=== PATIENT | male | born 1950 | race Asian ===

== ENCOUNTER 2020-02-04 13:55 | Inpatient (IN) | payer MEDICARE, OTHER ==
[~2020-02-04] VITALS: Ht 172.7 cm; Wt 65.3 kg
--- NOTE | 2020-02-04 13:50 | Emergency Room Report ---
History of Present Illness General Chief Complaint: Altered Level of Consciousness Source: Patient Present Illness HPI Patient is a 69-year-old male who presents for increased altered level consciousness. Patient had unknown onset of increased confusion. Prior history of alcohol abuse. Patient been brought in by EMS. 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 Patient History Past Medical History: see triage record Reviewed Nursing Documentation: PMH: Agreed; PSxH: Agreed Review of Systems All Other Systems: negative except mentioned in HPI Physical Exam Vital Signs Date Time Temp Pulse Resp B/P (MAP) Pulse Ox O2 Delivery O2 Flow Rate FiO2 02/04/20 13:45 98.2 66 16 153/74 (100) 99 Sp02 EP Interpretation: reviewed, normal General Appearance: normal inspection, alert, GCS 15, Chronically Ill Head: atraumatic ENT: normal ENT inspection, hearing grossly normal, normal voice Neck: normal inspection, full range of motion, supple, no bony tend Respiratory: normal inspection, lungs clear, normal breath sounds, no respiratory distress, no retraction, no wheezing Cardiovascular #1: regular rate, rhythm, no edema Gastrointestinal: normal inspection, normal bowel sounds, non tender, soft, no guarding, no hernia Genitourinary: no CVA tenderness Musculoskeletal: normal inspection, back normal, normal range of motion Neurologic: alert, responsive, speech normal, normal inspection, other - Oriented to name, does not know the day of the week or the year Psychiatric: normal inspection, judgement/insight normal, mood/affect normal Skin: no rash Medical Decision Making Diagnostic Impression: Primary Impression: Altered level of consciousness Additional Impressions: Dehydration Urinary tract bacterial infections Renal insufficiency ER Course Patient presented for altered mental status. Differential diagnosis include was not limited to CVA, hepatic encephalopathy, urinary tract infection, alcohol intoxication, intracranial hemorrhage among others. Because of complexity of patient's case laboratory tests and imaging studies were ordered.Patient's laboratory testing showed some evidence of urinary infection. Patient was noted markedly elevated BUN/creatinine consistent with dehydration. Started on IV fluids. CT imaging showed no acute pathology. Patient did have some improvement in mental status he was also given IV antibiotics due to urinary infection. Dr. Ebenezer Go was contacted for inpatient management. Labs Test 02/04/20 14:35 02/04/20 14:50 02/04/20 14:51 White Blood Count 9.9 K/UL (4.8-10.8) Red Blood Count 2.86 M/UL (4.70-6.10) Hemoglobin 9.0 G/DL (14.2-18.0) Hematocrit 27.7 % (42.0-52.0) Mean Corpuscular Volume 97 FL (80-99) Mean Corpuscular Hemoglobin 31.4 PG (27.0-31.0) Mean Corpuscular Hemoglobin Concent 32.5 G/DL (32.0-36.0) Red Cell Distribution Width 14.5 % (11.6-14.8) Platelet Count 108 K/UL (150-450) Mean Platelet Volume 6.2 FL (6.5-10.1) Neutrophils (%) (Auto) % (45.0-75.0) Lymphocytes (%) (Auto) % (20.0-45.0) Monocytes (%) (Auto) % (1.0-10.0) Eosinophils (%) (Auto) % (0.0-3.0) Basophils (%) (Auto) % (0.0-2.0) Differential Total Cells Counted 100 Neutrophils % (Manual) 93 % (45-75) Lymphocytes % (Manual) 3 % (20-45) Monocytes % (Manual) 4 % (1-10) Eosinophils % (Manual) 0 % (0-3) Basophils % (Manual) 0 % (0-2) Band Neutrophils 0 % (0-8) Platelet Estimate Decreased Platelet Morphology Normal Red Blood Cell Morphology Normal Prothrombin Time 11.4 SEC (9.30-11.50) Prothromb Time International Ratio 1.0 (0.9-1.1) Activated Partial Thromboplast Time 30 SEC (23-33) Sodium Level 137 MMOL/L (136-145) Potassium Level 4.6 MMOL/L (3.5-5.1) Chloride Level 104 MMOL/L (98-107) Carbon Dioxide Level 25 MMOL/L (21-32) Anion Gap 8 mmol/L (5-15) Blood Urea Nitrogen 93 mg/dL (7-18) Creatinine 3.1 MG/DL (0.55-1.30) Estimat Glomerular Filtration Rate 20.0 mL/min (>60) Glucose Level 145 MG/DL (74-106) Lactic Acid Level 1.30 mmol/L (0.4-2.0) Calcium Level 8.9 MG/DL (8.5-10.1) Phosphorus Level 3.3 MG/DL (2.5-4.9) Magnesium Level 3.3 MG/DL (1.8-2.4) Total Bilirubin 1.0 MG/DL (0.2-1.0) Aspartate Amino Transf (AST/SGOT) 61 U/L (15-37) Alanine Aminotransferase (ALT/SGPT) 27 U/L (12-78) Alkaline Phosphatase 145 U/L (46-116) Ammonia 11 umol/L (11-32) Total Creatine Kinase 811 U/L (26-308) Creatine Kinase MB 31.3 NG/ML (0.0-3.6) Creatine Kinase MB Relative Index 3.8 Troponin I 0.030 ng/mL (0.000-0.056) Total Protein 8.5 G/DL (6.4-8.2) Albumin 3.5 G/DL (3.4-5.0) Globulin 5.0 g/dL Albumin/Globulin Ratio 0.7 (1.0-2.7) Serum Alcohol < 3 mg/dL Urine Color Pale yellow Urine Appearance Cloudy Urine pH 5 (4.5-8.0) Urine Specific [place] 1.010 (1.005-1.035) Urine Protein 3+ (NEGATIVE) Urine Glucose (UA) Negative (NEGATIVE) Urine Ketones Negative (NEGATIVE) Urine Blood 5+ (NEGATIVE) Urine Nitrite Positive (NEGATIVE) Urine Bilirubin Negative (NEGATIVE) Urine Urobilinogen Normal MG/DL (0.0-1.0) Urine Leukocyte Esterase 2+ (NEGATIVE) Urine RBC Tntc /HPF (0 - 0) Urine WBC 15-20 /HPF (0 - 0) Urine Squamous Epithelial Cells Occasional /LPF Urine Bacteria Many /HPF (NONE) Urine Opiates Screen Negative (NEGATIVE) Urine Barbiturates Screen Negative (NEGATIVE) Phencyclidine (PCP) Screen Negative (NEGATIVE) Urine Amphetamines Screen Negative (NEGATIVE) Urine Benzodiazepines Screen Negative (NEGATIVE) Urine Cocaine Screen Negative (NEGATIVE) Urine Marijuana (THC) Screen Negative (NEGATIVE) POC Whole Blood Glucose 151 MG/DL (74-106) Last Vital Signs Date Time Temp Pulse Resp B/P (MAP) Pulse Ox O2 Delivery O2 Flow Rate FiO2 02/04/20 13:45 98.2 66 16 153/74 (100) 99 Status: improved Disposition: PLACE IN OBSERVATION Condition: Stable Boby Carballo MD Feb 04, 2020 13:50
[2020-02-04 15:00] VITALS: BP 153/74
[2020-02-04 15:06] LABS: HEMATOCRIT 27.7 % (42.0-52.0); MEAN CORPUSCULAR VOLUME 97 FL (80-99); PLATELET COUNT 108 K/UL (150-450); RED BLOOD COUNT 2.86 M/UL (4.70-6.10); RED CELL DISTRIBUTION WIDTH 14.5 % (11.6-14.8); WHITE BLOOD COUNT 9.9 K/UL (4.8-10.8)
[2020-02-04 15:21] LABS: AMMONIA 11 umol/L (11-32)
[2020-02-04 15:22] LABS: ANION GAP 8 mmol/L (5-15); BLOOD UREA NITROGEN 93 mg/dL (7-18); CALCIUM 8.9 MG/DL (8.5-10.1); CARBON DIOXIDE 25 MMOL/L (21-32); CHLORIDE 104 MMOL/L (98-107); CREATININE 3.1 MG/DL (0.55-1.30); POTASSIUM 4.6 MMOL/L (3.5-5.1); SODIUM 137 MMOL/L (136-145)
--- NOTE | 2020-02-04 15:30 | Diagnostic Imaging Report ---
Indication: Chest pain Technique: One view of the chest Comparison: none Findings: No acute infiltrates, effusions, or congestion. Tortuous calcified aorta. Normal heart size. Upper mediastinum unremarkable. Impression: No acute process.
[2020-02-04 15:34] LABS: ALANINE AMINOTRANSFERASE 27 U/L (12-78); ALBUMIN 3.5 G/DL (3.4-5.0); ALBUMIN/GLOBULIN RATIO 0.7 (1.0-2.7); ALKALINE PHOSPHATASE 145 U/L (46-116); ASPARTATE AMINO TRANSFERASE 61 U/L (15-37); CKMB 31.3 NG/ML (0.0-3.6); CREATINE KINASE 811 U/L (26-308); PHOSPHORUS 3.3 MG/DL (2.5-4.9)
[2020-02-04 15:47] LABS: BILIRUBIN, URINE NEGATIVE (NEGATIVE); COLOR,URINE PALE YELLOW; GLUCOSE, URINE (UA) NEGATIVE (NEGATIVE); KETONES,URINE NEGATIVE (NEGATIVE); LEUKOCYTE ESTERASE ,URINE 2+ (NEGATIVE); NITRITE,URINE POSITIVE (NEGATIVE); PH,URINE 5 (4.5-8.0); PROTEIN,URINE 3+ (NEGATIVE); UROBILINOGEN,URINE NORMAL MG/DL (0.0-1.0)
[2020-02-04 15:56] LABS: APPEARANCE,URINE CLOUDY
[2020-02-04] MEDS ORDERED: cefTRIAXone 1 GM in NS 55 ML IVPB ONE (16:30)
--- NOTE | 2020-02-04 17:25 | Diagnostic Imaging Report ---
Indications: Altered mental status Technique: Spiral acquisitions obtained through the brain. Angled axial and coronal 5 x 5 mm slices were reconstructed. Total dose length product 1030 mGycm. CTDI vol(s) 3 mGy. Dose reduction achieved using automated exposure control Comparison: None. Findings: There is age-related enlargement of the ventricles and extra axial CSF spaces. There is periventricular deep white matter low-attenuation, consistent with chronic microvascular ischemic change. No acute intracranial hemorrhage or edema. No mass effect nor midline shift. Normal young-white differentiation otherwise. The mastoids are clear. The sinuses are clear. There is evidence of a bilateral cataract surgery. The calvarium is intact Impression: Chronic and age-related changes Negative for acute intracranial bleed or mass effect The CT scanner at [facility] is accredited by the [employer] and the scans are performed using protocols designed to limit radiation exposure to as low as reasonably achievable to attain images of sufficient resolution adequate for diagnostic evaluation.
[2020-02-04 22:00] VITALS: BP 168/73
[2020-02-05] MEDS: LORazepam Inj 2mg/ml 1ml IV PRN ×3 (00:11→10:17)
[2020-02-05] MEDS ORDERED: Cefepime HCl 1 GM in D5W 55 ML IVPB SCH ×2 (01:00→05:00)
[2020-02-05 04:00] VITALS: BP 112/67
[2020-02-05 08:00] VITALS: BP 161/68
[2020-02-05 12:00] VITALS: BP 166/82
[2020-02-05 16:00] VITALS: BP 118/68
--- NOTE | 2020-02-05 16:29 | Consultation ---
DATE OF CONSULTATION: 02/05/2020 NEPHROLOGY CONSULTATION CONSULTING PHYSICIAN: Greg Garcia MD. ATTENDING PHYSICIAN: Ebenezer Go MD. REASON FOR CONSULTATION: Elevated BUN and creatinine. HISTORY OF PRESENT ILLNESS: This is a 69-year-old male. The patient is confused and unable to give any further information. He is originally from home brought by ambulance. Apparently, he was brought in by a neighbor who called 911. PAST MEDICAL HISTORY: Essentially negative. MEDICATIONS: None. ALLERGIES: No known allergies. REVIEW OF SYSTEMS: Unable to obtain due to mental status. PHYSICAL EXAMINATION: GENERAL: This is an elderly male, who is in no acute distress. VITAL SIGNS: Blood pressure 166/82, pulse 75 and regular, respirations 18, and temperature 97.5 Fahrenheit oral. HEENT: The head is normocephalic and atraumatic. Pupils are equal, round, and reactive to light. NECK: Supple. Trachea midline. There was no lymphadenopathy or thyromegaly. LUNGS: Clear to auscultation and percussion. HEART: Regular rate and rhythm without rubs, murmurs, or gallops. ABDOMEN: Soft and nontender. Bowel sounds were active. EXTREMITIES: No clubbing, cyanosis, or edema. NEUROLOGICAL: He is confused. There were no gross focal findings. LABORATORY AND ANCILLARY DATA: CBC shows hematocrit 27.7, platelet count is 108,000. Serum toxicology negative. Chemistry, electrolytes within normal limits. Creatinine 3.1, BUN 93. Alkaline phosphatase 145. CPK 811. Urinalysis - 3+ protein, 5+ blood, positive nitrites, too numerous to count rbc's, 15 to 20 white blood cells. IMAGING REPORTS: Head CT, age-related enlargement of the ventricle. No acute findings. Chest x-ray, no acute disease. ASSESSMENT: My suspicion is the existence of acute rhabdomyolysis of whatever reason or another reason for acute renal failure such as acute tubular necrosis for whatever reasons be it metabolic or toxic. We will check renal ultrasound and follow the patient's serial chemistry. Thank you, Dr. Go, for letting me to participate in the care of this interesting patient. Greg Garcia M.D. DR: DAVID JOB#: [id number] CC: JULIET
--- NOTE | 2020-02-05 16:59 | History and Physical Report ---
DATE OF ADMISSION: 02/04/2020 REASON FOR ADMISSION: Altered mental status. HISTORY OF PRESENT ILLNESS: This is a 69-year-old male who presents with worsening confusion. The patient has unknown familiarity and time. The patient has a history of alcohol use in the past. Further history is unobtainable. The patient is not communicative at present. Care discussed and reviewed. The patient admitted for further evaluation and intervention. The patient is confused, but in no significant distress. Findings in the emergency room revealed renal failure. PAST MEDICAL HISTORY: None. MEDICATIONS: None. SOCIAL HISTORY: Unclear. REVIEW OF SYSTEMS: Unobtainable due to the patient's present state. PHYSICAL EXAMINATION: GENERAL: The patient is a well-developed male, appears comfortable. VITAL SIGNS: Blood pressure 161/68, pulse 84, respirations 18, temperature 97.5. O2 sats 98%. HEENT: Negative. NECK: Supple. LUNGS: Fairly clear, symmetric. CARDIAC: S1, S2. Regular rate and rhythm. ABDOMEN: Soft. EXTREMITIES: No edema. NEUROLOGIC: The patient is moving all extremities. LABORATORY DATA: Head CT is essentially negative. BUN 293 , creatinine 3.1. Magnesium 3.3. Total CK is 811. Albumin is normal. IMPRESSION: 1. Likely acute on chronic renal failure. 2. Toxic metabolic encephalopathy of unclear etiology. 3. Possible urinary tract infection. RECOMMENDATIONS: Supportive care. Physical therapy to see. We will attempt to discuss with the family as to prior status and medication list present. We will follow clinically, obtain urine evaluation. Consider neurological evaluation. Monitor clinically for changes and optimize care. Ebenezer Go M.D. DR: LILIANA JOB#: [id number] CC:
[2020-02-05 20:00] VITALS: BP 163/74
[2020-02-06] VITALS: BP 146/56
[2020-02-06 04:00] VITALS: BP 144/61
[2020-02-06] MEDS: Cefepime HCl 1 GM in D5W 55 ML IVPB SCH (06:06)
[2020-02-06 06:42] LABS: BLOOD UREA NITROGEN 67 mg/dL (7-18); CALCIUM 8.2 MG/DL (8.5-10.1); CARBON DIOXIDE 22 MMOL/L (21-32); CHLORIDE 115 MMOL/L (98-107); CREATININE 2.5 MG/DL (0.55-1.30); POTASSIUM 4.7 MMOL/L (3.5-5.1); SODIUM 144 MMOL/L (136-145)
[2020-02-06 08:00] VITALS: BP 155/88
[2020-02-06 12:00] VITALS: BP 132/87
--- NOTE | 2020-02-06 12:13 | Nephrology Progress Note ---
Assessment/Plan Plan ARF -resolving Check renal US Subjective Subjective Confused Objective Objective Last 24 Hour Vital Signs Date Time Temp Pulse Resp B/P (MAP) Pulse Ox O2 Delivery O2 Flow Rate FiO2 02/06/20 09:00 Room Air 02/06/20 08:00 99.3 75 20 155/88 (110) 98 02/06/20 04:00 98.7 64 18 144/61 (88) 99 02/06/20 00:00 99.8 65 18 146/56 (86) 97 02/05/20 22:55 99.0 02/05/20 22:23 163/74 02/05/20 21:00 Room Air 02/05/20 20:00 100.7 80 18 163/74 (103) 95 02/05/20 16:00 100.5 76 18 118/68 (85) 98 Intake and Output 02/05/20 02/06/20 19:00 07:00 Intake Total 1000 ml 460 ml Output Total 700 ml 600 ml Balance 300 ml -140 ml IV Total 800 ml 100 ml Other 200 ml 360 ml Output Urine Total 700 ml 600 ml Laboratory Tests 02/06/20 05:30: Sodium Level 144, Potassium Level 4.7, Chloride Level 115H, Carbon Dioxide Level 22, Blood Urea Nitrogen 67H, Creatinine 2.5H, Estimat Glomerular Filtration Rate 25.7, Glucose Level 113H, Calcium Level 8.2L, Phosphorus Level 3.0 Height (Feet): 5 Height (Inches): 8.00 Weight (Pounds): 144 Objective CV RR Lungs CTA Abd SNT BS+ E No CCE Greg Garcia MD Feb 06, 2020 12:13
--- NOTE | 2020-02-06 14:18 | General Progress Note ---
Subjective Allergies: Coded Allergies: No Known Allergies (Unverified , 02/04/20) Subjective care noted and reviewed still altered unclear as to living conditions Objective Last 24 Hour Vital Signs Date Time Temp Pulse Resp B/P (MAP) Pulse Ox O2 Delivery O2 Flow Rate FiO2 02/06/20 09:00 Room Air 02/06/20 08:00 99.3 75 20 155/88 (110) 98 02/06/20 04:00 98.7 64 18 144/61 (88) 99 02/06/20 00:00 99.8 65 18 146/56 (86) 97 02/05/20 22:55 99.0 02/05/20 22:23 163/74 02/05/20 21:00 Room Air 02/05/20 20:00 100.7 80 18 163/74 (103) 95 02/05/20 16:00 100.5 76 18 118/68 (85) 98 Intake and Output 02/05/20 02/06/20 19:00 07:00 Intake Total 1000 ml 460 ml Output Total 700 ml 600 ml Balance 300 ml -140 ml IV Total 800 ml 100 ml Other 200 ml 360 ml Output Urine Total 700 ml 600 ml Laboratory Tests 02/06/20 05:30: Sodium Level 144, Potassium Level 4.7, Chloride Level 115H, Carbon Dioxide Level 22, Blood Urea Nitrogen 67H, Creatinine 2.5H, Estimat Glomerular Filtration Rate 25.7, Glucose Level 113H, Calcium Level 8.2L, Phosphorus Level 3.0 Height (Feet): 5 Height (Inches): 8.00 Weight (Pounds): 144 Objective WDWN NAD clear breath sounds bilaterally without rhonchi or wheeze [id number] without MRG NABS nontender no HSM no CCE nonfocal confused Assessment/Plan Assessment/Plan: UTI acute on chronic renal failure anemia toxic metabolic encephalopathy elevated liver enzymes PLAN care noted monitor labs iv hydration PT eval CM to assist with placement impression, plan, and exam edited and reviewed in detail care discussed with Ebenezer Walters MD Feb 06, 2020 14:18
[2020-02-06 16:00] VITALS: BP 118/75
--- NOTE | 2020-02-06 17:12 | Diagnostic Imaging Report ---
Indication: Is abnormal renal function tests Technique: Grayscale and duplex images of the kidneys, retroperitoneum, and bladder were obtained. Comparison: none Findings: Right kidney measures 10.3 cm in length. Left kidney measures 10.2 cm in length. Both kidneys demonstrate normal echogenicity. No hydronephrosis. No focal abnormality. Normal inferior vena cava. Bladder is normal. Impression: negative.
[2020-02-06 20:00] VITALS: BP 130/78
[2020-02-07] VITALS (7 sets, daily range): BP systolic 124–169; BP diastolic 51–92
[2020-02-07] MEDS: LORazepam Inj 2mg/ml 1ml IV PRN (01:53)
[2020-02-07] MEDS: Cefepime HCl 1 GM in D5W 55 ML IVPB SCH (05:13)
[2020-02-07 07:37] LABS: CREATININE 2.7 MG/DL (0.55-1.30); POTASSIUM 4.5 MMOL/L (3.5-5.1)
--- NOTE | 2020-02-07 08:55 | General Progress Note ---
Subjective ROS Limited/Unobtainable: Yes Allergies: Coded Allergies: No Known Allergies (Unverified , 02/04/20) Subjective care noted and reviewed LOC without change unclear as to living conditions Objective Last 24 Hour Vital Signs Date Time Temp Pulse Resp B/P (MAP) Pulse Ox O2 Delivery O2 Flow Rate FiO2 02/07/20 05:16 167/86 02/07/20 04:00 98.9 82 16 169/81 (110) 98 02/07/20 02:23 98 18 127/92 98 02/07/20 01:53 98 18 127/92 98 02/07/20 01:14 99.6 02/07/20 00:30 99.6 02/07/20 00:00 100.6 98 18 127/92 (104) 98 02/06/20 21:00 Room Air 02/06/20 20:00 98.7 83 20 130/78 (95) 99 02/06/20 16:00 97.9 76 20 118/75 (89) 98 02/06/20 12:00 99.1 75 20 132/87 (102) 99 02/06/20 09:00 Room Air Intake and Output 02/06/20 02/07/20 19:00 07:00 Intake Total 1580 ml 400 ml Output Total 875 ml 750 ml Balance 705 ml -350 ml Intake Oral 480 ml IV Total 1100 ml Other 400 ml Output Urine Total 875 ml 750 ml Laboratory Tests 02/07/20 06:50: Sodium Level 148H, Potassium Level 4.5, Chloride Level 120H, Carbon Dioxide Level 19L, Anion Gap 9, Blood Urea Nitrogen 60H, Creatinine 2.7H, Estimat Glomerular Filtration Rate 23.5, Glucose Level 138H, Calcium Level 8.0L, Magnesium Level 2.7H Height (Feet): 5 Height (Inches): 8.00 Weight (Pounds): 144 Objective WDWN NAD clear breath sounds bilaterally without rhonchi or wheeze [id number] without MRG NABS nontender no HSM no CCE nonfocal confused Assessment/Plan Assessment/Plan: UTI acute on chronic renal failure anemia toxic metabolic encephalopathy elevated liver enzymes hypertension PLAN care noted monitor labs iv hydration PT eval CM to assist with placement written BP support impression, plan, and exam edited and reviewed in detail care discussed with Ebenezer Walters MD Feb 07, 2020 08:55
--- NOTE | 2020-02-07 11:41 | Nephrology Progress Note ---
Assessment/Plan Plan ARF -resolving. Creatinine now stable. Check 24 hour Ccr. Check renal US - normal study. Subjective Subjective Confused Objective Objective Last 24 Hour Vital Signs Date Time Temp Pulse Resp B/P (MAP) Pulse Ox O2 Delivery O2 Flow Rate FiO2 02/07/20 09:26 68 155/65 02/07/20 09:00 Room Air 02/07/20 08:00 97.9 68 20 155/65 (95) 98 02/07/20 05:16 167/86 02/07/20 04:00 98.9 82 16 169/81 (110) 98 02/07/20 02:23 98 18 127/92 98 02/07/20 01:53 98 18 127/92 98 02/07/20 01:14 99.6 02/07/20 00:30 99.6 02/07/20 00:00 100.6 98 18 127/92 (104) 98 02/06/20 21:00 Room Air 02/06/20 20:00 98.7 83 20 130/78 (95) 99 02/06/20 16:00 97.9 76 20 118/75 (89) 98 02/06/20 12:00 99.1 75 20 132/87 (102) 99 Intake and Output 02/06/20 02/07/20 19:00 07:00 Intake Total 1580 ml 500 ml Output Total 875 ml 750 ml Balance 705 ml -250 ml Intake Oral 480 ml IV Total 1100 ml 100 ml Other 400 ml Output Urine Total 875 ml 750 ml Laboratory Tests 02/07/20 06:50: Sodium Level 148H, Potassium Level 4.5, Chloride Level 120H, Carbon Dioxide Level 19L, Anion Gap 9, Blood Urea Nitrogen 60H, Creatinine 2.7H, Estimat Glomerular Filtration Rate 23.5, Glucose Level 138H, Calcium Level 8.0L, Magnesium Level 2.7H Height (Feet): 5 Height (Inches): 8.00 Weight (Pounds): 144 Objective CV RR Lungs CTA Abd SNT BS+ E No CCE Greg Garcia MD Feb 07, 2020 11:41
[2020-02-08] VITALS (8 sets, daily range): BP systolic 141–200; BP diastolic 67–81
[2020-02-08] MEDS: Cefepime HCl 1 GM in D5W 55 ML IVPB SCH (04:49)
[2020-02-08 06:45] LABS: CALCIUM 7.6 MG/DL (8.5-10.1); CREATININE 2.6 MG/DL (0.55-1.30); POTASSIUM 4.1 MMOL/L (3.5-5.1)
--- NOTE | 2020-02-08 09:09 | General Progress Note ---
Subjective Allergies: Coded Allergies: No Known Allergies (Unverified , 02/04/20) Subjective care noted and reviewed LOC without change unclear as to living conditions Objective Last 24 Hour Vital Signs Date Time Temp Pulse Resp B/P (MAP) Pulse Ox O2 Delivery O2 Flow Rate FiO2 02/08/20 08:26 67 200/71 02/08/20 08:26 200/71 02/08/20 04:00 98.6 84 20 176/81 (112) 95 02/08/20 03:58 176/81 02/08/20 00:00 98.5 69 20 141/78 (99) 98 02/07/20 20:12 Room Air 02/07/20 20:00 98.9 62 20 149/71 (97) 95 02/07/20 18:21 98.0 63 20 124/51 (75) 97 02/07/20 17:27 98.6 02/07/20 16:56 165/72 02/07/20 16:00 98.6 75 20 165/72 (103) 97 02/07/20 12:20 168/79 02/07/20 12:00 98.1 72 20 168/79 (108) 97 02/07/20 09:26 68 155/65 Intake and Output 02/07/20 02/08/20 19:00 07:00 Intake Total 1600 ml 800 ml Output Total 600 ml Balance 1600 ml 200 ml Intake Oral 600 ml 800 ml IV Total 1000 ml Output Urine Total 600 ml Laboratory Tests 02/08/20 05:45: Sodium Level 140, Potassium Level 4.1, Chloride Level 113H, Carbon Dioxide Level 18L, Anion Gap 9, Blood Urea Nitrogen 57H, Creatinine 2.6H, Estimat Glomerular Filtration Rate 24.5, Glucose Level 153H, Calcium Level 7.6L Height (Feet): 5 Height (Inches): 8.00 Weight (Pounds): 144 Objective WDWN NAD clear breath sounds bilaterally without rhonchi or wheeze [id number] without MRG NABS nontender no HSM no CCE nonfocal confused Assessment/Plan Assessment/Plan: UTI acute on chronic renal failure anemia toxic metabolic encephalopathy elevated liver enzymes hypertension PLAN care noted monitor labs iv hydration PT eval CM to assist with placement written BP support- adjust impression, plan, and exam edited and reviewed in detail care discussed with Ebenezer Walters MD Feb 08, 2020 09:09
[2020-02-08 12:58] LABS: CREATININE 2.6 MG/DL (0.55-1.30)
--- NOTE | 2020-02-08 13:03 | Nephrology Progress Note ---
Assessment/Plan Plan ARF -resolving. Creatinine now stable. Check 24 hour Ccr. Check renal US - normal study. Subjective Subjective Confused Objective Objective Last 24 Hour Vital Signs Date Time Temp Pulse Resp B/P (MAP) Pulse Ox O2 Delivery O2 Flow Rate FiO2 02/08/20 09:49 98.9 69 19 160/75 (103) 96 02/08/20 09:00 Room Air 02/08/20 08:26 67 200/71 02/08/20 08:26 200/71 02/08/20 08:00 99.1 67 18 200/71 (114) 95 02/08/20 04:00 98.6 84 20 176/81 (112) 95 02/08/20 03:58 176/81 02/08/20 00:00 98.5 69 20 141/78 (99) 98 02/07/20 20:12 Room Air 02/07/20 20:00 98.9 62 20 149/71 (97) 95 02/07/20 18:21 98.0 63 20 124/51 (75) 97 02/07/20 17:27 98.6 02/07/20 16:56 165/72 02/07/20 16:00 98.6 75 20 165/72 (103) 97 Intake and Output 02/07/20 02/08/20 19:00 07:00 Intake Total 1600 ml 800 ml Output Total 600 ml Balance 1600 ml 200 ml Intake Oral 600 ml 800 ml IV Total 1000 ml Output Urine Total 600 ml Laboratory Tests 02/08/20 05:45: Sodium Level 140, Potassium Level 4.1, Chloride Level 113H, Carbon Dioxide Level 18L, Anion Gap 9, Blood Urea Nitrogen 57H, Creatinine 2.6H, Estimat Glomerular Filtration Rate 24.5, Glucose Level 153H, Calcium Level 7.6L 02/08/20 12:00: Creatinine 2.6H, Estimat Glomerular Filtration Rate 24.5, Urine Collection Time 24, Urine Total Volume 1200, Urine Creatinine [Pending], Urine Creatinine 24 Hour [Pending], Patient Height Inches (Creat Clear) 68, Patient Weight Pounds (Creat Clear) 143.99, Creatinine Clearance [Pending] Height (Feet): 5 Height (Inches): 8.00 Weight (Pounds): 144 Objective CV RR Lungs CTA Abd SNT BS+ E No CCE Greg Garcia MD Feb 08, 2020 13:03
[2020-02-09] VITALS: BP 168/76
[2020-02-09 04:00] VITALS: BP 156/77
[2020-02-09] MEDS: Cefepime HCl 1 GM in D5W 55 ML IVPB SCH (04:14)
[2020-02-09 08:00] VITALS: BP 158/88
[2020-02-09] MEDS ORDERED: AMLODIPINE BESYL5 MG ORAL (10:25)
[2020-02-09] MEDS ORDERED: BENAZEPRIL HCL20 MG ORAL (10:25)
[2020-02-09] MEDS ORDERED: CATAPRES0.1 MG ORAL (10:28)
[2020-02-09] MEDS ORDERED: PANTOPRAZOLE SO40 MG ORAL (10:28)
[2020-02-09] MEDS ORDERED: CEFEPIME-D1 GM/50 ML IVPB (10:29)
--- NOTE | 2020-02-09 11:02 | Pulmonology Progress Note ---
Subjective ROS Limited/Unobtainable: Yes Allergies: Coded Allergies: No Known Allergies (Unverified , 02/04/20) Objective Last 24 Hour Vital Signs Date Time Temp Pulse Resp B/P (MAP) Pulse Ox O2 Delivery O2 Flow Rate FiO2 02/09/20 09:00 Room Air 02/09/20 09:00 158/88 02/09/20 09:00 60 158/88 02/09/20 08:00 98.1 60 19 158/88 (111) 98 02/09/20 04:47 156/77 02/09/20 04:00 97.0 61 18 156/77 (103) 99 02/09/20 00:13 168/76 02/09/20 00:00 97.0 63 19 168/76 (106) 98 02/08/20 20:25 Room Air 02/08/20 20:00 97.0 61 18 143/75 (97) 99 02/08/20 18:05 68 151/72 02/08/20 17:50 98.4 68 20 151/72 (98) 96 02/08/20 16:47 184/67 02/08/20 16:00 98.4 71 20 184/67 (106) 95 02/08/20 13:25 193/70 02/08/20 12:00 98.0 65 19 193/70 (111) 95 Intake and Output 02/08/20 02/09/20 19:00 07:00 Intake Total 1160 ml 480 ml Output Total 600 ml 400 ml Balance 560 ml 80 ml Intake Oral 1160 ml 480 ml Output Urine Total 600 ml 400 ml Laboratory Tests 02/08/20 12:00: Urine Collection Time 24, Urine Total Volume 1200, Urine Creatinine 96, Urine Creatinine 24 Hour 1152, Patient Height Inches (Creat Clear) 68, Patient Weight Pounds (Creat Clear) 143.99, Creatinine Clearance 30L, Creatinine 2.6H, Estimat Glomerular Filtration Rate 24.5 Current Medications Medications (Trade) Dose Ordered Sig/James Route PRN Reason Start Time Stop Time Status Last Admin Dose Admin Acetaminophen (Tylenol) 650 mg Q4H PRN ORAL Temp >100.5 02/04/20 23:15 03/05/20 23:14 02/05/20 22:25 Acetaminophen (Tylenol) 650 mg Q4H PRN ORAL Mild Pain (Pain Scale 1-3) 02/04/20 23:15 03/05/20 23:14 02/09/20 00:14 Al Hydroxide/Mg Hydroxide (Mylanta) 30 ml FOUR TIMES A DAY PRN ORAL Constipation 02/04/20 23:15 03/05/20 23:14 02/05/20 22:23 Amlodipine Besylate (Norvasc) 5 mg BID ORAL 02/08/20 18:00 03/08/20 17:59 02/08/20 18:05 Benazepril HCl (Lotensin) 20 mg DAILY ORAL 02/09/20 09:00 03/10/20 08:59 Cefepime HCl 1 gm/ Dextrose 55 ml @ 110 mls/hr Q24H IVPB 02/06/20 05:00 02/13/20 04:59 02/09/20 04:14 Clonidine HCl (Catapres Tab) 0.1 mg Q4H PRN ORAL For High Blood Pressure 02/05/20 08:00 05/05/20 07:59 02/09/20 04:47 Lorazepam (Ativan 2mg/ml 1ml) 1 mg Q3H PRN IV Agitation 02/04/20 23:15 02/11/20 23:14 02/07/20 01:53 Pantoprazole (Protonix) 40 mg DAILY ORAL 02/05/20 09:00 03/06/20 08:59 02/08/20 08:24 Sodium Chloride 1,000 ml @ 60 mls/hr [id number] IV 02/08/20 17:15 03/08/20 10:44 02/09/20 08:59 Assessment/Plan Assessment/Plan Pulmonary Progress Note Subjective ROS Limited/Unobtainable: Yes Allergies: Coded Allergies: No Known Allergies (Unverified , 02/04/20) Subjective care noted and reviewed LOC without change Objective Vital Signs noted Laboratory Tests noted Height (Feet): 5 Height (Inches): 8.00 Weight (Pounds): 144 Objective WDWN NAD clear breath sounds bilaterally without rhonchi or wheeze [id number] without MRG NABS nontender no HSM no CCE nonfocal confused Assessment/Plan Assessment/Plan: UTI acute on chronic renal failure anemia toxic metabolic encephalopathy elevated liver enzymes hypertension PLAN care noted monitor labs dc planning to [facility] eval CM to assist with placement written BP support impression, plan, and exam edited and reviewed in detail care discussed with RN Cristopher Larson MD Feb 09, 2020 11:02
[2020-02-09] MEDS ORDERED: Milk of Magnesia 30ml Ud ORAL PRN (11:15)
[2020-02-09 12:00] VITALS: BP 152/75
--- NOTE | 2020-02-09 12:08 | Nephrology Progress Note ---
Assessment/Plan Plan ARF -resolving. Creatinine now stable. Check 24 hour Ccr. Check renal US - normal study. Subjective Subjective Confused Objective Objective Last 24 Hour Vital Signs Date Time Temp Pulse Resp B/P (MAP) Pulse Ox O2 Delivery O2 Flow Rate FiO2 02/09/20 09:00 Room Air 02/09/20 09:00 158/88 02/09/20 09:00 60 158/88 02/09/20 08:00 98.1 60 19 158/88 (111) 98 02/09/20 04:47 156/77 02/09/20 04:00 97.0 61 18 156/77 (103) 99 02/09/20 00:13 168/76 02/09/20 00:00 97.0 63 19 168/76 (106) 98 02/08/20 20:25 Room Air 02/08/20 20:00 97.0 61 18 143/75 (97) 99 02/08/20 18:05 68 151/72 02/08/20 17:50 98.4 68 20 151/72 (98) 96 02/08/20 16:47 184/67 02/08/20 16:00 98.4 71 20 184/67 (106) 95 02/08/20 13:25 193/70 Intake and Output 02/08/20 02/09/20 19:00 07:00 Intake Total 1160 ml 480 ml Output Total 600 ml 400 ml Balance 560 ml 80 ml Intake Oral 1160 ml 480 ml Output Urine Total 600 ml 400 ml Height (Feet): 5 Height (Inches): 8.00 Weight (Pounds): 144 Objective CV RR Lungs CTA Abd SNT BS+ E No CCE Greg Garcia MD Feb 09, 2020 12:08
--- NOTE | 2020-02-11 09:16 | Discharge Summary ---
Discharge Summary Discharge Summary _ DATE OF ADMISSION: 02/04/2020 DATE OF DISCHARGE: 02/09/2020 DISCHARGED BY: Dr. Go REASON FOR ADMISSION: 69 years old male with past medical history of liver cirrhosis, hypertension, history of alcohol abuse, renal insufficiency, presented with altered level of consciousness. Upon evaluation vital signs were stable. Laboratory work-up revealed no leukocytosis ,hemoglobin 9, hematocrit 27.7 , platelet count 108. BUN 93, creatinine 3.1. Glucose 145. Lactic acid 1.3. Troponin 0.03. AST 61, ALT 27 , ammonia 11. Urinalysis revealed +3 protein, +2 leukocyte esterase, pyuria and many bacteria. Urine toxicology screen was negative. Serum alcohol level was less than 3. Chest x-ray revealed no acute cardiopulmonary pathology. CT of the head revealed chronic and age-related changes, but no acute intracranial bleeding or mass-effect. Patient started on the IV fluids and empiric antibiotic for UTI and admitted to medical surgical floor for further management. CONSULTANTS: staff counsel Dr. Garcia [facility] COURSE: Patient admitted to medical surgical floor and started on IV hydration and empiric antibiotic. Registered Nurse Maternal Child consulted. Renal ultrasound was negative :no evidence of hydronephrosis , no focal abnormalities, normal bilateral kidney echogenicity. Urine culture revealed Citrobacter. Blood cultures were negative. Rapid COVID-19 was negative. Urine studies were done. Renal parameters and electrolytes were closely monitored , electrolytes corrected as needed , and nephrotoxic's were avoided. With IV hydration creatinine from 3.1 down to 2.6 , BUN from 93 down to 57. Blood pressure was managed with SATYA inhibitor and calcium channel bryson. DVT and GI prophylaxis provided. Patient clinically stabilized. Placement was arranged to the alf facility . Patient was stable for transfer FINAL DIAGNOSES: Acute on chronic renal failure Toxic metabolic encephalopathy Urinary tract infection with Citrobacter Anemia Liver cirrhosis Elevated liver enzymes Hypertension DISCHARGE MEDICATIONS: See Medication Reconciliation list. DISCHARGE INSTRUCTIONS: Patient was discharged to the alf facility. Follow up with medical doctor at the facility. I have been assigned to dictate discharge summary for this account. I was not involved in the patient's management. Clarissa Isaac NP Feb 11, 2020 09:16
== END 2020-02-09 15:15 | DRG 682 ==
LOC: EDBD 13:55 → EMR 14:00 → EDBEDREQ 17:34 → OBSVTOIN 17:52 → 4E 17:52 → EDBEDREQ 19:00 → EDBEDREQSVC 19:00 → EDBEDREQ 20:43
DX: N17.9 Acute kidney failure, unspecified (principal); G92 Toxic encephalopathy; M62.82 Rhabdomyolysis; N39.0 Urinary tract infection, site not specified; E86.0 Dehydration; K74.60 Unspecified cirrhosis of liver; I12.9 Hypertensive chronic kidney disease with stage 1 through stage 4 chronic kidney disease, or unspecified chronic kidney disease; N18.9 Chronic kidney disease, unspecified; B96.89 Other specified bacterial agents as the cause of diseases classified elsewhere; R74.8 Abnormal levels of other serum enzymes
CPT/HCPCS: 36415; 70450; 71045; 76770; 80048; 80053; 80307; 81003; 82140; 82550; 82553; 82575; 82962; 83605; 83735; 84100; 84484; 85007; 85025; 85610; 85730; 86850; 86900; 86901; 87040; 87086; 87181; 93005; 96361; 96365; 96375; 99285; G0480; J7030; U0002

== ENCOUNTER 2020-03-07 05:16 | Inpatient (IN) | payer MEDICARE, OTHER ==
--- NOTE | 2020-03-04 22:00 | NUR ---
NURSE NOTES: responded back. orders noted and carried out. Addendum: 03/08/20 at 0344 by KEZIA Rasheed RN wrong date. error
[2020-03-07] VITALS (7 sets, daily range): BP systolic 116–138; BP diastolic 67–88
[~2020-03-07] VITALS: Ht 162.6 cm; Wt 69.9 kg
[~2020-03-07 05:16] MED LIST: AMLODIPINE BESYL5 MG ORAL; BENAZEPRIL HCL20 MG ORAL; CATAPRES0.1 MG ORAL; CEFEPIME-D1 GM/50 ML IVPB; PANTOPRAZOLE SO40 MG ORAL
--- NOTE | 2020-03-07 05:20 | NUR ---
ED Nurse Note: Patient brought into ED by NIDHI Singh from [facility] for shortness of breath and oxygen desaturation. Per NIDHI, patient was found to have an oxygen saturation of 80% on room air at facility this morning. Patient was placed on 15L oxygen via NRB by paramedics. Upon ED arrival, patient is short of breath with labored breathing and accessory muscle use. Patient connected to equipment monitor phototypesetting and his oxygen saturation on NRB is 91-94%. Patient is very restless and moving all extremities. He is verbally responsive, but unclear if mental status is baseline or not. Patient is rambling words. IV line established, blood drawn and sent to lab. Safety measures in place.
--- NOTE | 2020-03-07 05:26 | Emergency Room Report ---
History of Present Illness General Chief Complaint: Dyspnea/Respdistress Source: Medical Record, EMS (Ramin Delgado MD) Present Illness HPI 69-year-old male presents for shortness of breath. Brought in by EMS from senior care facility. Per nursing staff patient became hypoxic starting a few hours ago. Patient placed on nonrebreather. Patient no reported fevers or chills. No chest pain. Unknown whether patient has been tested for Covid. Per nursing records. No other aggravating relieving factors. No other associated symptoms (Ramin Delgado MD) Allergies: Coded Allergies: No Known Allergies (Unverified , 02/04/20) COVID-19 Screening Contact w/high risk pt: No Experienced COVID-19 symptoms?: Yes COVID-19 Testing performed FRUIT CHECKER: No - unk (Ramin Delgado MD) Patient History Past Medical History: HTN Past Surgical History: none Pertinent Family History: none Social History: Denies: smoking, alcohol use, drug use Immunizations: UTD Reviewed Nursing Documentation: PMH: Agreed; PSxH: Agreed (Ramin Delgado MD) Nursing Documentation-PMH Past Medical History: No History, Except For Hx Hypertension: Yes - HTN Hx Cancer: No Hx Neurological Problems: No (Ramin Delgado MD) Review of Systems All Other Systems: negative except mentioned in HPI (Ramin Delgado MD) Physical Exam Vital Signs Date Time Temp Pulse Resp B/P (MAP) Pulse Ox O2 Delivery O2 Flow Rate FiO2 03/07/20 05:07 98.8 77 19 138/88 (105) 91 Non-Rebreather 15.0 Sp02 EP Interpretation: reviewed, normal General Appearance: alert, GCS 15, non-toxic, mild distress Head: normocephalic, atraumatic Eyes: bilateral eye normal inspection, bilateral eye PERRL ENT: hearing grossly normal, normal pharynx, no angioedema, normal voice Neck: full range of motion, supple/symm/no masses Respiratory: chest non-tender, crackles, speaking full sentences Cardiovascular #1: regular rate, rhythm, no edema Cardiovascular #2: 2+ carotid (R), 2+ carotid (L), 2+ radial (R), 2+ radial (L), 2+ dorsalis pedis (R), 2+ dorsalis pedis (L) Gastrointestinal: normal bowel sounds, non tender, soft, non-distended, no guarding, no rebound Rectal: deferred Genitourinary: normal inspection, no CVA tenderness Musculoskeletal: back normal, normal range of motion, gait/station normal, non- tender Neurologic: alert, motor strength/tone normal, oriented x3, sensory intact, responsive, speech normal Psychiatric: judgement/insight normal, memory normal, mood/affect normal, no suicidal/homicidal ideation Reflexes: 3+ bicep (R), 3+ bicep (L), 3+ tricep (R), 3+ tricep (L), 3+ knee (R), 3+ knee (L) Skin: other - see nursing notes Lymphatic: no adenopathy (Ramin Delgado MD) Procedures Critical Care Time Critical Care Time Total critical care time: Approximately 45 minutes Due to a high probability of clinically significant, life threatening deterioration, the patient required the highest level of preparedness to intervene emergently and I personally spent this critical care time directly and personally managing the patient. This critical care time included obtaining a history, examining the patient, pulse oximetry, ordering and reviewing studies, ordering treatments, evaluating response to treatment and updating management plan as needed, frequent reassessment and discussion with other providers as well as arranging for ultimate disposition. This critical to care time was performed to assess and manage the high probability of life-threatening deteri oration that could result in multiorgan failure. This critical care time is separate from the separately billable procedures and treating other patients. (Bruno Ospina MD) Medical Decision Making Medicare Attestation The history of Clovis Mercedes has been reviewed and management options for him have been examined and discussed by Ramin Delgado. I have personally examined and interviewed the patient. (Ramin Delgado MD) Diagnostic Impression: Primary Impression: Respiratory distress Additional Impressions: Pneumonia due to COVID-19 virus Hyperkalemia Pancreatitis UTI (urinary tract infection) Renal failure ER Course Assumed care of the patient from the previous provider at approximately 0 600. Please refer to initial note for full history and physical exam. Briefly, 69-year-old male brought in for respiratory distress. He has tested Covid positive with bilateral infiltrates on his x-ray. D-dimer slightly elevated though potassium is significantly elevated at 7.7. Treated with insulin, dextrose and calcium. The patient was given ceftriaxone azithromycin as well as dexamethasone. Oxygen saturations are stable. Lipase elevated. Will admit to his PMD Dr. Go Sepsis reevaluation: I, Dr. Bruno Ospina, reevaluated the patient Capillary refill: Less than 2 seconds MAP: 67 Heart rate: 77 Respiratory rate: 21 Initial Lactate: 2.0 Repeat Lactate: [] Pressors: Not indicated at this time No signs of fluid overload Laboratory Tests Test 03/07/20 05:20 White Blood Count 7.0 K/UL (4.8-10.8) Red Blood Count 3.30 M/UL (4.70-6.10) L Hemoglobin 10.1 G/DL (14.2-18.0) L Hematocrit 29.3 % (42.0-52.0) L Mean Corpuscular Volume 89 FL (80-99) Mean Corpuscular Hemoglobin 30.6 PG (27.0-31.0) Mean Corpuscular Hemoglobin Concent 34.4 G/DL (32.0-36.0) Red Cell Distribution Width 17.9 % (11.6-14.8) H Platelet Count 146 K/UL (150-450) L Mean Platelet Volume 7.9 FL (6.5-10.1) Neutrophils (%) (Auto) 82.9 % (45.0-75.0) H Lymphocytes (%) (Auto) 13.3 % (20.0-45.0) L Monocytes (%) (Auto) 3.6 % (1.0-10.0) Eosinophils (%) (Auto) 0.0 % (0.0-3.0) Basophils (%) (Auto) 0.1 % (0.0-2.0) Prothrombin Time 11.3 SEC (9.30-11.50) Prothrombin Time INR 1.0 (0.9-1.1) Activated Partial Thromboplast Time 36 SEC (23-33) H D-Dimer 1.57 mg/L FEU (0.00-0.49) H Urine Color Yellow Urine Appearance Cloudy Urine pH 5 (4.5-8.0) Urine Specific [place] 1.020 (1.005-1.035) Urine Protein 4+ (NEGATIVE) H Urine Glucose (UA) Negative (NEGATIVE) Urine Ketones 1+ (NEGATIVE) H Urine Blood 4+ (NEGATIVE) H Urine Nitrite Positive (NEGATIVE) H Urine Bilirubin Negative (NEGATIVE) Urine Urobilinogen Normal MG/DL (0.0-1.0) Urine Leukocyte Esterase 3+ (NEGATIVE) H Urine RBC Tntc /HPF (0 - 0) H Urine WBC Tntc /HPF (0 - 0) H Urine Squamous Epithelial Cells None /LPF (NONE/OCC) Urine Bacteria Many /HPF (NONE) H Sodium Level 142 MMOL/L (136-145) Potassium Level 7.7 MMOL/L (3.5-5.1) *H Chloride Level 115 MMOL/L (98-107) H Carbon Dioxide Level 17 MMOL/L (21-32) L Anion Gap 10 mmol/L (5-15) Blood Urea Nitrogen 64 mg/dL (7-18) H Creatinine 3.9 MG/DL (0.55-1.30) H Estimated Glomerular Filtration Rate 15.4 mL/min (>60) Glucose Level 92 MG/DL (74-106) Lactic Acid Level 2.00 mmol/L (0.4-2.0) Calcium Level 7.9 MG/DL (8.5-10.1) L Ferritin 781 NG/ML (8-388) H Total Bilirubin 0.6 MG/DL (0.2-1.0) Aspartate Amino Transferase (AST) 91 U/L (15-37) H Alanine Aminotransferase (ALT) 47 U/L (12-78) Alkaline Phosphatase 424 U/L (46-116) H Lactate Dehydrogenase 570 U/L (81-234) H Troponin I 0.055 ng/mL (0.000-0.056) C-Reactive Protein, Quantitative 17.7 mg/dL (0.00-0.90) H Pro-B-Type Natriuretic Peptide 1957 pg/mL (0-125) H Total Protein 9.0 G/DL (6.4-8.2) H Albumin 2.7 G/DL (3.4-5.0) L Globulin 6.3 g/dL Albumin/Globulin Ratio 0.4 (1.0-2.7) L Lipase 1035 U/L (73-393) H Microbiology Date/Time Source Procedure Growth Status 03/07/20 05:20 Nasopharynx SARS-CoV-2 RdRp Gene Assay - Final Complete (Bruno Ospina MD) EKG Diagnostic Results Troponin ordered: Yes When was troponin ordered?: Mar 07, 2020 EKG Time: 11:44 Rate: normal Rhythm: NSR ST Segments: no acute changes Other Impression Sinus rhythm, normal axis, normal intervals, no ST segment changes, no peaked T waves (Bruno Ospina MD) Rhythm Strip Diag. Results Rhythm Strip Time: 11:44 EP Interpretation: yes Rate: 70s Rhythm: NSR, no PVC's, no ectopy (Bruno Ospina MD) Chest X-Ray Diagnostic Results Chest X-Ray Diagnostic Results : Chest X-Ray Ordered: Yes # of Views/Limited/Complete: 1 View Indication: Shortness of Breath EP Interpretation: Yes Interpretation: no effusion, no pneumothorax, other - Bilateral infiltrates. Impression: Other - Bilateral multifocal pneumonia Electronically Signed by: Electronically signed by Dr. Bruno Ospina MD (Bruno Ospina MD) Last Vital Signs Date Time Temp Pulse Resp B/P (MAP) Pulse Ox O2 Delivery O2 Flow Rate FiO2 03/07/20 05:07 98.8 77 19 138/88 (105) 91 Non-Rebreather 15.0 (Ramin Delgado MD) Disposition: ADMITTED INPATIENT Condition: Critical Ramin Delgado MD Mar 07, 2020 05:26 Bruno Ospina MD Mar 07, 2020 06:38
[2020-03-07 05:38] LABS: BASOPHILS % (AUTO) 0.1 % (0.0-2.0); HEMATOCRIT 29.3 % (42.0-52.0); HEMOGLOBIN 10.1 G/DL (14.2-18.0); LYMPHOCYTES % (AUTO) 13.3 % (20.0-45.0); MEAN CORPUSCULAR VOLUME 89 FL (80-99); MONOCYTES % (AUTO) 3.6 % (1.0-10.0); NEUTROPHILS % (AUTO) 82.9 % (45.0-75.0); PLATELET COUNT 146 K/UL (150-450); RED CELL DISTRIBUTION WIDTH 17.9 % (11.6-14.8)
[2020-03-07] MEDS ORDERED: LORazepam Inj 2mg/ml 1ml IV ONE (05:45)
[2020-03-07] MEDS ORDERED: cefTRIAXone 1 GM in NS 55 ML IV ONE (06:15)
[2020-03-07] MEDS ORDERED: Azithromycin 500 MG in NS 275 ML IVPB ONE (06:15)
[2020-03-07] MEDS ORDERED: dexAMETHasone 10mg/ml Inj IV ONE (06:15)
[2020-03-07] MEDS ORDERED: Enoxaparin 60mg Inj SUBQ ONE (06:15)
[2020-03-07 06:17] LABS: ALBUMIN 2.7 G/DL (3.4-5.0); ALBUMIN/GLOBULIN RATIO 0.4 (1.0-2.7); BILIRUBIN,TOTAL 0.6 MG/DL (0.2-1.0); CALCIUM 7.9 MG/DL (8.5-10.1); CREATININE 3.9 MG/DL (0.55-1.30)
[2020-03-07 06:29] LABS: POTASSIUM 7.7 MMOL/L (3.5-5.1)
[2020-03-07] MEDS ORDERED: Calcium Gluconate 1gm/10ml vial IVP ONE (06:30)
[2020-03-07] MEDS ORDERED: Insulin Human Regular 100units/ml 3ml IV ONE (06:30)
[2020-03-07 06:33] LABS: APPEARANCE,URINE CLOUDY; BILIRUBIN, URINE NEGATIVE (NEGATIVE); GLUCOSE, URINE (UA) NEGATIVE (NEGATIVE); KETONES,URINE 1+ (NEGATIVE); LEUKOCYTE ESTERASE ,URINE 3+ (NEGATIVE); NITRITE,URINE POSITIVE (NEGATIVE); PH,URINE 5 (4.5-8.0); PROTEIN,URINE 4+ (NEGATIVE); UROBILINOGEN,URINE NORMAL MG/DL (0.0-1.0)
[2020-03-07 06:34] LABS: COLOR,URINE YELLOW
--- NOTE | 2020-03-07 07:05 | NUR ---
HAND-OFF: Report given to CHERELLE Ramirez.
--- NOTE | 2020-03-07 07:06 | NUR ---
ED Nurse Note: Recieved report from CHERELLE Pappas. Patient AAO x1, resstless, satting 100% on 15L via NRB mask.
--- NOTE | 2020-03-07 07:28 | Diagnostic Imaging Report ---
EXAM: XR Chest, 1 View CLINICAL HISTORY: SOB TECHNIQUE: Frontal view of the chest. COMPARISON: February 04, 2020. FINDINGS: Lungs: Low lung volumes. Bilateral multifocal infiltrates, new. Pleural space: No large pleural effusions. No pneumothorax. Heart: Stable cardiomediastinal silhouette. Mediastinum: See above. Bones/joints: Unremarkable. IMPRESSION: New bilateral multifocal pneumonia.
[2020-03-07] MEDS ORDERED: Albuterol 90mcg Inhaler 8gm INH PRN (08:15)
[2020-03-07] MEDS ORDERED: Acetaminophen 650 MG SUPP RECTAL PRN ×2 (08:15→09:00)
--- NOTE | 2020-03-07 11:10 | NUR ---
ED Nurse Note: Per ekaterina Rios, patient does not need Lovenox.
--- NOTE | 2020-03-07 11:55 | NUR ---
ED Nurse Note: Patient's BS is 78, per Dr. Ospina will administer 50% dextrose
--- NOTE | 2020-03-07 19:00 | Consultation ---
DATE OF CONSULTATION: 03/07/2020 INFECTIOUS DISEASE CONSULT This consult is for coverage of Dr. Quigley. PRIMARY ATTENDING PHYSICIAN: Ebenezer Go M.D. REASON FOR CONSULT: COVID-19 pneumonia. HISTORY OF PRESENT ILLNESS: A 69-year-old male admitted today from a long term facility because of shortness of breath, had also altered mental status, was found to be hypoxemic. The patient currently is in the ER, on restraints. PAST MEDICAL HISTORY: Anemia, dysphagia, dementia. Past history of alcohol abuse in the past. ALLERGIES: No known drug allergies. MEDICATIONS: Dexamethasone, azithromycin, enoxaparin, ceftriaxone, famotidine, Tylenol, albuterol, Zofran. SOCIAL HISTORY: Single, a retirement resident. No further history obtainable by the patient. PHYSICAL EXAMINATION: VITAL SIGNS: Temperature 97, pulse 71, blood pressure is 124/72. GENERAL APPEARANCE: Seems to have normal weight. HEAD AND NECK: [place] conjunctivae. HEART: Normal rate. LUNGS: On BiPAP. Decreased sounds. ABDOMEN: Soft. GENITOURINARY: Normal external genitalia. Has no catheter. EXTREMITIES: No edema. NEUROLOGIC: Agitated, confused. LABORATORY AND DIAGNOSTIC DATA: WBC 7, hemoglobin 10.1, hematocrit 29.3, and platelets 146. Lymphocyte is 13%. Sodium 142, potassium 7.7, chloride 115, bicarb 17, BUN 64, creatinine 3.9. Lipase is 1035. Albumin is 2.7, LDH is 517, total bilirubin 0.6. AST and ALT are within normal limits. Chest x-ray showed bilateral multifocal pneumonia. UA showed wbc's too numerous to count, rbc's too numerous to count. IMPRESSION: COVID-19 pneumonia. The patient has pyuria, may have UTI. Has pancreatitis and hypoxic respiratory failure, altered mental status, encephalopathy, dementia, hypertension. RECOMMENDATIONS: Continue dexamethasone, ceftriaxone, and Zithromax. Because of renal failure, cannot give the patient remdesivir. We will follow up the clinical course. At the end of my exam, I thank Dr. Go for involving me in the care of this patient. Joe Nguyen M.D. DR: MARCI JOB#: [id number] CC: JULIET
--- NOTE | 2020-03-07 19:10 | NUR ---
ED Nurse Note: pt resting in bed, VSS no ss of distress noted. will continue to monitor.
--- NOTE | 2020-03-07 19:48 | NUR ---
Nurse Note: Report given to CHERELLE Rashid for continuity of care.
--- NOTE | 2020-03-07 19:50 | NUR ---
ED Nurse Note: per EMS, new pt room unable to be cleaned d/t another pt still residing in room. Charge nurse and ERMD aware. pending transfer to floor.
--- NOTE | 2020-03-07 20:40 | NUR ---
TRANSFER TO FLOOR: Patient transferred to SDU per ERMD. Report given to CHERELLE MAST. Pt took all belongings. Pt transferred to unit with 1 RN, 1 CONTACT LENS FITTER, and RT at bedside on log yard manager.
--- NOTE | 2020-03-07 20:42 | History & Physical ---
History and Physical History & Physicial History and Physical HPI Patient is a 69-year-old man admitted with Covid Pneumonia, LA, Hyperkalemia, Pancreatitis.Noted to have for shortness of breath, hypoxia requiring a nonre breathermask. No reported fevers or chills. No chest pain. Allergies: No Known Allergies Past Medical History: HTN Family History: NC Social History: NC All Other Systems: negative except mentioned in HPI Physical Exam Vital Signs noted Date Time Temp Pulse Resp B/P (MAP) Pulse Ox O2 Delivery O2 Flow Rate FiO2 03/07/20 05:07 98.8 77 19 138/88 (105) 91 Non-Rebreather 15.0 General Appearance: alert, GCS 15, non-toxic, mild distress Head: normocephalic, atraumatic Eyes: bilateral eye normal inspection, bilateral eye PERRL ENT: hearing grossly normal, normal pharynx, no angioedema, normal voice Neck: full range of motion, supple/symm/no masses Respiratory: chest non-tender, crackles, speaking full sentences Cardiovascular : regular rate, rhythm, no edema Gastrointestinal: normal bowel sounds, non tender, soft, non-distended, no guarding, no rebound Rectal: deferred Genitourinary: normal inspection, no CVA tenderness Musculoskeletal: back normal, normal range of motion, gait/station normal, non- tender Neurologic: alert, motor strength/tone normal, oriented x3, sensory intact, responsive, speech normal Psychiatric: judgement/insight normal, memory normal, mood/affect normal, no suicidal/homicidal ideation Reflexes: 3+ bicep (R), 3+ bicep (L), 3+ tricep (R), 3+ tricep (L), 3+ knee (R), 3+ knee (L) Skin: other - see nursing notes Lymphatic: no adenopathy Per report,deferred Covid19 Impression: Covid Pneumonia/possible sepsis Respiratory failure LA Hyperkalemia Pancreatitis Urinary tract infection Hypertension Plan ID Consultation Dexamethazone Renal Consultation O2 PRN BiPAP PRN PPX FLOORMAN Medications Laboratory Tests noted Test 03/07/20 05:20 White Blood Count 7.0 K/UL (4.8-10.8) Red Blood Count 3.30 M/UL (4.70-6.10) L Hemoglobin 10.1 G/DL (14.2-18.0) L Hematocrit 29.3 % (42.0-52.0) L Mean Corpuscular Volume 89 FL (80-99) Mean Corpuscular Hemoglobin 30.6 PG (27.0-31.0) Mean Corpuscular Hemoglobin Concent 34.4 G/DL (32.0-36.0) Red Cell Distribution Width 17.9 % (11.6-14.8) H Platelet Count 146 K/UL (150-450) L Mean Platelet Volume 7.9 FL (6.5-10.1) Neutrophils (%) (Auto) 82.9 % (45.0-75.0) H Lymphocytes (%) (Auto) 13.3 % (20.0-45.0) L Monocytes (%) (Auto) 3.6 % (1.0-10.0) Eosinophils (%) (Auto) 0.0 % (0.0-3.0) Basophils (%) (Auto) 0.1 % (0.0-2.0) Prothrombin Time 11.3 SEC (9.30-11.50) Prothrombin Time INR 1.0 (0.9-1.1) Activated Partial Thromboplast Time 36 SEC (23-33) H D-Dimer 1.57 mg/L FEU (0.00-0.49) H Urine Color Yellow Urine Appearance Cloudy Urine pH 5 (4.5-8.0) Urine Specific [place] 1.020 (1.005-1.035) Urine Protein 4+ (NEGATIVE) H Urine Glucose (UA) Negative (NEGATIVE) Urine Ketones 1+ (NEGATIVE) H Urine Blood 4+ (NEGATIVE) H Urine Nitrite Positive (NEGATIVE) H Urine Bilirubin Negative (NEGATIVE) Urine Urobilinogen Normal MG/DL (0.0-1.0) Urine Leukocyte Esterase 3+ (NEGATIVE) H Urine RBC Tntc /HPF (0 - 0) H Urine WBC Tntc /HPF (0 - 0) H Urine Squamous Epithelial Cells None /LPF (NONE/OCC) Urine Bacteria Many /HPF (NONE) H Sodium Level 142 MMOL/L (136-145) Potassium Level 7.7 MMOL/L (3.5-5.1) *H Chloride Level 115 MMOL/L (98-107) H Carbon Dioxide Level 17 MMOL/L (21-32) L Anion Gap 10 mmol/L (5-15) Blood Urea Nitrogen 64 mg/dL (7-18) H Creatinine 3.9 MG/DL (0.55-1.30) H Estimated Glomerular Filtration Rate 15.4 mL/min (>60) Glucose Level 92 MG/DL (74-106) Lactic Acid Level 2.00 mmol/L (0.4-2.0) Calcium Level 7.9 MG/DL (8.5-10.1) L Ferritin 781 NG/ML (8-388) H Total Bilirubin 0.6 MG/DL (0.2-1.0) Aspartate Amino Transferase (AST) 91 U/L (15-37) H Alanine Aminotransferase (ALT) 47 U/L (12-78) Alkaline Phosphatase 424 U/L (46-116) H Lactate Dehydrogenase 570 U/L (81-234) H Troponin I 0.055 ng/mL (0.000-0.056) C-Reactive Protein, Quantitative 17.7 mg/dL (0.00-0.90) H Pro-B-Type Natriuretic Peptide 1957 pg/mL (0-125) H Total Protein 9.0 G/DL (6.4-8.2) H Albumin 2.7 G/DL (3.4-5.0) L Globulin 6.3 g/dL Albumin/Globulin Ratio 0.4 (1.0-2.7) L Lipase 1035 U/L (73-393) H EKG Rate: normal Rhythm: NSR ST Segments: no acute changes Other Impression Sinus rhythm, normal axis, normal intervals, no ST segment changes, no peaked T waves Chest X-Ray: no effusion, no pneumothorax, other - Bilateral infiltrates. Bilateral multifocal pneumonia Cristopher Larson MD Mar 07, 2020 20:42
--- NOTE | 2020-03-07 21:00 | NUR ---
NURSE NOTES: Received report from CHERELLE Flor SDU. Pt awake, agitated,restless and combative. Reorient the patient and introduced Rn's self. Pt unable to calm down. Transferred the patient to hospital bed. Divert to watching tv but failed. thorough assessment done and noted. PT on bipap and saturating 100%. use of accessory muscle and deep breathing noted. With Right AC 20g vi line intact, patent and asymptomatic. gown and linen were changed. initiate both soft wrist restraints. skin is intact. pulses are palpable and no paresthesia. MD will be made aware. Needs were attended. Bed rails are up and wheels are locked. Bed alarm is on and working. Call light within reach. Continue plan of care
--- NOTE | 2020-03-07 22:00 | NUR ---
NURSE NOTES: responded back. orders noted and carried out
[2020-03-07] MEDS ORDERED: Hydromorphone 0.5mg/0.5ml inj IVP PRN (22:15)
[2020-03-07] MEDS: D5 1/2NS 1,000 ML IV SCH (23:14)
[2020-03-08] VITALS: BP 119/56
[2020-03-08 04:00] VITALS: BP 108/68
[2020-03-08] MEDS: cefTRIAXone 1 GM in D5W 55 ML IVPB SCH (05:15)
--- NOTE | 2020-03-08 07:30 | NUR ---
NURSE HAND-OFF REPORT: Important Events on Shift: new admit Patient Status: stable Diet: npo Pending Orders: n Pending Results/Labs: n Pending MD notification:n Latest Vital Signs: Temperature 98.2 , Pulse 63 , B/P 108 /68 , Respiratory Rate 22 , O2 SAT 100 , Bi-pap, O2 Flow Rate 100.0 . Vital Sign Comment: n EKG Rhythm: Sinus Rhythm Rhythm change?: N MD Notified?: - MD Response: Latest Conner Fall Score: 50 Fall Risk: High Risk Safety Measures: Call light Within Reach, Bed Alarm Zone 1, Side Rails Side Rails x2, Bed position Low and Locked. Fall Precautions: Yellow Socks Yellow Gown Patient Fall Education Report given to CHERELLE perry.
--- NOTE | 2020-03-08 07:30 | NUR ---
NURSE NOTES: Received report from KEZIA, RN
[2020-03-08 08:00] VITALS: BP 149/56
[2020-03-08 08:00] LABS: HEMATOCRIT 25.1 % (42.0-52.0); HEMOGLOBIN 8.3 G/DL (14.2-18.0); MEAN CORPUSCULAR VOLUME 91 FL (80-99); PLATELET COUNT 127 K/UL (150-450); RED BLOOD COUNT 2.76 M/UL (4.70-6.10); RED CELL DISTRIBUTION WIDTH 17.1 % (11.6-14.8); WHITE BLOOD COUNT 10.2 K/UL (4.8-10.8)
[2020-03-08 08:09] LABS: SODIUM 145 MMOL/L (136-145)
[2020-03-08 08:35] LABS: ALANINE AMINOTRANSFERASE 39 U/L (12-78); ALBUMIN 2.3 G/DL (3.4-5.0); ALKALINE PHOSPHATASE 328 U/L (46-116); ANION GAP 12 mmol/L (5-15); ASPARTATE AMINO TRANSFERASE 93 U/L (15-37); BILIRUBIN,DIRECT 0.2 MG/DL (0.0-0.3); BILIRUBIN,TOTAL 0.5 MG/DL (0.2-1.0); BLOOD UREA NITROGEN 81 mg/dL (7-18); CALCIUM 7.9 MG/DL (8.5-10.1); CARBON DIOXIDE 14 MMOL/L (21-32); CHLORIDE 118 MMOL/L (98-107); CREATININE 3.8 MG/DL (0.55-1.30); PHOSPHORUS 6.2 MG/DL (2.5-4.9)
[2020-03-08 08:37] LABS: POTASSIUM 7.5 MMOL/L (3.5-5.1)
[2020-03-08] MEDS: Enoxaparin 30mg Inj SUBQ SCH (09:00)
[2020-03-08] MEDS: Azithromycin 500 MG in D5W 275 ML IV SCH (09:08)
[2020-03-08] MEDS: dexAMETHasone 10mg/ml Inj IV SCH (09:08)
--- NOTE | 2020-03-08 10:15 | Infectious Diseases Prog Note ---
Assessment/Plan Assessment/Plan IMPRESSION: COVID-19 pneumonia. UTI. Pancreatitis Hypoxic respiratory failure, Altered mental status, encephalopathy, Dementia, Hypertension. RECOMMENDATIONS: Continue dexamethasone, ceftriaxone, and Zithromax. Subjective ROS Limited/Unobtainable: Yes Constitutional: Denies: fever Neurologic: Reports: confusion, other - on restraint Allergies: Coded Allergies: No Known Allergies (Unverified , 02/04/20) Objective Last 24 Hour Vital Signs Date Time Temp Pulse Resp B/P (MAP) Pulse Ox O2 Delivery O2 Flow Rate FiO2 03/08/20 08:00 63 03/08/20 08:00 100.0 03/08/20 08:00 Bi-pap 100.0 03/08/20 08:00 98.4 61 19 149/56 (87) 100 03/08/20 04:00 Bi-pap 100.0 03/08/20 04:00 100.0 03/08/20 04:00 98.2 63 22 108/68 (81) 100 03/08/20 03:41 63 03/08/20 03:07 62 28 100 100 03/08/20 00:00 Bi-pap 100.0 03/08/20 00:00 100.0 03/08/20 00:00 96.5 62 25 119/56 (77) 100 03/07/20 23:36 63 03/07/20 21:14 Bi-pap 100.0 03/07/20 21:02 97.0 76 26 133/82 100 Bi-pap 15.0 100 03/07/20 19:30 67 26 100 100 03/07/20 19:00 97.0 36 27 136/74 100 Bi-pap 15.0 100 03/07/20 18:15 97.0 69 27 134/74 100 Bi-pap 15.0 100 03/07/20 14:45 71 34 99 100 03/07/20 13:21 97.0 79 25 124/72 100 Bi-pap 15.0 100 03/07/20 13:21 69 25 100 100 03/07/20 11:10 97.0 79 21 116/67 95 Non-Rebreather 15.0 Height (Feet): 5 Height (Inches): 4.00 Weight (Pounds): 154 HEENT: mucous membranes moist Respiratory/Chest: other - on BIPAP Cardiovascular: normal rate Abdomen: soft, non tender Extremities: no edema Neurologic/Psychiatric: disoriented Microbiology Date/Time Source Procedure Growth Status 03/07/20 05:20 Urine,Clean Catch Urine Culture - Preliminary Gram Negative Home Resulted 03/07/20 05:20 Nasopharynx SARS-CoV-2 RdRp Gene Assay - Final Complete Laboratory Tests Test 03/07/20 11:43 03/07/20 15:00 03/08/20 06:30 POC Whole Blood Glucose Pending Arterial Blood pH 7.231 (7.350-7.450) Arterial Blood Partial Pressure CO2 28.1 mmHg (35.0-45.0) L Arterial Blood Partial Pressure O2 79.8 mmHg (75.0-100.0) Arterial Blood HCO3 11.5 mmol/L (22.0-26.0) *L Arterial Blood Oxygen Saturation 94.4 % (95-100) L Arterial Blood Base Excess -14.7 (-2-2) *L Ken Test Positive White Blood Count 10.2 K/UL (4.8-10.8) Red Blood Count 2.76 M/UL (4.70-6.10) L Hemoglobin 8.3 G/DL (14.2-18.0) L Hematocrit 25.1 % (42.0-52.0) L Mean Corpuscular Volume 91 FL (80-99) Mean Corpuscular Hemoglobin 30.0 PG (27.0-31.0) Mean Corpuscular Hemoglobin Concent 33.0 G/DL (32.0-36.0) Red Cell Distribution Width 17.1 % (11.6-14.8) H Platelet Count 127 K/UL (150-450) L Mean Platelet Volume 8.0 FL (6.5-10.1) Neutrophils (%) (Auto) % (45.0-75.0) Lymphocytes (%) (Auto) % (20.0-45.0) Monocytes (%) (Auto) % (1.0-10.0) Eosinophils (%) (Auto) % (0.0-3.0) Basophils (%) (Auto) % (0.0-2.0) Differential Total Cells Counted 100 Neutrophils % (Manual) 85 % (45-75) H Lymphocytes % (Manual) 10 % (20-45) L Monocytes % (Manual) 5 % (1-10) Eosinophils % (Manual) 0 % (0-3) Basophils % (Manual) 0 % (0-2) Band Neutrophils 0 % (0-8) Platelet Estimate Decreased L Platelet Morphology Normal Anisocytosis 1+ Sodium Level 145 MMOL/L (136-145) Potassium Level 7.5 MMOL/L (3.5-5.1) *H Chloride Level 118 MMOL/L (98-107) H Carbon Dioxide Level 14 MMOL/L (21-32) L Anion Gap 12 mmol/L (5-15) Blood Urea Nitrogen 81 mg/dL (7-18) H Creatinine 3.8 MG/DL (0.55-1.30) H Estimat Glomerular Filtration Rate 15.8 mL/min (>60) Glucose Level 133 MG/DL (74-106) H Calcium Level 7.9 MG/DL (8.5-10.1) L Phosphorus Level 6.2 MG/DL (2.5-4.9) H Total Bilirubin 0.5 MG/DL (0.2-1.0) Direct Bilirubin 0.2 MG/DL (0.0-0.3) Aspartate Amino Transf (AST/SGOT) 93 U/L (15-37) H Alanine Aminotransferase (ALT/SGPT) 39 U/L (12-78) Alkaline Phosphatase 328 U/L (46-116) H Total Protein 7.8 G/DL (6.4-8.2) Albumin 2.3 G/DL (3.4-5.0) L Current Medications Medications (Trade) Dose Ordered Sig/James Route PRN Reason Start Time Stop Time Status Last Admin Dose Admin Acetaminophen (Tylenol) 650 mg Q4H PRN RECTAL Temp >100.5 03/07/20 08:15 04/06/20 08:14 Acetaminophen (Tylenol) 650 mg Q4H PRN RECTAL Mild Pain (Pain Scale 1-3) 03/07/20 09:00 04/06/20 08:59 Albuterol Sulfate (Proventil MDI) 2 puff Q4H PRN INH Shortness of Breath 03/07/20 08:15 06/05/20 08:14 Azithromycin 500 mg/Dextrose 275 ml @ 275 mls/hr Q24H IV 03/08/20 09:00 03/13/20 08:59 03/08/20 09:08 Ceftriaxone Sodium 1 gm/ Dextrose 55 ml @ 110 mls/hr Q24H IVPB 03/08/20 06:00 03/15/20 05:59 03/08/20 05:15 Dexamethasone Sodium Phosphate (Decadron 10mg/ ml Inj) 6 mg DAILY IV 03/08/20 09:00 03/16/20 09:01 03/08/20 09:08 Dextrose (Dextrose 50%) 25 ml Q30M PRN IV Hypoglycemia 03/07/20 08:15 06/05/20 08:14 Dextrose (Dextrose 50%) 50 ml Q30M PRN IV Hypoglycemia 03/07/20 08:15 06/05/20 08:14 03/07/20 11:57 Dextrose/Sodium Chloride 1,000 ml @ 50 mls/hr Q20H IV 03/07/20 23:00 04/06/20 22:59 03/07/20 23:14 Enoxaparin Sodium (Lovenox) 30 mg Q24H SUBQ 03/08/20 09:00 06/06/20 08:59 Famotidine (Pepcid I.v.) 20 mg DAILY IVP 03/07/20 09:00 04/06/20 08:59 03/08/20 09:08 Hydromorphone HCl (Dilaudid) 0.5 mg Q3HR PRN IVP Severe Pain (Pain Scale 7-10) 03/07/20 22:15 03/14/20 22:14 Ondansetron HCl (Zofran) 4 mg Q6H PRN IVP Nausea & Vomiting 03/07/20 08:15 04/06/20 08:14 Joe Nguyen MD Mar 08, 2020 10:15
--- NOTE | 2020-03-08 10:45 | Consultation ---
DATE OF CONSULTATION: 03/08/2020 NEPHROLOGY CONSULTATION CONSULTING PHYSICIAN: Greg Garcia MD. ATTENDING PHYSICIAN: Ebenezer Go MD. REASON FOR CONSULTATION: Elevated BUN and creatinine. HISTORY OF PRESENT ILLNESS: This is a 69-year-old male, who is well known to me from recent previous admission to this hospital with close to end-stage renal failure, who was admitted to this hospital about a month ago. At this time, the patient was admitted to the hospital with respiratory problems with COVID pneumonia and worsening kidney failure. I am asked to see the patient for his kidney problems. PAST MEDICAL HISTORY: 1. Chronic kidney disease, stage 4. 2. Remote history of alcohol abuse. 3. Anemia of chronic kidney disease. 4. Organic brain syndrome. 5. 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 CURRENT MEDICATIONS: Azithromycin, Rocephin, IV fluids, Tylenol p.r.n., albuterol inhalation, Decadron IV, Lovenox subcutaneously, famotidine, Dilaudid p.r.n., Zofran p.r.n. ALLERGIES: No known drug allergies. FAMILY HISTORY: Unable to obtain. SOCIAL HISTORY: Unable to obtain. REVIEW OF SYSTEMS: Unable to obtain. PHYSICAL EXAMINATION: GENERAL: This is an elderly, oriental male, who is in no acute distress. VITAL SIGNS: Blood pressure 106/68, pulse 63, respirations 22, temperature 98.6 axillary. HEENT: The head is normocephalic and atraumatic. Pupils are equal, round, and reactive to light and accommodation consensually. The patient is on BiPAP. LUNGS: Bilateral wheezes. HEART: Regular rate and rhythm without rubs, murmurs, or gallops. ABDOMEN: Soft and nontender. Bowel sounds were active. EXTREMITIES: No clubbing, cyanosis, or edema. NEUROLOGIC: He is alert, but confused. LABORATORY AND ANCILLARY DATA: CBC, hematocrit 25.1, WBC 10.2, and platelet count 127,000. Chemistry on admission sodium 142, potassium 7.7, BUN 64, creatinine 3.9, and albumin 2.7. Today's chemistry results are pending. ASSESSMENT: 1. COVID-19 pneumonia. 2. Chronic kidney disease, stage 4. 3. Remote history of alcohol abuse. 4. Anemia of chronic kidney disease. 5. Organic brain syndrome. 6. 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 7. Rule out progression of the chronic kidney disease, stage 4. 8. End-stage renal failure. PLAN: 1. Continue current therapy, IV fluids, rehydration. 2. Reassess the patient daily. Thank you, Dr. Go, for letting me to participate in the care of this complex and interesting patient. Greg Garcia M.D. DR: FELIBERTO JOB#: [id number] CC:
--- NOTE | 2020-03-08 11:01 | NUR ---
NURSE NOTES: Updated Dr. Harrison about the potassium (7.5) and he ordered dialysis for patient today and added Dr. Sifuentes about adding nguyen catheter on patient for dialysis.
--- NOTE | 2020-03-08 11:53 | NUR ---
NURSE NOTES: Called [facility], talked to Cotl, about the patient's ordered dialysis today.
[2020-03-08 12:00] VITALS: BP 110/69
[2020-03-08] MEDS ORDERED: Insulin Human Regular 100units/ml 3ml IV ONE (13:00)
--- NOTE | 2020-03-08 13:30 | NUR ---
NURSE NOTES: Doctor Maria inserted a nontunneled nguyen catheter. Per Doc, purple port is okay to use for nurses.
--- NOTE | 2020-03-08 13:56 | Operative Note - PDOC ---
Operative Note Operative Note Date of Operation/Procedure: Mar 08, 2020 Pre-op Diagnosis: Renal insufficiency Hyperkalemia Procedure: Right femoral temporary hemodialysis catheter insertion Post-op Diagnosis: same as pre-op Surgeon: Darius Sifuentes MD Anesthesia: local Specimen: none Complications: none Condition: stable Fluids: See records Estimated Blood Loss: minimal Drains: none Implant(s) used?: No Indications for Procedure On monitoring identified to have hyperkalemia potassium greater than 7 renal insufficiency requiring urgent emergency hemodialysis. Patient does not have access and surgery called to evaluate assist with care. Patient seen patient evaluate chart reviewed. Emergently line placed for emergent dialysis. Description of Procedure Patient made comfortable the bedside with nursing staff present. The right groin was prepped draped in the same surgical fashion. Local anesthetic was infiltrated and Topamax identified. The right femoral vein was cannulated on first stick without complication. Good venous flow identified. Guidewire placed through the needle needle removed. Small skin incision made around the guidewire and the tract was dilated through the guidewire without complication. A 13 [place] triple-lumen temporary hemodialysis catheter was inserted over guidewire without complication. Guidewire removed and discarded. Line sutured in place. All ports flushed and aspirated venous blood appropriately without complication. Dressings were applied. Patient taught procedure well. Plan for hemodialysis urgently. Darius Sifuentes Mar 08, 2020 13:56
[2020-03-08] MEDS ORDERED: Heparin 5000 units/ml inj INJ PRN (14:00)
[2020-03-08] MEDS ORDERED: Heparin Sod 1000 units/ml 10ml IV PRN (14:00)
--- NOTE | 2020-03-08 14:42 | NUR ---
CASE MANAGEMENT:INITIAL REVIEW 69 YR OLD MALE BIBA FROM [facility] CC;DYSPNEA. RESPIRATORY DISTRESS. SI;COVID+ PNEUMONIA. PANCREATITIS. HYPERKALEMIA. UTI. 98.8 85 21 138/88 91% 15L NRB FIO2 100% H/H 10.1/29.3 PLT 146 K+ 7.7 CL+ 115 BUN 64 CR 3.9 CA+ 7.9 FERRITIN 781 AST 91 ALP 424 LDH 570 CRP 17.7 BNP 1957 ALB 2.7 LIPASE 1035 APTT 36 D-DIMER 1.57 UA+ PROTEIN, KETONES, LEUKOCYTE ESTERASE, RBC, WBC, BACTERIA ABG+ pH 7.247 HCO3 12.6 BASE EXCESS -13.4 COVID RAPID ~ POSITIVE CXR ~ BILATERAL MULTIFOCAL PNA Right femoral temporary hemodialysis catheter insertion IS;IVF NS BOLUS ATIVAN IV AZITHROMYCIN IV DECADRON IV ROCEPHIN IV LOVENOX SQ CA GLUCONATE IV INSULIN REGULAR SQ ONCE IVF D5 ADMITTED TO SDU SDU STATUS DCP;FROM [facility]
--- NOTE | 2020-03-08 15:30 | NUR ---
NURSE NOTES: Hemodialysis started. Patient does not have any family member to ask for consent. Doctor Neo said that it is okay to do the dialysis because it is an emergent case.
[2020-03-08 16:00] VITALS: BP 110/69
--- NOTE | 2020-03-08 16:02 | Nephrology Progress Note ---
Assessment/Plan Plan Patient has no family or DPOA. HD is urgent and life -saving. Objective Objective Last 24 Hour Vital Signs Date Time Temp Pulse Resp B/P (MAP) Pulse Ox O2 Delivery O2 Flow Rate FiO2 03/08/20 13:20 55 29 98 100 03/08/20 08:00 63 03/08/20 08:00 100.0 03/08/20 08:00 Bi-pap 100.0 03/08/20 08:00 98.4 61 19 149/56 (87) 100 03/08/20 07:25 60 30 91 100 03/08/20 04:00 Bi-pap 100.0 03/08/20 04:00 100.0 03/08/20 04:00 98.2 63 22 108/68 (81) 100 03/08/20 03:41 63 03/08/20 03:07 62 28 100 100 03/08/20 00:00 Bi-pap 100.0 03/08/20 00:00 100.0 03/08/20 00:00 96.5 62 25 119/56 (77) 100 03/07/20 23:36 63 03/07/20 21:14 Bi-pap 100.0 03/07/20 21:02 97.0 76 26 133/82 100 Bi-pap 15.0 100 03/07/20 19:30 67 26 100 100 03/07/20 19:00 97.0 36 27 136/74 100 Bi-pap 15.0 100 03/07/20 18:15 97.0 69 27 134/74 100 Bi-pap 15.0 100 Intake and Output 03/07/20 03/08/20 19:00 07:00 Intake Total 2000 ml 443 ml Balance 2000 ml 443 ml Intake IV Total 2000 ml 443 ml # Voids 2 Laboratory Tests 03/08/20 06:30: White Blood Count 10.2, Red Blood Count 2.76L, Hemoglobin 8.3L, Hematocrit 25.1L , Mean Corpuscular Volume 91, Mean Corpuscular Hemoglobin 30.0, Mean Corpuscular Hemoglobin Concent 33.0, Red Cell Distribution Width 17.1H, Platelet Count 127L, Mean Platelet Volume 8.0, Neutrophils (%) (Auto) , Lymphocytes (%) (Auto) , Monocytes (%) (Auto) , Eosinophils (%) (Auto) , Basophils (%) (Auto) , Differential Total Cells Counted 100, Neutrophils % (Manual) 85H, Lymphocytes % (Manual) 10L, Monocytes % (Manual) 5, Eosinophils % (Manual) 0, Basophils % (Manual) 0, Band Neutrophils 0, Platelet Estimate DecreasedL, Platelet Morphology Normal, Anisocytosis 1+, Sodium Level 145, Potassium Level 7.5*H, Chloride Level 118H, Carbon Dioxide Level 14L, Anion Gap 12, Blood Urea Nitrogen 81H, Creatinine 3.8H, Estimat Glomerular Filtration Rate 15.8, Glucose Level 133H, Calcium Level 7.9L, Phosphorus Level 6.2H, Total Bilirubin 0.5, Direct Bilirubin 0.2, Aspartate Amino Transf (AST/SGOT) 93H, Alanine Aminotransferase (ALT/SGPT) 39, Alkaline Phosphatase 328H, Total Protein 7.8, Albumin 2.3L Height (Feet): 5 Height (Inches): 4.00 Weight (Pounds): 154 Greg Garcia MD Mar 08, 2020 16:02
--- NOTE | 2020-03-08 19:30 | NUR ---
NURSE HAND-OFF REPORT: Important Events on Shift: dialysis Patient Status: Diet: Pending Orders: Pending Results/Labs: Pending MD notification: Latest Vital Signs: Temperature 98.8 , Pulse 61 , B/P 110 /69 , Respiratory Rate 19 , O2 SAT 95 , Bi-pap, O2 Flow Rate 100.0 . Vital Sign Comment: EKG Rhythm: Sinus Bradycardia Rhythm change?: N MD Notified?: - MD Response: Latest Conner Fall Score: 50 Fall Risk: High Risk Safety Measures: Call light Within Reach, Bed Alarm Zone 2, Side Rails Side Rails x2, Bed position Low and Locked. Fall Precautions: Yellow Socks Yellow Gown Door Sign Patient Fall Education Report given to CHERELLE Martínez.
[2020-03-08] MEDS: D5 1/2NS 1,000 ML IV SCH (19:50)
[2020-03-08 20:00] VITALS: BP 149/79
--- NOTE | 2020-03-08 20:00 | NUR ---
NURSE NOTES: Received report from CHERELLE He. Pt is lyingi n bed in semi-buchanan's position. On BIPAP with settings as ordered/ Pt on o2 sat- 95%. No any signs of respiratory distress. Pt on restraints, with no skin breakdown and with palpable pulses. With IV line at LAC g20 running d5 1/2 NS 1000ml. Intact and patent. Pt is alert x 0. Bed in lowest position, call light within reach. Continue to plan of care.
--- NOTE | 2020-03-08 20:04 | Pulmonology Progress Note ---
Subjective ROS Limited/Unobtainable: Yes Constitutional: Denies: fever Allergies: Coded Allergies: No Known Allergies (Unverified , 02/04/20) Objective Last 24 Hour Vital Signs Date Time Temp Pulse Resp B/P (MAP) Pulse Ox O2 Delivery O2 Flow Rate FiO2 03/08/20 16:00 100 03/08/20 16:00 Bi-pap 100.0 03/08/20 16:00 98.8 61 19 110/69 (83) 95 03/08/20 15:36 58 03/08/20 13:20 55 29 98 100 03/08/20 12:00 Bi-pap 100.0 03/08/20 12:00 100 03/08/20 12:00 98.5 61 19 110/69 (83) 95 03/08/20 11:51 59 03/08/20 08:00 63 03/08/20 08:00 100.0 03/08/20 08:00 Bi-pap 100.0 03/08/20 08:00 98.4 61 19 149/56 (87) 100 03/08/20 07:25 60 30 91 100 03/08/20 04:00 Bi-pap 100.0 03/08/20 04:00 100.0 03/08/20 04:00 98.2 63 22 108/68 (81) 100 03/08/20 03:41 63 03/08/20 03:07 62 28 100 100 03/08/20 00:00 Bi-pap 100.0 03/08/20 00:00 100.0 03/08/20 00:00 96.5 62 25 119/56 (77) 100 03/07/20 23:36 63 03/07/20 21:14 Bi-pap 100.0 03/07/20 21:02 97.0 76 26 133/82 100 Bi-pap 15.0 100 Intake and Output 03/07/20 03/08/20 19:00 07:00 Intake Total 2000 ml 443 ml Balance 2000 ml 443 ml Intake IV Total 2000 ml 443 ml # Voids 2 Microbiology Date/Time Source Procedure Growth Status 03/07/20 05:38 Nasal Nares MRSA Culture - Final Staphylococcus Aureus - Mrsa Complete 03/07/20 05:25 Blood Blood Culture - Preliminary NO GROWTH AFTER 24 HOURS Resulted 03/07/20 05:20 Urine,Clean Catch Urine Culture - Final Escherichia Coli Complete 03/07/20 05:20 Nasopharynx SARS-CoV-2 RdRp Gene Assay - Final Complete 03/07/20 05:20 Blood Blood Culture - Preliminary NO GROWTH AFTER 24 HOURS Resulted Laboratory Tests 03/08/20 06:30: White Blood Count 10.2, Red Blood Count 2.76L, Hemoglobin 8.3L, Hematocrit 25.1L , Mean Corpuscular Volume 91, Mean Corpuscular Hemoglobin 30.0, Mean Corpuscular Hemoglobin Concent 33.0, Red Cell Distribution Width 17.1H, Platelet Count 127L, Mean Platelet Volume 8.0, Neutrophils (%) (Auto) , Lymphocytes (%) (Auto) , Monocytes (%) (Auto) , Eosinophils (%) (Auto) , Basophils (%) (Auto) , Differential Total Cells Counted 100, Neutrophils % (Manual) 85H, Lymphocytes % (Manual) 10L, Monocytes % (Manual) 5, Eosinophils % (Manual) 0, Basophils % (Manual) 0, Band Neutrophils 0, Platelet Estimate DecreasedL, Platelet Morph ology Normal, Anisocytosis 1+, Sodium Level 145, Potassium Level 7.5*H, Chloride Level 118H, Carbon Dioxide Level 14L, Anion Gap 12, Blood Urea Nitrogen 81H, Cre atinine 3.8H, Estimat Glomerular Filtration Rate 15.8, Glucose Level 133H, Calcium Level 7.9L, Phosphorus Level 6.2H, Total Bilirubin 0.5, Direct Bilirubin 0.2, Aspartate Amino Transf (AST/SGOT) 93H, Alanine Aminotransferase (ALT/SGPT) 39, Alkaline Phosphatase 328H, Total Protein 7.8, Albumin 2.3L Current Medications Medications (Trade) Dose Ordered Sig/James Route PRN Reason Start Time Stop Time Status Last Admin Dose Admin Acetaminophen (Tylenol) 650 mg Q4H PRN RECTAL Temp >100.5 03/07/20 08:15 04/06/20 08:14 Acetaminophen (Tylenol) 650 mg Q4H PRN RECTAL Mild Pain (Pain Scale 1-3) 03/07/20 09:00 04/06/20 08:59 Albumin Human 100 ml @ 200 mls/hr PRN PRN IV sbp<90 during hd 03/08/20 14:00 03/09/20 23:59 Albuterol Sulfate (Proventil MDI) 2 puff Q4H PRN INH Shortness of Breath 03/07/20 08:15 06/05/20 08:14 Azithromycin 500 mg/Dextrose 275 ml @ 275 mls/hr Q24H IV 03/08/20 09:00 03/13/20 08:59 03/08/20 09:08 Ceftriaxone Sodium 1 gm/ Dextrose 55 ml @ 110 mls/hr Q24H IVPB 03/08/20 06:00 03/15/20 05:59 03/08/20 05:15 Dexamethasone Sodium Phosphate (Decadron 10mg/ ml Inj) 6 mg DAILY IV 03/08/20 09:00 03/16/20 09:01 03/08/20 09:08 Dextrose (Dextrose 50%) 25 ml Q30M PRN IV Hypoglycemia 03/07/20 08:15 06/05/20 08:14 Dextrose (Dextrose 50%) 50 ml Q30M PRN IV Hypoglycemia 03/07/20 08:15 06/05/20 08:14 03/07/20 11:57 Dextrose/Sodium Chloride 1,000 ml @ 50 mls/hr Q20H IV 03/07/20 23:00 04/06/20 22:59 03/08/20 19:50 Enoxaparin Sodium (Lovenox) 30 mg Q24H SUBQ 03/08/20 09:00 06/06/20 08:59 Famotidine (Pepcid I.v.) 20 mg DAILY IVP 03/07/20 09:00 04/06/20 08:59 03/08/20 09:08 Heparin Sodium (Porcine) (Heparin 5000 units/ml) 5,000 units POSTHD PRN INJ POST HD 03/08/20 14:00 03/09/20 23:59 Heparin Sodium (Porcine) (Heparin Sod 1000 units/ml 10ml) 2,000 unit ONCE PRN IV HD USE 03/08/20 14:00 03/09/20 23:59 Hydromorphone HCl (Dilaudid) 0.5 mg Q3HR PRN IVP Severe Pain (Pain Scale 7-10) 03/07/20 22:15 03/14/20 22:14 Ondansetron HCl (Zofran) 4 mg Q6H PRN IVP Nausea & Vomiting 03/07/20 08:15 04/06/20 08:14 Sodium Chloride 1,000 ml @ 500 mls/hr Q2H PRN IVLG sbp<90 during hd 03/08/20 14:00 03/09/20 23:59 Assessment/Plan Assessment/Plan Pulmonary Progress Note HPI Patient is a 69-year-old man admitted with Covid Pneumonia, LA, Hyperkalemia, Pancreatitis.Noted to have for shortness of breath, hypoxia requiring a nonrebreathermask. No reported fevers or chills. No chest pain. Allergies: No Known Allergies Past Medical History: HTN Family History: NC Social History: NC All Other Systems: negative except mentioned in HPI Physical Exam Vital Signs noted Deferred Covid19 Impression: Covid Pneumonia/possible sepsis Respiratory failure LA Hyperkalemia Pancreatitis Urinary tract infection Hypertension Plan ID Consultation Dexamethazone Renal Consultation O2 PRN BiPAP PRN PPX [employer] Medications Laboratory Tests noted EKG Rate: normal Rhythm: NSR ST Segments: no acute changes Other Impression Sinus rhythm, normal axis, normal intervals, no ST segment changes, no peaked T waves Chest X-Ray: no effusion, no pneumothorax, other - Bilateral infiltrates. Bilateral multifocal pneumonia Cristopher Larson MD Mar 08, 2020 20:04
[2020-03-09] VITALS: BP 136/66
--- NOTE | 2020-03-09 01:52 | NUR ---
NURSE NOTES: Changed pt , sponge bath given, oral care provided. O2 sat- 99%. Continue to monitor pt.
--- NOTE | 2020-03-09 03:09 | NUR ---
NURSE NOTES: RT noted, ABG ordered in previous shift not resulted, re- entered ordered for ABG.
--- NOTE | 2020-03-09 03:58 | NUR ---
NURSE NOTES: Pt is still combative and restless, not in distress. o2 sat-100%.
[2020-03-09 04:00] VITALS: BP 108/56
[2020-03-09] MEDS: cefTRIAXone 1 GM in D5W 55 ML IVPB SCH (05:09)
--- NOTE | 2020-03-09 05:51 | NUR ---
NURSE NOTES: Pt is sleeping comfortably in bed, o2 sat- 100%.
--- NOTE | 2020-03-09 06:31 | NUR ---
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 Awaiting for response.
--- NOTE | 2020-03-09 07:10 | NUR ---
NURSE HAND-OFF REPORT: Important Events on Shift: pt on restraints, o2 sat -100%, still combative, Dialysis output 300ml ,waiting for K result today Patient Status: guarded/stable Diet: NPO Pending Orders: none Pending Results/Labs:none Pending MD notification:none Latest Vital Signs: Temperature 96.8 , Pulse 55 , B/P 108 /56 , Respiratory Rate 22 , O2 SAT 100 , Bi-pap, O2 Flow Rate 100.0 . Vital Sign Comment: wnl EKG Rhythm: Sinus Bradycardia Rhythm change?: N MD Notified?: - MD Response: Latest Conner Fall Score: 60 Fall Risk: High Risk Safety Measures: Call light Within Reach, Bed Alarm Zone 2, Side Rails Side Rails x2, Bed position Low and Locked. Fall Precautions: Yellow Socks Yellow Gown Door Sign Patient Fall Education Report given to [CHERELLE Moran].
--- NOTE | 2020-03-09 07:24 | NUR ---
NURSE NOTES: Received report from CHERELLE Martínez. Pt is sitting in bed in semi-buchanan's position asleep and is A/O x3 but no verbal. Pt is on BIPAP with setting of 16/6 with saturation of 100%. No SOB or acute distress. Pt is on restraints, with no skin breakdown and palpable pulses. Pt has a LAC 20G running D5/0.45NS @ 50cc/hr. Bed in lowest position and side rails x2. Call light placed within reach. Will continue to plan of care.
[2020-03-09 08:00] VITALS: BP 112/54
[2020-03-09] MEDS: Enoxaparin 30mg Inj SUBQ SCH (08:39)
[2020-03-09] MEDS: dexAMETHasone 10mg/ml Inj IV SCH (08:39)
[2020-03-09] MEDS: Azithromycin 500 MG in D5W 275 ML IV SCH (08:41)
[2020-03-09 12:00] VITALS: BP 124/54
--- NOTE | 2020-03-09 12:05 | Nephrology Progress Note ---
Assessment/Plan Plan Patient has no family or DPOA. HD is urgent and life -saving. Suspect HD not done or was ineffective last night!!! 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 Subjective Subjective Pt. Still SOB!!! Objective Objective Last 24 Hour Vital Signs Date Time Temp Pulse Resp B/P (MAP) Pulse Ox O2 Delivery O2 Flow Rate FiO2 03/09/20 08:00 100 03/09/20 08:00 Bi-pap 03/09/20 08:00 64 03/09/20 08:00 97.5 60 22 112/54 (73) 100 03/09/20 07:48 57 28 100 100 03/09/20 04:00 96.8 57 22 108/56 (73) 100 03/09/20 04:00 55 03/09/20 04:00 100 03/09/20 04:00 Bi-pap 03/09/20 02:00 59 27 100 100 03/09/20 00:00 97.0 61 20 136/66 (89) 99 03/09/20 00:00 62 03/09/20 00:00 Bi-pap 03/08/20 20:00 57 34 97 100 03/08/20 20:00 75 03/08/20 20:00 97.6 76 20 149/79 (102) 95 03/08/20 20:00 Bi-pap 03/08/20 20:00 100.0 100 03/08/20 18:55 Bi-pap 100 03/08/20 16:00 100 03/08/20 16:00 Bi-pap 100.0 03/08/20 16:00 98.8 61 19 110/69 (83) 95 03/08/20 15:36 58 03/08/20 15:25 Bi-pap 100 03/08/20 13:20 55 29 98 100 03/08/20 12:00 Bi-pap 100.0 03/08/20 12:00 100 03/08/20 12:00 98.5 61 19 110/69 (83) 95 Intake and Output 03/08/20 03/09/20 19:00 07:00 Intake Total 610 ml Balance 610 ml Intake IV Total 610 ml # Voids 2 Laboratory Tests 03/09/20 09:00: Arterial Blood pH 7.467H, Arterial Blood Partial Pressure CO2 30.5L, Arterial Blood Partial Pressure O2 58.7L, Arterial Blood HCO3 21.5L, Arterial Blood Oxygen Saturation 92.3L, Arterial Blood Base Excess -1.7, Ken Test Positive Height (Feet): 5 Height (Inches): 4.00 Weight (Pounds): 154 Objective On BIPAP CV RR Lungs B wheezes!!!! Abd SNT. BS + E No CCE Greg Garcia MD Mar 09, 2020 12:05
--- NOTE | 2020-03-09 12:30 | NUR ---
NURSE NOTES: Upon Dr Weaver doing rounds asked about dialysis needing to be done today regarding potassium still being 7.5 after dialysis being done yesterday. Ordered dialysis for today and notified [facility]. Awaiting a call back.
--- NOTE | 2020-03-09 14:50 | NUR ---
NURSE NOTES: Dialysis nurse started dialysis. With BP being low she asked for albumin and also heparin which was taken from the pyxis and given to her.
[2020-03-09] MEDS: D5 1/2NS 1,000 ML IV SCH (14:52)
--- NOTE | 2020-03-09 15:42 | Pulmonology Progress Note ---
Subjective ROS Limited/Unobtainable: Yes Constitutional: Denies: fever Allergies: Coded Allergies: No Known Allergies (Unverified , 02/04/20) Objective Last 24 Hour Vital Signs Date Time Temp Pulse Resp B/P (MAP) Pulse Ox O2 Delivery O2 Flow Rate FiO2 03/09/20 12:00 63 03/09/20 12:00 Bi-pap 03/09/20 12:00 100 03/09/20 12:00 97.7 62 24 124/54 (77) 100 84 03/09/20 11:57 66 27 100 100 03/09/20 08:00 100 03/09/20 08:00 Bi-pap 03/09/20 08:00 64 03/09/20 08:00 97.5 60 22 112/54 (73) 100 03/09/20 07:48 57 28 100 100 03/09/20 04:00 96.8 57 22 108/56 (73) 100 03/09/20 04:00 55 03/09/20 04:00 100 03/09/20 04:00 Bi-pap 03/09/20 02:00 59 27 100 100 03/09/20 00:00 97.0 61 20 136/66 (89) 99 03/09/20 00:00 62 03/09/20 00:00 Bi-pap 03/08/20 20:00 57 34 97 100 03/08/20 20:00 75 03/08/20 20:00 97.6 76 20 149/79 (102) 95 03/08/20 20:00 Bi-pap 03/08/20 20:00 100.0 100 03/08/20 18:55 Bi-pap 100 03/08/20 16:00 100 03/08/20 16:00 Bi-pap 100.0 03/08/20 16:00 98.8 61 19 110/69 (83) 95 Intake and Output 03/08/20 03/09/20 19:00 07:00 Intake Total 610 ml Balance 610 ml Intake IV Total 610 ml # Voids 2 Microbiology Date/Time Source Procedure Growth Status 03/07/20 05:38 Rectum - Final NO CARBAPENEM-RESISTANT ENTEROBACTERI... Complete 03/07/20 05:38 Rectum VRE Culture - Final Enterococcus Faecium - Vre Complete 03/07/20 05:38 Nasal Nares MRSA Culture - Final Staphylococcus Aureus - Mrsa Complete 03/07/20 05:25 Blood Blood Culture - Preliminary NO GROWTH AFTER 48 HOURS Resulted 03/07/20 05:20 Urine,Clean Catch Urine Culture - Final Escherichia Coli Complete 03/07/20 05:20 Nasopharynx SARS-CoV-2 RdRp Gene Assay - Final Complete 03/07/20 05:20 Blood Blood Culture - Preliminary NO GROWTH AFTER 48 HOURS Resulted Laboratory Tests 03/09/20 09:00: Arterial Blood pH 7.467H, Arterial Blood Partial Pressure CO2 30.5L, Arterial Blood Partial Pressure O2 58.7L, Arterial Blood HCO3 21.5L, Arterial Blood Oxygen Saturation 92.3L, Arterial Blood Base Excess -1.7, Ken Test Positive Current Medications Medications (Trade) Dose Ordered Sig/James Route PRN Reason Start Time Stop Time Status Last Admin Dose Admin Acetaminophen (Tylenol) 650 mg Q4H PRN RECTAL Temp >100.5 03/07/20 08:15 04/06/20 08:14 Acetaminophen (Tylenol) 650 mg Q4H PRN RECTAL Mild Pain (Pain Scale 1-3) 03/07/20 09:00 04/06/20 08:59 Albumin Human 100 ml @ 100 mls/hr ONCE ONCE IV 03/09/20 15:00 03/09/20 15:59 Albumin Human 100 ml @ 200 mls/hr PRN PRN IV sbp<90 during hd 03/08/20 14:00 03/09/20 23:59 Albuterol Sulfate (Proventil MDI) 2 puff Q4H PRN INH Shortness of Breath 03/07/20 08:15 06/05/20 08:14 Azithromycin 500 mg/Dextrose 275 ml @ 275 mls/hr Q24H IV 03/08/20 09:00 03/13/20 08:59 03/09/20 08:41 Ceftriaxone Sodium 1 gm/ Dextrose 55 ml @ 110 mls/hr Q24H IVPB 03/08/20 06:00 03/15/20 05:59 03/09/20 05:09 Chlorhexidine Gluconate (Linnette-Hex 2%) 1 applic DAILY@2000 TOPIC 03/09/20 20:00 06/07/20 19:59 Dexamethasone Sodium Phosphate (Decadron 10mg/ ml Inj) 6 mg DAILY IV 03/08/20 09:00 03/16/20 09:01 03/09/20 08:39 Dextrose (Dextrose 50%) 25 ml Q30M PRN IV Hypoglycemia 03/07/20 08:15 06/05/20 08:14 Dextrose (Dextrose 50%) 50 ml Q30M PRN IV Hypoglycemia 03/07/20 08:15 06/05/20 08:14 03/07/20 11:57 Dextrose/Sodium Chloride 1,000 ml @ 50 mls/hr Q20H IV 03/07/20 23:00 04/06/20 22:59 03/09/20 14:52 Enoxaparin Sodium (Lovenox) 30 mg Q24H SUBQ 03/08/20 09:00 06/06/20 08:59 03/09/20 08:39 Famotidine (Pepcid I.v.) 20 mg DAILY IVP 03/07/20 09:00 04/06/20 08:59 03/09/20 08:39 Heparin Sodium (Porcine) (Heparin 5000 units/ml) 5,000 units POSTHD PRN INJ POST HD 03/08/20 14:00 03/09/20 23:59 Heparin Sodium (Porcine) (Heparin Sod 1000 units/ml 10ml) 2,000 unit ONCE PRN IV HD USE 03/08/20 14:00 03/09/20 23:59 Hydromorphone HCl (Dilaudid) 0.5 mg Q3HR PRN IVP Severe Pain (Pain Scale 7-10) 03/07/20 22:15 03/14/20 22:14 Ondansetron HCl (Zofran) 4 mg Q6H PRN IVP Nausea & Vomiting 03/07/20 08:15 04/06/20 08:14 Sodium Chloride 1,000 ml @ 500 mls/hr Q2H PRN IVLG sbp<90 during hd 03/08/20 14:00 03/09/20 23:59 Assessment/Plan Assessment/Plan Pulmonary Progress Note HPI Patient is a 69-year-old man admitted with Covid Pneumonia, LA, Hyperkalemia, Pancreatitis.Noted to have for shortness of breath, hypoxia requiring a non rebreather mask. No reported fever. 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 Bilateral multifocal pneumonia Cristopher Larson MD Mar 09, 2020 15:42
[2020-03-09 16:00] VITALS: BP 97/42
[2020-03-09] MEDS ORDERED: DOCUSATE SODIU100 MG ORAL (17:36)
[2020-03-09] MEDS ORDERED: ACETAMINOPHEN325 M1 ORAL (17:36)
[2020-03-09] MEDS ORDERED: VITAMIN A & D113 GM TP (17:36)
[2020-03-09 17:53] LABS: CALCIUM 7.2 MG/DL (8.5-10.1); CREATININE 1.4 MG/DL (0.55-1.30)
[2020-03-09 17:57] LABS: POTASSIUM 2.7 MMOL/L (3.5-5.1)
--- NOTE | 2020-03-09 18:05 | NUR ---
NURSE NOTES: Notified Dr. Weaver regarding the K being 2.7 after dialysis and he stated we don't fix the K after dialysis. Please do not give him anything. Please show Mis Brant the change in labs.
--- NOTE | 2020-03-09 18:07 | Consultation ---
History of Present Illness General Date patient seen: Mar 09, 2020 Reason for Hospitalization: Dyspnea/Respdistress Present Illness HPI 69M admitted for respiratory distress sob currently under medical management recent acute renal insufficiency requiring HD temp line placed first HD planned and abnormal labs noted. called to evaluate and assist with care. patient seen, chart reviewed, patient examined. Allergies: Coded Allergies: No Known Allergies (Unverified , 02/04/20) COVID-19 Screening Contact w/high risk pt: Yes Experienced COVID-19 symptoms?: Yes Coronavirus symptoms experienc: Shortness of Breath Medication History Scheduled Amlodipine Besylate* (Amlodipine Besylate*), 5 MG ORAL BID, (Reported) Benazepril Hcl* (Benazepril Hcl*), 20 MG ORAL DAILY, (Reported) Docusate Sodium* (Docusate Sodium*), 100 MG ORAL DAILY, (Reported) Pantoprazole* (Pantoprazole*), 40 MG ORAL DAILY, (Reported) Petrolatum,White/Lanolin (Vitamin A & D Ointment), 113 GM TP DAILY, (Reported) Scheduled PRN Acetaminophen* (Acetaminophen 325MG Tablet*), 325 MG ORAL Q4H PRN for For Pain, (Reported) Clonidine Hcl* (Catapres*), 0.1 MG ORAL EVERY 4 HOURS PRN for For High Blood Pressure, (Reported) Discontinued Medications Cefepime Hcl/D5w (Cefepime-Dextrose 1 Gm/50 Ml), 1 GM IVPB Q24H, (Reported) Discontinued Reason: Therapy completed Patient History Limited by: medical condition History Provided By: Medical Record, PMD Healthcare decision maker Resuscitation status Advanced Directive on File Past Medical/Surgical History Past Medical/Surgical History: (1) Dehydration (2) Altered level of consciousness (3) Urinary tract bacterial infections (4) Renal insufficiency (5) Hyperkalemia (6) Respiratory distress (7) Pancreatitis (8) Renal failure (9) UTI (urinary tract infection) (10) Pneumonia due to COVID-19 virus Review of Systems Review of Symptoms General ROS: no weight loss or fever Psychological ROS: no depression or mood changes, no memory loss Ophthalmic ROS: no visual changes or eye irritation ENT ROS: no nasal congestion, hearing loss, dizziness Allergy and Immunology ROS: no allergic symptoms or urticaria Hematological and Lymphatic ROS: no swollen glands, unusual bleeding or bruising Endocrine ROS: no polyuria, polydipsia, weight changes, temperature intolerance Respiratory ROS: no cough, shortness of breath, or wheezing Cardiovascular ROS: no chest pain or dyspnea on exertion Gastrointestinal ROS: denies abdominal pain, bright red blood in stool. Musculoskeletal ROS: no myalgias or arthralgias Neurological ROS: no TIA or stroke symptoms Dermatological ROS: no new or changing skin lesions, rashes or pruritis Physical Exam Physical Exam General appearance: alert, cooperative, no distress, appears stated age Head: Normocephalic, without obvious abnormality, atraumatic Eyes: conjunctivae/corneas clear. PERRL, EOM's intact. Fundi benign Throat: Lips, mucosa, and tongue normal. Teeth and gums normal Neck: supple, symmetrical, trachea midline, no adenopathy, thyroid: not enlarged, symmetric, no tenderness/mass/nodules, no carotid bruit and no JVD Lungs: clear to auscultation bilaterally Heart: regular rate and rhythm, S1, S2 normal, no murmur, click, rub or gallop Abdomen: soft, non-tender. Bowel sounds normal. No masses, no organomegaly Extremities: extremities normal, atraumatic, no cyanosis or edema Pulses: 2+ and symmetric Skin: Skin color, texture, turgor normal. No rashes or lesions Neurologic: Grossly normal Last 24 Hour Vital Signs Date Time Temp Pulse Resp B/P (MAP) Pulse Ox O2 Delivery O2 Flow Rate FiO2 03/09/20 16:00 75 03/09/20 16:00 97.8 77 23 97/42 (60) 97 03/09/20 16:00 Bi-pap 03/09/20 16:00 100 03/09/20 15:31 60 17 99 100 03/09/20 12:00 63 03/09/20 12:00 Bi-pap 03/09/20 12:00 100 03/09/20 12:00 97.7 62 24 124/54 (77) 100 84 03/09/20 11:57 66 27 100 100 03/09/20 08:00 100 03/09/20 08:00 Bi-pap 03/09/20 08:00 64 03/09/20 08:00 97.5 60 22 112/54 (73) 100 03/09/20 07:48 57 28 100 100 03/09/20 04:00 96.8 57 22 108/56 (73) 100 03/09/20 04:00 55 03/09/20 04:00 100 03/09/20 04:00 Bi-pap 03/09/20 02:00 59 27 100 100 03/09/20 00:00 97.0 61 20 136/66 (89) 99 03/09/20 00:00 62 03/09/20 00:00 Bi-pap 03/08/20 20:00 57 34 97 100 03/08/20 20:00 75 03/08/20 20:00 97.6 76 20 149/79 (102) 95 03/08/20 20:00 Bi-pap 03/08/20 20:00 100.0 100 03/08/20 18:55 Bi-pap 100 Intake and Output 03/08/20 03/09/20 19:00 07:00 Intake Total 610 ml Balance 610 ml Intake IV Total 610 ml # Voids 2 Laboratory Tests Test 03/09/20 09:00 03/09/20 17:00 Arterial Blood pH 7.467 (7.350-7.450) Arterial Blood Partial Pressure CO2 30.5 mmHg (35.0-45.0) L Arterial Blood Partial Pressure O2 58.7 mmHg (75.0-100.0) L Arterial Blood HCO3 21.5 mmol/L (22.0-26.0) L Arterial Blood Oxygen Saturation 92.3 % (95-100) L Arterial Blood Base Excess -1.7 (-2-2) Ken Test Positive Sodium Level 141 MMOL/L (136-145) Potassium Level 2.7 MMOL/L (3.5-5.1) #*L Chloride Level 103 MMOL/L (98-107) Carbon Dioxide Level 31 MMOL/L (21-32) Anion Gap 6 mmol/L (5-15) Blood Urea Nitrogen 21 mg/dL (7-18) H Creatinine 1.4 MG/DL (0.55-1.30) #H Estimat Glomerular Filtration Rate 50.1 mL/min (>60) Glucose Level 106 MG/DL (74-106) Calcium Level 7.2 MG/DL (8.5-10.1) L Height (Feet): 5 Height (Inches): 4.00 Weight (Pounds): 154 Medications Current Medications Medications (Trade) Dose Ordered Sig/James Route PRN Reason Start Time Stop Time Status Last Admin Dose Admin Acetaminophen (Tylenol) 650 mg Q4H PRN RECTAL Temp >100.5 03/07/20 08:15 04/06/20 08:14 Acetaminophen (Tylenol) 650 mg Q4H PRN RECTAL Mild Pain (Pain Scale 1-3) 03/07/20 09:00 04/06/20 08:59 Albumin Human 100 ml @ 200 mls/hr PRN PRN IV sbp<90 during hd 03/08/20 14:00 03/09/20 23:59 Albuterol Sulfate (Proventil MDI) 2 puff Q4H PRN INH Shortness of Breath 03/07/20 08:15 06/05/20 08:14 Azithromycin 500 mg/Dextrose 275 ml @ 275 mls/hr Q24H IV 03/08/20 09:00 03/13/20 08:59 03/09/20 08:41 Ceftriaxone Sodium 1 gm/ Dextrose 55 ml @ 110 mls/hr Q24H IVPB 03/08/20 06:00 03/15/20 05:59 03/09/20 05:09 Chlorhexidine Gluconate (Linnette-Hex 2%) 1 applic DAILY@2000 TOPIC 03/09/20 20:00 06/07/20 19:59 Dexamethasone Sodium Phosphate (Decadron 10mg/ ml Inj) 6 mg DAILY IV 03/08/20 09:00 03/16/20 09:01 03/09/20 08:39 Dextrose (Dextrose 50%) 25 ml Q30M PRN IV Hypoglycemia 03/07/20 08:15 06/05/20 08:14 Dextrose (Dextrose 50%) 50 ml Q30M PRN IV Hypoglycemia 03/07/20 08:15 06/05/20 08:14 03/07/20 11:57 Dextrose/Sodium Chloride 1,000 ml @ 50 mls/hr Q20H IV 03/07/20 23:00 04/06/20 22:59 03/09/20 14:52 Enoxaparin Sodium (Lovenox) 30 mg Q24H SUBQ 03/08/20 09:00 06/06/20 08:59 03/09/20 08:39 Famotidine (Pepcid I.v.) 20 mg DAILY IVP 03/07/20 09:00 04/06/20 08:59 03/09/20 08:39 Heparin Sodium (Porcine) (Heparin 5000 units/ml) 5,000 units POSTHD PRN INJ POST HD 03/08/20 14:00 03/09/20 23:59 Heparin Sodium (Porcine) (Heparin Sod 1000 units/ml 10ml) 2,000 unit ONCE PRN IV HD USE 03/08/20 14:00 03/09/20 23:59 Hydromorphone HCl (Dilaudid) 0.5 mg Q3HR PRN IVP Severe Pain (Pain Scale 7-10) 03/07/20 22:15 03/14/20 22:14 Ondansetron HCl (Zofran) 4 mg Q6H PRN IVP Nausea & Vomiting 03/07/20 08:15 04/06/20 08:14 Sodium Chloride 1,000 ml @ 500 mls/hr Q2H PRN IVLG sbp<90 during hd 03/08/20 14:00 03/09/20 23:59 Assessment/Plan Problem List: (1) Hyperkalemia ICD Codes: E87.5 - Hyperkalemia SNOMED: 68727465 (2) Respiratory distress ICD Codes: R06.03 - Acute respiratory distress SNOMED: 583316464 (3) Pancreatitis Assessment & Plan: noted on admission to have acute pancreatitis etiology work up on way lft's noted mild elevated no n/v labs reviewed exam unreliable as very agitated iv fluids okay for diet trend labs will follow with exam and recs ICD Codes: K85.90 - Acute pancreatitis without necrosis or infection, unspecified SNOMED: 52851775 (4) Renal failure Assessment & Plan: renal insufficiency fem cath placed okay for hd see note will follow ICD Codes: N19 - Unspecified kidney failure SNOMED: 06754737 (5) UTI (urinary tract infection) ICD Codes: N39.0 - Urinary tract infection, site not specified SNOMED: 26581704 (6) Pneumonia due to COVID-19 virus ICD Codes: U07.1 - COVID-19; J12.89 - Other viral pneumonia SNOMED: 159668112235264473 (7) Dehydration ICD Codes: E86.0 - Dehydration SNOMED: 85142312, [id number] (8) Renal insufficiency ICD Codes: N28.9 - Disorder of kidney and ureter, unspecified SNOMED: 002261895, 876384881 (9) Altered level of consciousness ICD Codes: R40.4 - Transient alteration of awareness SNOMED: 7929694 (10) Urinary tract bacterial infections ICD Codes: N39.0 - Urinary tract infection, site not specified; A49.9 - Bacterial infection, unspecified SNOMED: 242103111, [id number] Darius Sifuentes Mar 09, 2020 18:07
--- NOTE | 2020-03-09 19:08 | NUR ---
NURSE HAND-OFF REPORT: Important Events on Shift: Bipap titrated down from 100% to 90% and endorsed to keep titrating. Dialysis done today and 500ml out. K is now 2.7 and Ciscoer is aware. NNO. Patient Status: Stable Diet: NPO Pending Orders: Pending Results/Labs: Pending MD notification: Latest Vital Signs: Temperature 97.8 , Pulse 75 , B/P 97 /42 , Respiratory Rate 23 , O2 SAT 97 , Bi-pap, O2 Flow Rate 100.0 . Vital Sign Comment: EKG Rhythm: Sinus Bradycardia Rhythm change?: N MD Notified?: N - MD Response: Latest Conner Fall Score: 60 Fall Risk: High Risk Safety Measures: Call light Within Reach, Bed Alarm Zone 2, Side Rails Side Rails x2, Bed position Low and Locked. Fall Precautions: Yellow Socks Yellow Gown Door Sign Patient Fall Education Report given to
--- NOTE | 2020-03-09 19:27 | NUR ---
NURSE NOTES: Report received from CHERELLE Moran. Patient is awake on bed, alert and oriented x 1. quality assurance monitor body is in place, shows sinus rhythm. On NPO. On oxygen via BIPAP 16/6, fi02 90 %. On fall and aspiration precaution. With left AC g-20 running d5 1/2 NS @ 50 cc/hour, IV site on right hand g-20 saline locked that is patent and intact. Safety measures are in place, bed in lowest and locked position, side rails up x 2, call light button and bedside table within reach, instructed to call for any assistance needed. Will continue plan of care.
[2020-03-09 20:00] VITALS: BP 119/55
[2020-03-09] MEDS: Dyna-Hex 2% Top Sol 2oz TOPIC SCH (20:33)
[2020-03-10] VITALS: BP 120/56
--- NOTE | 2020-03-10 00:44 | NUR ---
NURSE NOTES: Patient is asleep in stable condition. Will remove his bilateral soft wrist restraints and observe for now.
--- NOTE | 2020-03-10 03:40 | NUR ---
NURSE NOTES: Noted patient is still removing his Bipap and trying to get out on bed, will place back his restraints.
[2020-03-10 04:00] VITALS: BP 118/55
[2020-03-10] MEDS: cefTRIAXone 1 GM in D5W 55 ML IVPB SCH (06:08)
[2020-03-10 06:47] LABS: HEMATOCRIT 22.4 % (42.0-52.0); HEMOGLOBIN 7.8 G/DL (14.2-18.0); MEAN CORPUSCULAR VOLUME 88 FL (80-99); PLATELET COUNT 93 K/UL (150-450); RED BLOOD COUNT 2.53 M/UL (4.70-6.10); RED CELL DISTRIBUTION WIDTH 16.2 % (11.6-14.8); WHITE BLOOD COUNT 10.7 K/UL (4.8-10.8)
--- NOTE | 2020-03-10 07:20 | NUR ---
NURSE HAND-OFF REPORT: Important Events on Shift: Patient has been resting well the whole shift Patient Status: Patient is awake on bed in stable condition. Plan of care endorsed Diet: npo except meds and oce chips Pending Orders: venous duplex Pending Results/Labs:am lab result Pending MD notification:none Latest Vital Signs: Temperature 97.7 , Pulse 66 , B/P 118 /55 , Respiratory Rate 24 , O2 SAT 95 , Bi-pap, O2 Flow Rate 80.0 . Vital Sign Comment: stable EKG Rhythm: Sinus Rhythm Rhythm change?: N MD Notified?: N - MD Response: Latest Conner Fall Score: 70 Fall Risk: High Risk Safety Measures: Call light Within Reach, Bed Alarm Zone 2, Side Rails Side Rails x2, Bed position Low and Locked. Fall Precautions: Yellow Socks Yellow Gown Door Sign Patient Fall Education Report given to Martin. VILLARREAL.
[2020-03-10 07:23] LABS: ALBUMIN 2.2 G/DL (3.4-5.0); ALBUMIN/GLOBULIN RATIO 0.5 (1.0-2.7); BILIRUBIN,TOTAL 0.6 MG/DL (0.2-1.0); CALCIUM 6.8 MG/DL (8.5-10.1); CREATININE 2.3 MG/DL (0.55-1.30)
--- NOTE | 2020-03-10 07:25 | NUR ---
NURSE NOTES: Received report from CHERELLE Alicea. Patient is resting in bed, in stable condition. No s/sx of SOB, breathing is even and unlabored, patient on continuous bipap at this time settings: 16/6 FiO2 70% SpO2 98%. Patient is nonverbal, observed no presence of pain or discomfort at this time. Bed is in lowest position, brakes engaged. Call light is kept within easy reach. Will continue to monitor patient. Addendum: 03/10/20 at 0731 by MARGARET GODINEZ RN NURSE NOTES: Patient is on bilateral soft wrist restraints for multiple attempts to pull out medical devices. Will continue to monitor patient.
[2020-03-10 07:58] VITALS: BP 122/69
[2020-03-10] MEDS: dexAMETHasone 10mg/ml Inj IV SCH (08:32)
[2020-03-10] MEDS: Azithromycin 500 MG in D5W 275 ML IV SCH (08:32)
[2020-03-10] MEDS: Enoxaparin 30mg Inj SUBQ SCH (08:32)
--- NOTE | 2020-03-10 10:24 | NUR ---
NURSE NOTES: Called and spoke with Dr. Larson, covering for Dr. Go, regarding hemoglobin of 7.8, Hct 22.4, platelet 93,000. Patient is on hemodialysis. Dr. Larson acknowledged and gave now new orders at this time regarding hemoglobin. Also inquired Dr. Larson for holding parameters for Lovenox SQ due to platelet level of 93,000 today, per Dr. Larson hold Lovenox for today, no holding parameters given. Noted. Informed Dr. Larson patient is on Biapap 16/6 FiO2 80% SpO2 100%. Dr. Larson acknowledged and gave no new orders at this time. Will continue to monitor patient.
[2020-03-10] MEDS: D5 1/2NS 1,000 ML IV SCH (11:03)
--- NOTE | 2020-03-10 11:38 | Infectious Diseases Prog Note ---
Assessment/Plan Assessment/Plan antibiotics : ceftriaxone, azithromycin A 1. COVID-19 pneumonia. on 100 % FiO2, 100 % saturation 2. e.coli UTI. 3. Pancreatitis 4. respiratory failure, 5. Dementia, 6. Hypertension 7. renal failure P 1. continue ceftriaxone 3 more days 2. continue dexamethasone 4 more days 3. d/c azithromycin 4. 1 dose ivermectin 5. continue isolation Subjective ROS Limited/Unobtainable: Yes Allergies: Coded Allergies: No Known Allergies (Unverified , 02/04/20) Objective Last 24 Hour Vital Signs Date Time Temp Pulse Resp B/P (MAP) Pulse Ox O2 Delivery O2 Flow Rate FiO2 03/10/20 08:00 Bi-pap 80.0 03/10/20 08:00 63 03/10/20 07:58 80 03/10/20 07:58 98.7 64 24 122/69 (86) 94 03/10/20 07:43 65 19 94 80 03/10/20 04:00 97.7 66 24 118/55 (76) 95 03/10/20 04:00 64 03/10/20 04:00 70 03/10/20 04:00 Bi-pap 80.0 03/10/20 00:00 64 03/10/20 00:00 Bi-pap 80.0 03/10/20 00:00 98.1 65 14 120/56 (77) 99 03/09/20 23:18 62 15 100 80 03/09/20 20:00 80 03/09/20 20:00 Bi-pap 80.0 03/09/20 20:00 98.4 67 18 119/55 (76) 99 03/09/20 19:35 67 23 100 80 03/09/20 19:21 68 03/09/20 16:00 75 03/09/20 16:00 97.8 77 23 97/42 (60) 97 03/09/20 16:00 Bi-pap 03/09/20 16:00 100 03/09/20 15:31 60 17 99 100 03/09/20 12:00 63 03/09/20 12:00 Bi-pap 03/09/20 12:00 100 03/09/20 12:00 97.7 62 24 124/54 (77) 100 84 03/09/20 11:57 66 27 100 100 Height (Feet): 5 Height (Inches): 4.00 Weight (Pounds): 154 HEENT: other - on bipap Laboratory Tests Test 03/09/20 17:00 03/10/20 03:25 Sodium Level 141 MMOL/L (136-145) 138 MMOL/L (136-145) Potassium Level 2.7 MMOL/L (3.5-5.1) #*L 4.0 MMOL/L (3.5-5.1) Chloride Level 103 MMOL/L (98-107) 104 MMOL/L (98-107) Carbon Dioxide Level 31 MMOL/L (21-32) 33 MMOL/L (21-32) H Anion Gap 6 mmol/L (5-15) 1 mmol/L (5-15) L Blood Urea Nitrogen 21 mg/dL (7-18) H 30 mg/dL (7-18) H Creatinine 1.4 MG/DL (0.55-1.30) #H 2.3 MG/DL (0.55-1.30) #H Estimat Glomerular Filtration Rate 50.1 mL/min (>60) 28.3 mL/min (>60) Glucose Level 106 MG/DL (74-106) 123 MG/DL (74-106) H Calcium Level 7.2 MG/DL (8.5-10.1) L 6.8 MG/DL (8.5-10.1) L White Blood Count 10.7 K/UL (4.8-10.8) Red Blood Count 2.53 M/UL (4.70-6.10) L Hemoglobin 7.8 G/DL (14.2-18.0) L Hematocrit 22.4 % (42.0-52.0) L Mean Corpuscular Volume 88 FL (80-99) Mean Corpuscular Hemoglobin 30.7 PG (27.0-31.0) Mean Corpuscular Hemoglobin Concent 34.7 G/DL (32.0-36.0) Red Cell Distribution Width 16.2 % (11.6-14.8) H Platelet Count 93 K/UL (150-450) L Mean Platelet Volume 10.0 FL (6.5-10.1) Neutrophils (%) (Auto) % (45.0-75.0) Lymphocytes (%) (Auto) % (20.0-45.0) Monocytes (%) (Auto) % (1.0-10.0) Eosinophils (%) (Auto) % (0.0-3.0) Basophils (%) (Auto) % (0.0-2.0) Differential Total Cells Counted 100 Neutrophils % (Manual) 95 % (45-75) H Lymphocytes % (Manual) 3 % (20-45) L Monocytes % (Manual) 2 % (1-10) Eosinophils % (Manual) 0 % (0-3) Basophils % (Manual) 0 % (0-2) Band Neutrophils 0 % (0-8) Platelet Estimate Decreased L Platelet Morphology Normal Hypochromasia 1+ Anisocytosis 1+ Total Bilirubin 0.6 MG/DL (0.2-1.0) Aspartate Amino Transf (AST/SGOT) 93 U/L (15-37) H Alanine Aminotransferase (ALT/SGPT) 31 U/L (12-78) Alkaline Phosphatase 243 U/L (46-116) H C-Reactive Protein, Quantitative 7.9 mg/dL (0.00-0.90) H Total Protein 6.5 G/DL (6.4-8.2) Albumin 2.2 G/DL (3.4-5.0) L Globulin 4.3 g/dL Albumin/Globulin Ratio 0.5 (1.0-2.7) L Amylase Level 87 U/L (25-115) Lipase 509 U/L (73-393) H Hepatitis B Surface Antigen Pending Current Medications Medications (Trade) Dose Ordered Sig/James Route PRN Reason Start Time Stop Time Status Last Admin Dose Admin Acetaminophen (Tylenol) 650 mg Q4H PRN RECTAL Temp >100.5 03/07/20 08:15 04/06/20 08:14 Acetaminophen (Tylenol) 650 mg Q4H PRN RECTAL Mild Pain (Pain Scale 1-3) 03/07/20 09:00 04/06/20 08:59 Albuterol Sulfate (Proventil MDI) 2 puff Q4H PRN INH Shortness of Breath 03/07/20 08:15 06/05/20 08:14 Azithromycin 500 mg/Dextrose 275 ml @ 275 mls/hr Q24H IV 03/08/20 09:00 03/13/20 08:59 03/10/20 08:32 Ceftriaxone Sodium 1 gm/ Dextrose 55 ml @ 110 mls/hr Q24H IVPB 03/08/20 06:00 03/15/20 05:59 03/10/20 06:08 Chlorhexidine Gluconate (Linnette-Hex 2%) 1 applic DAILY@2000 TOPIC 03/09/20 20:00 06/07/20 19:59 03/09/20 20:33 Dexamethasone Sodium Phosphate (Decadron 10mg/ ml Inj) 6 mg DAILY IV 03/08/20 09:00 03/16/20 09:01 03/10/20 08:32 Dextrose (Dextrose 50%) 25 ml Q30M PRN IV Hypoglycemia 03/07/20 08:15 06/05/20 08:14 Dextrose (Dextrose 50%) 50 ml Q30M PRN IV Hypoglycemia 03/07/20 08:15 06/05/20 08:14 03/07/20 11:57 Dextrose/Sodium Chloride 1,000 ml @ 50 mls/hr Q20H IV 03/07/20 23:00 04/06/20 22:59 03/10/20 11:03 Enoxaparin Sodium (Lovenox) 30 mg Q24H SUBQ 03/08/20 09:00 06/06/20 08:59 03/09/20 08:39 Famotidine (Pepcid I.v.) 20 mg DAILY IVP 03/07/20 09:00 04/06/20 08:59 03/10/20 08:32 Hydromorphone HCl (Dilaudid) 0.5 mg Q3HR PRN IVP Severe Pain (Pain Scale 7-10) 03/07/20 22:15 03/14/20 22:14 Ondansetron HCl (Zofran) 4 mg Q6H PRN IVP Nausea & Vomiting 03/07/20 08:15 04/06/20 08:14 Brittney Quigley MD Mar 10, 2020 11:38
--- NOTE | 2020-03-10 11:47 | Diagnostic Imaging Report ---
Indication: Abnormal renal functions Technique: Grayscale and duplex images of the kidneys, retroperitoneum, and bladder were obtained. Comparison: 02/05/2020 Findings: Right kidney measures 9 cm in length. Left kidney measures 8.2 cm in length. Both kidneys demonstrate normal echogenicity. No hydronephrosis. No focal abnormality. Normal inferior vena cava. Bladder is normal. There is a small amount of ascites fluid present. Impression: Normal kidneys Ascites.
[2020-03-10 11:56] VITALS: BP 126/60
--- NOTE | 2020-03-10 11:56 | NUR ---
NURSE NOTES: Patient noted with order for Ivermectin 15 mg PO x [address] Quigley. Called and informed Dr. Quigley that patient is A&O x 1, unable to swallow medications at this time, patient is on continuous BiPAP 16/[address] FiO2 80%. Dr. Quigley acknowledged and ordered to discontinue Ivermectin 15 mg PO. Order discontinued. Noted. Will continue to monitor patient.
--- NOTE | 2020-03-10 13:30 | NUR ---
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 97.5 HR 63 RR 24 B/P 126/60 BIPAP 16/6 FIO2 80% 02SAT 98% BUN 30 CR 2.3 RENAL US= NORMAL KIDNEY IS: IVF D5NS @ 50ML/HR CEFEPIME IV DECADRON IV AZITHROMYCIN IV LOVENOX SUBC STEP DOWN STATUS
--- NOTE | 2020-03-10 13:45 | Nephrology Progress Note ---
Assessment/Plan Plan Patient has no family or DPOA. HD is urgent and life -saving. Eventually HD done last night with real results -see. 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 Next HD tomorrow. Subjective Subjective Less SOB Objective Objective Last 24 Hour Vital Signs Date Time Temp Pulse Resp B/P (MAP) Pulse Ox O2 Delivery O2 Flow Rate FiO2 03/10/20 12:00 61 03/10/20 12:00 80 03/10/20 12:00 Bi-pap 80.0 03/10/20 11:56 97.5 63 24 126/60 (82) 100 03/10/20 08:00 Bi-pap 80.0 03/10/20 08:00 63 03/10/20 07:58 80 03/10/20 07:58 98.7 64 24 122/69 (86) 94 03/10/20 07:43 65 19 94 80 03/10/20 04:00 97.7 66 24 118/55 (76) 95 03/10/20 04:00 64 03/10/20 04:00 70 03/10/20 04:00 Bi-pap 80.0 03/10/20 00:00 64 03/10/20 00:00 Bi-pap 80.0 03/10/20 00:00 98.1 65 14 120/56 (77) 99 03/09/20 23:18 62 15 100 80 03/09/20 20:00 80 03/09/20 20:00 Bi-pap 80.0 03/09/20 20:00 98.4 67 18 119/55 (76) 99 03/09/20 19:35 67 23 100 80 03/09/20 19:21 68 03/09/20 16:00 75 03/09/20 16:00 97.8 77 23 97/42 (60) 97 03/09/20 16:00 Bi-pap 03/09/20 16:00 100 03/09/20 15:31 60 17 99 100 Intake and Output 03/09/20 03/10/20 19:00 07:00 Intake Total 50 ml 550 ml Output Total 500 ml 0 ml Balance -450 ml 550 ml Intake IV Total 50 ml 550 ml Output Urine Total 0 ml Hemodialysis UF 500 ml Laboratory Tests 03/09/20 17:00: Sodium Level 141, Potassium Level 2.7#*L, Chloride Level 103, Carbon Dioxide Lev el 31, Anion Gap 6, Blood Urea Nitrogen 21H, Creatinine 1.4#H, Estimat Glomerular Filtration Rate 50.1, Glucose Level 106, Calcium Level 7.2L 03/10/20 03:25: Sodium Level 138, Potassium Level 4.0, Chloride Level 104, Carbon Dioxide Level 33H, Anion Gap 1L, Blood Urea Nitrogen 30H, Creatinine 2.3#H, Estimat Glomerular Filtration Rate 28.3, Glucose Level 123H, Calcium Level 6.8L, White Blood Count 10.7, Red Blood Count 2.53L, Hemoglobin 7.8L, Hematocrit 22.4L, Mean Corpuscular Volume 88, Mean Corpuscular Hemoglobin 30.7, Mean Corpuscular Hemoglobin Concent 34.7, Red Cell Distribution Width 16.2H, Platelet Count 93L, Mean Platelet Volume 10.0, Neutrophils (%) (Auto) , Lymphocytes (%) (Auto) , Monocytes (%) (Auto) , Eosinophils (%) (Auto) , Basophils (%) (Auto) , Differential Total Cells Counted 100, Neutrophils % (Manual) 95H, Lymphocytes % (Manual) 3L, Monocytes % (Manual) 2, Eosinophils % (Manual) 0, Basophils % (Manual) 0, Band N eutrophils 0, Platelet Estimate DecreasedL, Platelet Morphology Normal, Hypochromasia 1+, Anisocytosis 1+, Total Bilirubin 0.6, Aspartate Amino Transf (AST/SGOT) 93H, Alanine Aminotransferase (ALT/SGPT) 31, Alkaline Phosphatase 243H, C-Reactive Protein, Quantitative 7.9H, Total Protein 6.5, Albumin 2.2L, Globulin 4.3, Albumin/Globulin Ratio 0.5L, Amylase Level 87, Lipase 509H, Hepatitis B Surface Antigen [Pending] Height (Feet): 5 Height (Inches): 4.00 Weight (Pounds): 154 Objective On BIPAP CV RR Lungs B wheezes!!!! Abd SNT. BS + E No CCE Greg Garcia MD Mar 10, 2020 13:45
--- NOTE | 2020-03-10 14:26 | NUR ---
NURSE NOTES: Called [facility] nephrology and spoke with Colt. Informed [facility]t that patient has dialysis order for tomorrow 03/11/[address] Garcia. [facility]t acknowledged and informed this nurse that they will inform dialysis nurse on-call. Noted. Will continue to monitor patient.
[2020-03-10 16:00] VITALS: BP 103/64
--- NOTE | 2020-03-10 17:18 | Surgery Progress Note ---
Surgery Progress Note Subjective Procedure Performed Right femoral temporary hemodialysis catheter insertion Additional Comments still agitated labs noted exam stable line functional no bleeding Objective Last 24 Hour Vital Signs Date Time Temp Pulse Resp B/P (MAP) Pulse Ox O2 Delivery O2 Flow Rate FiO2 03/10/20 16:00 61 03/10/20 16:00 Bi-pap 80.0 03/10/20 16:00 98.1 60 24 103/64 (77) 100 03/10/20 15:15 66 20 98 80 03/10/20 12:32 80 03/10/20 12:00 61 03/10/20 12:00 80 03/10/20 12:00 Bi-pap 80.0 03/10/20 11:56 97.5 63 24 126/60 (82) 100 03/10/20 11:46 60 15 100 60 03/10/20 08:00 Bi-pap 80.0 03/10/20 08:00 63 03/10/20 07:58 80 03/10/20 07:58 98.7 64 24 122/69 (86) 94 03/10/20 07:43 65 19 94 80 03/10/20 04:00 97.7 66 24 118/55 (76) 95 03/10/20 04:00 64 03/10/20 04:00 70 03/10/20 04:00 Bi-pap 80.0 03/10/20 00:00 64 03/10/20 00:00 Bi-pap 80.0 03/10/20 00:00 98.1 65 14 120/56 (77) 99 03/09/20 23:18 62 15 100 80 03/09/20 20:00 80 03/09/20 20:00 Bi-pap 80.0 03/09/20 20:00 98.4 67 18 119/55 (76) 99 03/09/20 19:35 67 23 100 80 03/09/20 19:21 68 I&O Intake and Output 03/09/20 03/10/20 19:00 07:00 Intake Total 50 ml 550 ml Output Total 500 ml 0 ml Balance -450 ml 550 ml Intake IV Total 50 ml 550 ml Output Urine Total 0 ml Hemodialysis UF 500 ml Dressing: saturated Cardiovascular: RSR Respiratory: decreased breath sounds Abdomen: soft, non-tender, present bowel sounds Extremities: no tenderness, no cyanosis Laboratory Tests Test 03/10/20 03:25 White Blood Count 10.7 K/UL (4.8-10.8) Red Blood Count 2.53 M/UL (4.70-6.10) L Hemoglobin 7.8 G/DL (14.2-18.0) L Hematocrit 22.4 % (42.0-52.0) L Mean Corpuscular Volume 88 FL (80-99) Mean Corpuscular Hemoglobin 30.7 PG (27.0-31.0) Mean Corpuscular Hemoglobin Concent 34.7 G/DL (32.0-36.0) Red Cell Distribution Width 16.2 % (11.6-14.8) H Platelet Count 93 K/UL (150-450) L Mean Platelet Volume 10.0 FL (6.5-10.1) Neutrophils (%) (Auto) % (45.0-75.0) Lymphocytes (%) (Auto) % (20.0-45.0) Monocytes (%) (Auto) % (1.0-10.0) Eosinophils (%) (Auto) % (0.0-3.0) Basophils (%) (Auto) % (0.0-2.0) Differential Total Cells Counted 100 Neutrophils % (Manual) 95 % (45-75) H Lymphocytes % (Manual) 3 % (20-45) L Monocytes % (Manual) 2 % (1-10) Eosinophils % (Manual) 0 % (0-3) Basophils % (Manual) 0 % (0-2) Band Neutrophils 0 % (0-8) Platelet Estimate Decreased L Platelet Morphology Normal Hypochromasia 1+ Anisocytosis 1+ Sodium Level 138 MMOL/L (136-145) Potassium Level 4.0 MMOL/L (3.5-5.1) Chloride Level 104 MMOL/L (98-107) Carbon Dioxide Level 33 MMOL/L (21-32) H Anion Gap 1 mmol/L (5-15) L Blood Urea Nitrogen 30 mg/dL (7-18) H Creatinine 2.3 MG/DL (0.55-1.30) #H Estimat Glomerular Filtration Rate 28.3 mL/min (>60) Glucose Level 123 MG/DL (74-106) H Calcium Level 6.8 MG/DL (8.5-10.1) L Total Bilirubin 0.6 MG/DL (0.2-1.0) Aspartate Amino Transf (AST/SGOT) 93 U/L (15-37) H Alanine Aminotransferase (ALT/SGPT) 31 U/L (12-78) Alkaline Phosphatase 243 U/L (46-116) H C-Reactive Protein, Quantitative 7.9 mg/dL (0.00-0.90) H Total Protein 6.5 G/DL (6.4-8.2) Albumin 2.2 G/DL (3.4-5.0) L Globulin 4.3 g/dL Albumin/Globulin Ratio 0.5 (1.0-2.7) L Amylase Level 87 U/L (25-115) Lipase 509 U/L (73-393) H Hepatitis B Surface Antigen Pending Plan Problems: (1) Hyperkalemia (2) Respiratory distress (3) Pancreatitis Assessment & Plan: noted on admission to have acute pancreatitis etiology work up on way lft's noted mild elevated no n/v labs reviewed exam unreliable as very agitated iv fluids okay for diet trend labs will follow with exam and recs (4) Renal failure Assessment & Plan: renal insufficiency fem cath placed okay for hd see note will follow (5) UTI (urinary tract infection) (6) Pneumonia due to COVID-19 virus (7) Dehydration (8) Renal insufficiency (9) Altered level of consciousness (10) Urinary tract bacterial infections Darius Sifuentes Mar 10, 2020 17:18
--- NOTE | 2020-03-10 18:39 | Pulmonology Progress Note ---
Subjective ROS Limited/Unobtainable: No Constitutional: Denies: fever Allergies: Coded Allergies: No Known Allergies (Unverified , 02/04/20) Objective Last 24 Hour Vital Signs Date Time Temp Pulse Resp B/P (MAP) Pulse Ox O2 Delivery O2 Flow Rate FiO2 03/10/20 16:00 61 03/10/20 16:00 Bi-pap 80.0 03/10/20 16:00 98.1 60 24 103/64 (77) 100 03/10/20 15:15 66 20 98 80 03/10/20 12:32 80 03/10/20 12:00 61 03/10/20 12:00 80 03/10/20 12:00 Bi-pap 80.0 03/10/20 11:56 97.5 63 24 126/60 (82) 100 03/10/20 11:46 60 15 100 60 03/10/20 08:00 Bi-pap 80.0 03/10/20 08:00 63 03/10/20 07:58 80 03/10/20 07:58 98.7 64 24 122/69 (86) 94 03/10/20 07:43 65 19 94 80 03/10/20 04:00 97.7 66 24 118/55 (76) 95 03/10/20 04:00 64 03/10/20 04:00 70 03/10/20 04:00 Bi-pap 80.0 03/10/20 00:00 64 03/10/20 00:00 Bi-pap 80.0 03/10/20 00:00 98.1 65 14 120/56 (77) 99 03/09/20 23:18 62 15 100 80 03/09/20 20:00 80 03/09/20 20:00 Bi-pap 80.0 03/09/20 20:00 98.4 67 18 119/55 (76) 99 03/09/20 19:35 67 23 100 80 03/09/20 19:21 68 Intake and Output 03/09/20 03/10/20 19:00 07:00 Intake Total 50 ml 550 ml Output Total 500 ml 0 ml Balance -450 ml 550 ml Intake IV Total 50 ml 550 ml Output Urine Total 0 ml Hemodialysis UF 500 ml Laboratory Tests 03/10/20 03:25: White Blood Count 10.7, Red Blood Count 2.53L, Hemoglobin 7.8L, Hematocrit 22.4L , Mean Corpuscular Volume 88, Mean Corpuscular Hemoglobin 30.7, Mean Corpuscular Hemoglobin Concent 34.7, Red Cell Distribution Width 16.2H, Platelet Count 93L, Mean Platelet Volume 10.0, Neutrophils (%) (Auto) , Lymphocytes (%) (Auto) , Monocytes (%) (Auto) , Eosinophils (%) (Auto) , Basophils (%) (Auto) , Differential Total Cells Counted 100, Neutrophils % (Manual) 95H, Lymphocytes % (Manual) 3L, Monocytes % (Manual) 2, Eosinophils % (Manual) 0, Basophils % (Manual) 0, Band Neutrophils 0, Platelet Estimate DecreasedL, Platelet Morphology Normal, Hypochromasia 1+, Anisocytosis 1+, Sodium Level 138, Potassium Level 4.0, Chloride Level 104, Carbon Dioxide Level 33H, Anion Gap 1L, Blood Urea Nitrogen 30H, Creatinine 2.3#H, Estimat Glomerular Filtration Rate 28.3, Glucose Level 123H, Calcium Level 6.8L, Total Bilirubin 0.6, Aspartate Amino Transf (AST/SGOT) 93H, Alanine Aminotransferase (ALT/SGPT) 31, Alkaline Phosphatase 243H, C-Reactive Protein, Quantitative 7.9H, Total Protein 6.5, Albumin 2.2L, Globulin 4.3, Albumin/Globulin Ratio 0.5L, Amylase Level 87, Lipase 509H, Hepatitis B Surface Antigen [Pending] Current Medications Medications (Trade) Dose Ordered Sig/James Route PRN Reason Start Time Stop Time Status Last Admin Dose Admin Acetaminophen (Tylenol) 650 mg Q4H PRN RECTAL Temp >100.5 03/07/20 08:15 04/06/20 08:14 Acetaminophen (Tylenol) 650 mg Q4H PRN RECTAL Mild Pain (Pain Scale 1-3) 03/07/20 09:00 04/06/20 08:59 Albuterol Sulfate (Proventil MDI) 2 puff Q4H PRN INH Shortness of Breath 03/07/20 08:15 06/05/20 08:14 Ceftriaxone Sodium 1 gm/ Dextrose 55 ml @ 110 mls/hr Q24H IVPB 03/08/20 06:00 03/13/20 23:59 03/10/20 06:08 Chlorhexidine Gluconate (Linnette-Hex 2%) 1 applic DAILY@2000 TOPIC 03/09/20 20:00 06/07/20 19:59 03/09/20 20:33 Dexamethasone Sodium Phosphate (Decadron 10mg/ ml Inj) 6 mg DAILY IV 03/08/20 09:00 03/16/20 09:01 03/10/20 08:32 Dextrose (Dextrose 50%) 25 ml Q30M PRN IV Hypoglycemia 03/07/20 08:15 06/05/20 08:14 Dextrose (Dextrose 50%) 50 ml Q30M PRN IV Hypoglycemia 03/07/20 08:15 06/05/20 08:14 03/07/20 11:57 Dextrose/Sodium Chloride 1,000 ml @ 50 mls/hr Q20H IV 03/07/20 23:00 04/06/20 22:59 03/10/20 11:03 Enoxaparin Sodium (Lovenox) 30 mg Q24H SUBQ 03/08/20 09:00 06/06/20 08:59 03/09/20 08:39 Epoetin Juna (Epoetin Juan(ESRD on dialysis)) 10,000 unit TUE-TUE-TUE SUBQ 03/10/20 21:00 06/08/20 20:59 Famotidine (Pepcid I.v.) 20 mg DAILY IVP 03/07/20 09:00 04/06/20 08:59 03/10/20 08:32 Heparin Sodium (Porcine) (Heparin Sod 1000 units/ml 10ml) 2,000 unit ONCE PRN IV HD 03/11/20 06:00 03/11/20 23:59 Heparin Sodium (Porcine) (Heparin) 1,000 unit POSTHD PRN INJ POST HD 03/11/20 06:00 03/11/20 23:59 Hydromorphone HCl (Dilaudid) 0.5 mg Q3HR PRN IVP Severe Pain (Pain Scale 7-10) 03/07/20 22:15 03/14/20 22:14 Ondansetron HCl (Zofran) 4 mg Q6H PRN IVP Nausea & Vomiting 03/07/20 08:15 04/06/20 08:14 Sodium Chloride 1,000 ml @ 500 mls/hr Q2H PRN IVLG sbp<90 during hd 03/11/20 06:00 03/11/20 23:59 Assessment/Plan Assessment/Plan Pulmonary Progress Note HPI Patient is a 69-year-old man admitted with Covid Pneumonia, [place], Hyperkalemia, Pancreatitis.Noted to have for shortness of breath, hypoxia requiring a non rebreather mask. No reported fever. 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 Bilateral multifocal pneumonia Cristopher Larson MD Mar 10, 2020 18:39
--- NOTE | 2020-03-10 19:19 | NUR ---
NURSE HAND-OFF REPORT: Important Events on Shift: Patient Status: Stable Diet: NPO Pending Orders: None Pending Results/Labs:None Pending MD notification:None Latest Vital Signs: Temperature 98.1 , Pulse 61 , B/P 103 /64 , Respiratory Rate 24 , O2 SAT 100 , Bi-pap, O2 Flow Rate 80.0 . Vital Sign Comment: Stable EKG Rhythm: Sinus Rhythm Rhythm change?: N MD Notified?: N - MD Response: Latest Conner Fall Score: 70 Fall Risk: High Risk Safety Measures: Call light Within Reach, Bed Alarm Zone 2, Side Rails Side Rails x2, Bed position Low and Locked. Fall Precautions: Yellow Socks Yellow Gown Door Sign Patient Fall Education Report given to CHERELLE Brooke.
--- NOTE | 2020-03-10 19:30 | NUR ---
NURSE NOTES: pt report received from DINH Elizabeth RN. pt remains stable. pt is alert and oriented times 1 , resposive to light tactile stimuli. pt is on BIPAP sating 98% O2. no other acute resp distress noted. pt is on monitoring specialist showing SR, 86. no other distress noted. pt bed is low, locked, armed, call light within reach, bed rails up times 3. will follow plan of care.
[2020-03-10 20:00] VITALS: BP 146/52
[2020-03-10] MEDS: Dyna-Hex 2% Top Sol 2oz TOPIC SCH (20:14)
[2020-03-10] MEDS ORDERED: Epoetin Alfa-EPBX(ESRD on dialysis)10,000 unit/ml vial SUBQ SCH (21:00)
--- NOTE | 2020-03-10 21:30 | NUR ---
NURSE NOTES: passed 9PM meds. pt remains unchanged.
--- NOTE | 2020-03-10 23:23 | NUR ---
NURSE NOTES: pt resting comfortably in bed.
[2020-03-11] VITALS: BP 141/68
--- NOTE | 2020-03-11 02:41 | NUR ---
NURSE NOTES: pt awake, resting in bed. no change in condition.
[2020-03-11 04:00] VITALS: BP 131/67
--- NOTE | 2020-03-11 05:37 | NUR ---
NURSE NOTES: pts IV fluids still running per doctors orders.
[2020-03-11 05:50] LABS: HEMATOCRIT 23.5 % (42.0-52.0); HEMOGLOBIN 7.6 G/DL (14.2-18.0); MEAN CORPUSCULAR VOLUME 93 FL (80-99); PLATELET COUNT 79 K/UL (150-450); RED BLOOD COUNT 2.52 M/UL (4.70-6.10); RED CELL DISTRIBUTION WIDTH 16.3 % (11.6-14.8); WHITE BLOOD COUNT 10.5 K/UL (4.8-10.8)
[2020-03-11] MEDS ORDERED: Heparin 1000 units/ml 1ml Vial INJ PRN (06:00)
[2020-03-11] MEDS ORDERED: Heparin Sod 1000 units/ml 10ml IV PRN (06:00)
[2020-03-11 06:11] LABS: CALCIUM 6.4 MG/DL (8.5-10.1); POTASSIUM 4.1 MMOL/L (3.5-5.1)
[2020-03-11] MEDS: cefTRIAXone 1 GM in D5W 55 ML IVPB SCH (06:11)
[2020-03-11] MEDS: D5 1/2NS 1,000 ML IV SCH (06:12)
--- NOTE | 2020-03-11 07:13 | NUR ---
NURSE HAND-OFF REPORT: Important Events on Shift:[monitoring] Patient Status: [STABLE] Diet: [NPO] Pending Orders: [NA] Pending Results/Labs:[NA] Pending MD notification:[NA] Latest Vital Signs: Temperature 97.0 , Pulse 65 , B/P 131 /67 , Respiratory Rate 24 , O2 SAT 100 , Bi-pap, O2 Flow Rate 80.0 . Vital Sign Comment: [stable] EKG Rhythm: Sinus Rhythm Rhythm change?: N MD Notified?: N - MD Response: Latest Conner Fall Score: 70 Fall Risk: High Risk Safety Measures: Call light Within Reach, Bed Alarm Zone 2, Side Rails Side Rails x2, Bed position Low and Locked. Fall Precautions: Yellow Socks Yellow Gown Door Sign Patient Fall Education Report given to [Leonidas Berman RN].
--- NOTE | 2020-03-11 07:20 | NUR ---
NURSE NOTES: Received report from CHERELLE Brooke. Patient is resting in bed, in stable condition. No s/sx of SOB, breathing is even and unlabored, on bipap with settings 16/6 FiO2 85% SpO2 98%. Observed no presence of pain or discomfort at this time. On bilateral soft wrist restraints for attempting to pull on medical devices. Bed is in lowest position, brakes engaged. Call light is kept within easy reach. Will continue to monitor patient.
[2020-03-11 08:00] VITALS: BP 130/61
[2020-03-11] MEDS: dexAMETHasone 10mg/ml Inj IV SCH (08:25)
[2020-03-11] MEDS: Enoxaparin 30mg Inj SUBQ SCH (08:25)
--- NOTE | 2020-03-11 09:00 | NUR ---
NURSE NOTES: Contacted and informed Dr. Garcia that hemodialysis nurse is requesting Albumin human 25% IV 100 ml PRN for SBP less than 90 mmHg during hemodialysis only. Dr. Garcia acknowledged and stated okay. Order entered, noted, and carried out. Will continue to monitor patient.
[2020-03-11] MEDS ORDERED: Tubing IV Secondary IV ONE (09:07)
[2020-03-11] MEDS ORDERED: D5 1/2NS 1000ml IV ONE (09:07)
--- NOTE | 2020-03-11 09:30 | Infectious Diseases Prog Note ---
Assessment/Plan Assessment/Plan IMPRESSION: COVID-19 pneumonia. UTI with E.coli Pancreatitis Hypoxic respiratory failure, Altered mental status, encephalopathy, Dementia, Hypertension. Anemia RECOMMENDATIONS: Continue dexamethasone, Continue ceftriaxone, Continue isolation Subjective ROS Limited/Unobtainable: Yes Constitutional: Denies: fever Neurologic: Reports: confusion, other - on restraint Allergies: Coded Allergies: No Known Allergies (Unverified , 02/04/20) Objective Last 24 Hour Vital Signs Date Time Temp Pulse Resp B/P (MAP) Pulse Ox O2 Delivery O2 Flow Rate FiO2 03/11/20 08:00 97.5 68 24 130/61 (84) 100 03/11/20 08:00 Bi-pap 80.0 03/11/20 08:00 65 03/11/20 07:22 63 20 98 65 03/11/20 04:00 97.0 65 24 131/67 (88) 100 03/11/20 04:00 Bi-pap 80.0 03/11/20 04:00 64 03/11/20 04:00 80 03/11/20 03:20 60 20 90 80 03/11/20 00:00 97.7 67 24 141/68 (92) 100 03/11/20 00:00 64 03/11/20 00:00 80 03/11/20 00:00 Bi-pap 80.0 03/10/20 23:30 69 19 97 80 03/10/20 20:00 80 03/10/20 20:00 Bi-pap 80.0 03/10/20 20:00 97.9 63 24 146/52 (83) 100 03/10/20 20:00 59 03/10/20 19:20 67 19 96 80 03/10/20 16:00 61 03/10/20 16:00 Bi-pap 80.0 03/10/20 16:00 98.1 60 24 103/64 (77) 100 03/10/20 15:15 66 20 98 80 03/10/20 12:32 80 03/10/20 12:00 61 03/10/20 12:00 80 03/10/20 12:00 Bi-pap 80.0 03/10/20 11:56 97.5 63 24 126/60 (82) 100 03/10/20 11:46 60 15 100 60 Height (Feet): 5 Height (Inches): 4.00 Weight (Pounds): 154 HEENT: mucous membranes moist Respiratory/Chest: other - on BIPAP, FIO2=60% Cardiovascular: normal rate Abdomen: soft, non tender Extremities: no edema Neurologic/Psychiatric: disoriented Laboratory Tests Test 03/11/20 03:50 White Blood Count 10.5 K/UL (4.8-10.8) Red Blood Count 2.52 M/UL (4.70-6.10) L Hemoglobin 7.6 G/DL (14.2-18.0) L Hematocrit 23.5 % (42.0-52.0) L Mean Corpuscular Volume 93 FL (80-99) Mean Corpuscular Hemoglobin 30.3 PG (27.0-31.0) Mean Corpuscular Hemoglobin Concent 32.6 G/DL (32.0-36.0) Red Cell Distribution Width 16.3 % (11.6-14.8) H Platelet Count 79 K/UL (150-450) L Mean Platelet Volume 9.1 FL (6.5-10.1) Neutrophils (%) (Auto) % (45.0-75.0) Lymphocytes (%) (Auto) % (20.0-45.0) Monocytes (%) (Auto) % (1.0-10.0) Eosinophils (%) (Auto) % (0.0-3.0) Basophils (%) (Auto) % (0.0-2.0) Neutrophils % (Manual) Pending Lymphocytes % (Manual) Pending Platelet Estimate Pending Platelet Morphology Pending Sodium Level 138 MMOL/L (136-145) Potassium Level 4.1 MMOL/L (3.5-5.1) Chloride Level 103 MMOL/L (98-107) Carbon Dioxide Level 27 MMOL/L (21-32) Anion Gap 8 mmol/L (5-15) Blood Urea Nitrogen 45 mg/dL (7-18) H Creatinine 3.0 MG/DL (0.55-1.30) H Estimat Glomerular Filtration Rate 20.8 mL/min (>60) Glucose Level 171 MG/DL (74-106) H Calcium Level 6.4 MG/DL (8.5-10.1) L Current Medications Medications (Trade) Dose Ordered Sig/James Route PRN Reason Start Time Stop Time Status Last Admin Dose Admin Acetaminophen (Tylenol) 650 mg Q4H PRN RECTAL Temp >100.5 03/07/20 08:15 04/06/20 08:14 Acetaminophen (Tylenol) 650 mg Q4H PRN RECTAL Mild Pain (Pain Scale 1-3) 03/07/20 09:00 04/06/20 08:59 Albuterol Sulfate (Proventil MDI) 2 puff Q4H PRN INH Shortness of Breath 03/07/20 08:15 06/05/20 08:14 Ceftriaxone Sodium 1 gm/ Dextrose 55 ml @ 110 mls/hr Q24H IVPB 03/08/20 06:00 03/13/20 23:59 03/11/20 06:11 Chlorhexidine Gluconate (Linnette-Hex 2%) 1 applic DAILY@2000 TOPIC 03/09/20 20:00 06/07/20 19:59 03/10/20 20:14 Dexamethasone Sodium Phosphate (Decadron 10mg/ ml Inj) 6 mg DAILY IV 03/08/20 09:00 03/16/20 09:01 03/11/20 08:25 Dextrose (Dextrose 50%) 25 ml Q30M PRN IV Hypoglycemia 03/07/20 08:15 06/05/20 08:14 Dextrose (Dextrose 50%) 50 ml Q30M PRN IV Hypoglycemia 03/07/20 08:15 06/05/20 08:14 03/07/20 11:57 Dextrose/Sodium Chloride 1,000 ml @ 50 mls/hr Q20H IV 03/07/20 23:00 04/06/20 22:59 03/11/20 06:12 Enoxaparin Sodium (Lovenox) 30 mg Q24H SUBQ 03/08/20 09:00 06/06/20 08:59 03/09/20 08:39 Epoetin Juan (Epoetin Juan(ESRD on dialysis)) 10,000 unit TUE-TUE-TUE SUBQ 03/10/20 21:00 06/08/20 20:59 03/10/20 20:38 Famotidine (Pepcid I.v.) 20 mg DAILY IVP 03/07/20 09:00 04/06/20 08:59 03/11/20 08:25 Heparin Sodium (Porcine) (Heparin Sod 1000 units/ml 10ml) 2,000 unit ONCE PRN IV HD 03/11/20 06:00 03/11/20 23:59 Heparin Sodium (Porcine) (Heparin) 1,000 unit POSTHD PRN INJ POST HD 03/11/20 06:00 03/11/20 23:59 Hydromorphone HCl (Dilaudid) 0.5 mg Q3HR PRN IVP Severe Pain (Pain Scale 7-10) 03/07/20 22:15 03/14/20 22:14 Ondansetron HCl (Zofran) 4 mg Q6H PRN IVP Nausea & Vomiting 03/07/20 08:15 04/06/20 08:14 Sodium Chloride 1,000 ml @ 500 mls/hr Q2H PRN IVLG sbp<90 during hd 03/11/20 06:00 03/11/20 23:59 Joe Nguyen MD Mar 11, 2020 09:30
--- NOTE | 2020-03-11 09:51 | NUR ---
TELECOMMUNICATIONS LINESWORKER NOTE [place] [facility] [place]. Pt's previous address is [address] [place] [address]. PT is from [facility]. SW confirmed w/ [facility] office that pt is NOT conserved. This SW previously spoke w/ [facility] [phone] that pt was not reported as missing in this January. This SW attempted to call AMP unit, the call was not answered and left a vm for call back. This SW was unable to locate the family since last admission. Addendum: 03/11/20 at 1224 by DAYAMI LIZARRAGA Attempted to call Adult Missing Person Unit 3x. Not answering.
[2020-03-11 12:00] VITALS: BP 127/64
--- NOTE | 2020-03-11 13:03 | NUR ---
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
--- NOTE | 2020-03-11 13:45 | Nephrology Progress Note ---
Assessment/Plan Plan ESRD. HD now q TTS. Subjective Subjective Less SOB. On HD. Stable run. More alert. Objective Objective Last 24 Hour Vital Signs Date Time Temp Pulse Resp B/P (MAP) Pulse Ox O2 Delivery O2 Flow Rate FiO2 03/11/20 12:00 97.5 63 24 127/64 (85) 100 03/11/20 12:00 Bi-pap 80.0 03/11/20 12:00 50 03/11/20 12:00 76 03/11/20 11:27 68 20 96 50 03/11/20 08:00 97.5 68 24 130/61 (84) 100 03/11/20 08:00 Bi-pap 80.0 03/11/20 08:00 65 03/11/20 08:00 60 03/11/20 07:22 63 20 98 65 03/11/20 04:00 97.0 65 24 131/67 (88) 100 03/11/20 04:00 Bi-pap 80.0 03/11/20 04:00 64 03/11/20 04:00 80 03/11/20 03:20 60 20 90 80 03/11/20 00:00 97.7 67 24 141/68 (92) 100 03/11/20 00:00 64 03/11/20 00:00 80 03/11/20 00:00 Bi-pap 80.0 03/10/20 23:30 69 19 97 80 03/10/20 20:00 80 03/10/20 20:00 Bi-pap 80.0 03/10/20 20:00 97.9 63 24 146/52 (83) 100 03/10/20 20:00 59 03/10/20 19:20 67 19 96 80 03/10/20 16:00 61 03/10/20 16:00 Bi-pap 80.0 03/10/20 16:00 98.1 60 24 103/64 (77) 100 03/10/20 15:15 66 20 98 80 Intake and Output 03/10/20 03/11/20 19:00 07:00 Intake Total 450 ml 500 ml Output Total 0 ml Balance 450 ml 500 ml Intake IV Total 450 ml 500 ml Output Urine Total 0 ml Laboratory Tests 03/11/20 03:50: White Blood Count 10.5, Red Blood Count 2.52L, Hemoglobin 7.6L, Hematocrit 23.5L , Mean Corpuscular Volume 93, Mean Corpuscular Hemoglobin 30.3, Mean Corpuscular Hemoglobin Concent 32.6, Red Cell Distribution Width 16.3H, Platelet Count 79L, Mean Platelet Volume 9.1, Neutrophils (%) (Auto) , Lymphocytes (%) (Auto) , M onocytes (%) (Auto) , Eosinophils (%) (Auto) , Basophils (%) (Auto) , Differential Total Cells Counted 100, Neutrophils % (Manual) 95H, Lymphocytes % (Manual) 2L, Monocytes % (Manual) 2, Eosinophils % (Manual) 0, Basophils % (Manual) 0, Band Neutrophils 1, Platelet Estimate DecreasedL, Platelet Morphology Normal, Hypochromasia 1+, Anisocytosis 1+, Sodium Level 138, Potassium Level 4.1, Chloride Level 103, Carbon Dioxide Level 27, Anion Gap 8, Blood Urea Nitrogen 45H, Creatinine 3.0H, Estimat Glomerular Filtration Rate 20.8, Glucose Level 171H, Calcium Level 6.4L Height (Feet): 5 Height (Inches): 4.00 Weight (Pounds): 154 Objective On BIPAP CV RR Lungs B wheezes!!!! Abd SNT. BS + E No CCE Greg Garcia MD Mar 11, 2020 13:45
--- NOTE | 2020-03-11 14:29 | Surgery Progress Note ---
Surgery Progress Note Subjective Procedure Performed Right femoral temporary hemodialysis catheter insertion Additional Comments lip remains elevated no n/v cr noted on HD Objective Last 24 Hour Vital Signs Date Time Temp Pulse Resp B/P (MAP) Pulse Ox O2 Delivery O2 Flow Rate FiO2 03/11/20 12:00 97.5 63 24 127/64 (85) 100 03/11/20 12:00 Bi-pap 80.0 03/11/20 12:00 50 03/11/20 12:00 76 03/11/20 11:27 68 20 96 50 03/11/20 08:00 97.5 68 24 130/61 (84) 100 03/11/20 08:00 Bi-pap 80.0 03/11/20 08:00 65 03/11/20 08:00 60 03/11/20 07:22 63 20 98 65 03/11/20 04:00 97.0 65 24 131/67 (88) 100 03/11/20 04:00 Bi-pap 80.0 03/11/20 04:00 64 03/11/20 04:00 80 03/11/20 03:20 60 20 90 80 03/11/20 00:00 97.7 67 24 141/68 (92) 100 03/11/20 00:00 64 03/11/20 00:00 80 03/11/20 00:00 Bi-pap 80.0 03/10/20 23:30 69 19 97 80 03/10/20 20:00 80 03/10/20 20:00 Bi-pap 80.0 03/10/20 20:00 97.9 63 24 146/52 (83) 100 03/10/20 20:00 59 03/10/20 19:20 67 19 96 80 03/10/20 16:00 61 03/10/20 16:00 Bi-pap 80.0 03/10/20 16:00 98.1 60 24 103/64 (77) 100 03/10/20 15:15 66 20 98 80 I&O Intake and Output 03/10/20 03/11/20 18:59 06:59 Intake Total 400 ml 550 ml Output Total 0 ml Balance 400 ml 550 ml Intake IV Total 400 ml 550 ml Output Urine Total 0 ml Dressing: saturated Cardiovascular: RSR Respiratory: decreased breath sounds Abdomen: soft, non-tender, present bowel sounds, non-distended Extremities: no edema, no tenderness, no cyanosis Laboratory Tests Test 03/11/20 03:50 White Blood Count 10.5 K/UL (4.8-10.8) Red Blood Count 2.52 M/UL (4.70-6.10) L Hemoglobin 7.6 G/DL (14.2-18.0) L Hematocrit 23.5 % (42.0-52.0) L Mean Corpuscular Volume 93 FL (80-99) Mean Corpuscular Hemoglobin 30.3 PG (27.0-31.0) Mean Corpuscular Hemoglobin Concent 32.6 G/DL (32.0-36.0) Red Cell Distribution Width 16.3 % (11.6-14.8) H Platelet Count 79 K/UL (150-450) L Mean Platelet Volume 9.1 FL (6.5-10.1) Neutrophils (%) (Auto) % (45.0-75.0) Lymphocytes (%) (Auto) % (20.0-45.0) Monocytes (%) (Auto) % (1.0-10.0) Eosinophils (%) (Auto) % (0.0-3.0) Basophils (%) (Auto) % (0.0-2.0) Differential Total Cells Counted 100 Neutrophils % (Manual) 95 % (45-75) H Lymphocytes % (Manual) 2 % (20-45) L Monocytes % (Manual) 2 % (1-10) Eosinophils % (Manual) 0 % (0-3) Basophils % (Manual) 0 % (0-2) Band Neutrophils 1 % (0-8) Platelet Estimate Decreased L Platelet Morphology Normal Hypochromasia 1+ Anisocytosis 1+ Sodium Level 138 MMOL/L (136-145) Potassium Level 4.1 MMOL/L (3.5-5.1) Chloride Level 103 MMOL/L (98-107) Carbon Dioxide Level 27 MMOL/L (21-32) Anion Gap 8 mmol/L (5-15) Blood Urea Nitrogen 45 mg/dL (7-18) H Creatinine 3.0 MG/DL (0.55-1.30) H Estimat Glomerular Filtration Rate 20.8 mL/min (>60) Glucose Level 171 MG/DL (74-106) H Calcium Level 6.4 MG/DL (8.5-10.1) L Plan Problems: (1) Hyperkalemia (2) Respiratory distress (3) Pancreatitis Assessment & Plan: noted on admission to have acute pancreatitis etiology work up on way lft's noted mild elevated no n/v labs reviewed exam unreliable as very agitated iv fluids okay for diet trend labs will follow with exam and recs (4) Renal failure Assessment & Plan: renal insufficiency fem cath placed okay for hd see note will follow (5) UTI (urinary tract infection) (6) Pneumonia due to COVID-19 virus (7) Dehydration (8) Renal insufficiency (9) Altered level of consciousness (10) Urinary tract bacterial infections Darius Sifuentes Mar 11, 2020 14:29
--- NOTE | 2020-03-11 15:00 | NUR ---
NURSE NOTES: Spoke with Dr. Larson at nurse station, Dr. Larson informed of hemoglobin level of 7.6 today, per Dr. Larson hemoglobin okay above 7.0. Noted. Will continue to monitor patient.
[2020-03-11 16:00] VITALS: BP 147/87
--- NOTE | 2020-03-11 16:00 | NUR ---
NURSE NOTES: Patient noted with CBC and BMP for afternoon. Patient already had CBC and BMP drawn in morning labs. Notified Dr. Garcia, per Dr. Garcia okay to reschedule CBC and BMP for tomorrow morning. Order entered and noted. Will continue to monitor patient.
--- NOTE | 2020-03-11 18:29 | Pulmonology Progress Note ---
Subjective ROS Limited/Unobtainable: Yes Constitutional: Denies: fever Allergies: Coded Allergies: No Known Allergies (Unverified , 02/04/20) Objective Last 24 Hour Vital Signs Date Time Temp Pulse Resp B/P (MAP) Pulse Ox O2 Delivery O2 Flow Rate FiO2 03/11/20 16:00 65 03/11/20 16:00 97.3 79 24 147/87 (107) 100 03/11/20 16:00 73 03/11/20 16:00 Bi-pap 80.0 03/11/20 15:42 80 27 98 60 03/11/20 12:00 97.5 63 24 127/64 (85) 100 03/11/20 12:00 Bi-pap 80.0 03/11/20 12:00 50 03/11/20 12:00 76 03/11/20 11:27 68 20 96 50 03/11/20 08:00 97.5 68 24 130/61 (84) 100 03/11/20 08:00 Bi-pap 80.0 03/11/20 08:00 65 03/11/20 08:00 60 03/11/20 07:22 63 20 98 65 03/11/20 04:00 97.0 65 24 131/67 (88) 100 03/11/20 04:00 Bi-pap 80.0 03/11/20 04:00 64 03/11/20 04:00 80 03/11/20 03:20 60 20 90 80 03/11/20 00:00 97.7 67 24 141/68 (92) 100 03/11/20 00:00 64 03/11/20 00:00 80 03/11/20 00:00 Bi-pap 80.0 03/10/20 23:30 69 19 97 80 03/10/20 20:00 80 03/10/20 20:00 Bi-pap 80.0 03/10/20 20:00 97.9 63 24 146/52 (83) 100 03/10/20 20:00 59 03/10/20 19:20 67 19 96 80 l Intake and Output 03/10/20 03/11/20 19:00 07:00 Intake Total 450 ml 500 ml Output Total 0 ml Balance 450 ml 500 ml Intake IV Total 450 ml 500 ml Output Urine Total 0 ml Laboratory Tests 03/11/20 03:50: White Blood Count 10.5, Red Blood Count 2.52L, Hemoglobin 7.6L, Hematocrit 23.5L , Mean Corpuscular Volume 93, Mean Corpuscular Hemoglobin 30.3, Mean Corpuscular Hemoglobin Concent 32.6, Red Cell Distribution Width 16.3H, Platelet Count 79L, Mean Platelet Volume 9.1, Neutrophils (%) (Auto) , Lymphocytes (%) (Auto) , Monocytes (%) (Auto) , Eosinophils (%) (Auto) , Basophils (%) (Auto) , Differential Total Cells Counted 100, Neutrophils % (Manual) 95H, Lymphocytes % (Manual) 2L, Monocytes % (Manual) 2, Eosinophils % (Manual) 0, Basophils % (Manual) 0, Band Neutrophils 1, Platelet Estimate DecreasedL, Platelet Morphology Normal, Hypochromasia 1+, Anisocytosis 1+, Sodium Level 138, Potassium Level 4.1, Chloride Level 103, Carbon Dioxide Level 27, Anion Gap 8, Blood Urea Nitrogen 45H, Creatinine 3.0H, Estimat Glomerular Filtration Rate 20.8, Glucose Level 171H, Calcium Level 6.4L Current Medications Medications (Trade) Dose Ordered Sig/James Route PRN Reason Start Time Stop Time Status Last Admin Dose Admin Acetaminophen (Tylenol) 650 mg Q4H PRN RECTAL Temp >100.5 03/07/20 08:15 04/06/20 08:14 Acetaminophen (Tylenol) 650 mg Q4H PRN RECTAL Mild Pain (Pain Scale 1-3) 03/07/20 09:00 04/06/20 08:59 Albumin Human 100 ml @ 100 mls/hr PRN PRN IV SBP < 90 mmHg during HD 03/11/20 11:09 03/12/20 23:59 03/11/20 11:21 Albuterol Sulfate (Proventil MDI) 2 puff Q4H PRN INH Shortness of Breath 03/07/20 08:15 06/05/20 08:14 Ceftriaxone Sodium 1 gm/ Dextrose 55 ml @ 110 mls/hr Q24H IVPB 03/08/20 06:00 03/13/20 23:59 03/11/20 06:11 Chlorhexidine Gluconate (Linnette-Hex 2%) 1 applic DAILY@2000 TOPIC 03/09/20 20:00 06/07/20 19:59 03/10/20 20:14 Dexamethasone Sodium Phosphate (Decadron 10mg/ ml Inj) 6 mg DAILY IV 03/08/20 09:00 03/16/20 09:01 03/11/20 08:25 Dextrose (Dextrose 50%) 25 ml Q30M PRN IV Hypoglycemia 03/07/20 08:15 06/05/20 08:14 Dextrose (Dextrose 50%) 50 ml Q30M PRN IV Hypoglycemia 03/07/20 08:15 06/05/20 08:14 03/07/20 11:57 Dextrose/Sodium Chloride 1,000 ml @ 50 mls/hr Q20H IV 03/07/20 23:00 04/06/20 22:59 03/11/20 06:12 Enoxaparin Sodium (Lovenox) 30 mg Q24H SUBQ 03/08/20 09:00 06/06/20 08:59 03/09/20 08:39 Epoetin Juan (Epoetin Juan(ESRD on dialysis)) 10,000 unit TUE-TUE-TUE SUBQ 03/10/20 21:00 06/08/20 20:59 03/10/20 20:38 Famotidine (Pepcid I.v.) 20 mg DAILY IVP 03/07/20 09:00 04/06/20 08:59 03/11/20 08:25 Heparin Sodium (Porcine) (Heparin Sod 1000 units/ml 10ml) 2,000 unit ONCE PRN IV HD 03/11/20 06:00 03/11/20 23:59 03/11/20 11:23 Heparin Sodium (Porcine) (Heparin) 1,000 unit POSTHD PRN INJ POST HD 03/11/20 06:00 03/11/20 23:59 Hydromorphone HCl (Dilaudid) 0.5 mg Q3HR PRN IVP Severe Pain (Pain Scale 7-10) 03/07/20 22:15 03/14/20 22:14 Ondansetron HCl (Zofran) 4 mg Q6H PRN IVP Nausea & Vomiting 03/07/20 08:15 04/06/20 08:14 Sodium Chloride 1,000 ml @ 500 mls/hr Q2H PRN IVLG sbp<90 during hd 03/11/20 06:00 03/11/20 23:59 Assessment/Plan Assessment/Plan Pulmonary Progress Note HPI Patient is a 69-year-old man admitted with Covid Pneumonia, [place], Hyperkalemia, Pancreatitis.Noted to have for shortness of breath, hypoxia requiring a non rebreather mask. No reported fever. Allergies: No Known Allergies Past Medical History: HTN S/p urgent HD - remains on BiPAP,FIO2 65% Physical Exam Vital Signs noted Deferred Covid19 Impression: Covid Pneumonia/possible sepsis Respiratory failure LA - now on HD Hyperkalemia Pancreatitis Urinary tract infection Hypertension Plan ID Consultation Dexamethazone Renal following - Dw Renal O2 PRN BiPAP PRN PPX OBGYN NURSE Medications Laboratory Tests noted EKG Rate: normal Rhythm: NSR ST Segments: no acute changes Other Impression Sinus rhythm, normal axis, normal intervals, no ST segment changes, no peaked T waves Chest X-Ray: no effusion, no pneumothorax, other - Bilateral infiltrates. Bilateral multifocal pneumonia Cristopher Larson MD Mar 11, 2020 18:29
--- NOTE | 2020-03-11 19:25 | NUR ---
NURSE NOTES: pt report received from Leonidas Berman RN. pt appears more alert neuro hernandez. pt is alert to light tactile stimuli, more responsive in mentation. pt is showing SR on property assessment monitor, no change in property assessment monitor. pt is on BIPAP, sating 98% O2, no change in respiratory. pt bed is low, locked, armed, call light within reach, bed rails up times 3. will follow plan of care.
[2020-03-11 20:00] VITALS: BP 145/78
[2020-03-11] MEDS: Dyna-Hex 2% Top Sol 2oz TOPIC SCH (20:14)
--- NOTE | 2020-03-11 21:35 | NUR ---
NURSE NOTES: 8PM med passed. no acute distress noted by pt.
--- NOTE | 2020-03-11 23:25 | NUR ---
NURSE NOTES: pt resin in bed. IV fluids running as per doctor orders. pt remains stable.
[2020-03-12] VITALS: BP 147/87
--- NOTE | 2020-03-12 01:40 | NUR ---
NURSE NOTES: pt repositioned and cleaned.
[2020-03-12] MEDS: D5 1/2NS 1,000 ML IV SCH ×2 (03:10→23:12)
--- NOTE | 2020-03-12 03:35 | NUR ---
NURSE NOTES: pt IV fluids running at doctors ordered rate.
[2020-03-12 04:00] VITALS: BP 141/75
[2020-03-12] MEDS: cefTRIAXone 1 GM in D5W 55 ML IVPB SCH (05:10)
[2020-03-12 06:15] LABS: HEMATOCRIT 23.6 % (42.0-52.0); HEMOGLOBIN 7.9 G/DL (14.2-18.0); MEAN CORPUSCULAR VOLUME 92 FL (80-99); PLATELET COUNT 75 K/UL (150-450); RED BLOOD COUNT 2.56 M/UL (4.70-6.10); WHITE BLOOD COUNT 16.2 K/UL (4.8-10.8)
[2020-03-12 06:40] LABS: CREATININE 2.7 MG/DL (0.55-1.30); POTASSIUM 3.7 MMOL/L (3.5-5.1)
--- NOTE | 2020-03-12 07:21 | NUR ---
NURSE HAND-OFF REPORT: Important Events on Shift:[NA] Patient Status: [stable] Diet: [as per doctor order] Pending Orders: [na] Pending Results/Labs:[NA] Pending MD notification:[na] Latest Vital Signs: Temperature 97.3 , Pulse 77 , B/P 141 /75 , Respiratory Rate 24 , O2 SAT 100 , Bi-pap, O2 Flow Rate 80.0 . Vital Sign Comment: [stable] EKG Rhythm: Sinus Rhythm Rhythm change?: N MD Notified?: N - MD Response: Latest Conner Fall Score: 70 Fall Risk: High Risk Safety Measures: Call light Within Reach, Bed Alarm Zone 2, Side Rails Side Rails x2, Bed position Low and Locked. Fall Precautions: Yellow Socks Yellow Gown Door Sign Patient Fall Education Report given to [Nanette RN].
--- NOTE | 2020-03-12 07:26 | NUR ---
NURSE NOTES: Received report from Leonidas/RN, Observed patient asleep, lying semi-buchanan's, resting comfortably in bed. On Bi-pap sating 90% at this time. IV on right hand and right AC, patent and intact. D5 1/2 NS running at 50cc/hr. Noted bilateral soft wrist restraint for safety. Bed in low position and locked, Call light within reach, Encouraged to use call light when needed. Will continue plan of care.
[2020-03-12 08:00] VITALS: BP 143/77
[2020-03-12] MEDS: Enoxaparin 30mg Inj SUBQ SCH (09:00)
[2020-03-12] MEDS: dexAMETHasone 10mg/ml Inj IV SCH (09:14)
--- NOTE | 2020-03-12 11:37 | Infectious Diseases Prog Note ---
Assessment/Plan Assessment/Plan antibiotics : ceftriaxone, azithromycin A 1. COVID-19 pneumonia. on 80 % FiO2, 93 % saturation 2. e.coli UTI. 3. Pancreatitis 4. respiratory failure, 5. Dementia, 6. Hypertension 7. renal failure P 1. continue ceftriaxone 1 more days 2. continue dexamethasone 2 more days 3. continue isolation Subjective ROS Limited/Unobtainable: Yes Allergies: Coded Allergies: No Known Allergies (Unverified , 02/04/20) Objective Last 24 Hour Vital Signs Date Time Temp Pulse Resp B/P (MAP) Pulse Ox O2 Delivery O2 Flow Rate FiO2 03/12/20 08:00 97.3 83 24 143/77 (99) 93 03/12/20 08:00 Bi-pap 80.0 03/12/20 08:00 65 03/12/20 07:50 75 03/12/20 04:00 65 03/12/20 04:00 97.3 71 24 141/75 (97) 100 03/12/20 04:00 Bi-pap 80.0 03/12/20 04:00 77 03/12/20 03:40 71 15 93 70 03/12/20 00:00 Bi-pap 80.0 03/12/20 00:00 97.7 66 24 147/87 (107) 100 03/12/20 00:00 65 03/12/20 00:00 68 03/11/20 23:54 67 15 90 70 03/11/20 20:00 Bi-pap 80.0 03/11/20 20:00 97.7 74 24 145/78 (100) 100 03/11/20 20:00 65 03/11/20 20:00 67 03/11/20 18:59 83 27 95 70 03/11/20 16:00 65 03/11/20 16:00 97.3 79 24 147/87 (107) 100 03/11/20 16:00 73 03/11/20 16:00 Bi-pap 80.0 03/11/20 15:42 80 27 98 60 03/11/20 12:00 97.5 63 24 127/64 (85) 100 03/11/20 12:00 Bi-pap 80.0 03/11/20 12:00 50 03/11/20 12:00 76 Height (Feet): 5 Height (Inches): 4.00 Weight (Pounds): 154 Laboratory Tests Test 03/12/20 04:01 White Blood Count 16.2 K/UL (4.8-10.8) #H Red Blood Count 2.56 M/UL (4.70-6.10) L Hemoglobin 7.9 G/DL (14.2-18.0) L Hematocrit 23.6 % (42.0-52.0) L Mean Corpuscular Volume 92 FL (80-99) Mean Corpuscular Hemoglobin 30.7 PG (27.0-31.0) Mean Corpuscular Hemoglobin Concent 33.3 G/DL (32.0-36.0) Red Cell Distribution Width 16.0 % (11.6-14.8) H Platelet Count 75 K/UL (150-450) L Mean Platelet Volume 8.7 FL (6.5-10.1) Neutrophils (%) (Auto) % (45.0-75.0) Lymphocytes (%) (Auto) % (20.0-45.0) Monocytes (%) (Auto) % (1.0-10.0) Eosinophils (%) (Auto) % (0.0-3.0) Basophils (%) (Auto) % (0.0-2.0) Differential Total Cells Counted 100 Neutrophils % (Manual) 94 % (45-75) H Lymphocytes % (Manual) 2 % (20-45) L Monocytes % (Manual) 4 % (1-10) Eosinophils % (Manual) 0 % (0-3) Basophils % (Manual) 0 % (0-2) Band Neutrophils 0 % (0-8) Platelet Estimate Decreased L Platelet Morphology Normal Polychromasia 1+ Hypochromasia 1+ Anisocytosis 1+ Sodium Level 139 MMOL/L (136-145) Potassium Level 3.7 MMOL/L (3.5-5.1) Chloride Level 102 MMOL/L (98-107) Carbon Dioxide Level 31 MMOL/L (21-32) Anion Gap 7 mmol/L (5-15) Blood Urea Nitrogen 36 mg/dL (7-18) H Creatinine 2.7 MG/DL (0.55-1.30) H Estimat Glomerular Filtration Rate 23.5 mL/min (>60) Glucose Level 155 MG/DL (74-106) H Calcium Level 7.0 MG/DL (8.5-10.1) L Lipase 555 U/L (73-393) H Current Medications Medications (Trade) Dose Ordered Sig/James Route PRN Reason Start Time Stop Time Status Last Admin Dose Admin Acetaminophen (Tylenol) 650 mg Q4H PRN RECTAL Temp >100.5 03/07/20 08:15 04/06/20 08:14 Acetaminophen (Tylenol) 650 mg Q4H PRN RECTAL Mild Pain (Pain Scale 1-3) 03/07/20 09:00 04/06/20 08:59 Albumin Human 100 ml @ 100 mls/hr PRN PRN IV SBP < 90 mmHg during HD 03/11/20 11:09 03/12/20 23:59 03/11/20 11:21 Albuterol Sulfate (Proventil MDI) 2 puff Q4H PRN INH Shortness of Breath 03/07/20 08:15 06/05/20 08:14 Ceftriaxone Sodium 1 gm/ Dextrose 55 ml @ 110 mls/hr Q24H IVPB 03/08/20 06:00 03/17/20 05:59 03/12/20 05:10 Chlorhexidine Gluconate (Linnette-Hex 2%) 1 applic DAILY@2000 TOPIC 03/09/20 20:00 06/07/20 19:59 03/11/20 20:14 Dexamethasone Sodium Phosphate (Decadron 10mg/ ml Inj) 6 mg DAILY IV 03/08/20 09:00 03/16/20 09:01 03/12/20 09:14 Dextrose (Dextrose 50%) 25 ml Q30M PRN IV Hypoglycemia 03/07/20 08:15 06/05/20 08:14 Dextrose (Dextrose 50%) 50 ml Q30M PRN IV Hypoglycemia 03/07/20 08:15 06/05/20 08:14 03/07/20 11:57 Dextrose/Sodium Chloride 1,000 ml @ 50 mls/hr Q20H IV 03/07/20 23:00 04/06/20 22:59 03/12/20 03:10 Enoxaparin Sodium (Lovenox) 30 mg Q24H SUBQ 03/08/20 09:00 06/06/20 08:59 03/09/20 08:39 Epoetin Juan (Epoetin Juan(ESRD on dialysis)) 10,000 unit TUE-TUE-TUE SUBQ 03/10/20 21:00 06/08/20 20:59 03/10/20 20:38 Famotidine (Pepcid I.v.) 20 mg DAILY IVP 03/07/20 09:00 04/06/20 08:59 03/12/20 09:14 Hydromorphone HCl (Dilaudid) 0.5 mg Q3HR PRN IVP Severe Pain (Pain Scale 7-10) 03/07/20 22:15 03/14/20 22:14 Ondansetron HCl (Zofran) 4 mg Q6H PRN IVP Nausea & Vomiting 03/07/20 08:15 04/06/20 08:14 Brittney Quigley MD Mar 12, 2020 11:37
[2020-03-12 12:00] VITALS: BP 137/87
--- NOTE | 2020-03-12 13:16 | NUR ---
Soil Science Technical OfficerPublic Health Administrator SI: Respiratory Failure, COVID PNA, UTI T 97.3, HR 70, RR 24, BP 141/75 WBC 22.5 BUN 36 BIPAP 16/2 FiO2 65% O2 Sat 96% IS: Dexamethasone IV QD Lovenox SQ QD Ceftriaxone IV q 24 h Pepcid IVP QD Albumin Human IV Step Down Status
--- NOTE | 2020-03-12 13:35 | NUR ---
NURSE NOTES: Patient resting in bed. IV fluids running as per doctor orders. pt remains stable.
--- NOTE | 2020-03-12 13:40 | NUR ---
RD ASSESSMENT & RECOMMENDATIONS SEE CARE ACTIVITY FOR COMPLETE ASSESSMENT DAILY ESTIMATED NEEDS: Needs based on Pulmonary, HD/ 70kg 25-30 kcals/kg 2992-7169 total kcals 1.2-1.8 g protein/kg 84-126 g total protein Fluids per MD mL/kg total fluid mLs NUTRITION DIAGNOSIS: Increased kcal/prot needs R/T renal dysfunction and respiratory status as evidenced by s/p a nontunneled nguyen catheter placement, now on HD, pt on continuous BIPAP, NPO at this time. CURRENT DIET:npo PO DIET RECOMMENDATIONS: RENAL/ texture per EMAIL PRODUCTION CONSULTANT ENTERAL NUTRITION RECOMMENDATIONS: CONSULT RD FOR TF REC IF NGT FEED IS MEDICALLY APPROPRIATE (PT ON BIPAP) AND PT IS NOT SAFE FOR ORAL DIET ADDITIONAL RECOMMENDATIONS: * Pt is NPO DAY 5, ON CONTINUOUS BIPAP -> Monitor respiratory status, ability for oral diet -> Consider EMAIL PRODUCTION CONSULTANT eval * Monitor renal fxn and lytes- check f/up phos (last phos 6.2) * Monitor lipase trend (555 elevated) * Calibrated daily bedscale wt * Monitor BGs closely w/ Decadron
--- NOTE | 2020-03-12 14:19 | NUR ---
ROUGH RICE GRADER NOTE SW attempted to call [facility] Missing Persons [facility] [phone], the call was not answered and left a vm for call back. This SW spoke w/ station detective from [facility] on 02/06/20 that pt was not reported as missing. This SW is unable to locate family at this time.
--- NOTE | 2020-03-12 14:33 | Nephrology Progress Note ---
Assessment/Plan Plan ESRD. HD now q TTS. Subjective Subjective Still SOB. On BIPAP. Objective Objective Last 24 Hour Vital Signs Date Time Temp Pulse Resp B/P (MAP) Pulse Ox O2 Delivery O2 Flow Rate FiO2 03/12/20 12:00 Bi-pap 80.0 03/12/20 12:00 80 03/12/20 12:00 65 03/12/20 12:00 97.5 79 22 137/87 (104) 94 03/12/20 10:50 79 20 97 70 03/12/20 08:00 97.3 83 24 143/77 (99) 93 03/12/20 08:00 Bi-pap 80.0 03/12/20 08:00 65 03/12/20 07:50 75 03/12/20 07:15 74 15 96 70 03/12/20 04:00 65 03/12/20 04:00 97.3 71 24 141/75 (97) 100 03/12/20 04:00 Bi-pap 80.0 03/12/20 04:00 77 03/12/20 03:40 71 15 93 70 03/12/20 00:00 Bi-pap 80.0 03/12/20 00:00 97.7 66 24 147/87 (107) 100 03/12/20 00:00 65 03/12/20 00:00 68 03/11/20 23:54 67 15 90 70 03/11/20 20:00 Bi-pap 80.0 03/11/20 20:00 97.7 74 24 145/78 (100) 100 03/11/20 20:00 65 03/11/20 20:00 67 03/11/20 18:59 83 27 95 70 03/11/20 16:00 65 03/11/20 16:00 97.3 79 24 147/87 (107) 100 03/11/20 16:00 73 03/11/20 16:00 Bi-pap 80.0 03/11/20 15:42 80 27 98 60 Intake and Output 03/11/20 03/12/20 19:00 07:00 Intake Total 600 ml 455 ml Output Total 1400 ml 400 ml Balance -800 ml 55 ml Intake IV Total 600 ml 455 ml Output Urine Total 400 ml 400 ml Hemodialysis UF 1000 ml Laboratory Tests 03/12/20 04:01: White Blood Count 16.2#H, Red Blood Count 2.56L, Hemoglobin 7.9L, Hematocrit 23.6L, Mean Corpuscular Volume 92, Mean Corpuscular Hemoglobin 30.7, Mean Corpuscular Hemoglobin Concent 33.3, Red Cell Distribution Width 16.0H, Platelet Count 75L, Mean Platelet Volume 8.7, Neutrophils (%) (Auto) , Lymphocytes (%) (Auto) , Monocytes (%) (Auto) , Eosinophils (%) (Auto) , Basophils (%) (Auto) , Differential Total Cells Counted 100, Neutrophils % (Manual) 94H, Lymphocytes % (Manual) 2L, Monocytes % (Manual) 4, Eosinophils % (Manual) 0, Basophils % (Manual) 0, Band Neutrophils 0, Platelet Estimate DecreasedL, Platelet Morphology Normal, Polychromasia 1+, Hypochromasia 1+, Anisocytosis 1+, Sodium Level 139, Potassium Level 3.7, Chloride Level 102, Carbon Dioxide Level 31, Anion Gap 7, Blood Urea Nitrogen 36H, Creatinine 2.7H, Estimat Glomerular Filtration Rate 23.5, Glucose Level 155H, Calcium Level 7.0L, Lipase 555H Height (Feet): 5 Height (Inches): 4.00 Weight (Pounds): 154 Objective On BIPAP CV RR Lungs B wheezes!!!! Abd SNT. BS + E No CCE Greg Garcia MD Mar 12, 2020 14:33
[2020-03-12 16:00] VITALS: BP 109/64
--- NOTE | 2020-03-12 16:20 | NUR ---
NURSE NOTES: Patient repositioned and cleaned. tolerated well, No respiratory distress noted.
--- NOTE | 2020-03-12 16:56 | NUR ---
NURSE NOTES: Called [facility] and spoke with Kelly regarding HD for 03/13. Per Kelly she will call dialysis nurse conventional mortgage underwriter.
--- NOTE | 2020-03-12 17:36 | Surgery Progress Note ---
Surgery Progress Note Subjective Procedure Performed Right femoral temporary hemodialysis catheter insertion Additional Comments ill appearing no acute events labs noted micro reviewed Objective Last 24 Hour Vital Signs Date Time Temp Pulse Resp B/P (MAP) Pulse Ox O2 Delivery O2 Flow Rate FiO2 03/12/20 12:00 Bi-pap 80.0 03/12/20 12:00 80 03/12/20 12:00 65 03/12/20 12:00 97.5 79 22 137/87 (104) 94 03/12/20 10:50 79 20 97 70 03/12/20 08:00 97.3 83 24 143/77 (99) 93 03/12/20 08:00 Bi-pap 80.0 03/12/20 08:00 65 03/12/20 07:50 75 03/12/20 07:15 74 15 96 70 03/12/20 04:00 65 03/12/20 04:00 97.3 71 24 141/75 (97) 100 03/12/20 04:00 Bi-pap 80.0 03/12/20 04:00 77 03/12/20 03:40 71 15 93 70 03/12/20 00:00 Bi-pap 80.0 03/12/20 00:00 97.7 66 24 147/87 (107) 100 03/12/20 00:00 65 03/12/20 00:00 68 03/11/20 23:54 67 15 90 70 03/11/20 20:00 Bi-pap 80.0 03/11/20 20:00 97.7 74 24 145/78 (100) 100 03/11/20 20:00 65 03/11/20 20:00 67 03/11/20 18:59 83 27 95 70 I&O Intake and Output 03/11/20 03/12/20 19:00 07:00 Intake Total 600 ml 455 ml Output Total 1400 ml 400 ml Balance -800 ml 55 ml Intake IV Total 600 ml 455 ml Output Urine Total 400 ml 400 ml Hemodialysis UF 1000 ml Dressing: saturated Cardiovascular: RSR Respiratory: decreased breath sounds Abdomen: soft, non-tender, present bowel sounds Extremities: no edema, no tenderness, no cyanosis Laboratory Tests Test 03/12/20 04:01 White Blood Count 16.2 K/UL (4.8-10.8) #H Red Blood Count 2.56 M/UL (4.70-6.10) L Hemoglobin 7.9 G/DL (14.2-18.0) L Hematocrit 23.6 % (42.0-52.0) L Mean Corpuscular Volume 92 FL (80-99) Mean Corpuscular Hemoglobin 30.7 PG (27.0-31.0) Mean Corpuscular Hemoglobin Concent 33.3 G/DL (32.0-36.0) Red Cell Distribution Width 16.0 % (11.6-14.8) H Platelet Count 75 K/UL (150-450) L Mean Platelet Volume 8.7 FL (6.5-10.1) Neutrophils (%) (Auto) % (45.0-75.0) Lymphocytes (%) (Auto) % (20.0-45.0) Monocytes (%) (Auto) % (1.0-10.0) Eosinophils (%) (Auto) % (0.0-3.0) Basophils (%) (Auto) % (0.0-2.0) Differential Total Cells Counted 100 Neutrophils % (Manual) 94 % (45-75) H Lymphocytes % (Manual) 2 % (20-45) L Monocytes % (Manual) 4 % (1-10) Eosinophils % (Manual) 0 % (0-3) Basophils % (Manual) 0 % (0-2) Band Neutrophils 0 % (0-8) Platelet Estimate Decreased L Platelet Morphology Normal Polychromasia 1+ Hypochromasia 1+ Anisocytosis 1+ Sodium Level 139 MMOL/L (136-145) Potassium Level 3.7 MMOL/L (3.5-5.1) Chloride Level 102 MMOL/L (98-107) Carbon Dioxide Level 31 MMOL/L (21-32) Anion Gap 7 mmol/L (5-15) Blood Urea Nitrogen 36 mg/dL (7-18) H Creatinine 2.7 MG/DL (0.55-1.30) H Estimat Glomerular Filtration Rate 23.5 mL/min (>60) Glucose Level 155 MG/DL (74-106) H Calcium Level 7.0 MG/DL (8.5-10.1) L Lipase 555 U/L (73-393) H Plan Problems: (1) Hyperkalemia (2) Respiratory distress (3) Pancreatitis Assessment & Plan: noted on admission to have acute pancreatitis etiology work up on way lft's noted mild elevated no n/v labs reviewed exam unreliable as very agitated iv fluids okay for diet trend labs will follow with exam and recs (4) Renal failure Assessment & Plan: renal insufficiency fem cath placed okay for hd see note will follow (5) UTI (urinary tract infection) (6) Pneumonia due to COVID-19 virus (7) Dehydration (8) Renal insufficiency (9) Altered level of consciousness (10) Urinary tract bacterial infections Darius Sifuentes Mar 12, 2020 17:36
--- NOTE | 2020-03-12 18:26 | Pulmonology Progress Note ---
Subjective ROS Limited/Unobtainable: Yes Constitutional: Denies: fever Allergies: Coded Allergies: No Known Allergies (Unverified , 02/04/20) Objective Last 24 Hour Vital Signs Date Time Temp Pulse Resp B/P (MAP) Pulse Ox O2 Delivery O2 Flow Rate FiO2 03/12/20 16:00 Bi-pap 80.0 03/12/20 16:00 97.3 80 24 109/64 (79) 93 03/12/20 16:00 65 03/12/20 15:28 93 26 90 70 03/12/20 12:00 Bi-pap 80.0 03/12/20 12:00 80 03/12/20 12:00 65 03/12/20 12:00 97.5 79 22 137/87 (104) 94 03/12/20 10:50 79 20 97 70 03/12/20 08:00 97.3 83 24 143/77 (99) 93 03/12/20 08:00 Bi-pap 80.0 03/12/20 08:00 65 03/12/20 07:50 75 03/12/20 07:15 74 15 96 70 03/12/20 04:00 65 03/12/20 04:00 97.3 71 24 141/75 (97) 100 03/12/20 04:00 Bi-pap 80.0 03/12/20 04:00 77 03/12/20 03:40 71 15 93 70 03/12/20 00:00 Bi-pap 80.0 03/12/20 00:00 97.7 66 24 147/87 (107) 100 03/12/20 00:00 65 03/12/20 00:00 68 03/11/20 23:54 67 15 90 70 03/11/20 20:00 Bi-pap 80.0 03/11/20 20:00 97.7 74 24 145/78 (100) 100 03/11/20 20:00 65 03/11/20 20:00 67 03/11/20 18:59 83 27 95 70 Intake and Output 03/11/20 03/12/20 19:00 07:00 Intake Total 600 ml 455 ml Output Total 1400 ml 400 ml Balance -800 ml 55 ml Intake IV Total 600 ml 455 ml Output Urine Total 400 ml 400 ml Hemodialysis UF 1000 ml Laboratory Tests 03/12/20 04:01: White Blood Count 16.2#H, Red Blood Count 2.56L, Hemoglobin 7.9L, Hematocrit 23.6L, Mean Corpuscular Volume 92, Mean Corpuscular Hemoglobin 30.7, Mean Corpu scular Hemoglobin Concent 33.3, Red Cell Distribution Width 16.0H, Platelet Count 75L, Mean Platelet Volume 8.7, Neutrophils (%) (Auto) , Lymphocytes (%) (Auto) , Monocytes (%) (Auto) , Eosinophils (%) (Auto) , Basophils (%) (Auto) , Differential Total Cells Counted 100, Neutrophils % (Manual) 94H, Lymphocytes % (Manual) 2L, Monocytes % (Manual) 4, Eosinophils % (Manual) 0, Basophils % (Manual) 0, Band Neutrophils 0, Platelet Estimate DecreasedL, Platelet Morphology Normal, Polychromasia 1+, Hypochromasia 1+, Anisocytosis 1+, Sodium Level 139, Potassium Level 3.7, Chloride Level 102, Carbon Dioxide Level 31, Anion Gap 7, Blood Urea Nitrogen 36H, Creatinine 2.7H, Estimat Glomerular Filtration Rate 23.5, Glucose Level 155H, Calcium Level 7.0L, Lipase 555H Current Medications Medications (Trade) Dose Ordered Sig/James Route PRN Reason Start Time Stop Time Status Last Admin Dose Admin Acetaminophen (Tylenol) 650 mg Q4H PRN RECTAL Temp >100.5 03/07/20 08:15 04/06/20 08:14 Acetaminophen (Tylenol) 650 mg Q4H PRN RECTAL Mild Pain (Pain Scale 1-3) 03/07/20 09:00 04/06/20 08:59 Albumin Human 100 ml @ 100 mls/hr PRN PRN IV SBP < 90 mmHg during HD 03/11/20 11:09 03/12/20 23:59 03/11/20 11:21 Albuterol Sulfate (Proventil MDI) 2 puff Q4H PRN INH Shortness of Breath 03/07/20 08:15 06/05/20 08:14 Ceftriaxone Sodium 1 gm/ Dextrose 55 ml @ 110 mls/hr Q24H IVPB 03/08/20 06:00 03/17/20 05:59 03/12/20 05:10 Chlorhexidine Gluconate (Linnette-Hex 2%) 1 applic DAILY@1999 TOPIC 03/09/20 20:00 06/07/20 19:59 03/11/20 20:14 Dexamethasone Sodium Phosphate (Decadron 10mg/ ml Inj) 6 mg DAILY IV 03/08/20 09:00 03/16/20 09:01 03/12/20 09:14 Dextrose (Dextrose 50%) 25 ml Q30M PRN IV Hypoglycemia 03/07/20 08:15 06/05/20 08:14 Dextrose (Dextrose 50%) 50 ml Q30M PRN IV Hypoglycemia 03/07/20 08:15 06/05/20 08:14 03/07/20 11:57 Dextrose/Sodium Chloride 1,000 ml @ 50 mls/hr Q20H IV 03/07/20 23:00 04/06/20 22:59 03/12/20 03:10 Enoxaparin Sodium (Lovenox) 30 mg Q24H SUBQ 03/08/20 09:00 06/06/20 08:59 03/09/20 08:39 Epoetin Juan (Epoetin Juan(ESRD on dialysis)) 10,000 unit TUE-TUE-TUE SUBQ 03/12/20 21:00 06/10/20 20:59 Famotidine (Pepcid I.v.) 20 mg DAILY IVP 03/07/20 09:00 04/06/20 08:59 03/12/20 09:14 Heparin Sodium (Porcine) (Heparin Sod 1000 units/ml 10ml) 2,000 unit ONCE PRN IV HD 03/13/20 06:00 03/13/20 23:59 Heparin Sodium (Porcine) (Heparin) 1,000 unit POSTHD PRN INJ POST HD 03/13/20 06:00 03/13/20 23:59 Hydromorphone HCl (Dilaudid) 0.5 mg Q3HR PRN IVP Severe Pain (Pain Scale 7-10) 03/07/20 22:15 03/14/20 22:14 Ondansetron HCl (Zofran) 4 mg Q6H PRN IVP Nausea & Vomiting 03/07/20 08:15 04/06/20 08:14 Sodium Chloride 1,000 ml @ 500 mls/hr Q2H PRN IVLG sbp<90 during hd 03/13/20 06:00 03/13/20 23:59 Assessment/Plan Assessment/Plan Pulmonary Progress Note HPI Patient is a 69-year-old man admitted with Covid Pneumonia, LA, Hyperkalemia, Pancreatitis.Noted to have for shortness of breath, hypoxia. Allergies: No Known Allergies Past Medical History: HTN LA, On HD PRN - remains on BiPAP,FIO2 65% Physical Exam Vital Signs noted Deferred Covid19 Impression: Covid Pneumonia/possible sepsis Respiratory failure LA - now on HD PRN Hyperkalemia Pancreatitis Urinary tract infection Hypertension Plan ID following Dexamethazone Renal following O2 PRN BiPAP PRN - FIO2 65% - improving PPX DIRECTOR OF VOCATIONAL GUIDANCE Medications Laboratory Tests noted EKG Rate: normal Rhythm: NSR ST Segments: no acute changes Other Impression Sinus rhythm, normal axis, normal intervals, no ST segment changes, no peaked T waves Chest X-Ray: no effusion, no pneumothorax, other - Bilateral infiltrates. Bilateral multifocal pneumonia Cristopher Larson MD Mar 12, 2020 18:26
--- NOTE | 2020-03-12 19:24 | NUR ---
NURSE HAND-OFF REPORT: Important Events on Shift:N/A Patient Status: Stable Diet: NPO Pending Orders: N/A Pending Results/Labs: Pending MD notification:N./a Latest Vital Signs: Temperature 97.3 , Pulse 85 , B/P 109 /64 , Respiratory Rate 24 , O2 SAT 93 , Bi-pap, O2 Flow Rate 80.0 . Vital Sign Comment: Stable EKG Rhythm: Sinus Rhythm Rhythm change?: N MD Notified?: N - MD Response: Latest Conner Fall Score: 70 Fall Risk: High Risk Safety Measures: Call light Within Reach, Bed Alarm Zone 2, Side Rails Side Rails x2, Bed position Low and Locked. Fall Precautions: Yellow Socks Yellow Gown Door Sign Patient Fall Education Report given to Amy/CHERELLE.
--- NOTE | 2020-03-12 19:27 | NUR ---
NURSE NOTES: Received report from brady Fitzpatrick RN. Pt is lying in bed, not in distress, on Bipap tolerating the following settin/6 and saturating 98-99%. Pt is on restraint, skin around restraint assessed, no skin irritation noted. On condom catheter. Discoloration on bilateral lower extremities noted. R femoral Arron catheter is intact and patent, dressing intact, running D5 1/2 NS @ 50cc/hr. Recent labs and medication reviewed. Bed is locked and in lowest position, bed alarm on, call light is within reach. Will continue to monitor pt. Will continue with the plan of care.
[2020-03-12 20:00] VITALS: BP 137/58
[2020-03-12] MEDS: Dyna-Hex 2% Top Sol 2oz TOPIC SCH (20:35)
[2020-03-12] MEDS ORDERED: Epoetin Alfa-EPBX(ESRD on dialysis)2000 units/ml vial SUBQ SCH (21:00)
[2020-03-12] MEDS ORDERED: Epoetin Alfa-EPBX(ESRD on dialysis)10,000 unit/ml vial SUBQ SCH (21:00)
[2020-03-12] MEDS ORDERED: Epoetin Alfa-EPBX(ESRD on dialysis)4000 units/ml vial SUBQ SCH (21:00)
--- NOTE | 2020-03-12 23:00 | NUR ---
NURSE NOTES: Pt is given chlorhexidine sponge bath. Linens and gown changed, turned and repositioned. Pt had bowel movement, salma-anal area cleaned and triad cream applied. Will continue to monitor pt.
[2020-03-13] VITALS: BP 123/77
--- NOTE | 2020-03-13 03:00 | NUR ---
NURSE NOTES: Entered order for Non-violent restraint, added a new intervention for non-violent restraint, completed previous intervention for nonviolent restraint which also completed the recent non-violent restraint order. Ordered it again 03/14/20.
[2020-03-13 04:00] VITALS: BP 106/65
[2020-03-13] MEDS: cefTRIAXone 1 GM in D5W 55 ML IVPB SCH (05:28)
[2020-03-13] MEDS ORDERED: Heparin 1000 units/ml 1ml Vial INJ PRN (06:00)
--- NOTE | 2020-03-13 06:05 | NUR ---
NURSE NOTES: Informed Dr. Go pt converted to AFib with RVR. Dr. Go ordered to start Amiodarone drip, and consult with Dr. Ingram. Informed the hot wound spring production supervisor of order for drip. Pt converted to NSR. Will continue to closely monitor pt.
[2020-03-13 06:08] LABS: HEMATOCRIT 24.9 % (42.0-52.0); HEMOGLOBIN 8.3 G/DL (14.2-18.0); MEAN CORPUSCULAR VOLUME 92 FL (80-99); PLATELET COUNT 89 K/UL (150-450); RED BLOOD COUNT 2.71 M/UL (4.70-6.10); RED CELL DISTRIBUTION WIDTH 16.6 % (11.6-14.8); WHITE BLOOD COUNT 16.1 K/UL (4.8-10.8)
--- NOTE | 2020-03-13 06:30 | NUR ---
NURSE NOTES: Dr. Go ordered 12 lead EKG, Echo and consult Dr. Ingram. Will follow up orders and endorse plan of care.
[2020-03-13 07:11] LABS: ALBUMIN/GLOBULIN RATIO 0.5 (1.0-2.7); BILIRUBIN,TOTAL 0.5 MG/DL (0.2-1.0); CALCIUM 6.6 MG/DL (8.5-10.1); CREATININE 3.3 MG/DL (0.55-1.30); POTASSIUM 3.9 MMOL/L (3.5-5.1)
--- NOTE | 2020-03-13 07:30 | NUR ---
NURSE HAND-OFF REPORT: Important Events on Shift:converted to AFIb with RVR Patient Status: Full code Diet: NPO Pending Orders: Echo Pending Results/Labs:N Pending MD notification:N Latest Vital Signs: Temperature 96.6 , Pulse 102 , B/P 106 /65 , Respiratory Rate 14 , O2 SAT 100 , Bi-pap, O2 Flow Rate 100.0 . Vital Sign Comment: stable EKG Rhythm: Atrial Fibrillation Rhythm change?: N MD Notified?: N - MD Response: Latest Conner Fall Score: 70 Fall Risk: High Risk Safety Measures: Call light Within Reach, Bed Alarm Zone 2, Side Rails Side Rails x2, Bed position Low and Locked. Fall Precautions: Yellow Socks Yellow Gown Door Sign Patient Fall Education Report given to brady Oneill RN.
[2020-03-13 08:00] VITALS: BP 116/56
[2020-03-13] MEDS: dexAMETHasone 10mg/ml Inj IV SCH (08:25)
[2020-03-13] MEDS: Enoxaparin 30mg Inj SUBQ SCH (08:26)
--- NOTE | 2020-03-13 11:07 | NUR ---
AIRBRUSH ARTIST NOTE ZIA spoke w/ Officer Brown from [facility] [phone] that pt is not reported as missing.
--- NOTE | 2020-03-13 11:55 | NUR ---
ProfilerSnuff Container Inspector SI: Respiratory Failure, COVID PNA, UTI T 96.8, HR 69, RR 18, BP 116/56 WBC 16.1 BUN 56 Creatinine 3.3 BIPAP 16/2 FiO2 80% O2 Sat 100% IS: Dexamethasone IV QD Lovenox SQ QD Ceftriaxone IV q 24 h Pepcid IVP QD Step Down Status
[2020-03-13 12:00] VITALS: BP 103/41
--- NOTE | 2020-03-13 14:07 | Surgery Progress Note ---
Surgery Progress Note Subjective Procedure Performed Right femoral temporary hemodialysis catheter insertion Additional Comments persistent leukocytosis no n/v labs noted Objective Last 24 Hour Vital Signs Date Time Temp Pulse Resp B/P (MAP) Pulse Ox O2 Delivery O2 Flow Rate FiO2 03/13/20 12:30 68 17 92 80 03/13/20 12:00 67 03/13/20 12:00 90 03/13/20 12:00 Bi-pap 100.0 03/13/20 12:00 97.0 65 18 103/41 (61) 94 03/13/20 08:00 Bi-pap 100.0 03/13/20 08:00 90 03/13/20 08:00 66 03/13/20 08:00 96.8 69 18 116/56 (76) 100 03/13/20 06:50 64 15 100 80 03/13/20 04:00 103 03/13/20 04:00 96.6 102 14 106/65 (79) 100 03/13/20 04:00 Bi-pap 100.0 03/13/20 04:00 90 03/13/20 01:35 63 15 100 90 03/13/20 00:00 Bi-pap 100.0 03/13/20 00:00 97.5 103 18 123/77 (92) 100 03/13/20 00:00 108 03/13/20 00:00 100 03/12/20 20:00 Bi-pap 80.0 03/12/20 20:00 100 03/12/20 20:00 66 03/12/20 20:00 97.9 69 17 137/58 (84) 100 03/12/20 20:00 70 20 91 100 03/12/20 16:00 Bi-pap 80.0 03/12/20 16:00 97.3 80 24 109/64 (79) 93 03/12/20 16:00 85 03/12/20 16:00 65 03/12/20 15:28 93 26 90 70 I&O Intake and Output 03/12/20 03/13/20 19:00 07:00 Intake Total 50 ml 440 ml Output Total 350 ml 75 ml Balance -300 ml 365 ml Intake IV Total 50 ml 440 ml Output Urine Total 350 ml 75 ml # Bowel Movements 1 1 Dressing: saturated Cardiovascular: RSR Respiratory: decreased breath sounds Abdomen: soft, non-tender, present bowel sounds, non-distended Extremities: no edema, no tenderness, no cyanosis, pulses, other Laboratory Tests Test 03/13/20 05:20 White Blood Count 16.1 K/UL (4.8-10.8) H Red Blood Count 2.71 M/UL (4.70-6.10) L Hemoglobin 8.3 G/DL (14.2-18.0) L Hematocrit 24.9 % (42.0-52.0) L Mean Corpuscular Volume 92 FL (80-99) Mean Corpuscular Hemoglobin 30.8 PG (27.0-31.0) Mean Corpuscular Hemoglobin Concent 33.5 G/DL (32.0-36.0) Red Cell Distribution Width 16.6 % (11.6-14.8) H Platelet Count 89 K/UL (150-450) L Mean Platelet Volume 8.1 FL (6.5-10.1) Neutrophils (%) (Auto) % (45.0-75.0) Lymphocytes (%) (Auto) % (20.0-45.0) Monocytes (%) (Auto) % (1.0-10.0) Eosinophils (%) (Auto) % (0.0-3.0) Basophils (%) (Auto) % (0.0-2.0) Differential Total Cells Counted 100 Neutrophils % (Manual) 98 % (45-75) H Lymphocytes % (Manual) 1 % (20-45) L Monocytes % (Manual) 1 % (1-10) Eosinophils % (Manual) 0 % (0-3) Basophils % (Manual) 0 % (0-2) Band Neutrophils 0 % (0-8) Platelet Estimate Decreased L Platelet Morphology Normal Hypochromasia 1+ Anisocytosis 1+ Erythrocyte Sedimentation Rate 52 MM/HR (0-20) H Sodium Level 139 MMOL/L (136-145) Potassium Level 3.9 MMOL/L (3.5-5.1) Chloride Level 104 MMOL/L (98-107) Carbon Dioxide Level 28 MMOL/L (21-32) Anion Gap 7 mmol/L (5-15) Blood Urea Nitrogen 56 mg/dL (7-18) H Creatinine 3.3 MG/DL (0.55-1.30) H Estimat Glomerular Filtration Rate 18.6 mL/min (>60) Glucose Level 145 MG/DL (74-106) H Calcium Level 6.6 MG/DL (8.5-10.1) L Total Bilirubin 0.5 MG/DL (0.2-1.0) Aspartate Amino Transf (AST/SGOT) 48 U/L (15-37) H Alanine Aminotransferase (ALT/SGPT) 22 U/L (12-78) Alkaline Phosphatase 227 U/L (46-116) H C-Reactive Protein, Quantitative 12.3 mg/dL (0.00-0.90) H Total Protein 6.1 G/DL (6.4-8.2) L Albumin 2.0 G/DL (3.4-5.0) L Globulin 4.1 g/dL Albumin/Globulin Ratio 0.5 (1.0-2.7) L Amylase Level 77 U/L (25-115) Lipase 496 U/L (73-393) H Plan Problems: (1) Hyperkalemia (2) Respiratory distress (3) Pancreatitis Assessment & Plan: noted on admission to have acute pancreatitis etiology work up on way lft's noted mild elevated no n/v labs reviewed exam unreliable as very agitated iv fluids okay for diet trend labs will follow with exam and recs (4) Renal failure Assessment & Plan: renal insufficiency fem cath placed okay for hd see note will follow (5) UTI (urinary tract infection) (6) Pneumonia due to COVID-19 virus (7) Dehydration (8) Renal insufficiency (9) Altered level of consciousness (10) Urinary tract bacterial infections Darius Sifuentes Mar 13, 2020 14:07
[2020-03-13] MEDS: Heparin Sod 1000 units/ml 10ml IV PRN ×2 (14:28→14:34)
--- NOTE | 2020-03-13 14:46 | Infectious Diseases Prog Note ---
Assessment/Plan Assessment/Plan IMPRESSION: COVID-19 pneumonia. UTI with E.coli Pancreatitis Hypoxic respiratory failure, Altered mental status, encephalopathy, Dementia, Hypertension. Anemia ESRD started on HD RECOMMENDATIONS: Continue dexamethasone, Discontinue ceftriaxone, Continue isolation Subjective ROS Limited/Unobtainable: Yes Constitutional: Denies: fever Genitourinary: Reports: other - started on HD Neurologic: Reports: confusion, other - on restraint Allergies: Coded Allergies: No Known Allergies (Unverified , 02/04/20) Objective Last 24 Hour Vital Signs Date Time Temp Pulse Resp B/P (MAP) Pulse Ox O2 Delivery O2 Flow Rate FiO2 03/13/20 12:30 68 17 92 80 03/13/20 12:00 67 03/13/20 12:00 90 03/13/20 12:00 Bi-pap 100.0 03/13/20 12:00 97.0 65 18 103/41 (61) 94 03/13/20 08:00 Bi-pap 100.0 03/13/20 08:00 90 03/13/20 08:00 66 03/13/20 08:00 96.8 69 18 116/56 (76) 100 03/13/20 06:50 64 15 100 80 03/13/20 04:00 103 03/13/20 04:00 96.6 102 14 106/65 (79) 100 03/13/20 04:00 Bi-pap 100.0 03/13/20 04:00 90 03/13/20 01:35 63 15 100 90 03/13/20 00:00 Bi-pap 100.0 03/13/20 00:00 97.5 103 18 123/77 (92) 100 03/13/20 00:00 108 03/13/20 00:00 100 03/12/20 20:00 Bi-pap 80.0 03/12/20 20:00 100 03/12/20 20:00 66 03/12/20 20:00 97.9 69 17 137/58 (84) 100 03/12/20 20:00 70 20 91 100 03/12/20 16:00 Bi-pap 80.0 03/12/20 16:00 97.3 80 24 109/64 (79) 93 03/12/20 16:00 85 03/12/20 16:00 65 03/12/20 15:28 93 26 90 70 Height (Feet): 5 Height (Inches): 4.00 Weight (Pounds): 154 HEENT: mucous membranes moist Respiratory/Chest: other - on BIPAP Cardiovascular: normal rate, other - Femoral HD line Abdomen: soft, non tender Neurologic/Psychiatric: alert, disoriented Laboratory Tests Test 03/13/20 05:20 White Blood Count 16.1 K/UL (4.8-10.8) H Red Blood Count 2.71 M/UL (4.70-6.10) L Hemoglobin 8.3 G/DL (14.2-18.0) L Hematocrit 24.9 % (42.0-52.0) L Mean Corpuscular Volume 92 FL (80-99) Mean Corpuscular Hemoglobin 30.8 PG (27.0-31.0) Mean Corpuscular Hemoglobin Concent 33.5 G/DL (32.0-36.0) Red Cell Distribution Width 16.6 % (11.6-14.8) H Platelet Count 89 K/UL (150-450) L Mean Platelet Volume 8.1 FL (6.5-10.1) Neutrophils (%) (Auto) % (45.0-75.0) Lymphocytes (%) (Auto) % (20.0-45.0) Monocytes (%) (Auto) % (1.0-10.0) Eosinophils (%) (Auto) % (0.0-3.0) Basophils (%) (Auto) % (0.0-2.0) Differential Total Cells Counted 100 Neutrophils % (Manual) 98 % (45-75) H Lymphocytes % (Manual) 1 % (20-45) L Monocytes % (Manual) 1 % (1-10) Eosinophils % (Manual) 0 % (0-3) Basophils % (Manual) 0 % (0-2) Band Neutrophils 0 % (0-8) Platelet Estimate Decreased L Platelet Morphology Normal Hypochromasia 1+ Anisocytosis 1+ Erythrocyte Sedimentation Rate 52 MM/HR (0-20) H Sodium Level 139 MMOL/L (136-145) Potassium Level 3.9 MMOL/L (3.5-5.1) Chloride Level 104 MMOL/L (98-107) Carbon Dioxide Level 28 MMOL/L (21-32) Anion Gap 7 mmol/L (5-15) Blood Urea Nitrogen 56 mg/dL (7-18) H Creatinine 3.3 MG/DL (0.55-1.30) H Estimat Glomerular Filtration Rate 18.6 mL/min (>60) Glucose Level 145 MG/DL (74-106) H Calcium Level 6.6 MG/DL (8.5-10.1) L Total Bilirubin 0.5 MG/DL (0.2-1.0) Aspartate Amino Transf (AST/SGOT) 48 U/L (15-37) H Alanine Aminotransferase (ALT/SGPT) 22 U/L (12-78) Alkaline Phosphatase 227 U/L (46-116) H C-Reactive Protein, Quantitative 12.3 mg/dL (0.00-0.90) H Total Protein 6.1 G/DL (6.4-8.2) L Albumin 2.0 G/DL (3.4-5.0) L Globulin 4.1 g/dL Albumin/Globulin Ratio 0.5 (1.0-2.7) L Amylase Level 77 U/L (25-115) Lipase 496 U/L (73-393) H Current Medications Medications (Trade) Dose Ordered Sig/James Route PRN Reason Start Time Stop Time Status Last Admin Dose Admin Acetaminophen (Tylenol) 650 mg Q4H PRN RECTAL Temp >100.5 03/07/20 08:15 04/06/20 08:14 Acetaminophen (Tylenol) 650 mg Q4H PRN RECTAL Mild Pain (Pain Scale 1-3) 03/07/20 09:00 04/06/20 08:59 Albuterol Sulfate (Proventil MDI) 2 puff Q4H PRN INH Shortness of Breath 03/07/20 08:15 06/05/20 08:14 Ceftriaxone Sodium 1 gm/ Dextrose 55 ml @ 110 mls/hr Q24H IVPB 03/08/20 06:00 03/17/20 05:59 03/13/20 05:28 Chlorhexidine Gluconate (Linnette-Hex 2%) 1 applic DAILY@2000 TOPIC 03/09/20 20:00 06/07/20 19:59 03/12/20 20:35 Dexamethasone Sodium Phosphate (Decadron 10mg/ ml Inj) 6 mg DAILY IV 03/08/20 09:00 03/16/20 09:01 03/13/20 08:25 Dextrose (Dextrose 50%) 25 ml Q30M PRN IV Hypoglycemia 03/07/20 08:15 06/05/20 08:14 Dextrose (Dextrose 50%) 50 ml Q30M PRN IV Hypoglycemia 03/07/20 08:15 06/05/20 08:14 03/07/20 11:57 Dextrose/Sodium Chloride 1,000 ml @ 50 mls/hr Q20H IV 03/07/20 23:00 04/06/20 22:59 03/12/20 23:12 Enoxaparin Sodium (Lovenox) 30 mg Q24H SUBQ 03/08/20 09:00 06/06/20 08:59 03/09/20 08:39 Epoetin Juan (Epoetin Juan(ESRD on dialysis)) 10,000 unit SUBQ 03/12/20 21:00 06/10/20 20:59 03/12/20 21:33 Famotidine (Pepcid I.v.) 20 mg DAILY IVP 03/07/20 09:00 04/06/20 08:59 03/13/20 08:25 Heparin Sodium (Porcine) (Heparin Sod 1000 units/ml 10ml) 2,000 unit ONCE PRN IV HD 03/13/20 06:00 03/13/20 23:59 03/13/20 14:34 Heparin Sodium (Porcine) (Heparin) 1,000 unit POSTHD PRN INJ POST HD 03/13/20 06:00 03/13/20 23:59 Hydromorphone HCl (Dilaudid) 0.5 mg Q3HR PRN IVP Severe Pain (Pain Scale 7-10) 03/07/20 22:15 03/14/20 22:14 Ondansetron HCl (Zofran) 4 mg Q6H PRN IVP Nausea & Vomiting 03/07/20 08:15 04/06/20 08:14 Sodium Chloride 1,000 ml @ 500 mls/hr Q2H PRN IVLG sbp<90 during hd 03/13/20 06:00 03/13/20 23:59 Joe Nguyen MD Mar 13, 2020 14:46
--- NOTE | 2020-03-13 15:04 | Pulmonology Progress Note ---
Subjective ROS Limited/Unobtainable: Yes Constitutional: Denies: fever Allergies: Coded Allergies: No Known Allergies (Unverified , 02/04/20) Subjective care noted on BIPAP not improved Objective Last 24 Hour Vital Signs Date Time Temp Pulse Resp B/P (MAP) Pulse Ox O2 Delivery O2 Flow Rate FiO2 03/13/20 12:30 68 17 92 80 03/13/20 12:00 67 03/13/20 12:00 90 03/13/20 12:00 Bi-pap 100.0 03/13/20 12:00 97.0 65 18 103/41 (61) 94 03/13/20 08:00 Bi-pap 100.0 03/13/20 08:00 90 03/13/20 08:00 66 03/13/20 08:00 96.8 69 18 116/56 (76) 100 03/13/20 06:50 64 15 100 80 03/13/20 04:00 103 03/13/20 04:00 96.6 102 14 106/65 (79) 100 03/13/20 04:00 Bi-pap 100.0 03/13/20 04:00 90 03/13/20 01:35 63 15 100 90 03/13/20 00:00 Bi-pap 100.0 03/13/20 00:00 97.5 103 18 123/77 (92) 100 03/13/20 00:00 108 03/13/20 00:00 100 03/12/20 20:00 Bi-pap 80.0 03/12/20 20:00 100 03/12/20 20:00 66 03/12/20 20:00 97.9 69 17 137/58 (84) 100 03/12/20 20:00 70 20 91 100 03/12/20 16:00 Bi-pap 80.0 03/12/20 16:00 97.3 80 24 109/64 (79) 93 03/12/20 16:00 85 03/12/20 16:00 65 03/12/20 15:28 93 26 90 70 Intake and Output 03/12/20 03/13/20 19:00 07:00 Intake Total 50 ml 440 ml Output Total 350 ml 75 ml Balance -300 ml 365 ml Intake IV Total 50 ml 440 ml Output Urine Total 350 ml 75 ml # Bowel Movements 1 1 Objective deferred due to COVID Laboratory Tests 03/13/20 05:20: White Blood Count 16.1H, Red Blood Count 2.71L, Hemoglobin 8.3L, Hematocrit 24.9L, Mean Corpuscular Volume 92, Mean Corpuscular Hemoglobin 30.8, Mean Corpuscular Hemoglobin Concent 33.5, Red Cell Distribution Width 16.6H, Platelet Count 89L, Mean Platelet Volume 8.1, Neutrophils (%) (Auto) , Lymphocytes (%) (Auto) , Monocytes (%) (Auto) , Eosinophils (%) (Auto) , Basophils (%) (Auto) , Differential Total Cells Counted 100, Neutrophils % (Manual) 98H, Lymphocytes % (Manual) 1L, Monocytes % (Manual) 1, Eosinophils % (Manual) 0, Basophils % (Manual) 0, Band Neutrophils 0, Platelet Estimate DecreasedL, Platelet Morphology Normal, Hypochromasia 1+, Anisocytosis 1+, Erythrocyte Sedimentation Rate 52H, Sodium Level 139, Potassium Level 3.9, Chloride Level 104, Carbon Dioxide Level 28, Anion Gap 7, Blood Urea Nitrogen 56H, Creatinine 3.3H, Estimat Glomerular Filtration Rate 18.6, Glucose Level 145H, Calcium Level 6.6L, Total Bilirubin 0.5, Aspartate Amino Transf (AST/SGOT) 48H, Alanine Aminotransferase (ALT/SGPT) 22, Alkaline Phosphatase 227H, C-Reactive Protein, Quantitative 12.3H , Total Protein 6.1L, Albumin 2.0L, Globulin 4.1, Albumin/Globulin Ratio 0.5L, Amylase Level 77, Lipase 496H Current Medications Medications (Trade) Dose Ordered Sig/James Route PRN Reason Start Time Stop Time Status Last Admin Dose Admin Acetaminophen (Tylenol) 650 mg Q4H PRN RECTAL Temp >100.5 03/07/20 08:15 04/06/20 08:14 Acetaminophen (Tylenol) 650 mg Q4H PRN RECTAL Mild Pain (Pain Scale 1-3) 03/07/20 09:00 04/06/20 08:59 Albuterol Sulfate (Proventil MDI) 2 puff Q4H PRN INH Shortness of Breath 03/07/20 08:15 06/05/20 08:14 Chlorhexidine Gluconate (Linnette-Hex 2%) 1 applic DAILY@1999 TOPIC 03/09/20 20:00 06/07/20 19:59 03/12/20 20:35 Dexamethasone Sodium Phosphate (Decadron 10mg/ ml Inj) 6 mg DAILY IV 03/08/20 09:00 03/16/20 09:01 03/13/20 08:25 Dextrose (Dextrose 50%) 25 ml Q30M PRN IV Hypoglycemia 03/07/20 08:15 06/05/20 08:14 Dextrose (Dextrose 50%) 50 ml Q30M PRN IV Hypoglycemia 03/07/20 08:15 06/05/20 08:14 03/07/20 11:57 Dextrose/Sodium Chloride 1,000 ml @ 50 mls/hr Q20H IV 03/07/20 23:00 04/06/20 22:59 03/12/20 23:12 Enoxaparin Sodium (Lovenox) 30 mg Q24H SUBQ 03/08/20 09:00 06/06/20 08:59 03/09/20 08:39 Epoetin Juan (Epoetin Juan(ESRD on dialysis)) 10,000 unit SUBQ 03/12/20 21:00 06/10/20 20:59 03/12/20 21:33 Famotidine (Pepcid I.v.) 20 mg DAILY IVP 03/07/20 09:00 04/06/20 08:59 03/13/20 08:25 Heparin Sodium (Porcine) (Heparin Sod 1000 units/ml 10ml) 2,000 unit ONCE PRN IV HD 03/13/20 06:00 03/13/20 23:59 03/13/20 14:34 Heparin Sodium (Porcine) (Heparin) 1,000 unit POSTHD PRN INJ POST HD 03/13/20 06:00 03/13/20 23:59 Hydromorphone HCl (Dilaudid) 0.5 mg Q3HR PRN IVP Severe Pain (Pain Scale 7-10) 03/07/20 22:15 03/14/20 22:14 Ondansetron HCl (Zofran) 4 mg Q6H PRN IVP Nausea & Vomiting 03/07/20 08:15 04/06/20 08:14 Sodium Chloride 1,000 ml @ 500 mls/hr Q2H PRN IVLG sbp<90 during hd 03/13/20 06:00 03/13/20 23:59 Assessment/Plan Assessment/Plan Impression: Covid Pneumonia/possible sepsis Respiratory failure, acute LA - now on HD PRN Hyperkalemia Pancreatitis Urinary tract infection Hypertension toxic metabolic encephalopathy Plan ID noted steroids Renal following O2 PRN BiPAP at risk for intubation impression, plan, and exam edited and reviewed in detail care discussed with Ebenezer Walters MD Mar 13, 2020 15:04
--- NOTE | 2020-03-13 15:22 | Nephrology Progress Note ---
Assessment/Plan Plan ESRD. HD now q TTS. Subjective Subjective Still SOB. On BIPAP. Objective Objective Last 24 Hour Vital Signs Date Time Temp Pulse Resp B/P (MAP) Pulse Ox O2 Delivery O2 Flow Rate FiO2 03/13/20 12:30 68 17 92 80 03/13/20 12:00 67 03/13/20 12:00 90 03/13/20 12:00 Bi-pap 100.0 03/13/20 12:00 97.0 65 18 103/41 (61) 94 03/13/20 08:00 Bi-pap 100.0 03/13/20 08:00 90 03/13/20 08:00 66 03/13/20 08:00 96.8 69 18 116/56 (76) 100 03/13/20 06:50 64 15 100 80 03/13/20 04:00 103 03/13/20 04:00 96.6 102 14 106/65 (79) 100 03/13/20 04:00 Bi-pap 100.0 03/13/20 04:00 90 03/13/20 01:35 63 15 100 90 03/13/20 00:00 Bi-pap 100.0 03/13/20 00:00 97.5 103 18 123/77 (92) 100 03/13/20 00:00 108 03/13/20 00:00 100 03/12/20 20:00 Bi-pap 80.0 03/12/20 20:00 100 03/12/20 20:00 66 03/12/20 20:00 97.9 69 17 137/58 (84) 100 03/12/20 20:00 70 20 91 100 03/12/20 16:00 Bi-pap 80.0 03/12/20 16:00 97.3 80 24 109/64 (79) 93 03/12/20 16:00 85 03/12/20 16:00 65 03/12/20 15:28 93 26 90 70 Intake and Output 03/12/20 03/13/20 19:00 07:00 Intake Total 50 ml 440 ml Output Total 350 ml 75 ml Balance -300 ml 365 ml Intake IV Total 50 ml 440 ml Output Urine Total 350 ml 75 ml # Bowel Movements 1 1 Laboratory Tests 03/13/20 05:20: White Blood Count 16.1H, Red Blood Count 2.71L, Hemoglobin 8.3L, Hematocrit 24.9L, Mean Corpuscular Volume 92, Mean Corpuscular Hemoglobin 30.8, Mean Corpuscular Hemoglobin Concent 33.5, Red Cell Distribution Width 16.6H, Platelet Count 89L, Mean Platelet Volume 8.1, Neutrophils (%) (Auto) , Lymphocytes (%) (Auto) , Monocytes (%) (Auto) , Eosinophils (%) (Auto) , Basophils (%) (Auto) , Differential Total Cells Counted 100, Neutrophils % (Manual) 98H, Lymphocytes % (Manual) 1L, Monocytes % (Manual) 1, Eosinophils % (Manual) 0, Basophils % (Manual) 0, Band Neutrophils 0, Platelet Estimate DecreasedL, Platelet Mo rphology Normal, Hypochromasia 1+, Anisocytosis 1+, Erythrocyte Sedimentation Rate 52H, Sodium Level 139, Potassium Level 3.9, Chloride Level 104, Carbon Dioxide Level 28, Anion Gap 7, Blood Urea Nitrogen 56H, Creatinine 3.3H, Estimat Glomerular Filtration Rate 18.6, Glucose Level 145H, Calcium Level 6.6L, Total Bilirubin 0.5, Aspartate Amino Transf (AST/SGOT) 48H, Alanine Aminotransferase (ALT/SGPT) 22, Alkaline Phosphatase 227H, C-Reactive Protein, Quantitative 12.3H , Total Protein 6.1L, Albumin 2.0L, Globulin 4.1, Albumin/Globulin Ratio 0.5L, Amylase Level 77, Lipase 496H Height (Feet): 5 Height (Inches): 4.00 Weight (Pounds): 154 Objective On BIPAP CV RR Lungs B wheezes!!!! Abd SNT. BS + E No CCE Greg Garcia MD Mar 13, 2020 15:22
[2020-03-13 16:00] VITALS: BP 133/59
--- NOTE | 2020-03-13 16:07 | General Progress Note ---
Subjective ROS Limited/Unobtainable: No Constitutional: Reports: malaise, weakness HEENT: Reports: no symptoms Cardiovascular: Reports: no symptoms Respiratory: Reports: shortness of breath Gastrointestinal/Abdominal: Reports: no symptoms Genitourinary: Reports: no symptoms Neurologic/Psychiatric: Reports: no symptoms Endocrine: Reports: no symptoms Hematologic/Lymphatic: Reports: no symptoms Allergies: Coded Allergies: No Known Allergies (Unverified , 02/04/20) All Systems: reviewed and negative except above Subjective d/w day nurse. no events. o2 sats stable on bipap. unable to wean. no fevers. on steroids. Objective Last 24 Hour Vital Signs Date Time Temp Pulse Resp B/P (MAP) Pulse Ox O2 Delivery O2 Flow Rate FiO2 03/13/20 12:30 68 17 92 80 03/13/20 12:00 67 03/13/20 12:00 90 03/13/20 12:00 Bi-pap 100.0 03/13/20 12:00 97.0 65 18 103/41 (61) 94 03/13/20 08:00 Bi-pap 100.0 03/13/20 08:00 90 03/13/20 08:00 66 03/13/20 08:00 96.8 69 18 116/56 (76) 100 03/13/20 06:50 64 15 100 80 03/13/20 04:00 103 03/13/20 04:00 96.6 102 14 106/65 (79) 100 03/13/20 04:00 Bi-pap 100.0 03/13/20 04:00 90 03/13/20 01:35 63 15 100 90 03/13/20 00:00 Bi-pap 100.0 03/13/20 00:00 97.5 103 18 123/77 (92) 100 03/13/20 00:00 108 03/13/20 00:00 100 03/12/20 20:00 Bi-pap 80.0 03/12/20 20:00 100 03/12/20 20:00 66 03/12/20 20:00 97.9 69 17 137/58 (84) 100 03/12/20 20:00 70 20 91 100 Intake and Output 03/12/20 03/13/20 19:00 07:00 Intake Total 50 ml 440 ml Output Total 350 ml 75 ml Balance -300 ml 365 ml Intake IV Total 50 ml 440 ml Output Urine Total 350 ml 75 ml # Bowel Movements 1 1 Laboratory Tests 03/13/20 05:20: White Blood Count 16.1H, Red Blood Count 2.71L, Hemoglobin 8.3L, Hematocrit 24.9L, Mean Corpuscular Volume 92, Mean Corpuscular Hemoglobin 30.8, Mean Corpuscular Hemoglobin Concent 33.5, Red Cell Distribution Width 16.6H, Platelet Count 89L, Mean Platelet Volume 8.1, Neutrophils (%) (Auto) , Lymphocytes (%) (Auto) , Monocytes (%) (Auto) , Eosinophils (%) (Auto) , Basophils (%) (Auto) , Differential Total Cells Counted 100, Neutrophils % (Manual) 98H, Lymphocytes % (Manual) 1L, Monocytes % (Manual) 1, Eosinophils % (Manual) 0, Basophils % (Manual) 0, Band Neutrophils 0, Platelet Estimate DecreasedL, Platelet Morphology Normal, Hypochromasia 1+, Anisocytosis 1+, Erythrocyte Sedimentation Rate 52H, Sodium Level 139, Potassium Level 3.9, Chloride Level 104, Carbon Dioxide Level 28, Anion Gap 7, Blood Urea Nitrogen 56H, Creatinine 3.3H, Estimat Glomerular Filtration Rate 18.6, Glucose Level 145H, Calcium Level 6.6L, Total Bilirubin 0.5, Aspartate Amino Transf (AST/SGOT) 48H, Alanine Aminotransferase (ALT/SGPT) 22, Alkaline Phosphatase 227H, C-Reactive Protein, Quantitative 12.3H , Total Protein 6.1L, Albumin 2.0L, Globulin 4.1, Albumin/Globulin Ratio 0.5L, Amylase Level 77, Lipase 496H Height (Feet): 5 Height (Inches): 4.00 Weight (Pounds): 154 Objective deferred due to covid + Assessment/Plan Problem List: (1) Altered level of consciousness ICD Codes: R40.4 - Transient alteration of awareness SNOMED: 5528760 (2) Pneumonia due to COVID-19 virus ICD Codes: U07.1 - COVID-19; J12.89 - Other viral pneumonia SNOMED: 403276834550482140 (3) Renal failure ICD Codes: N19 - Unspecified kidney failure SNOMED: 52503316 (4) Respiratory distress ICD Codes: R06.03 - Acute respiratory distress SNOMED: 946453445 Status: stable, not improved Assessment/Plan: cont bipap wean as able steroids resp care dvt prophylaxis HD per renal monitor cxr guarded Doug Garcia MD Mar 13, 2020 16:07
--- NOTE | 2020-03-13 19:10 | NUR ---
NURSE NOTES: Received report from CHERELLE Oneill. pt is seen lying in bed in semi-buchanan's position, pt is on BIPAP with settings as ordered 16/6 Fio2- 80% o2 sat- 99%. pt is alert x 1 with confusion, on restraints for pulling of devices with no skin breakdown and with palpable pulses noted in the area. Pt is on NPO with IV site RAC intact and patent running d5 1/2 NS at 50ml/ hr, with Right femoral nguyen cath iwth no bleeding. Hemodialysis done today 2.5 L out. Bp138/78. Bed in lowest position, call light within reach. Continue to plan of care.
[2020-03-13] MEDS: D5 1/2NS 1,000 ML IV SCH (19:31)
--- NOTE | 2020-03-13 19:41 | NUR ---
NURSE HAND-OFF REPORT: Important Events on Shift: HD today done by Willy RN of [facility], 2.5 L out. Heparin total of 4000 units given by Willy VILLARREAL per protocol. Patient Status: Awake, calm Diet: npo Pending Orders: Pending Results/Labs: Pending MD notification: Latest Vital Signs: Temperature 97.7 , Pulse 79 , B/P 133 /59 , Respiratory Rate 19 , O2 SAT 94 , Bi-pap, O2 Flow Rate 100.0 . Vital Sign Comment: EKG Rhythm: Sinus Rhythm Rhythm change?: N MD Notified?: N - MD Response: Latest Conner Fall Score: 70 Fall Risk: High Risk Safety Measures: Call light Within Reach, Bed Alarm Zone 2, Side Rails Side Rails x2, Bed position Low and Locked. Fall Precautions: Yellow Socks Yellow Gown Door Sign Patient Fall Education Report given to Princess VILLARREAL.
[2020-03-13 20:00] VITALS: BP 138/78
[2020-03-13] MEDS: Dyna-Hex 2% Top Sol 2oz TOPIC SCH (20:00)
[2020-03-14] VITALS: BP 156/65
--- NOTE | 2020-03-14 02:07 | NUR ---
NURSE NOTES: Pt is changed , only smear noted for bowel movement. Sponge bath given. No signs of respiratory distress noted. bed in locked, bed in lowest position, things within reach, call light within reach, continue to plan of care.
[2020-03-14 04:00] VITALS: BP 145/83
--- NOTE | 2020-03-14 04:08 | NUR ---
NURSE NOTES: Pt is sleeping, o2 sat- 98%. No signs of respiratory distress noted. Continue to monitor pt closely.
[2020-03-14 05:17] LABS: HEMATOCRIT 22.4 % (42.0-52.0); HEMOGLOBIN 7.2 G/DL (14.2-18.0); MEAN CORPUSCULAR VOLUME 94 FL (80-99); PLATELET COUNT 65 K/UL (150-450); RED BLOOD COUNT 2.39 M/UL (4.70-6.10); RED CELL DISTRIBUTION WIDTH 16.4 % (11.6-14.8)
[2020-03-14 06:07] LABS: WHITE BLOOD COUNT 6.7 K/UL (4.8-10.8)
--- NOTE | 2020-03-14 06:09 | NUR ---
NURSE NOTES: Pt is sleeping with no signs of respiratory distress, o2 sat- 99%. Continue to plan of care.
[2020-03-14 06:17] LABS: ALBUMIN 1.6 G/DL (3.4-5.0); ALBUMIN/GLOBULIN RATIO 0.6 (1.0-2.7); BILIRUBIN,TOTAL 0.5 MG/DL (0.2-1.0); CREATININE 1.8 MG/DL (0.55-1.30)
[2020-03-14 06:28] LABS: POTASSIUM 2.4 MMOL/L (3.5-5.1)
[2020-03-14] MEDS ORDERED: Varibar Honey 250ml MC PRN (06:30)
[2020-03-14] MEDS ORDERED: Varibar Nectar 240ml MC PRN (06:30)
[2020-03-14] MEDS ORDERED: Varibar Pudding 230ml MC PRN (06:30)
[2020-03-14] MEDS ORDERED: Varibar Thin Liquid powder 148gm MC PRN (06:30)
--- NOTE | 2020-03-14 06:32 | NUR ---
NURSE NOTES: Left voicemail to Dr. Go regarding pt Potassium.
--- NOTE | 2020-03-14 06:34 | NUR ---
NURSE NOTES: New orders given by Dr. Go.
--- NOTE | 2020-03-14 07:05 | NUR ---
NURSE HAND-OFF REPORT: Important Events on Shift: Critical result- potassium 2.4- New orders given by Dr. Go, pt on restraints, hgb7.2- goal 7.00- endorsed to AM Patient Status: Guarded Diet: NPO Pending Orders: None Pending Results/Labs: None Pending MD notification: None Latest Vital Signs: Temperature 97.3 , Pulse 69 , B/P 145 /83 , Respiratory Rate 20 , O2 SAT 100 , Bi-pap, O2 Flow Rate 80.0 . Vital Sign Comment: WNL EKG Rhythm: Sinus Rhythm Rhythm change?: N MD Notified?: N - MD Response: Latest Conner Fall Score: 70 Fall Risk: High Risk Safety Measures: Call light Within Reach, Bed Alarm Zone 2, Side Rails Side Rails x2, Bed position Low and Locked. Fall Precautions: Yellow Socks Yellow Gown Door Sign Patient Fall Education Report given to [Jeremy, RN].
--- NOTE | 2020-03-14 07:12 | NUR ---
NURSE NOTES: Left message to Dr. Go, regarding if needed blood transfusion, per Previous notes hgb goal 7.0. Awaiting for response.
--- NOTE | 2020-03-14 07:19 | NUR ---
NURSE NOTES: Received report from Princess VILLARREAL.
[2020-03-14 08:00] VITALS: BP 144/91
--- NOTE | 2020-03-14 08:01 | General Progress Note ---
Subjective ROS Limited/Unobtainable: No Constitutional: Reports: malaise, weakness HEENT: Reports: no symptoms Cardiovascular: Reports: no symptoms Respiratory: Reports: shortness of breath Gastrointestinal/Abdominal: Reports: difficulty swallowing Genitourinary: Reports: no symptoms Neurologic/Psychiatric: Reports: pre-existing deficit Endocrine: Reports: no symptoms Hematologic/Lymphatic: Reports: anemia Allergies: Coded Allergies: No Known Allergies (Unverified , 02/04/20) All Systems: reviewed and negative except above Subjective decreased h/h noted. no reports of bleeding. remains on bipap. desaturates off bipap. unable to take pos. confused. no family Objective Last 24 Hour Vital Signs Date Time Temp Pulse Resp B/P (MAP) Pulse Ox O2 Delivery O2 Flow Rate FiO2 03/14/20 04:00 67 03/14/20 04:00 97.3 69 20 145/83 (103) 100 03/14/20 04:00 Bi-pap 80.0 03/14/20 04:00 80 03/14/20 03:52 63 17 95 80 03/14/20 00:00 97.3 76 16 156/65 (95) 100 03/14/20 00:00 Bi-pap 80.0 03/13/20 23:13 73 17 92 80 03/13/20 20:00 97.7 80 21 138/78 (98) 94 03/13/20 20:00 80 03/13/20 20:00 79 03/13/20 20:00 Bi-pap 80.0 03/13/20 19:30 81 14 99 80 03/13/20 16:00 Bi-pap 100.0 03/13/20 16:00 79 03/13/20 16:00 97.7 79 19 133/59 (83) 94 03/13/20 16:00 80 03/13/20 12:30 68 17 92 80 03/13/20 12:00 67 03/13/20 12:00 80 03/13/20 12:00 Bi-pap 100.0 03/13/20 12:00 97.0 65 18 103/41 (61) 94 03/13/20 08:00 Bi-pap 100.0 03/13/20 08:00 90 03/13/20 08:00 66 03/13/20 08:00 96.8 69 18 116/56 (76) 100 Intake and Output 03/13/20 03/14/20 19:00 07:00 Intake Total 500 ml Output Total 5000 ml Balance -5000 ml 500 ml Intake IV Total 500 ml Hemodialysis UF 5000 ml # Voids 1 Laboratory Tests 03/14/20 03:30: White Blood Count 6.7#, Red Blood Count 2.39L, Hemoglobin 7.2L, Hematocrit 22.4L , Mean Corpuscular Volume 94, Mean Corpuscular Hemoglobin 30.3, Mean Corpuscular Hemoglobin Concent 32.3, Red Cell Distribution Width 16.4H, Platelet Count 65L, Mean Platelet Volume 7.4, Neutrophils (%) (Auto) , Lymphocytes (%) (Auto) , Monocytes (%) (Auto) , Eosinophils (%) (Auto) , Basophils (%) (Auto) , Sodium Level 146H, Potassium Level 2.4*L, Chloride Level 114H, Carbon Dioxide Level 24, Anion Gap 8, Blood Urea Nitrogen 29H, Creatinine 1.8H, Estimat Glomerular Filtration Rate 37.5, Glucose Level 123H, Calcium Level [Pending], Total Bilirubin 0.5, Aspartate Amino Transf (AST/SGOT) 32, Alanine Aminotransferase (ALT/SGPT) 16, Alkaline Phosphatase 140H, Total Protein 4.1#L, Albumin 1.6L, Globulin 2.5, Albumin/Globulin Ratio 0.6L, Amylase Level 61, Lipase 440H Height (Feet): 5 Height (Inches): 4.00 Weight (Pounds): 154 General Appearance: WD/WN, confused Neck: supple Cardiovascular: regular rhythm Respiratory/Chest: lungs clear Abdomen: normal bowel sounds, non tender, soft, no organomegaly Edema: no edema noted Leg (L), no edema noted Leg (R) Neurologic: disoriented Assessment/Plan Problem List: (1) Altered level of consciousness ICD Codes: R40.4 - Transient alteration of awareness SNOMED: 3338150 (2) Pneumonia due to COVID-19 virus ICD Codes: U07.1 - COVID-19; J12.89 - Other viral pneumonia SNOMED: 712437840295858301 (3) Renal failure ICD Codes: N19 - Unspecified kidney failure SNOMED: 77239217 (4) Respiratory distress ICD Codes: R06.03 - Acute respiratory distress SNOMED: 983475439 Status: stable, not improved Assessment/Plan: cont bipap wean as able steroids resp care dvt prophylaxis HD per renal monitor cxr check iron panel PPI rx stool ob epogen pt needs emergent transfusion. at risk for without transfusion no family to consent guarded Doug Garcia MD Mar 14, 2020 08:00
--- NOTE | 2020-03-14 08:15 | NUR ---
NURSE NOTES: Pt. in bed, awake. No sign of distress. On Bipap continuous with setting 16/6, Fi O2 of 80%. No grimacing noted. Right femoral Arron cath. in placed patent/intact running 1/2 NS with Kcl with 20meq at 100cc/hr. Right AC #20g. in placed patent/intact. Bilateral soft wrist restrains in placed. + CMS. Bed in low position, locked. Call light within reach. Will cont. to monitor.
[2020-03-14] MEDS: 1/2NS w/KCl 20mEq 1000ml 1,000 ML IV SCH ×2 (08:17→18:42)
[2020-03-14] MEDS: Enoxaparin 30mg Inj SUBQ SCH (08:18)
[2020-03-14] MEDS: dexAMETHasone 10mg/ml Inj IV SCH (08:18)
[2020-03-14 08:32] LABS: CALCIUM 4.9 MG/DL (8.5-10.1)
--- NOTE | 2020-03-14 09:30 | NUR ---
NURSE NOTES: Seen by Dr. Go. signed consent for blood transfusion ordered.
--- NOTE | 2020-03-14 10:56 | Pulmonology Progress Note ---
Subjective ROS Limited/Unobtainable: Yes Constitutional: Denies: fever Allergies: Coded Allergies: No Known Allergies (Unverified , 02/04/20) All Systems: reviewed and negative except above Subjective care noted on BIPAP low K low HH not improved Objective Last 24 Hour Vital Signs Date Time Temp Pulse Resp B/P (MAP) Pulse Ox O2 Delivery O2 Flow Rate FiO2 03/14/20 08:00 80 03/14/20 08:00 98.9 74 20 144/91 (108) 95 03/14/20 07:59 68 17 100 100 03/14/20 04:00 67 03/14/20 04:00 97.3 69 20 145/83 (103) 100 03/14/20 04:00 Bi-pap 80.0 03/14/20 04:00 80 03/14/20 03:52 63 17 95 80 03/14/20 00:00 97.3 76 16 156/65 (95) 100 03/14/20 00:00 Bi-pap 80.0 03/13/20 23:13 73 17 92 80 03/13/20 20:00 97.7 80 21 138/78 (98) 94 03/13/20 20:00 80 03/13/20 20:00 79 03/13/20 20:00 Bi-pap 80.0 03/13/20 19:30 81 14 99 80 03/13/20 16:00 Bi-pap 100.0 03/13/20 16:00 79 03/13/20 16:00 97.7 79 19 133/59 (83) 94 03/13/20 16:00 80 03/13/20 12:30 68 17 92 80 03/13/20 12:00 67 03/13/20 12:00 80 03/13/20 12:00 Bi-pap 100.0 03/13/20 12:00 97.0 65 18 103/41 (61) 94 Intake and Output 03/13/20 03/14/20 19:00 07:00 Intake Total 500 ml Output Total 5000 ml Balance -5000 ml 500 ml Intake IV Total 500 ml Hemodialysis UF 5000 ml # Voids 1 Objective deferred due to COVID Laboratory Tests 03/14/20 03:30: White Blood Count 6.7#, Red Blood Count 2.39L, Hemoglobin 7.2L, Hematocrit 22.4L , Mean Corpuscular Volume 94, Mean Corpuscular Hemoglobin 30.3, Mean Corpuscular Hemoglobin Concent 32.3, Red Cell Distribution Width 16.4H, Platelet Count 65L, Mean Platelet Volume 7.4, Neutrophils (%) (Auto) , Lymphocytes (%) (Auto) , Monocytes (%) (Auto) , Eosinophils (%) (Auto) , Basophils (%) (Auto) , Sodium Level 146H, Potassium Level 2.4*L, Chloride Level 114H, Carbon Dioxide Level 24, Anion Gap 8, Blood Urea Nitrogen 29H, Creatinine 1.8H, Estimat Glomerular Filtration Rate 37.5, Glucose Level 123H, Calcium Level 4.9#*L, Total Bilirubin 0.5, Aspartate Amino Transf (AST/SGOT) 32, Alanine Aminotransferase (ALT/SGPT) 16, Alkaline Phosphatase 140H, Total Protein 4.1#L, Albumin 1.6L, Globulin 2.5, Albumin/Globulin Ratio 0.6L, Amylase Level 61, Lipase 440H Current Medications Medications (Trade) Dose Ordered Sig/James Route PRN Reason Start Time Stop Time Status Last Admin Dose Admin Acetaminophen (Tylenol) 650 mg Q4H PRN RECTAL Temp >100.5 03/07/20 08:15 04/06/20 08:14 Acetaminophen (Tylenol) 650 mg Q4H PRN RECTAL Mild Pain (Pain Scale 1-3) 03/07/20 09:00 04/06/20 08:59 Albuterol Sulfate (Proventil MDI) 2 puff Q4H PRN INH Shortness of Breath 03/07/20 08:15 06/05/20 08:14 Barium Sulfate (Varibar Honey) 250 ml NOW PRN MC RAD 03/14/20 06:30 03/17/20 06:18 Barium Sulfate (Varibar [place]) 240 ml NOW PRN MC RAD 03/14/20 06:30 03/17/20 06:18 Barium Sulfate (Varibar Pudding) 230 ml NOW PRN MC RAD 03/14/20 06:30 03/17/20 06:18 Barium Sulfate (Varibar Thin Liquid powder) 148 gm NOW PRN MC RAD 03/14/20 06:30 03/17/20 06:18 Chlorhexidine Gluconate (Linnette-Hex 2%) 1 applic DAILY@2000 TOPIC 03/09/20 20:00 06/07/20 19:59 03/13/20 20:00 Dexamethasone Sodium Phosphate (Decadron 10mg/ ml Inj) 6 mg DAILY IV 03/08/20 09:00 03/16/20 09:01 03/14/20 08:18 Dextrose (Dextrose 50%) 25 ml Q30M PRN IV Hypoglycemia 03/07/20 08:15 06/05/20 08:14 Dextrose (Dextrose 50%) 50 ml Q30M PRN IV Hypoglycemia 03/07/20 08:15 06/05/20 08:14 03/07/20 11:57 Enoxaparin Sodium (Lovenox) 30 mg Q24H SUBQ 03/08/20 09:00 06/06/20 08:59 03/09/20 08:39 Epoetin Juan (Epoetin Juan(ESRD on dialysis)) 10,000 unit TUE- SUBQ 03/12/20 21:00 06/10/20 20:59 03/12/20 21:33 Famotidine (Pepcid I.v.) 20 mg DAILY IVP 03/07/20 09:00 04/06/20 08:59 03/14/20 08:18 Hydromorphone HCl (Dilaudid) 0.5 mg Q3HR PRN IVP Severe Pain (Pain Scale 7-10) 03/07/20 22:15 03/14/20 22:14 Ondansetron HCl (Zofran) 4 mg Q6H PRN IVP Nausea & Vomiting 03/07/20 08:15 04/06/20 08:14 Potassium Chloride 100 ml @ 50 mls/hr ONCE IVPB 03/14/20 10:00 03/14/20 15:00 03/14/20 10:46 Potassium Chloride 100 ml @ 50 mls/hr ONCE IVPB 03/14/20 12:00 03/14/20 17:00 Potassium Chloride 100 ml @ 50 mls/hr ONCE IVPB 03/14/20 14:00 03/14/20 19:00 Sodium 1,000 ml @ 100 mls/hr Q10H IV 03/14/20 08:00 04/13/20 07:59 03/14/20 08:17 Assessment/Plan Assessment/Plan Impression: Covid Pneumonia/possible sepsis Respiratory failure, acute LA - now on HD Hyperkalemia and now with hypokalemia Pancreatitis Urinary tract infection Hypertension toxic metabolic encephalopathy anemia Plan ID noted transfusion replace K steroids Renal following O2 high flow BiPAP for now at risk for intubation impression, plan, and exam edited and reviewed in detail care discussed with Ebenezer Walters MD Mar 14, 2020 10:55
--- NOTE | 2020-03-14 11:00 | NUR ---
NURSE NOTES: Seen by Dr. Ramon with [facility].
[2020-03-14 12:00] VITALS: BP 136/65
--- NOTE | 2020-03-14 13:26 | Nephrology Progress Note ---
Assessment/Plan Plan ESRD. HD now q TTS. Subjective Subjective Still SOB. On BIPAP. Objective Objective Last 24 Hour Vital Signs Date Time Temp Pulse Resp B/P (MAP) Pulse Ox O2 Delivery O2 Flow Rate FiO2 03/14/20 12:00 80 03/14/20 12:00 98.8 73 18 136/65 (88) 96 03/14/20 08:09 67 03/14/20 08:00 80 03/14/20 08:00 98.9 74 20 144/91 (108) 95 03/14/20 08:00 Bi-pap 80.0 03/14/20 07:59 68 17 100 100 03/14/20 04:00 67 03/14/20 04:00 97.3 69 20 145/83 (103) 100 03/14/20 04:00 Bi-pap 80.0 03/14/20 04:00 80 03/14/20 03:52 63 17 95 80 03/14/20 00:00 97.3 76 16 156/65 (95) 100 03/14/20 00:00 Bi-pap 80.0 03/13/20 23:13 73 17 92 80 03/13/20 20:00 97.7 80 21 138/78 (98) 94 03/13/20 20:00 80 03/13/20 20:00 79 03/13/20 20:00 Bi-pap 80.0 03/13/20 19:30 81 14 99 80 03/13/20 16:00 Bi-pap 100.0 03/13/20 16:00 79 03/13/20 16:00 97.7 79 19 133/59 (83) 94 03/13/20 16:00 80 Intake and Output 03/13/20 03/14/20 19:00 07:00 Intake Total 500 ml Output Total 5000 ml Balance -5000 ml 500 ml Intake IV Total 500 ml Hemodialysis UF 5000 ml # Voids 1 Laboratory Tests 03/14/20 03:30: White Blood Count 6.7#, Red Blood Count 2.39L, Hemoglobin 7.2L, Hematocrit 22.4L , Mean Corpuscular Volume 94, Mean Corpuscular Hemoglobin 30.3, Mean Corpuscular Hemoglobin Concent 32.3, Red Cell Distribution Width 16.4H, Platelet Count 65L, Mean Platelet Volume 7.4, Neutrophils (%) (Auto) , Lymphocytes (%) (Auto) , Monocytes (%) (Auto) , Eosinophils (%) (Auto) , Basophils (%) (Auto) , Sodium Level 146H, Potassium Level 2.4*L, Chloride Level 114H, Carbon Dioxide Level 24, Anion Gap 8, Blood Urea Nitrogen 29H, Creatinine 1.8H, Estimat Glomerular Filtration Rate 37.5, Glucose Level 123H, Calcium Level 4.9#*L, Total Bilirubin 0.5, Aspartate Amino Transf (AST/SGOT) 32, Alanine Aminotransferase (ALT/SGPT) 16, Alkaline Phosphatase 140H, Total Protein 4.1#L, Albumin 1.6L, Globulin 2.5, Albumin/Globulin Ratio 0.6L, Amylase Level 61, Lipase 440H Height (Feet): 5 Height (Inches): 4.00 Weight (Pounds): 154 Objective On BIPAP CV RR Lungs B wheezes!!!! Abd SNT. BS + E No CCE Greg Garcia MD Mar 14, 2020 13:26
--- NOTE | 2020-03-14 13:28 | Surgery Progress Note ---
Surgery Progress Note Subjective Procedure Performed Right femoral temporary hemodialysis catheter insertion Symptoms: improved Additional Comments more comfortable leukocytosis resolved on bipap no n/v Objective Last 24 Hour Vital Signs Date Time Temp Pulse Resp B/P (MAP) Pulse Ox O2 Delivery O2 Flow Rate FiO2 03/14/20 12:00 80 03/14/20 12:00 98.8 73 18 136/65 (88) 96 03/14/20 08:09 67 03/14/20 08:00 80 03/14/20 08:00 98.9 74 20 144/91 (108) 95 03/14/20 08:00 Bi-pap 80.0 03/14/20 07:59 68 17 100 100 03/14/20 04:00 67 03/14/20 04:00 97.3 69 20 145/83 (103) 100 03/14/20 04:00 Bi-pap 80.0 03/14/20 04:00 80 03/14/20 03:52 63 17 95 80 03/14/20 00:00 97.3 76 16 156/65 (95) 100 03/14/20 00:00 Bi-pap 80.0 03/13/20 23:13 73 17 92 80 03/13/20 20:00 97.7 80 21 138/78 (98) 94 03/13/20 20:00 80 03/13/20 20:00 79 03/13/20 20:00 Bi-pap 80.0 03/13/20 19:30 81 14 99 80 03/13/20 16:00 Bi-pap 100.0 03/13/20 16:00 79 03/13/20 16:00 97.7 79 19 133/59 (83) 94 03/13/20 16:00 80 I&O Intake and Output 03/13/20 03/14/20 19:00 07:00 Intake Total 500 ml Output Total 5000 ml Balance -5000 ml 500 ml Intake IV Total 500 ml Hemodialysis UF 5000 ml # Voids 1 Dressing: saturated Cardiovascular: RSR Respiratory: decreased breath sounds Abdomen: soft, non-tender, present bowel sounds, non-distended Extremities: no edema, no tenderness, no cyanosis Laboratory Tests Test 03/14/20 03:30 White Blood Count 6.7 K/UL (4.8-10.8) # Red Blood Count 2.39 M/UL (4.70-6.10) L Hemoglobin 7.2 G/DL (14.2-18.0) L Hematocrit 22.4 % (42.0-52.0) L Mean Corpuscular Volume 94 FL (80-99) Mean Corpuscular Hemoglobin 30.3 PG (27.0-31.0) Mean Corpuscular Hemoglobin Concent 32.3 G/DL (32.0-36.0) Red Cell Distribution Width 16.4 % (11.6-14.8) H Platelet Count 65 K/UL (150-450) L Mean Platelet Volume 7.4 FL (6.5-10.1) Neutrophils (%) (Auto) % (45.0-75.0) Lymphocytes (%) (Auto) % (20.0-45.0) Monocytes (%) (Auto) % (1.0-10.0) Eosinophils (%) (Auto) % (0.0-3.0) Basophils (%) (Auto) % (0.0-2.0) Sodium Level 146 MMOL/L (136-145) H Potassium Level 2.4 MMOL/L (3.5-5.1) *L Chloride Level 114 MMOL/L (98-107) H Carbon Dioxide Level 24 MMOL/L (21-32) Anion Gap 8 mmol/L (5-15) Blood Urea Nitrogen 29 mg/dL (7-18) H Creatinine 1.8 MG/DL (0.55-1.30) H Estimat Glomerular Filtration Rate 37.5 mL/min (>60) Glucose Level 123 MG/DL (74-106) H Calcium Level 4.9 MG/DL (8.5-10.1) #*L Total Bilirubin 0.5 MG/DL (0.2-1.0) Aspartate Amino Transf (AST/SGOT) 32 U/L (15-37) Alanine Aminotransferase (ALT/SGPT) 16 U/L (12-78) Alkaline Phosphatase 140 U/L (46-116) H Total Protein 4.1 G/DL (6.4-8.2) #L Albumin 1.6 G/DL (3.4-5.0) L Globulin 2.5 g/dL Albumin/Globulin Ratio 0.6 (1.0-2.7) L Amylase Level 61 U/L (25-115) Lipase 440 U/L (73-393) H Plan Problems: (1) Hyperkalemia (2) Respiratory distress (3) Pancreatitis Assessment & Plan: noted on admission to have acute pancreatitis etiology work up on way lft's noted mild elevated no n/v labs reviewed exam unreliable as very agitated iv fluids okay for diet trend labs will follow with exam and recs improving (4) Renal failure Assessment & Plan: renal insufficiency fem cath placed okay for hd see note will follow (5) UTI (urinary tract infection) (6) Pneumonia due to COVID-19 virus (7) Dehydration (8) Renal insufficiency (9) Altered level of consciousness (10) Urinary tract bacterial infections Darius Sifuentes Mar 14, 2020 13:28
--- NOTE | 2020-03-14 14:40 | NUR ---
CASE MANAGEMENT: REVIEW 03/14/2020 SI;SEPSIS. COVID. VS: T 98.8 HR 73 RR 18 B/P 136/65 SATS 96% ON BIPAP FIO2 80 LABS: HGB 7.2 HCT 22.4 NA 146 K 2.4 CL 114 BUN 29 CR 1.8 GLU 123 CA 4.9 ALP 140 IS:NS @ 100 ML/HR DECADRON IV QD (09/19) SDU
[2020-03-14 16:00] VITALS: BP 140/72
[2020-03-14] MEDS ORDERED: D5 1/2NS 1000ml IV ONE (16:03)
[2020-03-14] MEDS ORDERED: Tubing IV Secondary IV ONE (16:03)
--- NOTE | 2020-03-14 17:17 | Infectious Diseases Prog Note ---
Assessment/Plan Assessment/Plan antibiotics : none A 1. COVID-19 pneumonia. on 80 % FiO2, 99 % saturation 2. e.coli UTI s/p rx 3. Pancreatitis 4. respiratory failure, 5. Dementia, 6. Hypertension 7. renal failure P 1. d/c dexamethasone 2. start remdesivir 3. start solumedrol 4. continue isolation Subjective ROS Limited/Unobtainable: Yes Allergies: Coded Allergies: No Known Allergies (Unverified , 02/04/20) Objective Last 24 Hour Vital Signs Date Time Temp Pulse Resp B/P (MAP) Pulse Ox O2 Delivery O2 Flow Rate FiO2 03/14/20 16:00 80 03/14/20 16:00 97.8 67 18 140/72 (94) 98 03/14/20 16:00 Bi-pap 80.0 03/14/20 16:00 64 03/14/20 12:00 Bi-pap 80.0 03/14/20 12:00 80 03/14/20 12:00 98.8 73 18 136/65 (88) 96 03/14/20 11:53 78 03/14/20 08:09 67 03/14/20 08:00 80 03/14/20 08:00 98.9 74 20 144/91 (108) 95 03/14/20 08:00 Bi-pap 80.0 03/14/20 07:59 68 17 100 100 03/14/20 04:00 67 03/14/20 04:00 97.3 69 20 145/83 (103) 100 03/14/20 04:00 Bi-pap 80.0 03/14/20 04:00 80 03/14/20 03:52 63 17 95 80 03/14/20 00:00 97.3 76 16 156/65 (95) 100 03/14/20 00:00 Bi-pap 80.0 03/13/20 23:13 73 17 92 80 03/13/20 20:00 97.7 80 21 138/78 (98) 94 03/13/20 20:00 80 03/13/20 20:00 79 03/13/20 20:00 Bi-pap 80.0 03/13/20 19:30 81 14 99 80 Height (Feet): 5 Height (Inches): 4.00 Weight (Pounds): 154 HEENT: other - on bipap Laboratory Tests Test 03/14/20 03:30 White Blood Count 6.7 K/UL (4.8-10.8) # Red Blood Count 2.39 M/UL (4.70-6.10) L Hemoglobin 7.2 G/DL (14.2-18.0) L Hematocrit 22.4 % (42.0-52.0) L Mean Corpuscular Volume 94 FL (80-99) Mean Corpuscular Hemoglobin 30.3 PG (27.0-31.0) Mean Corpuscular Hemoglobin Concent 32.3 G/DL (32.0-36.0) Red Cell Distribution Width 16.4 % (11.6-14.8) H Platelet Count 65 K/UL (150-450) L Mean Platelet Volume 7.4 FL (6.5-10.1) Neutrophils (%) (Auto) % (45.0-75.0) Lymphocytes (%) (Auto) % (20.0-45.0) Monocytes (%) (Auto) % (1.0-10.0) Eosinophils (%) (Auto) % (0.0-3.0) Basophils (%) (Auto) % (0.0-2.0) Sodium Level 146 MMOL/L (136-145) H Potassium Level 2.4 MMOL/L (3.5-5.1) *L Chloride Level 114 MMOL/L (98-107) H Carbon Dioxide Level 24 MMOL/L (21-32) Anion Gap 8 mmol/L (5-15) Blood Urea Nitrogen 29 mg/dL (7-18) H Creatinine 1.8 MG/DL (0.55-1.30) H Estimat Glomerular Filtration Rate 37.5 mL/min (>60) Glucose Level 123 MG/DL (74-106) H Calcium Level 4.9 MG/DL (8.5-10.1) #*L Total Bilirubin 0.5 MG/DL (0.2-1.0) Aspartate Amino Transf (AST/SGOT) 32 U/L (15-37) Alanine Aminotransferase (ALT/SGPT) 16 U/L (12-78) Alkaline Phosphatase 140 U/L (46-116) H Total Protein 4.1 G/DL (6.4-8.2) #L Albumin 1.6 G/DL (3.4-5.0) L Globulin 2.5 g/dL Albumin/Globulin Ratio 0.6 (1.0-2.7) L Amylase Level 61 U/L (25-115) Lipase 440 U/L (73-393) H Current Medications Medications (Trade) Dose Ordered Sig/James Route PRN Reason Start Time Stop Time Status Last Admin Dose Admin Acetaminophen (Tylenol) 650 mg Q4H PRN RECTAL Temp >100.5 03/07/20 08:15 04/06/20 08:14 Acetaminophen (Tylenol) 650 mg Q4H PRN RECTAL Mild Pain (Pain Scale 1-3) 03/07/20 09:00 04/06/20 08:59 Albuterol Sulfate (Proventil MDI) 2 puff Q4H PRN INH Shortness of Breath 03/07/20 08:15 06/05/20 08:14 Barium Sulfate (Varibar Honey) 250 ml NOW PRN MC RAD 03/14/20 06:30 03/17/20 06:18 Barium Sulfate (Varibar [place]) 240 ml NOW PRN MC RAD 03/14/20 06:30 03/17/20 06:18 Barium Sulfate (Varibar Pudding) 230 ml NOW PRN MC RAD 03/14/20 06:30 03/17/20 06:18 Barium Sulfate (Varibar Thin Liquid powder) 148 gm NOW PRN MC RAD 03/14/20 06:30 03/17/20 06:18 Chlorhexidine Gluconate (Linnette-Hex 2%) 1 applic DAILY@2000 TOPIC 03/09/20 20:00 06/07/20 19:59 03/13/20 20:00 Dexamethasone Sodium Phosphate (Decadron 10mg/ ml Inj) 6 mg DAILY IV 03/08/20 09:00 03/16/20 09:01 03/14/20 08:18 Dextrose (Dextrose 50%) 25 ml Q30M PRN IV Hypoglycemia 03/07/20 08:15 06/05/20 08:14 Dextrose (Dextrose 50%) 50 ml Q30M PRN IV Hypoglycemia 03/07/20 08:15 06/05/20 08:14 03/07/20 11:57 Enoxaparin Sodium (Lovenox) 30 mg Q24H SUBQ 03/08/20 09:00 06/06/20 08:59 03/09/20 08:39 Epoetin Juan (Epoetin Juan(ESRD on dialysis)) 10,000 unit TUE-TUE-TUE SUBQ 03/12/20 21:00 06/10/20 20:59 03/12/20 21:33 Famotidine (Pepcid I.v.) 20 mg DAILY IVP 03/07/20 09:00 04/06/20 08:59 03/14/20 08:18 Heparin Sodium (Porcine) (Heparin Sod 1000 units/ml 10ml) 2,000 unit ONCE IV 03/15/20 08:00 03/15/20 23:59 Heparin Sodium (Porcine) (Heparin) 1,000 unit POSTHD INJ 03/15/20 08:00 03/15/20 23:59 Hydromorphone HCl (Dilaudid) 0.5 mg Q3HR PRN IVP Severe Pain (Pain Scale 7-10) 03/07/20 22:15 03/14/20 22:14 Ondansetron HCl (Zofran) 4 mg Q6H PRN IVP Nausea & Vomiting 03/07/20 08:15 04/06/20 08:14 Potassium Chloride 100 ml @ 50 mls/hr ONCE IVPB 03/14/20 14:00 03/14/20 19:00 03/14/20 14:17 Sodium 1,000 ml @ 100 mls/hr Q10H IV 03/14/20 08:00 04/13/20 07:59 03/14/20 08:17 Sodium Chloride 1,000 ml @ 500 mls/hr Q2H PRN IVLG sbp<90 during hd 03/15/20 13:30 04/14/20 13:29 Brittney Quigley MD Mar 14, 2020 17:17
[2020-03-14] MEDS: Solu-MEDROL 40mg Inj IVP SCH (18:44)
--- NOTE | 2020-03-14 19:03 | NUR ---
NURSE NOTES: Endorsed to Vivi VILLARREAL. Gave copy of report for this pt. for Foreign VILLARREAL. Pt. remain stable.
--- NOTE | 2020-03-14 19:05 | NUR ---
NURSE NOTES: Received patient from CHERELLE Ugarte. Awake, on BiPAP 16/6 80% with no respiratory distress .o2 sat 100%. SR on monitor. vss. Afebrile. Denies any pain at time. bed locked and lowest position. bed alarm on.will continue to plan of care.
[2020-03-14 20:00] VITALS: BP 140/65
[2020-03-14] MEDS ORDERED: Epoetin Alfa-EPBX(ESRD on dialysis)2000 units/ml vial SUBQ SCH (21:00)
--- NOTE | 2020-03-14 21:30 | NUR ---
NURSE NOTES: Endorsed to Lakeisha Carrasquillo RN.Patient remains stable in condition with current BiPAP settings.
--- NOTE | 2020-03-14 21:31 | NUR ---
NURSE NOTES: Received patient from CHERELLE Trinidad under the care of Dr. Go for the admitting dx. of Hypoxia and Covid (+) status. Patient noted with no allergies and full code status. Patient on isolation for Covid (+) status. Obsevred and maintained at all times. Patient is oriented to self with periods of disorientation and confusion. Noted SR on the jinriksha driver with an episode of A.fib on 03/[address] Ingram is aware of. No pain or discomfort noted at this time. Will continue to monitor.
[2020-03-14] MEDS: Epoetin Alfa-EPBX(ESRD on dialysis)2000 units/ml vial SUBQ SCH (22:10)
[2020-03-14] MEDS: Epoetin Alfa-EPBX(ESRD on dialysis)4000 units/ml vial SUBQ SCH (22:10)
[2020-03-14] MEDS: Dyna-Hex 2% Top Sol 2oz TOPIC SCH (22:10)
[2020-03-14] MEDS ORDERED: Loading Dose:Remdesivir 200mg/NS 210ml IV SCH ×2 (23:00)
[2020-03-15] VITALS: BP 153/82
--- NOTE | 2020-03-15 | NUR ---
NURSE NOTES: Patient awake and noted watching TV. No sign of distress noted at this time. Will continue to monitor.
--- NOTE | 2020-03-15 03:00 | NUR ---
NURSE NOTES: Patient asleep. Tolerating BiPAP settings well. No distress noted. Denies pain at this time. Will continue to monitor.
[2020-03-15 04:00] VITALS: BP 150/82
[2020-03-15] MEDS: 1/2NS w/KCl 20mEq 1000ml 1,000 ML IV SCH (04:00)
[2020-03-15 05:01] LABS: ALANINE AMINOTRANSFERASE 27 U/L (12-78); ALBUMIN 2.5 G/DL (3.4-5.0); ALBUMIN/GLOBULIN RATIO 0.6 (1.0-2.7); ALKALINE PHOSPHATASE 251 U/L (46-116); ANION GAP 6 mmol/L (5-15); ASPARTATE AMINO TRANSFERASE 53 U/L (15-37); BILIRUBIN,TOTAL 0.9 MG/DL (0.2-1.0); BLOOD UREA NITROGEN 55 mg/dL (7-18); CALCIUM 7.9 MG/DL (8.5-10.1); CARBON DIOXIDE 28 MMOL/L (21-32); CHLORIDE 104 MMOL/L (98-107); CREATININE 2.9 MG/DL (0.55-1.30); POTASSIUM 5.4 MMOL/L (3.5-5.1); SODIUM 138 MMOL/L (136-145)
[2020-03-15 05:04] LABS: % IRON SATURATION 31 % (15-50); IRON 38 ug/dL (50-175); TOTAL IRON BINDING CAPACITY 122 ug/dL (250-450)
[2020-03-15 05:08] LABS: AMYLASE 116 U/L (25-115)
[2020-03-15 05:29] LABS: HEMATOCRIT 33.1 % (42.0-52.0); HEMOGLOBIN 10.5 G/DL (14.2-18.0); MEAN CORPUSCULAR VOLUME 93 FL (80-99); PLATELET COUNT 95 K/UL (150-450); RED BLOOD COUNT 3.55 M/UL (4.70-6.10); RED CELL DISTRIBUTION WIDTH 16.3 % (11.6-14.8); WHITE BLOOD COUNT 18.2 K/UL (4.8-10.8)
[2020-03-15] MEDS: Solu-MEDROL 40mg Inj IVP SCH ×2 (05:38→17:51)
--- NOTE | 2020-03-15 06:00 | NUR ---
NURSE NOTES: Patient continues to be asleep. Vitals WNL. No sign of distress noted. Will continue to monitor.
--- NOTE | 2020-03-15 06:50 | NUR ---
RESPIRATORY NOTE: Pt received stable on Bipap with current settings. 27/08 RR:12, 100%. Alarms are on and audible. Foam tape in place. No facial wounds found. No SOB noted at this time. Will continue to monitor.
--- NOTE | 2020-03-15 07:00 | NUR ---
NURSE HAND-OFF REPORT: Important Events on Shift:Vitals WNL Patient Status: Stable Diet: NPO Pending Orders: Pending Results/Labs: Pending MD notification: Latest Vital Signs: Temperature 99.2 , Pulse 78 , B/P 150 /82 , Respiratory Rate 20 , O2 SAT 94 , Bi-pap, O2 Flow Rate 80.0 . Vital Sign Comment: WNL EKG Rhythm: Sinus Rhythm Rhythm change?: N MD Notified?: N - MD Response: Latest Conner Fall Score: 70 Fall Risk: High Risk Safety Measures: Call light Within Reach, Bed Alarm Zone 2, Side Rails Side Rails x2, Bed position Low and Locked. Fall Precautions: Yellow Socks Yellow Gown Door Sign Patient Fall Education Report given to CHERELLE Ugarte.
--- NOTE | 2020-03-15 07:22 | NUR ---
NURSE NOTES: Received report from [employer] [facility].
[2020-03-15 08:00] VITALS: BP 146/77
[2020-03-15] MEDS ORDERED: Heparin Sod 1000 units/ml 10ml IV SCH (08:00)
[2020-03-15] MEDS ORDERED: Heparin 1000 units/ml 1ml Vial INJ SCH (08:00)
[2020-03-15] MEDS: Enoxaparin 30mg Inj SUBQ SCH (09:00)
--- NOTE | 2020-03-15 09:15 | NUR ---
NURSE NOTES: Pt. in bed, eyes open. Alert, confused. Oriented to his name. No sign of distress. On cont. Bipap 16/6 Fi O2 80%. No grimacing noted. Right femoral Arron cath. in placed patent/intact running 1/2 NS with Kcl 20meq. at 100cc/hr. Bed in low position, locked. Call light within reach. Will cont. to monitor.
--- NOTE | 2020-03-15 09:46 | NUR ---
CASE MANAGEMENT: REVIEW 03/15/2020 SI;SEPSIS. COVID. VS: T 99.2 HR 78 RR 20 B/P 150/82 SATS 94% ON BIPAP FIO2 80 LABS: WBC 18.2 K 5.4 BUN 55 CR 2.9 GLU 117 CA 7.9 AST 53 ALP 251 LIPASE 1182 AMYLASE 116 IS:NS @ 100 ML/HR DECADRON IV QD (10/20) SDU
[2020-03-15] MEDS ORDERED: Tubing IV Secondary IV ONE (09:56)
[2020-03-15] MEDS ORDERED: NS 275ml ONE (09:56)
[2020-03-15 12:00] VITALS: BP 144/74
--- NOTE | 2020-03-15 12:17 | Nephrology Progress Note ---
Assessment/Plan Plan ESRD. HD now q TTS. Subjective Subjective Still SOB. On BIPAP. Objective Objective Last 24 Hour Vital Signs Date Time Temp Pulse Resp B/P (MAP) Pulse Ox O2 Delivery O2 Flow Rate FiO2 03/15/20 08:00 98.6 73 20 146/77 (100) 95 03/15/20 08:00 80 03/15/20 08:00 Bi-pap 80.0 03/15/20 07:59 69 03/15/20 04:00 80 03/15/20 04:00 72 03/15/20 04:00 Bi-pap 80.0 03/15/20 04:00 99.2 78 20 150/82 (104) 94 03/15/20 01:10 72 19 92 100 03/15/20 00:00 Bi-pap 80.0 03/15/20 00:00 97.6 76 15 153/82 (105) 95 03/15/20 00:00 80 03/15/20 00:00 68 03/14/20 20:00 98.0 73 15 140/65 (90) 100 03/14/20 20:00 Bi-pap 80.0 03/14/20 20:00 80 03/14/20 19:52 68 15 98 100 03/14/20 19:23 81 03/14/20 16:00 80 03/14/20 16:00 97.8 67 18 140/72 (94) 98 03/14/20 16:00 Bi-pap 80.0 03/14/20 16:00 64 Intake and Output 03/14/20 03/15/20 19:00 07:00 Output Total 350 ml 350 ml Balance -350 ml -350 ml Output Urine Total 350 ml 350 ml Laboratory Tests 03/15/20 03:15: White Blood Count 18.2#H, Red Blood Count 3.55L, Hemoglobin 10.5#L, Hematocrit 33.1#L, Mean Corpuscular Volume 93, Mean Corpuscular Hemoglobin 29.5, Mean Corpuscular Hemoglobin Concent 31.7L, Red Cell Distribution Width 16.3H, Platelet Count 95L, Mean Platelet Volume 8.4, Neutrophils (%) (Auto) , Lymphocytes (%) (Auto) , Monocytes (%) (Auto) , Eosinophils (%) (Auto) , Basophils (%) (Auto) , Differential Total Cells Counted 100, Neutrophils % (Manual) 93H, Lymphocytes % (Manual) 3L, Monocytes % (Manual) 4, Eosinophils % (Manual) 0, Basophils % (Manual) 0, Band Neutrophils 0, Platelet Estimate DecreasedL, Platelet Morphology Normal, Anisocytosis 1+, Sodium Level 138, Potassium Level 5.4#H, Chloride Level 104, Carbon Dioxide Level 28, Anion Gap 6, Blood Urea Nitrogen 55H, Creatinine 2.9#H, Estimat Glomerular Filtration Rate 21.6, Glucose Level 117H, Calcium Level 7.9#L, Iron Level 38L, Total Iron Binding Capacity 122L, Percent Iron Saturation 31, Unsaturated Iron Binding 84L, Total Bilirubin 0.9, Aspartate Amino Transf (AST/SGOT) 53H, Alanine Aminotransferase (ALT/SGPT) 27, Alkaline Phosphatase 251H, Total Protein 6.6#, Albumin 2.5L, Globulin 4.1, Albumin/Globulin Ratio 0.6L, Amylase Level 116H, Lipase 1182H Height (Feet): 5 Height (Inches): 4.00 Weight (Pounds): 154 Objective On BIPAP CV RR Lungs B wheezes!!!! Abd SNT. BS + E No CCE Greg Garcia MD Mar 15, 2020 12:17
--- NOTE | 2020-03-15 12:20 | General Progress Note ---
Subjective ROS Limited/Unobtainable: No Constitutional: Reports: malaise, weakness HEENT: Reports: no symptoms Cardiovascular: Reports: no symptoms Respiratory: Reports: shortness of breath Gastrointestinal/Abdominal: Reports: no symptoms Genitourinary: Reports: no symptoms Neurologic/Psychiatric: Reports: no symptoms Endocrine: Reports: no symptoms Hematologic/Lymphatic: Reports: no symptoms Allergies: Coded Allergies: No Known Allergies (Unverified , 02/04/20) All Systems: reviewed and negative except above Subjective No overnight events. Appears stable and comfortable on BiPAP. Elevated potassium noted. No distress. Objective Last 24 Hour Vital Signs Date Time Temp Pulse Resp B/P (MAP) Pulse Ox O2 Delivery O2 Flow Rate FiO2 03/15/20 08:00 98.6 73 20 146/77 (100) 95 03/15/20 08:00 80 03/15/20 08:00 Bi-pap 80.0 03/15/20 07:59 69 03/15/20 04:00 80 03/15/20 04:00 72 03/15/20 04:00 Bi-pap 80.0 03/15/20 04:00 99.2 78 20 150/82 (104) 94 03/15/20 01:10 72 19 92 100 03/15/20 00:00 Bi-pap 80.0 03/15/20 00:00 97.6 76 15 153/82 (105) 95 03/15/20 00:00 80 03/15/20 00:00 68 03/14/20 20:00 98.0 73 15 140/65 (90) 100 03/14/20 20:00 Bi-pap 80.0 03/14/20 20:00 80 03/14/20 19:52 68 15 98 100 03/14/20 19:23 81 03/14/20 16:00 80 03/14/20 16:00 97.8 67 18 140/72 (94) 98 03/14/20 16:00 Bi-pap 80.0 03/14/20 16:00 64 Intake and Output 03/14/20 03/15/20 19:00 07:00 Output Total 350 ml 350 ml Balance -350 ml -350 ml Output Urine Total 350 ml 350 ml Laboratory Tests 03/15/20 03:15: White Blood Count 18.2#H, Red Blood Count 3.55L, Hemoglobin 10.5#L, Hematocrit 33.1#L, Mean Corpuscular Volume 93, Mean Corpuscular Hemoglobin 29.5, Mean Corpuscular Hemoglobin Concent 31.7L, Red Cell Distribution Width 16.3H, Platelet Count 95L, Mean Platelet Volume 8.4, Neutrophils (%) (Auto) , Lymphocytes (%) (Auto) , Monocytes (%) (Auto) , Eosinophils (%) (Auto) , Basophils (%) (Auto) , Differential Total Cells Counted 100, Neutrophils % (Manual) 93H, Lymphocytes % (Manual) 3L, Monocytes % (Manual) 4, Eosinophils % (Manual) 0, Basophils % (Manual) 0, Band Neutrophils 0, Platelet Estimate DecreasedL, Platelet Morphology Normal, Anisocytosis 1+, Sodium Level 138, Potassium Level 5.4#H, Chloride Level 104, Carbon Dioxide Level 28, Anion Gap 6, Blood Urea Nitrogen 55H, Creatinine 2.9#H, Estimat Glomerular Filtration Rate 21.6, Glucose Level 117H, Calcium Level 7.9#L, Iron Level 38L, Total Iron Binding Capacity 122L, Percent Iron Saturation 31, Unsaturated Iron Binding 84L, Total Bilirubin 0.9, Aspartate Amino Transf (AST/SGOT) 53H, Alanine Aminotransferase (ALT/SGPT) 27, Alkaline Phosphatase 251H, Total Protein 6.6#, Albumin 2.5L, Globulin 4.1, Albumin/Globulin Ratio 0.6L, Amylase Level 116H, Lipase 1182H Height (Feet): 5 Height (Inches): 4.00 Weight (Pounds): 154 Objective General Appearance: WD/WN, confused Neck: supple Cardiovascular: regular rhythm Respiratory/Chest: lungs clear Abdomen: normal bowel sounds, non tender, soft, no organomegaly Edema: no edema noted Leg (L), no edema noted Leg (R) Neurologic: disoriented Assessment/Plan Problem List: (1) Altered level of consciousness ICD Codes: R40.4 - Transient alteration of awareness SNOMED: 0894981 (2) Pneumonia due to COVID-19 virus ICD Codes: U07.1 - COVID-19; J12.89 - Other viral pneumonia SNOMED: 979923934569217474 (3) Renal failure ICD Codes: N19 - Unspecified kidney failure SNOMED: 60653821 (4) Respiratory distress ICD Codes: R06.03 - Acute respiratory distress SNOMED: 892480927 Status: stable, not improved Assessment/Plan: cont bipap wean as able steroids resp care dc ivf with k dvt prophylaxis HD per renal monitor cxr check iron panel PPI rx stool ob Doug Cobb MD Mar 15, 2020 12:20
--- NOTE | 2020-03-15 13:30 | NUR ---
NURSE NOTES: Pt. on HD at present.
--- NOTE | 2020-03-15 13:42 | Infectious Diseases Prog Note ---
Assessment/Plan Assessment/Plan IMPRESSION: COVID-19 pneumonia. UTI with E.coli Pancreatitis Hypoxic respiratory failure, Altered mental status, encephalopathy, Dementia, Hypertension. Anemia ESRD started on HD Leukocytosis RECOMMENDATIONS: Continue dexamethasone, Discontinue Remdesivir Continue isolation CXR Subjective ROS Limited/Unobtainable: Yes Constitutional: Denies: fever Neurologic: Reports: other - more alert on restraint Allergies: Coded Allergies: No Known Allergies (Unverified , 02/04/20) Objective Last 24 Hour Vital Signs Date Time Temp Pulse Resp B/P (MAP) Pulse Ox O2 Delivery O2 Flow Rate FiO2 03/15/20 12:00 Bi-pap 80.0 03/15/20 12:00 80 03/15/20 08:00 98.6 73 20 146/77 (100) 95 03/15/20 08:00 80 03/15/20 08:00 Bi-pap 80.0 03/15/20 07:59 69 03/15/20 04:00 80 03/15/20 04:00 72 03/15/20 04:00 Bi-pap 80.0 03/15/20 04:00 99.2 78 20 150/82 (104) 94 03/15/20 01:10 72 19 92 100 03/15/20 00:00 Bi-pap 80.0 03/15/20 00:00 97.6 76 15 153/82 (105) 95 03/15/20 00:00 80 03/15/20 00:00 68 03/14/20 20:00 98.0 73 15 140/65 (90) 100 03/14/20 20:00 Bi-pap 80.0 03/14/20 20:00 80 03/14/20 19:52 68 15 98 100 03/14/20 19:23 81 03/14/20 16:00 80 03/14/20 16:00 97.8 67 18 140/72 (94) 98 03/14/20 16:00 Bi-pap 80.0 03/14/20 16:00 64 Height (Feet): 5 Height (Inches): 4.00 Weight (Pounds): 154 HEENT: mucous membranes moist Respiratory/Chest: lungs clear, other - on BIPAP Cardiovascular: normal rate Abdomen: soft, non tender Extremities: no edema Neurologic/Psychiatric: alert, responsive Laboratory Tests Test 03/15/20 03:15 White Blood Count 18.2 K/UL (4.8-10.8) #H Red Blood Count 3.55 M/UL (4.70-6.10) L Hemoglobin 10.5 G/DL (14.2-18.0) #L Hematocrit 33.1 % (42.0-52.0) #L Mean Corpuscular Volume 93 FL (80-99) Mean Corpuscular Hemoglobin 29.5 PG (27.0-31.0) Mean Corpuscular Hemoglobin Concent 31.7 G/DL (32.0-36.0) L Red Cell Distribution Width 16.3 % (11.6-14.8) H Platelet Count 95 K/UL (150-450) L Mean Platelet Volume 8.4 FL (6.5-10.1) Neutrophils (%) (Auto) % (45.0-75.0) Lymphocytes (%) (Auto) % (20.0-45.0) Monocytes (%) (Auto) % (1.0-10.0) Eosinophils (%) (Auto) % (0.0-3.0) Basophils (%) (Auto) % (0.0-2.0) Differential Total Cells Counted 100 Neutrophils % (Manual) 93 % (45-75) H Lymphocytes % (Manual) 3 % (20-45) L Monocytes % (Manual) 4 % (1-10) Eosinophils % (Manual) 0 % (0-3) Basophils % (Manual) 0 % (0-2) Band Neutrophils 0 % (0-8) Platelet Estimate Decreased L Platelet Morphology Normal Anisocytosis 1+ Sodium Level 138 MMOL/L (136-145) Potassium Level 5.4 MMOL/L (3.5-5.1) #H Chloride Level 104 MMOL/L (98-107) Carbon Dioxide Level 28 MMOL/L (21-32) Anion Gap 6 mmol/L (5-15) Blood Urea Nitrogen 55 mg/dL (7-18) H Creatinine 2.9 MG/DL (0.55-1.30) #H Estimat Glomerular Filtration Rate 21.6 mL/min (>60) Glucose Level 117 MG/DL (74-106) H Calcium Level 7.9 MG/DL (8.5-10.1) #L Iron Level 38 ug/dL (50-175) L Total Iron Binding Capacity 122 ug/dL (250-450) L Percent Iron Saturation 31 % (15-50) Unsaturated Iron Binding 84 ug/dL (112-346) L Total Bilirubin 0.9 MG/DL (0.2-1.0) Aspartate Amino Transf (AST/SGOT) 53 U/L (15-37) H Alanine Aminotransferase (ALT/SGPT) 27 U/L (12-78) Alkaline Phosphatase 251 U/L (46-116) H Total Protein 6.6 G/DL (6.4-8.2) # Albumin 2.5 G/DL (3.4-5.0) L Globulin 4.1 g/dL Albumin/Globulin Ratio 0.6 (1.0-2.7) L Amylase Level 116 U/L (25-115) H Lipase 1182 U/L (73-393) H Current Medications Medications (Trade) Dose Ordered Sig/James Route PRN Reason Start Time Stop Time Status Last Admin Dose Admin Acetaminophen (Tylenol) 650 mg Q4H PRN RECTAL Temp >100.5 03/07/20 08:15 04/06/20 08:14 Acetaminophen (Tylenol) 650 mg Q4H PRN RECTAL Mild Pain (Pain Scale 1-3) 03/07/20 09:00 04/06/20 08:59 Albuterol Sulfate (Proventil MDI) 2 puff Q4H PRN INH Shortness of Breath 03/07/20 08:15 06/05/20 08:14 Barium Sulfate (Varibar Honey) 250 ml NOW PRN MC RAD 03/14/20 06:30 03/17/20 06:18 Barium Sulfate (Varibar [place]) 240 ml NOW PRN MC RAD 03/14/20 06:30 03/17/20 06:18 Barium Sulfate (Varibar Pudding) 230 ml NOW PRN MC RAD 03/14/20 06:30 03/17/20 06:18 Barium Sulfate (Varibar Thin Liquid powder) 148 gm NOW PRN MC RAD 03/14/20 06:30 03/17/20 06:18 Chlorhexidine Gluconate (Linnette-Hex 2%) 1 applic DAILY@1999 TOPIC 03/09/20 20:00 06/07/20 19:59 03/14/20 22:10 Dextrose (Dextrose 50%) 25 ml Q30M PRN IV Hypoglycemia 03/07/20 08:15 06/05/20 08:14 Dextrose (Dextrose 50%) 50 ml Q30M PRN IV Hypoglycemia 03/07/20 08:15 06/05/20 08:14 03/07/20 11:57 Enoxaparin Sodium (Lovenox) 30 mg Q24H SUBQ 03/08/20 09:00 06/06/20 08:59 03/09/20 08:39 Epoetin Juan (Epoetin Juan(ESRD on dialysis)) 2,000 unit TUE-TUE-TUE SUBQ 03/14/20 21:00 06/12/20 20:59 03/14/20 22:10 Epoetin Juan (Epoetin Juan(ESRD on dialysis)) 8,000 unit SUBQ 03/14/20 21:00 06/12/20 20:59 03/14/20 22:10 Famotidine (Pepcid I.v.) 20 mg DAILY IVP 03/07/20 09:00 04/06/20 08:59 03/15/20 09:12 Heparin Sodium (Porcine) (Heparin Sod 1000 units/ml 10ml) 2,000 unit ONCE IV 03/15/20 08:00 03/15/20 23:59 Heparin Sodium (Porcine) (Heparin) 1,000 unit POSTHD INJ 03/15/20 08:00 03/15/20 23:59 Methylprednisolone Sodium Succinate (Solu-MEDROL) 40 mg Q12H IVP 03/14/20 18:00 06/12/20 17:59 03/15/20 05:38 Ondansetron HCl (Zofran) 4 mg Q6H PRN IVP Nausea & Vomiting 03/07/20 08:15 04/06/20 08:14 Remdesivir 100 mg/ Sodium Chloride 250 ml @ 250 mls/hr Q24H IV 03/15/20 20:00 03/18/20 20:59 Sodium Chloride 1,000 ml @ 500 mls/hr Q2H PRN IVLG sbp<90 during hd 03/15/20 13:30 04/14/20 13:29 Joe Nguyen MD Mar 15, 2020 13:42
[2020-03-15 13:46] LABS: HEMATOCRIT 34.3 % (42.0-52.0); HEMOGLOBIN 11.3 G/DL (14.2-18.0); MEAN CORPUSCULAR VOLUME 92 FL (80-99); PLATELET COUNT 78 K/UL (150-450); RED BLOOD COUNT 3.72 M/UL (4.70-6.10); RED CELL DISTRIBUTION WIDTH 17.9 % (11.6-14.8); WHITE BLOOD COUNT 15.3 K/UL (4.8-10.8)
[2020-03-15 14:18] LABS: CALCIUM 7.9 MG/DL (8.5-10.1)
[2020-03-15 14:21] LABS: POTASSIUM 6.2 MMOL/L (3.5-5.1)
--- NOTE | 2020-03-15 14:28 | Pulmonology Progress Note ---
Subjective ROS Limited/Unobtainable: Yes Constitutional: Denies: fever Allergies: Coded Allergies: No Known Allergies (Unverified , 02/04/20) All Systems: reviewed and negative except above Subjective care noted on BIPAP low K low HH not improved Objective Last 24 Hour Vital Signs Date Time Temp Pulse Resp B/P (MAP) Pulse Ox O2 Delivery O2 Flow Rate FiO2 03/15/20 12:00 97.6 74 20 144/74 (97) 99 03/15/20 12:00 Bi-pap 80.0 03/15/20 12:00 80 03/15/20 11:42 70 03/15/20 08:00 98.6 73 20 146/77 (100) 95 03/15/20 08:00 80 03/15/20 08:00 Bi-pap 80.0 03/15/20 07:59 69 03/15/20 04:00 80 03/15/20 04:00 72 03/15/20 04:00 Bi-pap 80.0 03/15/20 04:00 99.2 78 20 150/82 (104) 94 03/15/20 01:10 72 19 92 100 03/15/20 00:00 Bi-pap 80.0 03/15/20 00:00 97.6 76 15 153/82 (105) 95 03/15/20 00:00 80 03/15/20 00:00 68 03/14/20 20:00 98.0 73 15 140/65 (90) 100 03/14/20 20:00 Bi-pap 80.0 03/14/20 20:00 80 03/14/20 19:52 68 15 98 100 03/14/20 19:23 81 03/14/20 16:00 80 03/14/20 16:00 97.8 67 18 140/72 (94) 98 03/14/20 16:00 Bi-pap 80.0 03/14/20 16:00 64 Intake and Output 03/14/20 03/15/20 19:00 07:00 Output Total 350 ml 350 ml Balance -350 ml -350 ml Output Urine Total 350 ml 350 ml Objective deferred due to COVID Laboratory Tests 03/15/20 03:15: White Blood Count 18.2#H, Red Blood Count 3.55L, Hemoglobin 10.5#L, Hematocrit 33.1#L, Mean Corpuscular Volume 93, Mean Corpuscular Hemoglobin 29.5, Mean Corpuscular Hemoglobin Concent 31.7L, Red Cell Distribution Width 16.3H, Platelet Count 95L, Mean Platelet Volume 8.4, Neutrophils (%) (Auto) , Lymphocytes (%) (Auto) , Monocytes (%) (Auto) , Eosinophils (%) (Auto) , Basophils (%) (Auto) , Differential Total Cells Counted 100, Neutrophils % (Manual) 93H, Lymphocytes % (Manual) 3L, Monocytes % (Manual) 4, Eosinophils % (Manual) 0, Basophils % (Manual) 0, Band Neutrophils 0, Platelet Estimate De creasedL, Platelet Morphology Normal, Anisocytosis 1+, Sodium Level 138, Potassium Level 5.4#H, Chloride Level 104, Carbon Dioxide Level 28, Anion Gap 6, Blood Urea Nitrogen 55H, Creatinine 2.9#H, Estimat Glomerular Filtration Rate 21.6, Glucose Level 117H, Calcium Level 7.9#L, Iron Level 38L, Total Iron Binding Capacity 122L, Percent Iron Saturation 31, Unsaturated Iron Binding 84L, Total Bilirubin 0.9, Aspartate Amino Transf (AST/SGOT) 53H, Alanine Aminotransferase (ALT/SGPT) 27, Alkaline Phosphatase 251H, Total Protein 6.6#, Albumin 2.5L, Globulin 4.1, Albumin/Globulin Ratio 0.6L, Amylase Level 116H, Lipase 1182H 03/15/20 13:36: White Blood Count 15.3H, Red Blood Count 3.72L, Hemoglobin 11.3L, Hematocrit 34.3L, Mean Corpuscular Volume 92, Mean Corpuscular Hemoglobin 30.5, Mean Corpuscular Hemoglobin Concent 32.9, Red Cell Distribution Width 17.9H, Platelet Count 78L, Mean Platelet Volume 7.2, Neutrophils (%) (Auto) , Lymphocytes (%) (Auto) , Monocytes (%) (Auto) , Eosinophils (%) (Auto) , Basophils (%) (Auto) , Differential Total Cells Counted 100, Neutrophils % (Manual) 97H, Lymphocytes % (Manual) 1L, Monocytes % (Manual) 2, Eosinophils % (Manual) 0, Basophils % (Manual) 0, Band Neutrophils 0, Platelet Estimate DecreasedL, Platelet Morphology Normal, Anisocytosis 1+, Sodium Level 136, Potassium Level 6.2*H, Chloride Level 104, Carbon Dioxide Level 27, Anion Gap 6, Blood Urea Nitrogen 60H, Creatinine 3.0H, Estimat Glomerular Filtration Rate 20.8, Glucose Level 129H, Calcium Level 7.9L Current Medications Medications (Trade) Dose Ordered Sig/James Route PRN Reason Start Time Stop Time Status Last Admin Dose Admin Acetaminophen (Tylenol) 650 mg Q4H PRN RECTAL Temp >100.5 03/07/20 08:15 04/06/20 08:14 Acetaminophen (Tylenol) 650 mg Q4H PRN RECTAL Mild Pain (Pain Scale 1-3) 03/07/20 09:00 04/06/20 08:59 Albuterol Sulfate (Proventil MDI) 2 puff Q4H PRN INH Shortness of Breath 03/07/20 08:15 06/05/20 08:14 Barium Sulfate (Varibar Honey) 250 ml NOW PRN MC RAD 03/14/20 06:30 03/17/20 06:18 Barium Sulfate (Varibar [place]) 240 ml NOW PRN MC RAD 03/14/20 06:30 03/17/20 06:18 Barium Sulfate (Varibar Pudding) 230 ml NOW PRN MC RAD 03/14/20 06:30 03/17/20 06:18 Barium Sulfate (Varibar Thin Liquid powder) 148 gm NOW PRN MC RAD 03/14/20 06:30 03/17/20 06:18 Chlorhexidine Gluconate (Linnette-Hex 2%) 1 applic DAILY@2000 TOPIC 03/09/20 20:00 06/07/20 19:59 03/14/20 22:10 Dextrose (Dextrose 50%) 25 ml Q30M PRN IV Hypoglycemia 03/07/20 08:15 06/05/20 08:14 Dextrose (Dextrose 50%) 50 ml Q30M PRN IV Hypoglycemia 03/07/20 08:15 06/05/20 08:14 03/07/20 11:57 Enoxaparin Sodium (Lovenox) 30 mg Q24H SUBQ 03/08/20 09:00 06/06/20 08:59 03/09/20 08:39 Epoetin Juan (Epoetin Juan(ESRD on dialysis)) 2,000 unit TUE-TUE-TUE SUBQ 03/14/20 21:00 06/12/20 20:59 03/14/20 22:10 Epoetin Juan (Epoetin Juan(ESRD on dialysis)) 8,000 unit TUE-TUE-TUE SUBQ 03/14/20 21:00 06/12/20 20:59 03/14/20 22:10 Famotidine (Pepcid I.v.) 20 mg DAILY IVP 03/07/20 09:00 04/06/20 08:59 03/15/20 09:12 Heparin Sodium (Porcine) (Heparin Sod 1000 units/ml 10ml) 2,000 unit ONCE IV 03/15/20 08:00 03/15/20 23:59 Heparin Sodium (Porcine) (Heparin) 1,000 unit POSTHD INJ 03/15/20 08:00 03/15/20 23:59 Methylprednisolone Sodium Succinate (Solu-MEDROL) 40 mg Q12H IVP 03/14/20 18:00 06/12/20 17:59 03/15/20 05:38 Ondansetron HCl (Zofran) 4 mg Q6H PRN IVP Nausea & Vomiting 03/07/20 08:15 04/06/20 08:14 Sodium Chloride 1,000 ml @ 500 mls/hr Q2H PRN IVLG sbp<90 during hd 03/15/20 13:30 04/14/20 13:29 Assessment/Plan Assessment/Plan Impression: Covid Pneumonia/possible sepsis Respiratory failure, acute LA - now on HD Hyperkalemia and now with hypokalemia Pancreatitis Urinary tract infection Hypertension toxic metabolic encephalopathy anemia elevated K Plan ID noted transfusion as needed K level elevated per renal steroids Renal following O2 high flow BiPAP for now at risk for intubation on 80% impression, plan, and exam edited and reviewed in detail care discussed with Ebenezer Walters MD Mar 15, 2020 14:28
--- NOTE | 2020-03-15 14:30 | NUR ---
NURSE NOTES: Hand over care to Sha VILLARREAL.
--- NOTE | 2020-03-15 14:48 | NUR ---
NURSE NOTES: Received patient from CHERELLE Ugarte. patient is awake in bed without any acute distress. sinus rhythm on the monitor. currently NPO, waiting for ST eval and is currently on continuous bipap 16/6 FiO2 100%, tolerating well. condom cath in place and draining well to gravity. bilateral soft restraints in place. patient is currently on hemodialysis. Will continue plan of care.
--- NOTE | 2020-03-15 15:52 | Surgery Progress Note ---
Surgery Progress Note Subjective Procedure Performed Right femoral temporary hemodialysis catheter insertion Additional Comments ill appearing no n/v labs noted exam stable Objective Last 24 Hour Vital Signs Date Time Temp Pulse Resp B/P (MAP) Pulse Ox O2 Delivery O2 Flow Rate FiO2 03/15/20 12:00 97.6 74 20 144/74 (97) 99 03/15/20 12:00 Bi-pap 80.0 03/15/20 12:00 80 03/15/20 11:42 70 03/15/20 08:00 98.6 73 20 146/77 (100) 95 03/15/20 08:00 80 03/15/20 08:00 Bi-pap 80.0 03/15/20 07:59 69 03/15/20 04:00 80 03/15/20 04:00 72 03/15/20 04:00 Bi-pap 80.0 03/15/20 04:00 99.2 78 20 150/82 (104) 94 03/15/20 01:10 72 19 92 100 03/15/20 00:00 Bi-pap 80.0 03/15/20 00:00 97.6 76 15 153/82 (105) 95 03/15/20 00:00 80 03/15/20 00:00 68 03/14/20 20:00 98.0 73 15 140/65 (90) 100 03/14/20 20:00 Bi-pap 80.0 03/14/20 20:00 80 03/14/20 19:52 68 15 98 100 03/14/20 19:23 81 03/14/20 16:00 80 03/14/20 16:00 97.8 67 18 140/72 (94) 98 03/14/20 16:00 Bi-pap 80.0 03/14/20 16:00 64 I&O Intake and Output 03/14/20 03/15/20 19:00 07:00 Output Total 350 ml 350 ml Balance -350 ml -350 ml Output Urine Total 350 ml 350 ml Dressing: saturated Cardiovascular: RSR Respiratory: decreased breath sounds Abdomen: non-tender, present bowel sounds, non-distended Extremities: no tenderness, no cyanosis Laboratory Tests Test 03/15/20 03:15 03/15/20 13:36 White Blood Count 18.2 K/UL (4.8-10.8) #H 15.3 K/UL (4.8-10.8) H Red Blood Count 3.55 M/UL (4.70-6.10) L 3.72 M/UL (4.70-6.10) L Hemoglobin 10.5 G/DL (14.2-18.0) #L 11.3 G/DL (14.2-18.0) L Hematocrit 33.1 % (42.0-52.0) #L 34.3 % (42.0-52.0) L Mean Corpuscular Volume 93 FL (80-99) 92 FL (80-99) Mean Corpuscular Hemoglobin 29.5 PG (27.0-31.0) 30.5 PG (27.0-31.0) Mean Corpuscular Hemoglobin Concent 31.7 G/DL (32.0-36.0) L 32.9 G/DL (32.0-36.0) Red Cell Distribution Width 16.3 % (11.6-14.8) H 17.9 % (11.6-14.8) H Platelet Count 95 K/UL (150-450) L 78 K/UL (150-450) L Mean Platelet Volume 8.4 FL (6.5-10.1) 7.2 FL (6.5-10.1) Neutrophils (%) (Auto) % (45.0-75.0) % (45.0-75.0) Lymphocytes (%) (Auto) % (20.0-45.0) % (20.0-45.0) Monocytes (%) (Auto) % (1.0-10.0) % (1.0-10.0) Eosinophils (%) (Auto) % (0.0-3.0) % (0.0-3.0) Basophils (%) (Auto) % (0.0-2.0) % (0.0-2.0) Differential Total Cells Counted 100 100 Neutrophils % (Manual) 93 % (45-75) H 97 % (45-75) H Lymphocytes % (Manual) 3 % (20-45) L 1 % (20-45) L Monocytes % (Manual) 4 % (1-10) 2 % (1-10) Eosinophils % (Manual) 0 % (0-3) 0 % (0-3) Basophils % (Manual) 0 % (0-2) 0 % (0-2) Band Neutrophils 0 % (0-8) 0 % (0-8) Platelet Estimate Decreased L Decreased L Platelet Morphology Normal Normal Anisocytosis 1+ 1+ Sodium Level 138 MMOL/L (136-145) 136 MMOL/L (136-145) Potassium Level 5.4 MMOL/L (3.5-5.1) #H 6.2 MMOL/L (3.5-5.1) *H Chloride Level 104 MMOL/L (98-107) 104 MMOL/L (98-107) Carbon Dioxide Level 28 MMOL/L (21-32) 27 MMOL/L (21-32) Anion Gap 6 mmol/L (5-15) 6 mmol/L (5-15) Blood Urea Nitrogen 55 mg/dL (7-18) H 60 mg/dL (7-18) H Creatinine 2.9 MG/DL (0.55-1.30) #H 3.0 MG/DL (0.55-1.30) H Estimat Glomerular Filtration Rate 21.6 mL/min (>60) 20.8 mL/min (>60) Glucose Level 117 MG/DL (74-106) H 129 MG/DL (74-106) H Calcium Level 7.9 MG/DL (8.5-10.1) #L 7.9 MG/DL (8.5-10.1) L Iron Level 38 ug/dL (50-175) L Total Iron Binding Capacity 122 ug/dL (250-450) L Percent Iron Saturation 31 % (15-50) Unsaturated Iron Binding 84 ug/dL (112-346) L Total Bilirubin 0.9 MG/DL (0.2-1.0) Aspartate Amino Transf (AST/SGOT) 53 U/L (15-37) H Alanine Aminotransferase (ALT/SGPT) 27 U/L (12-78) Alkaline Phosphatase 251 U/L (46-116) H Total Protein 6.6 G/DL (6.4-8.2) # Albumin 2.5 G/DL (3.4-5.0) L Globulin 4.1 g/dL Albumin/Globulin Ratio 0.6 (1.0-2.7) L Amylase Level 116 U/L (25-115) H Lipase 1182 U/L (73-393) H Plan Problems: (1) Hyperkalemia (2) Respiratory distress (3) Pancreatitis Assessment & Plan: noted on admission to have acute pancreatitis etiology work up on way lft's noted mild elevated no n/v labs reviewed exam unreliable as very agitated iv fluids okay for diet trend labs will follow with exam and recs improving (4) Renal failure Assessment & Plan: renal insufficiency fem cath placed okay for hd see note will follow (5) UTI (urinary tract infection) (6) Pneumonia due to COVID-19 virus (7) Dehydration (8) Renal insufficiency (9) Altered level of consciousness (10) Urinary tract bacterial infections Darius Sifuentes Mar 15, 2020 15:52
[2020-03-15 16:00] VITALS: BP 139/80
--- NOTE | 2020-03-15 19:30 | NUR ---
NURSE HAND-OFF REPORT: Important Events on Shift: pt remains stable Patient Status: FULL CODE Diet: NPO Pending Orders: [] Pending Results/Labs:[] Pending MD notification:[] Latest Vital Signs: Temperature 97.0 , Pulse 80 , B/P 139 /80 , Respiratory Rate 21 , O2 SAT 92 , Bi-pap, O2 Flow Rate 80.0 . Vital Sign Comment: stable EKG Rhythm: Sinus Rhythm Rhythm change?: N MD Notified?: N - MD Response: Latest Conner Fall Score: 70 Fall Risk: High Risk Safety Measures: Call light Within Reach, Bed Alarm Zone 2, Side Rails Side Rails x2, Bed position Low and Locked. Fall Precautions: Yellow Socks Yellow Gown Door Sign Patient Fall Education Report given to CHERELLE Alicea.
--- NOTE | 2020-03-15 19:44 | NUR ---
NURSE NOTES: Report received from CHERELLE Dalton. Patient is awake on bed, alert and oriented x 1. quality assurance monitor body is in place, shows sinus rhythm with no chest pain reported. On NPO. On Bipap , FIO2 100 %. IV site is on right AC G-20 saline locked that is patent and intact. With Arron cath on right femoral. Safety measures are in place, bed in lowest and locked position, side rails up x 2, call light button and bedside table within reach, instructed to call for any assistance needed. Will continue plan of care.
--- NOTE | 2020-03-15 19:45 | NUR ---
NURSE NOTES: Report received from CHERELLE Dalton. Patient is awake on bed, alert and oriented x 1. patient monitor is in place, shows sinus rhythm with no chest pain reported. On NPO. On Bipap , FIO2 100 %. IV site is on right AC G-20 saline locked that is patent and intact. With Arron cath on right femoral. Safety measures are in place, bed in lowest and locked position, side rails up x 2, call light button and bedside table within reach, instructed to call for any assistance needed. Will continue plan of care.
[2020-03-15 20:00] VITALS: BP 141/80
[2020-03-15] MEDS ORDERED: Maintenance Dose:Remdesivir 100mg/NS 230ml x 4 Doses IV SCH ×2 (20:00)
[2020-03-15] MEDS: Dyna-Hex 2% Top Sol 2oz TOPIC SCH (20:37)
--- NOTE | 2020-03-15 22:30 | NUR ---
NURSE NOTES: Patient has been on NPO since admission, ST eval order was already place, but patient will not get evaluated not until on Tuesday. Informed Dr. Go about it, awaiting for orders.
--- NOTE | 2020-03-15 23:18 | NUR ---
NURSE NOTES: Noted patient's platelet is trending down, at this time platelet count is 78 and his DVT prophylaxis is Lovenox and has been held for several days because of his low platelet. Informed Dr. Go, awaiting for orders.
[2020-03-16] VITALS: BP 126/70
--- NOTE | 2020-03-16 00:10 | NUR ---
NURSE NOTES: Received an order from Dr. Go, will carry out.
[2020-03-16 04:00] VITALS: BP 132/69
--- NOTE | 2020-03-16 04:00 | NUR ---
NURSE NOTES: Tried several times to insert an IV but unsuccessful. Noted Dr. Tolentino's order 03/13 that femoral cath can be use for IV fluids. Will use that line for the meantime. No any discomfort nor desaturation noted at this time. Will continue to monitor.
[2020-03-16 04:38] LABS: HEMATOCRIT 32.4 % (42.0-52.0); HEMOGLOBIN 10.6 G/DL (14.2-18.0); MEAN CORPUSCULAR VOLUME 92 FL (80-99); PLATELET COUNT 65 K/UL (150-450); RED BLOOD COUNT 3.53 M/UL (4.70-6.10); RED CELL DISTRIBUTION WIDTH 17.3 % (11.6-14.8); WHITE BLOOD COUNT 12.9 K/UL (4.8-10.8)
[2020-03-16] MEDS: D5NS 1,000 ML IV SCH ×2 (04:49→14:15)
[2020-03-16 05:22] LABS: ALBUMIN 2.3 G/DL (3.4-5.0); ALBUMIN/GLOBULIN RATIO 0.6 (1.0-2.7); BILIRUBIN,DIRECT 0.4 MG/DL (0.0-0.3); BILIRUBIN,TOTAL 0.9 MG/DL (0.2-1.0); CALCIUM 8.1 MG/DL (8.5-10.1); CREATININE 2.4 MG/DL (0.55-1.30); POTASSIUM 4.7 MMOL/L (3.5-5.1)
[2020-03-16] MEDS: Solu-MEDROL 40mg Inj IVP SCH ×2 (05:22→18:08)
--- NOTE | 2020-03-16 06:48 | NUR ---
NURSE HAND-OFF REPORT: Important Events on Shift: Patient has been resting well the whole shift. Received an order of IVF, D5NS @ 75cc/hour. No desaturation reported. Patient Status: Patient is awake on bed, in stable condition. Plan of care endorsed. Diet: NPO Pending Orders: NCBC, CMP, DIRECT BILIRUBIN @ 0400 03/17 & 03/18. ST evaluation on Tuesday. Pending Results/Labs: AM LAB RESULTS Pending MD notification:None Latest Vital Signs: Temperature 97.1 , Pulse 64 , B/P 132 /69 , Respiratory Rate 16 , O2 SAT 100 , Bi-pap, O2 Flow Rate 100.0 . Vital Sign Comment: stable EKG Rhythm: Sinus Rhythm Rhythm change?: N MD Notified?: N - MD Response: Latest Conner Fall Score: 70 Fall Risk: High Risk Safety Measures: Call light Within Reach, Bed Alarm Zone 2, Side Rails Side Rails x2, Bed position Low and Locked. Fall Precautions: Yellow Socks Yellow Gown Door Sign Patient Fall Education Report given to CHERELLE Dalton.
--- NOTE | 2020-03-16 07:00 | NUR ---
NURSE NOTES: Received patient from CHERELLE Alicea. patient is asleep in bed without any acute distress noted. sinus rhythm on the monitor. on continuous bipap 16/6 FiO2 100% sating 100%. Currently NPO. D5W runnning 75ml/hr. condom cath in place and draining well to gravity. bed to lowest position and locked. call light within easy reach. Will continue plan of care.
[2020-03-16 08:00] VITALS: BP 115/61
[2020-03-16] MEDS: Enoxaparin 30mg Inj SUBQ SCH (08:08)
--- NOTE | 2020-03-16 08:46 | NUR ---
NURSE NOTES: Noted patient PLTS 65. Dr. Garcia rounded at bedside ordered to D/C drakex.
--- NOTE | 2020-03-16 09:18 | Diagnostic Imaging Report ---
EXAM: XR Chest, 1 View CLINICAL HISTORY: INFECT TECHNIQUE: Frontal view of the chest. COMPARISON: 03/07/20 FINDINGS: Lungs: There has been improvement in mild to moderate diffuse bilateral alveolar infiltrates. Pleural space: Unremarkable. No pneumothorax. Heart: Unremarkable. No cardiomegaly. Mediastinum: Unremarkable. Bones/joints: Unremarkable. IMPRESSION: There has been improvement in mild to moderate diffuse bilateral alveolar infiltrates.
--- NOTE | 2020-03-16 09:30 | Pulmonology Progress Note ---
Subjective ROS Limited/Unobtainable: Yes Constitutional: Denies: fever Allergies: Coded Allergies: No Known Allergies (Unverified , 02/04/20) All Systems: reviewed and negative except above Subjective care noted on BIPAP low K low HH Objective Last 24 Hour Vital Signs Date Time Temp Pulse Resp B/P (MAP) Pulse Ox O2 Delivery O2 Flow Rate FiO2 03/16/20 08:00 100 03/16/20 08:00 97.0 58 17 115/61 (79) 100 03/16/20 08:00 Bi-pap 100.0 03/16/20 04:00 100 03/16/20 04:00 63 03/16/20 04:00 Bi-pap 100.0 03/16/20 04:00 97.1 64 16 132/69 (90) 100 03/16/20 00:57 73 16 98 100 03/16/20 00:00 100 03/16/20 00:00 97.2 74 18 126/70 (88) 98 03/16/20 00:00 Bi-pap 100.0 03/16/20 00:00 62 03/15/20 20:00 97.5 64 17 141/80 (100) 94 03/15/20 20:00 Bi-pap 100.0 03/15/20 20:00 100 03/15/20 20:00 64 03/15/20 18:30 80 21 92 100 03/15/20 16:00 97.0 74 20 139/80 (99) 99 03/15/20 16:00 100 03/15/20 16:00 Bi-pap 80.0 03/15/20 16:00 69 03/15/20 14:35 72 18 96 100 03/15/20 12:00 97.6 74 20 144/74 (97) 99 03/15/20 12:00 Bi-pap 80.0 03/15/20 12:00 80 03/15/20 11:42 70 03/15/20 11:00 71 17 98 100 Intake and Output 03/15/20 03/16/20 19:00 07:00 Output Total 2000 ml 200 ml Balance -2000 ml -200 ml Output Urine Total 200 ml Hemodialysis UF 2000 ml Objective deferred due to COVID Laboratory Tests 03/15/20 13:36: White Blood Count 15.3H, Red Blood Count 3.72L, Hemoglobin 11.3L, Hematocrit 34.3L, Mean Corpuscular Volume 92, Mean Corpuscular Hemoglobin 30.5, Mean Corpuscular Hemoglobin Concent 32.9, Red Cell Distribution Width 17.9H, Platelet Count 78L, Mean Platelet Volume 7.2, Neutrophils (%) (Auto) , Lymphocytes (%) (Auto) , Monocytes (%) (Auto) , Eosinophils (%) (Auto) , Basophils (%) (Auto) , Differential Total Cells Counted 100, Neutrophils % (Manual) 97H, Lymphocytes % (Manual) 1L, Monocytes % (Manual) 2, Eosinophils % (Manual) 0, Basophils % (Manual) 0, Band Neutrophils 0, Platelet Estimate DecreasedL, Platelet Morphology Normal, Anisocytosis 1+, Sodium Level 136, Potassium Level 6.2*H, Chloride Level 104, Carbon Dioxide Level 27, Anion Gap 6, Blood Urea Nitrogen 60H, Creatinine 3.0H, Estimat Glomerular Filtration Rate 20.8, Glucose Level 129H, Calcium Level 7.9L 03/16/20 03:45: White Blood Count 12.9H, Red Blood Count 3.53L, Hemoglobin 10.6L, Hematocrit 32.4L, Mean Corpuscular Volume 92, Mean Corpuscular Hemoglobin 30.1, Mean Corpuscular Hemoglobin Concent 32.9, Red Cell Distribution Width 17.3H, Platelet Count 65L, Mean Platelet Volume 9.3, Neutrophils (%) (Auto) , Lymphocytes (%) (Auto) , Monocytes (%) (Auto) , Eosinophils (%) (Auto) , Basophils (%) (Auto) , Differential Total Cells Counted 100, Neutrophils % (Manual) 87H, Lymphocytes % (Manual) 6L, Monocytes % (Manual) 5, Eosinophils % (Manual) 1, Basophils % (Manual) 0, Band Neutrophils 0, Platelet Estimate DecreasedL, Platelet Morphology Normal, Anisocytosis 1+, Sodium Level 140, Potassium Level 4.7, Chloride Level 105, Carbon Dioxide Level 29, Anion Gap 6, Blood Urea Nitrogen 48H, Creatinine 2.4H, Estimat Glomerular Filtration Rate 26.9, Glucose Level 137H, Calcium Level 8.1L, Myelocytes % 1H, Polychromasia , Hypochromasia 1+, Total Bilirubin 0.9, Direct Bilirubin 0.4H, Aspartate Amino Transf (AST/SGOT) 47H, Alanine Aminotransferase (ALT/SGPT) 21, Alkaline Phosphatase 236H, Total Protein 6.4, Albumin 2.3L, Globulin 4.1, Albumin/Globulin Ratio 0.6L Current Medications Medications (Trade) Dose Ordered Sig/James Route PRN Reason Start Time Stop Time Status Last Admin Dose Admin Acetaminophen (Tylenol) 650 mg Q4H PRN RECTAL Temp >100.5 03/07/20 08:15 04/06/20 08:14 Acetaminophen (Tylenol) 650 mg Q4H PRN RECTAL Mild Pain (Pain Scale 1-3) 03/07/20 09:00 04/06/20 08:59 Albuterol Sulfate (Proventil MDI) 2 puff Q4H PRN INH Shortness of Breath 03/07/20 08:15 06/05/20 08:14 Barium Sulfate (Varibar Honey) 250 ml NOW PRN MC RAD 03/14/20 06:30 03/17/20 06:18 Barium Sulfate (Varibar [place]) 240 ml NOW PRN MC RAD 03/14/20 06:30 03/17/20 06:18 Barium Sulfate (Varibar Pudding) 230 ml NOW PRN MC RAD 03/14/20 06:30 03/17/20 06:18 Barium Sulfate (Varibar Thin Liquid powder) 148 gm NOW PRN MC RAD 03/14/20 06:30 03/17/20 06:18 Chlorhexidine Gluconate (Linnette-Hex 2%) 1 applic DAILY@2000 TOPIC 03/09/20 20:00 06/07/20 19:59 03/15/20 20:37 Dextrose (Dextrose 50%) 25 ml Q30M PRN IV Hypoglycemia 03/07/20 08:15 06/05/20 08:14 Dextrose (Dextrose 50%) 50 ml Q30M PRN IV Hypoglycemia 03/07/20 08:15 06/05/20 08:14 03/07/20 11:57 Dextrose/Sodium Chloride 1,000 ml @ 75 mls/hr [id number] IV 03/16/20 00:45 04/15/20 00:44 03/16/20 04:49 Epoetin Juan (Epoetin Juan(ESRD on dialysis)) 2,000 unit TUE-TUE-TUE SUBQ 03/14/20 21:00 06/12/20 20:59 03/14/20 22:10 Epoetin Juan (Epoetin Juan(ESRD on dialysis)) 8,000 unit TUE-TUE-TUE SUBQ 03/14/20 21:00 06/12/20 20:59 03/14/20 22:10 Famotidine (Pepcid I.v.) 20 mg DAILY IVP 03/07/20 09:00 04/06/20 08:59 03/16/20 08:08 Methylprednisolone Sodium Succinate (Solu-MEDROL) 40 mg Q12H IVP 03/14/20 18:00 06/12/20 17:59 03/16/20 05:22 Ondansetron HCl (Zofran) 4 mg Q6H PRN IVP Nausea & Vomiting 03/07/20 08:15 04/06/20 08:14 Sodium Chloride 1,000 ml @ 500 mls/hr Q2H PRN IVLG sbp<90 during hd 03/15/20 13:30 04/14/20 13:29 Assessment/Plan Assessment/Plan Impression: Covid Pneumonia/possible sepsis Respiratory failure, acute LA - now on HD Hyperkalemia and now with hypokalemia Pancreatitis Urinary tract infection Hypertension toxic metabolic encephalopathy anemia elevated K Plan ID noted monitor HH and K steroids Renal following O2 high flow BiPAP for now at risk for intubation follow up ABG impression, plan, and exam edited and reviewed in detail care discussed with Ebenezer Walters MD Mar 16, 2020 09:30
--- NOTE | 2020-03-16 10:19 | Nephrology Progress Note ---
Assessment/Plan Plan ESRD. HD now q TTS. Subjective Subjective Still SOB. On BIPAP. Objective Objective Last 24 Hour Vital Signs Date Time Temp Pulse Resp B/P (MAP) Pulse Ox O2 Delivery O2 Flow Rate FiO2 03/16/20 08:00 100 03/16/20 08:00 57 03/16/20 08:00 97.0 58 17 115/61 (79) 100 03/16/20 08:00 Bi-pap 100.0 03/16/20 04:00 100 03/16/20 04:00 63 03/16/20 04:00 Bi-pap 100.0 03/16/20 04:00 97.1 64 16 132/69 (90) 100 03/16/20 00:57 73 16 98 100 03/16/20 00:00 100 03/16/20 00:00 97.2 74 18 126/70 (88) 98 03/16/20 00:00 Bi-pap 100.0 03/16/20 00:00 62 03/15/20 20:00 97.5 64 17 141/80 (100) 94 03/15/20 20:00 Bi-pap 100.0 03/15/20 20:00 100 03/15/20 20:00 64 03/15/20 18:30 80 21 92 100 03/15/20 16:00 97.0 74 20 139/80 (99) 99 03/15/20 16:00 100 03/15/20 16:00 Bi-pap 80.0 03/15/20 16:00 69 03/15/20 14:35 72 18 96 100 03/15/20 12:00 97.6 74 20 144/74 (97) 99 03/15/20 12:00 Bi-pap 80.0 03/15/20 12:00 80 03/15/20 11:42 70 03/15/20 11:00 71 17 98 100 Intake and Output 03/15/20 03/16/20 19:00 07:00 Output Total 2000 ml 200 ml Balance -2000 ml -200 ml Output Urine Total 200 ml Hemodialysis UF 2000 ml Laboratory Tests 03/15/20 13:36: White Blood Count 15.3H, Red Blood Count 3.72L, Hemoglobin 11.3L, Hematocrit 34.3L, Mean Corpuscular Volume 92, Mean Corpuscular Hemoglobin 30.5, Mean Corpuscular Hemoglobin Concent 32.9, Red Cell Distribution Width 17.9H, Platelet Count 78L, Mean Platelet Volume 7.2, Neutrophils (%) (Auto) , Lymphocytes (%) (Auto) , Monocytes (%) (Auto) , Eosinophils (%) (Auto) , Basophils (%) (Auto) , Differential Total Cells Counted 100, Neutrophils % (Manual) 97H, Lymphocytes % (Manual) 1L, Monocytes % (Manual) 2, Eosinophils % (Manual) 0, Basophils % (Manual) 0, Band Neutrophils 0, Platelet Estimate DecreasedL, Platelet Morphology Normal, Anisocytosis 1+, Sodium Level 136, Potassium Level 6.2*H, Chloride Level 104, Carbon Dioxide Level 27, Anion Gap 6, Blood Urea Nitrogen 60H, Creatinine 3.0H, Estimat Glomerular Filtration Rate 20.8, Glucose Level 129H, Calcium Level 7.9L 03/16/20 03:45: White Blood Count 12.9H, Red Blood Count 3.53L, Hemoglobin 10.6L, Hematocrit 32.4L, Mean Corpuscular Volume 92, Mean Corpuscular Hemoglobin 30.1, Mean Corpuscular Hemoglobin Concent 32.9, Red Cell Distribution Width 17.3H, Platelet Count 65L, Mean Platelet Volume 9.3, Neutrophils (%) (Auto) , Lymphocytes (%) (A uto) , Monocytes (%) (Auto) , Eosinophils (%) (Auto) , Basophils (%) (Auto) , Differential Total Cells Counted 100, Neutrophils % (Manual) 87H, Lymphocytes % (Manual) 6L, Monocytes % (Manual) 5, Eosinophils % (Manual) 1, Basophils % (Manual) 0, Band Neutrophils 0, Platelet Estimate DecreasedL, Platelet Morphology Normal, Anisocytosis 1+, Sodium Level 140, Potassium Level 4.7, Chloride Level 105, Carbon Dioxide Level 29, Anion Gap 6, Blood Urea Nitrogen 48H, Creatinine 2.4H, Estimat Glomerular Filtration Rate 26.9, Glucose Level 137H, Calcium Level 8.1L, Myelocytes % 1H, Polychromasia , Hypochromasia 1+, Total Bilirubin 0.9, Direct Bilirubin 0.4H, Aspartate Amino Transf (AST/SGOT) 47H, Alanine Aminotransferase (ALT/SGPT) 21, Alkaline Phosphatase 236H, Total Protein 6.4, Albumin 2.3L, Globulin 4.1, Albumin/Globulin Ratio 0.6L Height (Feet): 5 Height (Inches): 4.00 Weight (Pounds): 154 Objective On BIPAP CV RR Lungs B wheezes!!!! Abd SNT. BS + E No CCE Greg Garcia MD Mar 16, 2020 10:19
--- NOTE | 2020-03-16 10:30 | General Progress Note ---
Subjective ROS Limited/Unobtainable: No Constitutional: Reports: malaise, weakness HEENT: Reports: no symptoms Cardiovascular: Reports: no symptoms Respiratory: Reports: cough, shortness of breath Gastrointestinal/Abdominal: Reports: difficulty swallowing Genitourinary: Reports: no symptoms Neurologic/Psychiatric: Reports: pre-existing deficit Endocrine: Reports: no symptoms Hematologic/Lymphatic: Reports: no symptoms Allergies: Coded Allergies: No Known Allergies (Unverified , 02/04/20) All Systems: reviewed and negative except above Subjective no changes. on ivf. on bipap. poorly responsive. labs reviewed. no distress. Objective Last 24 Hour Vital Signs Date Time Temp Pulse Resp B/P (MAP) Pulse Ox O2 Delivery O2 Flow Rate FiO2 03/16/20 08:00 100 03/16/20 08:00 57 03/16/20 08:00 97.0 58 17 115/61 (79) 100 03/16/20 08:00 Bi-pap 100.0 03/16/20 04:00 100 03/16/20 04:00 63 03/16/20 04:00 Bi-pap 100.0 03/16/20 04:00 97.1 64 16 132/69 (90) 100 03/16/20 00:57 73 16 98 100 03/16/20 00:00 100 03/16/20 00:00 97.2 74 18 126/70 (88) 98 03/16/20 00:00 Bi-pap 100.0 03/16/20 00:00 62 03/15/20 20:00 97.5 64 17 141/80 (100) 94 03/15/20 20:00 Bi-pap 100.0 03/15/20 20:00 100 03/15/20 20:00 64 03/15/20 18:30 80 21 92 100 03/15/20 16:00 97.0 74 20 139/80 (99) 99 03/15/20 16:00 100 03/15/20 16:00 Bi-pap 80.0 03/15/20 16:00 69 03/15/20 14:35 72 18 96 100 03/15/20 12:00 97.6 74 20 144/74 (97) 99 03/15/20 12:00 Bi-pap 80.0 03/15/20 12:00 80 03/15/20 11:42 70 03/15/20 11:00 71 17 98 100 Intake and Output 03/15/20 03/16/20 19:00 07:00 Output Total 2000 ml 200 ml Balance -2000 ml -200 ml Output Urine Total 200 ml Hemodialysis UF 2000 ml Laboratory Tests 03/15/20 13:36: White Blood Count 15.3H, Red Blood Count 3.72L, Hemoglobin 11.3L, Hematocrit 34.3L, Mean Corpuscular Volume 92, Mean Corpuscular Hemoglobin 30.5, Mean Corpuscular Hemoglobin Concent 32.9, Red Cell Distribution Width 17.9H, Platelet Count 78L, Mean Platelet Volume 7.2, Neutrophils (%) (Auto) , Lymphocytes (%) (Auto) , Monocytes (%) (Auto) , Eosinophils (%) (Auto) , Basophils (%) (Auto) , Differential Total Cells Counted 100, Neutrophils % (Manual) 97H, Lymphocytes % (Manual) 1L, Monocytes % (Manual) 2, Eosinophils % (Manual) 0, Basophils % (Manual) 0, Band Neutrophils 0, Platelet Estimate DecreasedL, Platelet Morphology Normal, Anisocytosis 1+, Sodium Level 136, Potassium Level 6.2*H, Chloride Level 104, Carbon Dioxide Level 27, Anion Gap 6, Blood Urea Nitrogen 60H, Creatinine 3.0H, Estimat Glomerular Filtration Rate 20.8, Glucose Level 129H, Calcium Level 7.9L 03/16/20 03:45: White Blood Count 12.9H, Red Blood Count 3.53L, Hemoglobin 10.6L, Hematocrit 32.4L, Mean Corpuscular Volume 92, Mean Corpuscular Hemoglobin 30.1, Mean Corpuscular Hemoglobin Concent 32.9, Red Cell Distribution Width 17.3H, Platelet Count 65L, Mean Platelet Volume 9.3, Neutrophils (%) (Auto) , Lymphocytes (%) (Auto) , Monocytes (%) (Auto) , Eosinophils (%) (Auto) , Basophils (%) (Auto) , Differential Total Cells Counted 100, Neutrophils % (Manual) 87H, Lymphocytes % (Manual) 6L, Monocytes % (Manual) 5, Eosinophils % (Manual) 1, Basophils % (Manual) 0, Band Neutrophils 0, Platelet Estimate DecreasedL, Platelet Morphology Normal, Anisocytosis 1+, Sodium Level 140, Potassium Level 4.7, Chloride Level 105, Carbon Dioxide Level 29, Anion Gap 6, Blood Urea Nitrogen 48H, Creatinine 2.4H, Estimat Glomerular Filtration Rate 26.9, Glucose Level 137H, Calcium Level 8.1L, Myelocytes % 1H, Polychromasia , Hypochromasia 1+, Total Bilirubin 0.9, Direct Bilirubin 0.4H, Aspartate Amino Transf (AST/SGOT) 47H, Alanine Aminotransferase (ALT/SGPT) 21, Alkaline Phosphatase 236H, Total Protein 6.4, Albumin 2.3L, Globulin 4.1, Albumin/Globulin Ratio 0.6L Height (Feet): 5 Height (Inches): 4.00 Weight (Pounds): 154 Objective General Appearance: WD/WN, confused Neck: supple Cardiovascular: regular rhythm Respiratory/Chest: lungs clear Abdomen: normal bowel sounds, non tender, soft, no organomegaly Edema: no edema noted Leg (L), no edema noted Leg (R) Neurologic: disoriented Assessment/Plan Problem List: (1) Altered level of consciousness ICD Codes: R40.4 - Transient alteration of awareness SNOMED: 3425214 (2) Pneumonia due to COVID-19 virus ICD Codes: U07.1 - COVID-19; J12.89 - Other viral pneumonia SNOMED: 454107111089174491 (3) Renal failure ICD Codes: N19 - Unspecified kidney failure SNOMED: 21513488 (4) Respiratory distress ICD Codes: R06.03 - Acute respiratory distress SNOMED: 545535702 Status: stable, not improved Assessment/Plan: cont bipap wean as able steroids resp care cautious hydration dvt prophylaxis HD per renal monitor cxr check iron panel PPI rx stool ob Doug Cobb MD Mar 16, 2020 10:30
--- NOTE | 2020-03-16 10:55 | NUR ---
RESPIRATORY NOTE: ABG DRAWN ON BIPAP 27/08 RR:12 100% UNABLE TO ANALYZE PO2 AT THIS TIME. RN AWARE. ABG SATURATION IS 88.8 AND SPO2 IS @ 99%.
[2020-03-16 12:00] VITALS: BP 126/65
[2020-03-16] MEDS ORDERED: Tubing IV Secondary IV ONE (13:19)
[2020-03-16] MEDS ORDERED: D5NS 1000ml IV ONE (13:19)
--- NOTE | 2020-03-16 13:25 | Surgery Progress Note ---
Surgery Progress Note Subjective Procedure Performed Right femoral temporary hemodialysis catheter insertion Additional Comments afebrile, HD stable, labs stable comfortable no complaints Objective Last 24 Hour Vital Signs Date Time Temp Pulse Resp B/P (MAP) Pulse Ox O2 Delivery O2 Flow Rate FiO2 03/16/20 12:00 97.5 60 13 126/65 (85) 99 03/16/20 12:00 58 03/16/20 12:00 Bi-pap 100.0 03/16/20 12:00 100 03/16/20 08:00 100 03/16/20 08:00 57 03/16/20 08:00 97.0 58 17 115/61 (79) 100 03/16/20 08:00 Bi-pap 100.0 03/16/20 04:00 100 03/16/20 04:00 63 03/16/20 04:00 Bi-pap 100.0 03/16/20 04:00 97.1 64 16 132/69 (90) 100 03/16/20 00:57 73 16 98 100 03/16/20 00:00 100 03/16/20 00:00 97.2 74 18 126/70 (88) 98 03/16/20 00:00 Bi-pap 100.0 03/16/20 00:00 62 03/15/20 20:00 97.5 64 17 141/80 (100) 94 03/15/20 20:00 Bi-pap 100.0 03/15/20 20:00 100 03/15/20 20:00 64 03/15/20 18:30 80 21 92 100 03/15/20 16:00 97.0 74 20 139/80 (99) 99 03/15/20 16:00 100 03/15/20 16:00 Bi-pap 80.0 03/15/20 16:00 69 03/15/20 14:35 72 18 96 100 I&O Intake and Output 03/15/20 03/16/20 18:59 06:59 Output Total 2000 ml 200 ml Balance -2000 ml -200 ml Output Urine Total 200 ml Hemodialysis UF 2000 ml Dressing: saturated Cardiovascular: RSR Respiratory: decreased breath sounds Abdomen: soft, non-tender, present bowel sounds, non-distended Extremities: no edema, no tenderness, no cyanosis Laboratory Tests Test 03/15/20 13:36 03/16/20 03:45 03/16/20 10:55 White Blood Count 15.3 K/UL (4.8-10.8) H 12.9 K/UL (4.8-10.8) H Red Blood Count 3.72 M/UL (4.70-6.10) L 3.53 M/UL (4.70-6.10) L Hemoglobin 11.3 G/DL (14.2-18.0) L 10.6 G/DL (14.2-18.0) L Hematocrit 34.3 % (42.0-52.0) L 32.4 % (42.0-52.0) L Mean Corpuscular Volume 92 FL (80-99) 92 FL (80-99) Mean Corpuscular Hemoglobin 30.5 PG (27.0-31.0) 30.1 PG (27.0-31.0) Mean Corpuscular Hemoglobin Concent 32.9 G/DL (32.0-36.0) 32.9 G/DL (32.0-36.0) Red Cell Distribution Width 17.9 % (11.6-14.8) H 17.3 % (11.6-14.8) H Platelet Count 78 K/UL (150-450) L 65 K/UL (150-450) L Mean Platelet Volume 7.2 FL (6.5-10.1) 9.3 FL (6.5-10.1) Neutrophils (%) (Auto) % (45.0-75.0) % (45.0-75.0) Lymphocytes (%) (Auto) % (20.0-45.0) % (20.0-45.0) Monocytes (%) (Auto) % (1.0-10.0) % (1.0-10.0) Eosinophils (%) (Auto) % (0.0-3.0) % (0.0-3.0) Basophils (%) (Auto) % (0.0-2.0) % (0.0-2.0) Differential Total Cells Counted 100 100 Neutrophils % (Manual) 97 % (45-75) H 87 % (45-75) H Lymphocytes % (Manual) 1 % (20-45) L 6 % (20-45) L Monocytes % (Manual) 2 % (1-10) 5 % (1-10) Eosinophils % (Manual) 0 % (0-3) 1 % (0-3) Basophils % (Manual) 0 % (0-2) 0 % (0-2) Band Neutrophils 0 % (0-8) 0 % (0-8) Platelet Estimate Decreased L Decreased L Platelet Morphology Normal Normal Anisocytosis 1+ 1+ Sodium Level 136 MMOL/L (136-145) 140 MMOL/L (136-145) Potassium Level 6.2 MMOL/L (3.5-5.1) *H 4.7 MMOL/L (3.5-5.1) Chloride Level 104 MMOL/L (98-107) 105 MMOL/L (98-107) Carbon Dioxide Level 27 MMOL/L (21-32) 29 MMOL/L (21-32) Anion Gap 6 mmol/L (5-15) 6 mmol/L (5-15) Blood Urea Nitrogen 60 mg/dL (7-18) H 48 mg/dL (7-18) H Creatinine 3.0 MG/DL (0.55-1.30) H 2.4 MG/DL (0.55-1.30) H Estimat Glomerular Filtration Rate 20.8 mL/min (>60) 26.9 mL/min (>60) Glucose Level 129 MG/DL (74-106) H 137 MG/DL (74-106) H Calcium Level 7.9 MG/DL (8.5-10.1) L 8.1 MG/DL (8.5-10.1) L Myelocytes % 1 % (0-0) H Polychromasia Hypochromasia 1+ Total Bilirubin 0.9 MG/DL (0.2-1.0) Direct Bilirubin 0.4 MG/DL (0.0-0.3) H Aspartate Amino Transf (AST/SGOT) 47 U/L (15-37) H Alanine Aminotransferase (ALT/SGPT) 21 U/L (12-78) Alkaline Phosphatase 236 U/L (46-116) H Total Protein 6.4 G/DL (6.4-8.2) Albumin 2.3 G/DL (3.4-5.0) L Globulin 4.1 g/dL Albumin/Globulin Ratio 0.6 (1.0-2.7) L Arterial Blood pH 7.420 (7.350-7.450) Arterial Blood Partial Pressure CO2 43.6 mmHg (35.0-45.0) Arterial Blood Partial Pressure O2 Pending Arterial Blood HCO3 27.6 mmol/L (22.0-26.0) H Arterial Blood Oxygen Saturation 88.8 % (95-100) *L Arterial Blood Base Excess 2.8 (-2-2) H Ken Test Positive Plan Problems: (1) Hyperkalemia (2) Respiratory distress (3) Pancreatitis Assessment & Plan: noted on admission to have acute pancreatitis etiology work up on way lft's noted mild elevated no n/v labs reviewed exam unreliable as very agitated iv fluids okay for diet trend labs will follow with exam and recs improving (4) Renal failure Assessment & Plan: renal insufficiency fem cath placed okay for hd see note will follow (5) UTI (urinary tract infection) (6) Pneumonia due to COVID-19 virus (7) Dehydration (8) Renal insufficiency (9) Altered level of consciousness (10) Urinary tract bacterial infections Darius Sifuentes Mar 16, 2020 13:25
[2020-03-16 16:00] VITALS: BP 138/71
--- NOTE | 2020-03-16 19:25 | NUR ---
NURSE NOTES: Received report from CHERELLE Dalton. Pt in bed awake. In no apparent cardiac and respiratory distress noted. On bipap with prescribed setting of 16/6 Fio2 of 100%. Saturating well. No sob noted. On NPO, with IV access on R femoral Arron Cath running D5Ns @75 ml/hr, no infiltration noted. Condom cath in place, draining color shyann yellow urine via gravity. Soft restraints in bilateral wrist, skin is intact, no signs of impede circulation noted. Safety measures in place, bed in lowest positioned and locked. Call light within reach. Will continue to monitor and plan of care.
--- NOTE | 2020-03-16 19:38 | NUR ---
NURSE HAND-OFF REPORT: Important Events on Shift: remains stable Patient Status: FULL CODE Diet: NPO Pending Orders: [] Pending Results/Labs:[] Pending MD notification:[] Latest Vital Signs: Temperature 96.5 , Pulse 62 , B/P 138 /71 , Respiratory Rate 15 , O2 SAT 100 , Bi-pap, O2 Flow Rate 100.0 . Vital Sign Comment: [] EKG Rhythm: Sinus Rhythm Rhythm change?: N MD Notified?: N - MD Response: Latest Conner Fall Score: 70 Fall Risk: High Risk Safety Measures: Call light Within Reach, Bed Alarm Zone 2, Side Rails Side Rails x2, Bed position Low and Locked. Fall Precautions: Yellow Socks Yellow Gown Door Sign Patient Fall Education Report given to CHERELLE Crowe.
[2020-03-16 20:00] VITALS: BP 133/65
[2020-03-16] MEDS: Dyna-Hex 2% Top Sol 2oz TOPIC SCH (20:28)
[2020-03-17] VITALS: BP 125/58
--- NOTE | 2020-03-17 00:25 | NUR ---
NURSE NOTES: Pt in bed asleep. In no apparent distress noted. Tolerating bipap settings and saturating well @100 %. Will continue to monitor and plan of care.
--- NOTE | 2020-03-17 02:46 | NUR ---
NURSE NOTES: stool sample collected and dropped off at the lab
[2020-03-17] MEDS: D5NS 1,000 ML IV SCH ×2 (03:30→15:45)
[2020-03-17 04:00] VITALS: BP 123/63
--- NOTE | 2020-03-17 04:10 | NUR ---
NURSE NOTES: Patient awake in bed, in no apparent distress noted. Kept clean and dry. Gown and linens changed. Had 1 small bowel movement around 1am. Will continue to monitor pt.
[2020-03-17] MEDS: Solu-MEDROL 40mg Inj IVP SCH ×2 (06:12→17:25)
--- NOTE | 2020-03-17 06:25 | NUR ---
NURSE NOTES: Pt has an order for permacath placement. No family on file for consent. Charge nurse made aware. Will endorse to AM shift to inform MD that there's no family to locate for the consent.
[2020-03-17 07:00] LABS: HEMATOCRIT 30.9 % (42.0-52.0); HEMOGLOBIN 9.8 G/DL (14.2-18.0); MEAN CORPUSCULAR VOLUME 96 FL (80-99); PLATELET COUNT 55 K/UL (150-450); RED BLOOD COUNT 3.23 M/UL (4.70-6.10); RED CELL DISTRIBUTION WIDTH 17.4 % (11.6-14.8); WHITE BLOOD COUNT 13.1 K/UL (4.8-10.8)
--- NOTE | 2020-03-17 07:28 | NUR ---
NURSE HAND-OFF REPORT: Important Events on Shift: For permacath placement. Need consent but there's mp family on the file. Endorsed to am shift Patient Status: Stable Diet: NPO Pending Orders: Pending Results/Labs: Pending MD notification: Latest Vital Signs: Temperature 96.1 , Pulse 66 , B/P 123 /63 , Respiratory Rate 24 , O2 SAT 100 , Bi-pap, O2 Flow Rate 100.0 . Vital Sign Comment: STABLE EKG Rhythm: Sinus Rhythm Rhythm change?: N MD Notified?: N - MD Response: Latest Conner Fall Score: 70 Fall Risk: High Risk Safety Measures: Call light Within Reach, Bed Alarm Zone 2, Side Rails Side Rails x2, Bed position Low and Locked. Fall Precautions: Yellow Socks Yellow Gown Door Sign Patient Fall Education Report given to CHERELLE ISAACS.
--- NOTE | 2020-03-17 07:29 | NUR ---
NURSE NOTES: Received patient in bed awake. Bipap in place, no acute distress. Bilateral soft wrist restraints in place, peripheral pulses palpable, no issues on sites. Condom cath intact, draining yellow colored urine. Arron cath intact, dressing clean and dry. For permacatheter placement for dialysis, consent still pending, no family to sign, Dr Garcia aware, awaiting recommendation. HOB elevated. Bed locked in low position. Call light within reach. Will continue plan of care.
[2020-03-17 07:56] LABS: ALBUMIN 2.2 G/DL (3.4-5.0); ALBUMIN/GLOBULIN RATIO 0.6 (1.0-2.7); BILIRUBIN,DIRECT 0.2 MG/DL (0.0-0.3); BILIRUBIN,TOTAL 0.7 MG/DL (0.2-1.0); CALCIUM 7.8 MG/DL (8.5-10.1); CREATININE 2.9 MG/DL (0.55-1.30); POTASSIUM 4.7 MMOL/L (3.5-5.1)
[2020-03-17 08:00] VITALS: BP 132/72
--- NOTE | 2020-03-17 09:52 | NUR ---
NURSE NOTES: Contacted Dr Garcia regarding patient having no family to sign consent for central line order, left message and awaiting response. Addendum: 03/17/20 at 1447 by aMi Brush RN NURSE NOTES: Dr Go informed about consent, he stated that he will document the need for the permacath. Still awaiting notes. Dr Garcia no response yet regarding consent.
--- NOTE | 2020-03-17 10:13 | NUR ---
RD ASSESSMENT & RECOMMENDATIONS SEE CARE ACTIVITY FOR COMPLETE ASSESSMENT DAILY ESTIMATED NEEDS: Needs based on Pulmonary, HD/ 70kg 25-30 kcals/kg 6914-9034 total kcals 1.2-1.8 g protein/kg 84-126 g total protein Fluids per MD NUTRITION DIAGNOSIS: Increased kcal/prot needs R/T renal dysfunction and respiratory status as evidenced by s/p a nontunneled nguyen catheter placement, now on HD, pt on continuous BIPAP, NPO at this time. CURRENT DIET:npo PO DIET RECOMMENDATIONS: RENAL/ texture per [employer]ILROAD [employer] INSPECTOR ENTERAL NUTRITION RECOMMENDATIONS: CONSULT RD FOR TF REC IF NGT FEED IS MEDICALLY APPROPRIATE (PT ON BIPAP) AND PT IS NOT SAFE FOR ORAL DIET TPN Comment: Dx acute pancreatitis, NPO now day 10 from adm. Rec TPN of part of POC, pt is noted HD pt ADDITIONAL RECOMMENDATIONS: * Pt is NPO DAY 5, ON CONTINUOUS BIPAP -> Monitor respiratory status, ability for oral diet -> Consider [employer]RO[employer] INSPECTOR eval * Monitor renal fxn and lytes- check f/up phos (last phos 6.2) * Monitor lipase trend (555 elevated) * Calibrated daily bedscale wt * Monitor BGs closely w/ Decadron
[2020-03-17 11:36] VITALS: BP 151/76
--- NOTE | 2020-03-17 13:08 | NUR ---
Implementation TechnicianMainframe Software Developer SI: Respiratory Failure, COVID PNA, UTI T 96.1, HR 66, RR 24, BP 132/72 WBC 13.1 BUN 67 Creatinine 2.9 BIPAP 16/2 FiO2 100% O2 Sat 97% Chest X ray-slight improvement IS: Solu Medrol IV QD Pepcid IVP QD Step Down Status
--- NOTE | 2020-03-17 13:14 | Surgery Progress Note ---
Surgery Progress Note Subjective Procedure Performed Right femoral temporary hemodialysis catheter insertion Additional Comments leukocytosis no n/v labs noted exam stable less agitated Objective Last 24 Hour Vital Signs Date Time Temp Pulse Resp B/P (MAP) Pulse Ox O2 Delivery O2 Flow Rate FiO2 03/17/20 12:00 Bi-pap 100.0 03/17/20 12:00 65 03/17/20 12:00 100 03/17/20 11:36 96.3 68 17 151/76 (101) 100 03/17/20 11:08 68 20 100 100 03/17/20 08:00 96.1 66 24 132/72 (92) 97 03/17/20 08:00 100 03/17/20 08:00 62 03/17/20 08:00 Bi-pap 100.0 03/17/20 07:20 61 14 100 100 03/17/20 04:00 96.1 66 24 123/63 (83) 100 03/17/20 04:00 Bi-pap 100.0 03/17/20 04:00 100 03/17/20 03:08 60 03/17/20 00:15 60 13 100 100 03/17/20 00:00 96.6 62 18 125/58 (80) 100 03/17/20 00:00 59 03/17/20 00:00 Bi-pap 100.0 03/16/20 20:00 100 03/16/20 20:00 97.3 71 18 133/65 (87) 100 03/16/20 20:00 Bi-pap 100.0 03/16/20 19:32 61 03/16/20 19:00 67 17 100 100 03/16/20 16:00 96.5 64 15 138/71 (93) 100 03/16/20 16:00 Bi-pap 100.0 03/16/20 16:00 100 03/16/20 16:00 62 I&O Intake and Output 03/16/20 03/17/20 19:00 07:00 Intake Total 900 ml 713 ml Output Total 70 ml 100 ml Balance 830 ml 613 ml Intake IV Total 900 ml 713 ml Output Urine Total 70 ml 100 ml # Bowel Movements 2 Dressing: saturated Drains: other Cardiovascular: RSR Respiratory: decreased breath sounds Abdomen: soft, non-tender, present bowel sounds, non-distended Extremities: other Laboratory Tests Test 03/17/20 01:00 03/17/20 03:51 Stool Occult Blood Positive (NEGATIVE) White Blood Count 13.1 K/UL (4.8-10.8) H Red Blood Count 3.23 M/UL (4.70-6.10) L Hemoglobin 9.8 G/DL (14.2-18.0) L Hematocrit 30.9 % (42.0-52.0) L Mean Corpuscular Volume 96 FL (80-99) Mean Corpuscular Hemoglobin 30.4 PG (27.0-31.0) Mean Corpuscular Hemoglobin Concent 31.8 G/DL (32.0-36.0) L Red Cell Distribution Width 17.4 % (11.6-14.8) H Platelet Count 55 K/UL (150-450) L Mean Platelet Volume 7.9 FL (6.5-10.1) Neutrophils (%) (Auto) % (45.0-75.0) Lymphocytes (%) (Auto) % (20.0-45.0) Monocytes (%) (Auto) % (1.0-10.0) Eosinophils (%) (Auto) % (0.0-3.0) Basophils (%) (Auto) % (0.0-2.0) Differential Total Cells Counted 100 Neutrophils % (Manual) 96 % (45-75) H Lymphocytes % (Manual) 2 % (20-45) L Monocytes % (Manual) 2 % (1-10) Eosinophils % (Manual) 0 % (0-3) Basophils % (Manual) 0 % (0-2) Band Neutrophils 0 % (0-8) Platelet Estimate Decreased L Platelet Morphology Normal Anisocytosis 1+ Sodium Level 145 MMOL/L (136-145) Potassium Level 4.7 MMOL/L (3.5-5.1) Chloride Level 109 MMOL/L (98-107) H Carbon Dioxide Level 27 MMOL/L (21-32) Anion Gap 9 mmol/L (5-15) Blood Urea Nitrogen 67 mg/dL (7-18) H Creatinine 2.9 MG/DL (0.55-1.30) H Estimat Glomerular Filtration Rate 21.6 mL/min (>60) Glucose Level 210 MG/DL (74-106) H Calcium Level 7.8 MG/DL (8.5-10.1) L Total Bilirubin 0.7 MG/DL (0.2-1.0) Direct Bilirubin 0.2 MG/DL (0.0-0.3) Aspartate Amino Transf (AST/SGOT) 35 U/L (15-37) Alanine Aminotransferase (ALT/SGPT) 23 U/L (12-78) Alkaline Phosphatase 218 U/L (46-116) H Total Protein 6.1 G/DL (6.4-8.2) L Albumin 2.2 G/DL (3.4-5.0) L Globulin 3.9 g/dL Albumin/Globulin Ratio 0.6 (1.0-2.7) L Plan Problems: (1) Hyperkalemia (2) Respiratory distress (3) Pancreatitis Assessment & Plan: noted on admission to have acute pancreatitis etiology work up on way lft's noted mild elevated no n/v labs reviewed exam unreliable as very agitated iv fluids okay for diet trend labs will follow with exam and recs improving (4) Renal failure Assessment & Plan: renal insufficiency fem cath placed okay for hd see note will follow (5) UTI (urinary tract infection) (6) Pneumonia due to COVID-19 virus (7) Dehydration (8) Renal insufficiency (9) Altered level of consciousness (10) Urinary tract bacterial infections Darius Sifuentes Mar 17, 2020 13:14
--- NOTE | 2020-03-17 13:51 | General Progress Note ---
Subjective ROS Limited/Unobtainable: Yes Constitutional: Reports: malaise, weakness HEENT: Reports: no symptoms Cardiovascular: Reports: no symptoms Respiratory: Reports: shortness of breath Gastrointestinal/Abdominal: Reports: difficulty swallowing Genitourinary: Reports: no symptoms Neurologic/Psychiatric: Reports: pre-existing deficit Endocrine: Reports: no symptoms Hematologic/Lymphatic: Reports: anemia Allergies: Coded Allergies: No Known Allergies (Unverified , 02/04/20) All Systems: reviewed and negative except above Subjective no changes. on ivf. on bipap. poorly responsive. labs reviewed. no distress. unable to take pos. Objective Last 24 Hour Vital Signs Date Time Temp Pulse Resp B/P (MAP) Pulse Ox O2 Delivery O2 Flow Rate FiO2 03/17/20 12:00 Bi-pap 100.0 03/17/20 12:00 65 03/17/20 12:00 100 03/17/20 11:36 96.3 68 17 151/76 (101) 100 03/17/20 11:08 68 20 100 100 03/17/20 08:00 96.1 66 24 132/72 (92) 97 03/17/20 08:00 100 03/17/20 08:00 62 03/17/20 08:00 Bi-pap 100.0 03/17/20 07:20 61 14 100 100 03/17/20 04:00 96.1 66 24 123/63 (83) 100 03/17/20 04:00 Bi-pap 100.0 03/17/20 04:00 100 03/17/20 03:08 60 03/17/20 00:15 60 13 100 100 03/17/20 00:00 96.6 62 18 125/58 (80) 100 03/17/20 00:00 59 03/17/20 00:00 Bi-pap 100.0 03/16/20 20:00 100 03/16/20 20:00 97.3 71 18 133/65 (87) 100 03/16/20 20:00 Bi-pap 100.0 03/16/20 19:32 61 03/16/20 19:00 67 17 100 100 03/16/20 16:00 96.5 64 15 138/71 (93) 100 03/16/20 16:00 Bi-pap 100.0 03/16/20 16:00 100 03/16/20 16:00 62 Intake and Output 03/16/20 03/17/20 19:00 07:00 Intake Total 900 ml 713 ml Output Total 70 ml 100 ml Balance 830 ml 613 ml Intake IV Total 900 ml 713 ml Output Urine Total 70 ml 100 ml # Bowel Movements 2 Laboratory Tests 03/17/20 01:00: Stool Occult Blood Positive 03/17/20 03:51: White Blood Count 13.1H, Red Blood Count 3.23L, Hemoglobin 9.8L, Hematocrit 30.9L, Mean Corpuscular Volume 96, Mean Corpuscular Hemoglobin 30.4, Mean Corpuscular Hemoglobin Concent 31.8L, Red Cell Distribution Width 17.4H, Platelet Count 55L, Mean Platelet Volume 7.9, Neutrophils (%) (Auto) , Lymphocytes (%) (Auto) , Monocytes (%) (Auto) , Eosinophils (%) (Auto) , Basophils (%) (Auto) , Differential Total Cells Counted 100, Neutrophils % (Manual) 96H, Lymphocytes % (Manual) 2L, Monocytes % (Manual) 2, Eosinophils % (Manual) 0, Basophils % (Manual) 0, Band Neutrophils 0, Platelet Estimate DecreasedL, Platelet Morphology Normal, Anisocytosis 1+, Sodium Level 145, Potassium Level 4.7, Chloride Level 109H, Carbon Dioxide Level 27, Anion Gap 9, Blood Urea Nitrogen 67H, Creatinine 2.9H, Estimat Glomerular Filtration Rate 21.6, Glucose Level 210H, Calcium Level 7.8L, Total Bilirubin 0.7, Direct Jorge irubin 0.2, Aspartate Amino Transf (AST/SGOT) 35, Alanine Aminotransferase (ALT/SGPT) 23, Alkaline Phosphatase 218H, Total Protein 6.1L, Albumin 2.2L, Globulin 3.9, Albumin/Globulin Ratio 0.6L Height (Feet): 5 Height (Inches): 4.00 Weight (Pounds): 154 Objective General Appearance: WD/WN, confused Neck: supple Cardiovascular: regular rhythm Respiratory/Chest: lungs clear Abdomen: normal bowel sounds, non tender, soft, no organomegaly Edema: no edema noted Leg (L), no edema noted Leg (R) Neurologic: disoriented Assessment/Plan Problem List: (1) Altered level of consciousness ICD Codes: R40.4 - Transient alteration of awareness SNOMED: 0765082 (2) Pneumonia due to COVID-19 virus ICD Codes: U07.1 - COVID-19; J12.89 - Other viral pneumonia SNOMED: 792904727204692376 (3) Renal failure ICD Codes: N19 - Unspecified kidney failure SNOMED: 75200231 (4) Respiratory distress ICD Codes: R06.03 - Acute respiratory distress SNOMED: 791197993 Status: stable, not improved Assessment/Plan: cont bipap wean as able steroids resp care cautious hydration pos when able dvt prophylaxis HD per renal monitor cxr PPI rx stool ob epogen Doug Garcia MD Mar 17, 2020 13:51
--- NOTE | 2020-03-17 14:51 | Nephrology Progress Note ---
Assessment/Plan Plan ESRD. HD now q TTS. Subjective Subjective Still SOB. On BIPAP. Objective Objective Last 24 Hour Vital Signs Date Time Temp Pulse Resp B/P (MAP) Pulse Ox O2 Delivery O2 Flow Rate FiO2 03/17/20 12:00 Bi-pap 100.0 03/17/20 12:00 65 03/17/20 12:00 100 03/17/20 11:36 96.3 68 17 151/76 (101) 100 03/17/20 11:08 68 20 100 100 03/17/20 08:00 96.1 66 24 132/72 (92) 97 03/17/20 08:00 100 03/17/20 08:00 62 03/17/20 08:00 Bi-pap 100.0 03/17/20 07:20 61 14 100 100 03/17/20 04:00 96.1 66 24 123/63 (83) 100 03/17/20 04:00 Bi-pap 100.0 03/17/20 04:00 100 03/17/20 03:08 60 03/17/20 00:15 60 13 100 100 03/17/20 00:00 96.6 62 18 125/58 (80) 100 03/17/20 00:00 59 03/17/20 00:00 Bi-pap 100.0 03/16/20 20:00 100 03/16/20 20:00 97.3 71 18 133/65 (87) 100 03/16/20 20:00 Bi-pap 100.0 03/16/20 19:32 61 03/16/20 19:00 67 17 100 100 03/16/20 16:00 96.5 64 15 138/71 (93) 100 03/16/20 16:00 Bi-pap 100.0 03/16/20 16:00 100 03/16/20 16:00 62 Intake and Output 03/16/20 03/17/20 19:00 07:00 Intake Total 900 ml 713 ml Output Total 70 ml 100 ml Balance 830 ml 613 ml Intake IV Total 900 ml 713 ml Output Urine Total 70 ml 100 ml # Bowel Movements 2 Laboratory Tests 03/17/20 01:00: Stool Occult Blood Positive 03/17/20 03:51: White Blood Count 13.1H, Red Blood Count 3.23L, Hemoglobin 9.8L, Hematocrit 30.9L, Mean Corpuscular Volume 96, Mean Corpuscular Hemoglobin 30.4, Mean Corpuscular Hemoglobin Concent 31.8L, Red Cell Distribution Width 17.4H, Platelet Count 55L, Mean Platelet Volume 7.9, Neutrophils (%) (Auto) , Lymphocytes (%) (Auto) , Monocytes (%) (Auto) , Eosinophils (%) (Auto) , Basophils (%) (Auto) , Differential Total Cells Counted 100, Neutrophils % (Manual) 96H, Lymphocytes % (Manual) 2L, Monocytes % (Manual) 2, Eosinophils % (Manual) 0, Basophils % (Manual) 0, Band Neutrophils 0, Platelet Estimate DecreasedL, Platelet Morphology Normal, Anisocytosis 1+, Sodium Level 145, Potassium Level 4.7, Chloride Level 109H, Carbon Dioxide Level 27, Anion Gap 9, Blood Urea Nitrogen 67H, Creatinine 2.9H, Estimat Glomerular Filtration Rate 21.6, Glucose Level 210H, Calcium Level 7.8L, Total Bilirubin 0.7, Direct Bilirubin 0.2, Aspartate Amino Transf (AST/SGOT) 35, Alanine Aminotransferase (ALT/SGPT) 23, Alkaline Phosphatase 218H, Total Protein 6.1L, Albumin 2.2L, Globulin 3.9, Albumin/Globulin Ratio 0.6L Height (Feet): 5 Height (Inches): 4.00 Weight (Pounds): 154 Objective On BIPAP CV RR Lungs B wheezes!!!! Abd SNT. BS + E No ERICE Greg Garcia MD Mar 17, 2020 14:51
--- NOTE | 2020-03-17 15:03 | NUR ---
NURSE NOTES: Speech therapist paged today, no response, patient still for eval.
[2020-03-17 15:58] VITALS: BP 125/63
--- NOTE | 2020-03-17 16:22 | Infectious Diseases Prog Note ---
Assessment/Plan Assessment/Plan antibiotics : none A 1. COVID-19 pneumonia. on 100 % FiO2, 100 % saturation s/p remdesivir 2. e.coli UTI s/p rx 3. Pancreatitis 4. respiratory failure, 5. Dementia, 6. Hypertension 7. renal failure P 1. continue solumedrol 2. continue isolation Subjective ROS Limited/Unobtainable: Yes Allergies: Coded Allergies: No Known Allergies (Unverified , 02/04/20) Objective Last 24 Hour Vital Signs Date Time Temp Pulse Resp B/P (MAP) Pulse Ox O2 Delivery O2 Flow Rate FiO2 03/17/20 16:00 65 03/17/20 15:59 80 03/17/20 15:58 96.1 75 16 125/63 (83) 100 03/17/20 12:00 Bi-pap 100.0 03/17/20 12:00 65 03/17/20 12:00 100 03/17/20 11:36 96.3 68 17 151/76 (101) 100 03/17/20 11:08 68 20 100 100 03/17/20 08:00 96.1 66 24 132/72 (92) 97 03/17/20 08:00 100 03/17/20 08:00 62 03/17/20 08:00 Bi-pap 100.0 03/17/20 07:20 61 14 100 100 03/17/20 04:00 96.1 66 24 123/63 (83) 100 03/17/20 04:00 Bi-pap 100.0 03/17/20 04:00 100 03/17/20 03:08 60 03/17/20 00:15 60 13 100 100 03/17/20 00:00 96.6 62 18 125/58 (80) 100 03/17/20 00:00 59 03/17/20 00:00 Bi-pap 100.0 03/16/20 20:00 100 03/16/20 20:00 97.3 71 18 133/65 (87) 100 03/16/20 20:00 Bi-pap 100.0 03/16/20 19:32 61 03/16/20 19:00 67 17 100 100 Height (Feet): 5 Height (Inches): 4.00 Weight (Pounds): 154 HEENT: other - on bipap Laboratory Tests Test 03/17/20 01:00 03/17/20 03:51 Stool Occult Blood Positive (NEGATIVE) White Blood Count 13.1 K/UL (4.8-10.8) H Red Blood Count 3.23 M/UL (4.70-6.10) L Hemoglobin 9.8 G/DL (14.2-18.0) L Hematocrit 30.9 % (42.0-52.0) L Mean Corpuscular Volume 96 FL (80-99) Mean Corpuscular Hemoglobin 30.4 PG (27.0-31.0) Mean Corpuscular Hemoglobin Concent 31.8 G/DL (32.0-36.0) L Red Cell Distribution Width 17.4 % (11.6-14.8) H Platelet Count 55 K/UL (150-450) L Mean Platelet Volume 7.9 FL (6.5-10.1) Neutrophils (%) (Auto) % (45.0-75.0) Lymphocytes (%) (Auto) % (20.0-45.0) Monocytes (%) (Auto) % (1.0-10.0) Eosinophils (%) (Auto) % (0.0-3.0) Basophils (%) (Auto) % (0.0-2.0) Differential Total Cells Counted 100 Neutrophils % (Manual) 96 % (45-75) H Lymphocytes % (Manual) 2 % (20-45) L Monocytes % (Manual) 2 % (1-10) Eosinophils % (Manual) 0 % (0-3) Basophils % (Manual) 0 % (0-2) Band Neutrophils 0 % (0-8) Platelet Estimate Decreased L Platelet Morphology Normal Anisocytosis 1+ Sodium Level 145 MMOL/L (136-145) Potassium Level 4.7 MMOL/L (3.5-5.1) Chloride Level 109 MMOL/L (98-107) H Carbon Dioxide Level 27 MMOL/L (21-32) Anion Gap 9 mmol/L (5-15) Blood Urea Nitrogen 67 mg/dL (7-18) H Creatinine 2.9 MG/DL (0.55-1.30) H Estimat Glomerular Filtration Rate 21.6 mL/min (>60) Glucose Level 210 MG/DL (74-106) H Calcium Level 7.8 MG/DL (8.5-10.1) L Total Bilirubin 0.7 MG/DL (0.2-1.0) Direct Bilirubin 0.2 MG/DL (0.0-0.3) Aspartate Amino Transf (AST/SGOT) 35 U/L (15-37) Alanine Aminotransferase (ALT/SGPT) 23 U/L (12-78) Alkaline Phosphatase 218 U/L (46-116) H Total Protein 6.1 G/DL (6.4-8.2) L Albumin 2.2 G/DL (3.4-5.0) L Globulin 3.9 g/dL Albumin/Globulin Ratio 0.6 (1.0-2.7) L Current Medications Medications (Trade) Dose Ordered Sig/James Route PRN Reason Start Time Stop Time Status Last Admin Dose Admin Acetaminophen (Tylenol) 650 mg Q4H PRN RECTAL Temp >100.5 03/07/20 08:15 04/06/20 08:14 Acetaminophen (Tylenol) 650 mg Q4H PRN RECTAL Mild Pain (Pain Scale 1-3) 03/07/20 09:00 04/06/20 08:59 Albuterol Sulfate (Proventil MDI) 2 puff Q4H PRN INH Shortness of Breath 03/07/20 08:15 06/05/20 08:14 Chlorhexidine Gluconate (Linnette-Hex 2%) 1 applic DAILY@1999 TOPIC 03/09/20 20:00 06/07/20 19:59 03/16/20 20:28 Dextrose (Dextrose 50%) 25 ml Q30M PRN IV Hypoglycemia 03/07/20 08:15 06/05/20 08:14 Dextrose (Dextrose 50%) 50 ml Q30M PRN IV Hypoglycemia 03/07/20 08:15 06/05/20 08:14 03/07/20 11:57 Dextrose/Sodium Chloride 1,000 ml @ 75 mls/hr [id number] IV 03/16/20 00:45 04/15/20 00:44 03/17/20 15:45 Epoetin Juan (Epoetin Juan(ESRD on dialysis)) 2,000 unit TUE-TUE-TUE SUBQ 03/14/20 21:00 06/12/20 20:59 03/14/20 22:10 Epoetin Juan (Epoetin Juan(ESRD on dialysis)) 8,000 unit TUE-TUE-TUE SUBQ 03/14/20 21:00 06/12/20 20:59 03/14/20 22:10 Famotidine (Pepcid I.v.) 20 mg DAILY IVP 03/07/20 09:00 04/06/20 08:59 03/17/20 08:00 Methylprednisolone Sodium Succinate (Solu-MEDROL) 40 mg Q12H IVP 03/14/20 18:00 06/12/20 17:59 03/17/20 06:12 Ondansetron HCl (Zofran) 4 mg Q6H PRN IVP Nausea & Vomiting 03/07/20 08:15 04/06/20 08:14 Sodium Chloride 1,000 ml @ 500 mls/hr Q2H PRN IVLG sbp<90 during hd 03/15/20 13:30 04/14/20 13:29 Brittney Quigley MD Mar 17, 2020 16:22
--- NOTE | 2020-03-17 16:40 | Pulmonology Progress Note ---
Subjective ROS Limited/Unobtainable: Yes Constitutional: Denies: fever Allergies: Coded Allergies: No Known Allergies (Unverified , 02/04/20) All Systems: reviewed and negative except above Subjective care noted on BIPAP low K low HH needs permacath Objective Last 24 Hour Vital Signs Date Time Temp Pulse Resp B/P (MAP) Pulse Ox O2 Delivery O2 Flow Rate FiO2 03/17/20 16:00 65 03/17/20 15:59 80 03/17/20 15:58 96.1 75 16 125/63 (83) 100 03/17/20 12:00 Bi-pap 100.0 03/17/20 12:00 65 03/17/20 12:00 100 03/17/20 11:36 96.3 68 17 151/76 (101) 100 03/17/20 11:08 68 20 100 100 03/17/20 08:00 96.1 66 24 132/72 (92) 97 03/17/20 08:00 100 03/17/20 08:00 62 03/17/20 08:00 Bi-pap 100.0 03/17/20 07:20 61 14 100 100 03/17/20 04:00 96.1 66 24 123/63 (83) 100 03/17/20 04:00 Bi-pap 100.0 03/17/20 04:00 100 03/17/20 03:08 60 03/17/20 00:15 60 13 100 100 03/17/20 00:00 96.6 62 18 125/58 (80) 100 03/17/20 00:00 59 03/17/20 00:00 Bi-pap 100.0 03/16/20 20:00 100 03/16/20 20:00 97.3 71 18 133/65 (87) 100 03/16/20 20:00 Bi-pap 100.0 03/16/20 19:32 61 03/16/20 19:00 67 17 100 100 Intake and Output 03/16/20 03/17/20 19:03 07:03 Intake Total 900 ml 713 ml Output Total 70 ml 100 ml Balance 830 ml 613 ml Intake IV Total 900 ml 713 ml Output Urine Total 70 ml 100 ml # Bowel Movements 2 Objective deferred due to COVID Laboratory Tests 03/17/20 01:00: Stool Occult Blood Positive 03/17/20 03:51: White Blood Count 13.1H, Red Blood Count 3.23L, Hemoglobin 9.8L, Hematocrit 30.9L, Mean Corpuscular Volume 96, Mean Corpuscular Hemoglobin 30.4, Mean Corpu scular Hemoglobin Concent 31.8L, Red Cell Distribution Width 17.4H, Platelet Count 55L, Mean Platelet Volume 7.9, Neutrophils (%) (Auto) , Lymphocytes (%) (Auto) , Monocytes (%) (Auto) , Eosinophils (%) (Auto) , Basophils (%) (Auto) , Differential Total Cells Counted 100, Neutrophils % (Manual) 96H, Lymphocytes % (Manual) 2L, Monocytes % (Manual) 2, Eosinophils % (Manual) 0, Basophils % (Manual) 0, Band Neutrophils 0, Platelet Estimate DecreasedL, Platelet Morphology Normal, Anisocytosis 1+, Sodium Level 145, Potassium Level 4.7, Chloride Level 109H, Carbon Dioxide Level 27, Anion Gap 9, Blood Urea Nitrogen 67H, Creatinine 2.9H, Estimat Glomerular Filtration Rate 21.6, Glucose Level 210H, Calcium Level 7.8L, Total Bilirubin 0.7, Direct Bilirubin 0.2, Aspartate Amino Transf (AST/SGOT) 35, Alanine Aminotransferase (ALT/SGPT) 23, Alkaline Phosphatase 218H, Total Protein 6.1L, Albumin 2.2L, Globulin 3.9, Albumin/Globulin Ratio 0.6L Current Medications Medications (Trade) Dose Ordered Sig/James Route PRN Reason Start Time Stop Time Status Last Admin Dose Admin Acetaminophen (Tylenol) 650 mg Q4H PRN RECTAL Temp >100.5 03/07/20 08:15 04/06/20 08:14 Acetaminophen (Tylenol) 650 mg Q4H PRN RECTAL Mild Pain (Pain Scale 1-3) 03/07/20 09:00 04/06/20 08:59 Albuterol Sulfate (Proventil MDI) 2 puff Q4H PRN INH Shortness of Breath 03/07/20 08:15 06/05/20 08:14 Chlorhexidine Gluconate (Linnette-Hex 2%) 1 applic DAILY@1999 TOPIC 03/09/20 20:00 06/07/20 19:59 03/16/20 20:28 Dextrose (Dextrose 50%) 25 ml Q30M PRN IV Hypoglycemia 03/07/20 08:15 06/05/20 08:14 Dextrose (Dextrose 50%) 50 ml Q30M PRN IV Hypoglycemia 03/07/20 08:15 06/05/20 08:14 03/07/20 11:57 Dextrose/Sodium Chloride 1,000 ml @ 75 mls/hr [id number] IV 03/16/20 00:45 04/15/20 00:44 03/17/20 15:45 Epoetin Juan (Epoetin Juan(ESRD on dialysis)) 2,000 unit TUE-TUE-TUE SUBQ 03/14/20 21:00 06/12/20 20:59 03/14/20 22:10 Epoetin Juan (Epoetin Juan(ESRD on dialysis)) 8,000 unit SUBQ 03/14/20 21:00 06/12/20 20:59 03/14/20 22:10 Famotidine (Pepcid I.v.) 20 mg DAILY IVP 03/07/20 09:00 04/06/20 08:59 03/17/20 08:00 Methylprednisolone Sodium Succinate (Solu-MEDROL) 40 mg Q12H IVP 03/14/20 18:00 06/12/20 17:59 03/17/20 06:12 Ondansetron HCl (Zofran) 4 mg Q6H PRN IVP Nausea & Vomiting 03/07/20 08:15 04/06/20 08:14 Sodium Chloride 1,000 ml @ 500 mls/hr Q2H PRN IVLG sbp<90 during hd 03/15/20 13:30 04/14/20 13:29 Assessment/Plan Assessment/Plan Impression: Covid Pneumonia/possible sepsis Respiratory failure, acute LA - now on HD Hyperkalemia and now with hypokalemia Pancreatitis Urinary tract infection Hypertension toxic metabolic encephalopathy anemia elevated K Plan ID noted monitor HH and K permacath needed urgently; no family available Renal following O2 high flow BiPAP for now at risk for intubation follow up ABG still full code impression, plan, and exam edited and reviewed in detail care discussed with Ebenezer Walters MD Mar 17, 2020 16:40
--- NOTE | 2020-03-17 19:06 | NUR ---
NURSE HAND-OFF REPORT: Important Events on Shift:bipap settings changed by RT to 80% FiO2, saturating high 90's Patient Status: awake, confused Diet: npo Pending Orders: permacath insertion, still no consent, awaiting MD documentation for need Pending Results/Labs: Pending MD notification: Latest Vital Signs: Temperature 96.1 , Pulse 65 , B/P 125 /63 , Respiratory Rate 16 , O2 SAT 100 , Bi-pap, O2 Flow Rate 100.0 . Vital Sign Comment: EKG Rhythm: Sinus Rhythm Rhythm change?: N MD Notified?: N - MD Response: Latest Conner Fall Score: 70 Fall Risk: High Risk Safety Measures: Call light Within Reach, Bed Alarm Zone 2, Side Rails Side Rails x2, Bed position Low and Locked. Fall Precautions: Yellow Socks Yellow Gown Door Sign Patient Fall Education Report given to Sebastien RN.
--- NOTE | 2020-03-17 19:22 | NUR ---
NURSE NOTES: Received report from CHERELLE Oneill. Pt in bed awake, confused. In no apparent cardiac and respiratory distress noted. On bipap with prescribed setting of 16/6 Fio2 of 80%. Saturating @92% SOB noted on exertion . On NPO, with IV access on R femoral Arron Cath running D5Ns @75 ml/hr, no infiltration noted. Condom cath in place, draining color shyann yellow urine via gravity. Soft restraints in bilateral wrist, skin is intact, no signs of impede circulation noted. Safety measures in place, bed in lowest positioned and locked. Call light within reach. Will continue to monitor and plan of care.
[2020-03-17 20:00] VITALS: BP 109/69
[2020-03-17] MEDS: Dyna-Hex 2% Top Sol 2oz TOPIC SCH (20:16)
[2020-03-17] MEDS: Epoetin Alfa-EPBX(ESRD on dialysis)2000 units/ml vial SUBQ SCH (21:03)
[2020-03-17] MEDS: Epoetin Alfa-EPBX(ESRD on dialysis)4000 units/ml vial SUBQ SCH (21:04)
[2020-03-18] VITALS: BP 147/68
--- NOTE | 2020-03-18 | NUR ---
NURSE NOTES: Was informed by RT that pt Fio2 is being weaned to 70 % currently saturating @97%. Will continue to monitor.
--- NOTE | 2020-03-18 00:57 | NUR ---
NURSE NOTES: Pt in bed asleep. In no apparent distress noted. Tolerating bipap settings and saturating well @96 %. Will continue to monitor and plan of care.
--- NOTE | 2020-03-18 02:32 | NUR ---
NURSE NOTES: No endorsement from am shift that the Stool ob resulted. Came back positive. No bm, no active bleeding noted. Will notify MD in am and endorse to am shift.
--- NOTE | 2020-03-18 02:33 | NUR ---
NURSE NOTES: Patient awake in bed, in no apparent distress noted. Sponge bath given. Gown and linens changed. No BM noted. Will continue to monitor pt
--- NOTE | 2020-03-18 03:49 | NUR ---
NURSE NOTES: Pt not tolerating the current FIO2 setting . Desaturating @ 89%. Bipap setting currently on 27/08 and FIO2 of 90 % saturating @ 100 %.
[2020-03-18 04:00] VITALS: BP 140/68
[2020-03-18] MEDS: Solu-MEDROL 40mg Inj IVP SCH ×2 (05:10→18:26)
[2020-03-18] MEDS: D5NS 1,000 ML IV SCH (05:10)
[2020-03-18 06:28] LABS: HEMATOCRIT 28.8 % (42.0-52.0); HEMOGLOBIN 9.1 G/DL (14.2-18.0); MEAN CORPUSCULAR VOLUME 95 FL (80-99); PLATELET COUNT 52 K/UL (150-450); RED BLOOD COUNT 3.02 M/UL (4.70-6.10); RED CELL DISTRIBUTION WIDTH 17.6 % (11.6-14.8); WHITE BLOOD COUNT 15.3 K/UL (4.8-10.8)
--- NOTE | 2020-03-18 06:40 | NUR ---
NURSE NOTES: Notified Dr Go , that the stool ob came back positive. Awaiting response. Addendum: 03/18/20 at 0655 by Ewa Quiroga RN Dr Go is aware of the stool ob positive, no new order at this time.
[2020-03-18 07:04] LABS: ALBUMIN 2.1 G/DL (3.4-5.0); ALBUMIN/GLOBULIN RATIO 0.5 (1.0-2.7); BILIRUBIN,DIRECT 0.4 MG/DL (0.0-0.3); BILIRUBIN,TOTAL 0.8 MG/DL (0.2-1.0); CALCIUM 7.9 MG/DL (8.5-10.1); CREATININE 3.4 MG/DL (0.55-1.30); POTASSIUM 4.6 MMOL/L (3.5-5.1)
[2020-03-18 07:14] LABS: AMYLASE 93 U/L (25-115)
--- NOTE | 2020-03-18 07:18 | NUR ---
NURSE HAND-OFF REPORT: Important Events on Shift:Stool OB positive; Dr Go is aware, no new order Patient Status: Fair Diet: NPO Pending Orders: Pending Results/Labs: Pending MD notification: Latest Vital Signs: Temperature 97.5 , Pulse 83 , B/P 140 /68 , Respiratory Rate 20 , O2 SAT 100 , Bi-pap, O2 Flow Rate 100.0 . Vital Sign Comment: EKG Rhythm: Sinus Rhythm Rhythm change?: N MD Notified?: N - MD Response: Latest Conner Fall Score: 70 Fall Risk: High Risk Safety Measures: Call light Within Reach, Bed Alarm Zone 2, Side Rails Side Rails x2, Bed position Low and Locked. Fall Precautions: Yellow Socks Yellow Gown Door Sign Patient Fall Education Report given to CHERELLE Oneill .
[2020-03-18 08:00] VITALS: BP 141/68
--- NOTE | 2020-03-18 08:23 | Pulmonology Progress Note ---
Subjective ROS Limited/Unobtainable: Yes Constitutional: Denies: fever Allergies: Coded Allergies: No Known Allergies (Unverified , 02/04/20) All Systems: reviewed and negative except above Subjective care noted remains on BIPAP stool OB + low HH needs permacath Objective Last 24 Hour Vital Signs Date Time Temp Pulse Resp B/P (MAP) Pulse Ox O2 Delivery O2 Flow Rate FiO2 03/18/20 07:20 90 18 94 90 03/18/20 04:00 90 03/18/20 04:00 97.5 83 20 140/68 (92) 100 03/18/20 04:00 Bi-pap 100.0 03/18/20 03:28 74 19 94 90 03/18/20 03:19 81 03/18/20 00:00 Bi-pap 100.0 03/18/20 00:00 70 03/18/20 00:00 97.7 77 16 147/68 (94) 97 03/17/20 23:51 85 03/17/20 23:08 74 16 99 70 03/17/20 20:00 96.1 80 18 109/69 (82) 100 03/17/20 20:00 Bi-pap 100.0 03/17/20 20:00 80 03/17/20 19:21 88 24 96 80 03/17/20 19:09 87 03/17/20 16:00 65 03/17/20 16:00 Bi-pap 100.0 03/17/20 15:59 80 03/17/20 15:58 96.1 75 16 125/63 (83) 100 03/17/20 15:15 75 16 100 80 03/17/20 12:00 Bi-pap 100.0 03/17/20 12:00 65 03/17/20 12:00 100 03/17/20 11:36 96.3 68 17 151/76 (101) 100 03/17/20 11:08 68 20 100 100 Intake and Output 03/17/20 03/18/20 19:00 07:00 Intake Total 844 ml 738 ml Output Total 300 ml 150 ml Balance 544 ml 588 ml Intake IV Total 844 ml 738 ml Output Urine Total 300 ml 150 ml # Bowel Movements 1 Objective deferred due to COVID Laboratory Tests 03/18/20 03:10: White Blood Count 15.3H, Red Blood Count 3.02L, Hemoglobin 9.1L, Hematocrit 28.8L, Mean Corpuscular Volume 95, Mean Corpuscular Hemoglobin 30.3, Mean Corpuscular Hemoglobin Concent 31.8L, Red Cell Distribution Width 17.6H, Platelet Count 52L, Mean Platelet Volume 7.8, Neutrophils (%) (Auto) , L ymphocytes (%) (Auto) , Monocytes (%) (Auto) , Eosinophils (%) (Auto) , Basophils (%) (Auto) , Neutrophils % (Manual) [Pending], Lymphocytes % (Manual) [Pending], Platelet Estimate [Pending], Platelet Morphology [Pending], Sodium Level 147H, Potassium Level 4.6, Chloride Level 112H, Carbon Dioxide Level 26, Anion Gap 9, Blood Urea Nitrogen 78H, Creatinine 3.4H, Estimat Glomerular Filtration Rate 18.0, Glucose Level 179H, Calcium Level 7.9L, Total Bilirubin 0.8, Direct Bilirubin 0.4H, Aspartate Amino Transf (AST/SGOT) 45H, Alanine Aminotransferase (ALT/SGPT) 22, Alkaline Phosphatase 231H, Total Protein 6.0L, Albumin 2.1L, Globulin 3.9, Albumin/Globulin Ratio 0.5L, Amylase Level 93, Lipase 807H Current Medications Medications (Trade) Dose Ordered Sig/James Route PRN Reason Start Time Stop Time Status Last Admin Dose Admin Acetaminophen (Tylenol) 650 mg Q4H PRN RECTAL Temp >100.5 03/07/20 08:15 04/06/20 08:14 Acetaminophen (Tylenol) 650 mg Q4H PRN RECTAL Mild Pain (Pain Scale 1-3) 03/07/20 09:00 04/06/20 08:59 Albuterol Sulfate (Proventil MDI) 2 puff Q4H PRN INH Shortness of Breath 03/07/20 08:15 06/05/20 08:14 Chlorhexidine Gluconate (Linnette-Hex 2%) 1 applic DAILY@1999 TOPIC 03/09/20 20:00 06/07/20 19:59 03/17/20 20:16 Dextrose (Dextrose 50%) 25 ml Q30M PRN IV Hypoglycemia 03/07/20 08:15 06/05/20 08:14 Dextrose (Dextrose 50%) 50 ml Q30M PRN IV Hypoglycemia 03/07/20 08:15 06/05/20 08:14 03/07/20 11:57 Dextrose/Sodium Chloride 1,000 ml @ 75 mls/hr [id number] IV 03/16/20 00:45 04/15/20 00:44 03/18/20 05:10 Epoetin Juan (Epoetin Juan(ESRD on dialysis)) 2,000 unit TUE-TUE-TUE SUBQ 03/14/20 21:00 06/12/20 20:59 03/17/20 21:03 Epoetin Juan (Epoetin Juan(ESRD on dialysis)) 8,000 unit TUE- SUBQ 03/14/20 21:00 06/12/20 20:59 03/17/20 21:04 Famotidine (Pepcid I.v.) 20 mg DAILY IVP 03/07/20 09:00 04/06/20 08:59 03/17/20 08:00 Methylprednisolone Sodium Succinate (Solu-MEDROL) 40 mg Q12H IVP 03/14/20 18:00 06/12/20 17:59 03/18/20 05:10 Ondansetron HCl (Zofran) 4 mg Q6H PRN IVP Nausea & Vomiting 03/07/20 08:15 04/06/20 08:14 Sodium Chloride 1,000 ml @ 500 mls/hr Q2H PRN IVLG sbp<90 during hd 03/15/20 13:30 04/14/20 13:29 Assessment/Plan Assessment/Plan Impression: Covid Pneumonia/possible sepsis Respiratory failure, acute LA - now on HD Hyperkalemia and now with hypokalemia Pancreatitis Urinary tract infection Hypertension toxic metabolic encephalopathy anemia elevated 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
--- NOTE | 2020-03-18 09:50 | NUR ---
NURSE NOTES: Paged speech therapis, awaiting callback. Patient still for eval.
--- NOTE | 2020-03-18 11:45 | NUR ---
Mica Washer GluerWeaving Inspector SI: Respiratory Failure, COVID PNA, UTI T 96.1, HR 66, RR 24, BP 132/72 WBC 13.1 BUN 67 Creatinine 2.9 BIPAP 16/2 FiO2 90% O2 Sat 100% IS: Solu Medrol IV QD Pepcid IVP QD D5 NS IV @ 75cc/hr Step Down Status
--- NOTE | 2020-03-18 11:55 | NUR ---
NURSE NOTES: Tachycardic at 135-140's. Dr Go made aware, left message, awaiting response. Addendum: 03/18/20 at 1213 by Mai Brush RN NURSE NOTES: Patient for transfer to ICU, to start amiodarone drip. Awaiting bed. Addendum: 03/18/20 at 1933 by Mai Brush RN NURSE NOTES: Transfer to ICU cancelled by Dr Ingram earlier today.
[2020-03-18 12:00] VITALS: BP 120/66
[2020-03-18] MEDS ORDERED: dilTIAZem HCl 25mg/5ml Inj IVP SCH (13:45)
--- NOTE | 2020-03-18 15:00 | Surgery Progress Note ---
Surgery Progress Note Subjective Procedure Performed Right femoral temporary hemodialysis catheter insertion Additional Comments leukocytosis anemia thrombo no n/v more comfortable Objective Last 24 Hour Vital Signs Date Time Temp Pulse Resp B/P (MAP) Pulse Ox O2 Delivery O2 Flow Rate FiO2 03/18/20 13:47 95 120/66 03/18/20 12:03 146 03/18/20 12:00 98.4 115 22 120/66 (84) 95 03/18/20 11:25 84 16 100 90 03/18/20 08:41 87 03/18/20 08:00 90 03/18/20 08:00 Bi-pap 90.0 03/18/20 08:00 97.5 92 26 141/68 (92) 94 03/18/20 07:20 90 18 94 90 03/18/20 04:00 90 03/18/20 04:00 97.5 83 20 140/68 (92) 100 03/18/20 04:00 Bi-pap 100.0 03/18/20 03:28 74 19 94 90 03/18/20 03:19 81 03/18/20 00:00 Bi-pap 100.0 03/18/20 00:00 70 03/18/20 00:00 97.7 77 16 147/68 (94) 97 03/17/20 23:51 85 03/17/20 23:08 74 16 99 70 03/17/20 20:00 96.1 80 18 109/69 (82) 100 03/17/20 20:00 Bi-pap 100.0 03/17/20 20:00 80 03/17/20 19:21 88 24 96 80 03/17/20 19:09 87 03/17/20 16:00 65 03/17/20 16:00 Bi-pap 100.0 03/17/20 15:59 80 03/17/20 15:58 96.1 75 16 125/63 (83) 100 03/17/20 15:15 75 16 100 80 I&O Intake and Output 03/17/20 03/18/20 19:00 07:00 Intake Total 844 ml 738 ml Output Total 300 ml 150 ml Balance 544 ml 588 ml Intake IV Total 844 ml 738 ml Output Urine Total 300 ml 150 ml # Bowel Movements 1 Dressing: saturated Cardiovascular: RSR Respiratory: decreased breath sounds Abdomen: soft, non-tender, present bowel sounds, non-distended Extremities: edema, no tenderness, no cyanosis Laboratory Tests Test 03/18/20 03:10 03/18/20 13:50 White Blood Count 15.3 K/UL (4.8-10.8) H Red Blood Count 3.02 M/UL (4.70-6.10) L Hemoglobin 9.1 G/DL (14.2-18.0) L Hematocrit 28.8 % (42.0-52.0) L Mean Corpuscular Volume 95 FL (80-99) Mean Corpuscular Hemoglobin 30.3 PG (27.0-31.0) Mean Corpuscular Hemoglobin Concent 31.8 G/DL (32.0-36.0) L Red Cell Distribution Width 17.6 % (11.6-14.8) H Platelet Count 52 K/UL (150-450) L Mean Platelet Volume 7.8 FL (6.5-10.1) Neutrophils (%) (Auto) % (45.0-75.0) Lymphocytes (%) (Auto) % (20.0-45.0) Monocytes (%) (Auto) % (1.0-10.0) Eosinophils (%) (Auto) % (0.0-3.0) Basophils (%) (Auto) % (0.0-2.0) Differential Total Cells Counted 100 Neutrophils % (Manual) 95 % (45-75) H Lymphocytes % (Manual) 4 % (20-45) L Monocytes % (Manual) 1 % (1-10) Eosinophils % (Manual) 0 % (0-3) Basophils % (Manual) 0 % (0-2) Band Neutrophils 0 % (0-8) Platelet Estimate Decreased L Platelet Morphology Normal Anisocytosis 1+ Sodium Level 147 MMOL/L (136-145) H Potassium Level 4.6 MMOL/L (3.5-5.1) Chloride Level 112 MMOL/L (98-107) H Carbon Dioxide Level 26 MMOL/L (21-32) Anion Gap 9 mmol/L (5-15) Blood Urea Nitrogen 78 mg/dL (7-18) H Creatinine 3.4 MG/DL (0.55-1.30) H Estimat Glomerular Filtration Rate 18.0 mL/min (>60) Glucose Level 179 MG/DL (74-106) H Calcium Level 7.9 MG/DL (8.5-10.1) L Total Bilirubin 0.8 MG/DL (0.2-1.0) Direct Bilirubin 0.4 MG/DL (0.0-0.3) H Aspartate Amino Transf (AST/SGOT) 45 U/L (15-37) H Alanine Aminotransferase (ALT/SGPT) 22 U/L (12-78) Alkaline Phosphatase 231 U/L (46-116) H Total Protein 6.0 G/DL (6.4-8.2) L Albumin 2.1 G/DL (3.4-5.0) L Globulin 3.9 g/dL Albumin/Globulin Ratio 0.5 (1.0-2.7) L Amylase Level 93 U/L (25-115) Lipase 807 U/L (73-393) H Arterial Blood pH 7.427 (7.350-7.450) Arterial Blood Partial Pressure CO2 32.4 mmHg (35.0-45.0) L Arterial Blood Partial Pressure O2 62.3 mmHg (75.0-100.0) L Arterial Blood HCO3 20.9 mmol/L (22.0-26.0) L Arterial Blood Oxygen Saturation 90.9 % (95-100) L Arterial Blood Base Excess -2.8 (-2-2) L Ken Test Positive Plan Problems: (1) Hyperkalemia (2) Respiratory distress (3) Pancreatitis Assessment & Plan: noted on admission to have acute pancreatitis etiology work up on way lft's noted mild elevated no n/v labs reviewed exam unreliable as very agitated iv fluids okay for diet trend labs will follow with exam and recs improving (4) Renal failure Assessment & Plan: renal insufficiency fem cath placed okay for hd see note will follow (5) UTI (urinary tract infection) (6) Pneumonia due to COVID-19 virus (7) Dehydration (8) Renal insufficiency (9) Altered level of consciousness (10) Urinary tract bacterial infections Darius Sifuentes Mar 18, 2020 15:00
--- NOTE | 2020-03-18 15:27 | General Progress Note ---
Subjective ROS Limited/Unobtainable: No Constitutional: Reports: malaise, weakness HEENT: Reports: no symptoms Cardiovascular: Reports: no symptoms Respiratory: Reports: shortness of breath Gastrointestinal/Abdominal: Reports: no symptoms Genitourinary: Reports: no symptoms Neurologic/Psychiatric: Reports: pre-existing deficit Endocrine: Reports: no symptoms Hematologic/Lymphatic: Reports: no symptoms Allergies: Coded Allergies: No Known Allergies (Unverified , 02/04/20) All Systems: reviewed and negative except above Subjective no events. stable on bipap. increased HR. unable to wean bipap. quickly desaturates when removed. not taking any po. Objective Last 24 Hour Vital Signs Date Time Temp Pulse Resp B/P (MAP) Pulse Ox O2 Delivery O2 Flow Rate FiO2 03/18/20 13:47 95 120/66 03/18/20 12:03 146 03/18/20 12:00 98.4 115 22 120/66 (84) 95 03/18/20 11:25 84 16 100 90 03/18/20 08:41 87 03/18/20 08:00 90 03/18/20 08:00 Bi-pap 90.0 03/18/20 08:00 97.5 92 26 141/68 (92) 94 03/18/20 07:20 90 18 94 90 03/18/20 04:00 90 03/18/20 04:00 97.5 83 20 140/68 (92) 100 03/18/20 04:00 Bi-pap 100.0 03/18/20 03:28 74 19 94 90 03/18/20 03:19 81 03/18/20 00:00 Bi-pap 100.0 03/18/20 00:00 70 03/18/20 00:00 97.7 77 16 147/68 (94) 97 03/17/20 23:51 85 03/17/20 23:08 74 16 99 70 03/17/20 20:00 96.1 80 18 109/69 (82) 100 03/17/20 20:00 Bi-pap 100.0 03/17/20 20:00 80 03/17/20 19:21 88 24 96 80 03/17/20 19:09 87 03/17/20 16:00 65 03/17/20 16:00 Bi-pap 100.0 1/4/21 15:59 80 03/17/20 15:58 96.1 75 16 125/63 (83) 100 Intake and Output 03/17/20 03/18/20 19:00 07:00 Intake Total 844 ml 738 ml Output Total 300 ml 150 ml Balance 544 ml 588 ml Intake IV Total 844 ml 738 ml Output Urine Total 300 ml 150 ml # Bowel Movements 1 Laboratory Tests 03/18/20 03:10: White Blood Count 15.3H, Red Blood Count 3.02L, Hemoglobin 9.1L, Hematocrit 28.8L, Mean Corpuscular Volume 95, Mean Corpuscular Hemoglobin 30.3, Mean Corpuscular Hemoglobin Concent 31.8L, Red Cell Distribution Width 17.6H, Platelet Count 52L, Mean Platelet Volume 7.8, Neutrophils (%) (Auto) , Lymphocytes (%) (Auto) , Monocytes (%) (Auto) , Eosinophils (%) (Auto) , Basophils (%) (Auto) , Differential Total Cells Counted 100, Neutrophils % (Manual) 95H, Lymphocytes % (Manual) 4L, Monocytes % (Manual) 1, Eosinophils % (Manual) 0, Basophils % (Manual) 0, Band Neutrophils 0, Platelet Estimate DecreasedL, Platelet Morphology Normal, Anisocytosis 1+, Sodium Level 147H, Potassium Level 4.6, Chloride Level 112H, Carbon Dioxide Level 26, Anion Gap 9, Blood Urea Nitrogen 78H, Creatinine 3.4H, Estimat Glomerular Filtration Rate 18 .0, Glucose Level 179H, Calcium Level 7.9L, Total Bilirubin 0.8, Direct Jorge irubin 0.4H, Aspartate Amino Transf (AST/SGOT) 45H, Alanine Aminotransferase (ALT/SGPT) 22, Alkaline Phosphatase 231H, Total Protein 6.0L, Albumin 2.1L, Globulin 3.9, Albumin/Globulin Ratio 0.5L, Amylase Level 93, Lipase 807H 03/18/20 13:50: Arterial Blood pH 7.427, Arterial Blood Partial Pressure CO2 32.4L, Arterial Blood Partial Pressure O2 62.3L, Arterial Blood HCO3 20.9L, Arterial Blood Oxygen Saturation 90.9L, Arterial Blood Base Excess -2.8L, Ken Test Positive Height (Feet): 5 Height (Inches): 4.00 Weight (Pounds): 154 Objective General Appearance: WD/WN, confused Neck: supple Cardiovascular: regular rhythm Respiratory/Chest: lungs clear Abdomen: normal bowel sounds, non tender, soft, no organomegaly Edema: no edema noted Leg (L), no edema noted Leg (R) Neurologic: disoriented Assessment/Plan Problem List: (1) Altered level of consciousness ICD Codes: R40.4 - Transient alteration of awareness SNOMED: 2515956 (2) Pneumonia due to COVID-19 virus ICD Codes: U07.1 - COVID-19; J12.89 - Other viral pneumonia SNOMED: 006511484933796246 (3) Renal failure ICD Codes: N19 - Unspecified kidney failure SNOMED: 58965212 (4) Respiratory distress ICD Codes: R06.03 - Acute respiratory distress SNOMED: 022409968 Status: stable, not improved Assessment/Plan: cont bipap wean as able steroids resp care cautious hydration pos when able dvt prophylaxis HD per renal monitor cxr PPI rx cardiac rx Doug Garcia MD Mar 18, 2020 15:27
--- NOTE | 2020-03-18 15:49 | NUR ---
Speech Pathology Note (Bedside Dysphagia Evaluation) 03/18/2020 AB.42/32.4/62.3/20.9 BiPAP 16/5, Fio2 90% Electrolytes: 147/4.6/112/26/78/3.4/179 CBC: 15.3/9.1/28.8/52 Brief Note: Mr. Mercedes is an unfortunately male became a COVID 19 positive at [facility]. His comorbidity include liver cirrhosis, CKD stage 4 creatine 3.1 on 02/04/2020, alcohol abuse admitted [facility] on 03/07/2020 for hypoxemia and dyspnea. Despite of standard medical regimen for COVID 19, renal failure for HD, hypoxemia for BIPAP support and maximizing FIO2, he continued to decline. He is currently full code status. He is tachycardia, 130~140s BP is stable at 120/66. He is not taking any PO at this time due to hypoxemia without BIPAP. The CXR from admission and the most recent was reviewed. The most recent CXR is nearly complete whiteout. Findings at Bedside: Mr. Mercedes opened his eyes with tactile stimuli and went back to closing his eyes. Pt appeared to be critically ill and not ready for any PO intake at this time. Interpretation: 1. Nearly white out chest xray, hypoxemia, tachycardia 140 2. Aspiration Plan: 1. Hold PO 2. Goal of care discussion Lucy Perez
[2020-03-18 16:00] VITALS: BP 100/52
--- NOTE | 2020-03-18 16:12 | Nephrology Progress Note ---
Assessment/Plan Plan ESRD. HD now q TTS. Subjective Subjective Still SOB. On BIPAP. Objective Objective Last 24 Hour Vital Signs Date Time Temp Pulse Resp B/P (MAP) Pulse Ox O2 Delivery O2 Flow Rate FiO2 03/18/20 15:38 118 19 99 90 03/18/20 13:47 95 120/66 03/18/20 12:03 146 03/18/20 12:00 98.4 115 22 120/66 (84) 95 03/18/20 11:25 84 16 100 90 03/18/20 08:41 87 03/18/20 08:00 90 03/18/20 08:00 Bi-pap 90.0 03/18/20 08:00 97.5 92 26 141/68 (92) 94 03/18/20 07:20 90 18 94 90 03/18/20 04:00 90 03/18/20 04:00 97.5 83 20 140/68 (92) 100 03/18/20 04:00 Bi-pap 100.0 03/18/20 03:28 74 19 94 90 03/18/20 03:19 81 03/18/20 00:00 Bi-pap 100.0 03/18/20 00:00 70 03/18/20 00:00 97.7 77 16 147/68 (94) 97 03/17/20 23:51 85 03/17/20 23:08 74 16 99 70 03/17/20 20:00 96.1 80 18 109/69 (82) 100 03/17/20 20:00 Bi-pap 100.0 03/17/20 20:00 80 03/17/20 19:21 88 24 96 80 03/17/20 19:09 87 Intake and Output 03/17/20 03/18/20 19:00 07:00 Intake Total 844 ml 738 ml Output Total 300 ml 150 ml Balance 544 ml 588 ml Intake IV Total 844 ml 738 ml Output Urine Total 300 ml 150 ml # Bowel Movements 1 Laboratory Tests 03/18/20 03:10: White Blood Count 15.3H, Red Blood Count 3.02L, Hemoglobin 9.1L, Hematocrit 28.8L, Mean Corpuscular Volume 95, Mean Corpuscular Hemoglobin 30.3, Mean Corpuscular Hemoglobin Concent 31.8L, Red Cell Distribution Width 17.6H, Platelet Count 52L, Mean Platelet Volume 7.8, Neutrophils (%) (Auto) , Lymphocytes (%) (Auto) , Monocytes (%) (Auto) , Eosinophils (%) (Auto) , Basophils (%) (Auto) , Differential Total Cells Counted 100, Neutrophils % (Manual) 95H, Lymphocytes % (Manual) 4L, Monocytes % (Manual) 1, Eosinophils % (Manual) 0, Basophils % (Manual) 0, Band Neutrophils 0, Platelet Estimate DecreasedL, Platelet Morphology Normal, Anisocytosis 1+, Sodium Level 147H, Potassium Level 4.6, Chloride Level 112H, Carbon Dioxide Level 26, Anion Gap 9, Blood Urea Nitrogen 78H, Creatinine 3.4H, Estimat Glomerular Filtration Rate 18.0, Glucose Level 179H, Calcium Level 7.9L, Total Bilirubin 0.8, Direct Biliru bin 0.4H, Aspartate Amino Transf (AST/SGOT) 45H, Alanine Aminotransferase (ALT/SGPT) 22, Alkaline Phosphatase 231H, Total Protein 6.0L, Albumin 2.1L, Globulin 3.9, Albumin/Globulin Ratio 0.5L, Amylase Level 93, Lipase 807H 03/18/20 13:50: Arterial Blood pH 7.427, Arterial Blood Partial Pressure CO2 32.4L, Arterial Blood Partial Pressure O2 62.3L, Arterial Blood HCO3 20.9L, Arterial Blood Oxygen Saturation 90.9L, Arterial Blood Base Excess -2.8L, Ken Test Positive Height (Feet): 5 Height (Inches): 4.00 Weight (Pounds): 154 Objective On BIPAP CV RR Lungs B wheezes!!!! Abd SNT. BS + E No CCE Greg Garcia MD Mar 18, 2020 16:12
--- NOTE | 2020-03-18 16:20 | Nephrology Progress Note ---
Assessment/Plan Plan ESRD. HD now q TTS. Pt. needs a permaCath. Has no family or DPOA. @ MDs to document the need. Subjective Subjective Still SOB. On BIPAP. Objective Objective Last 24 Hour Vital Signs Date Time Temp Pulse Resp B/P (MAP) Pulse Ox O2 Delivery O2 Flow Rate FiO2 03/18/20 15:38 118 19 99 90 03/18/20 13:47 95 120/66 03/18/20 12:03 146 03/18/20 12:00 98.4 115 22 120/66 (84) 95 03/18/20 11:25 84 16 100 90 03/18/20 08:41 87 03/18/20 08:00 90 03/18/20 08:00 Bi-pap 90.0 03/18/20 08:00 97.5 92 26 141/68 (92) 94 03/18/20 07:20 90 18 94 90 03/18/20 04:00 90 03/18/20 04:00 97.5 83 20 140/68 (92) 100 03/18/20 04:00 Bi-pap 100.0 03/18/20 03:28 74 19 94 90 03/18/20 03:19 81 03/18/20 00:00 Bi-pap 100.0 03/18/20 00:00 70 03/18/20 00:00 97.7 77 16 147/68 (94) 97 03/17/20 23:51 85 03/17/20 23:08 74 16 99 70 03/17/20 20:00 96.1 80 18 109/69 (82) 100 03/17/20 20:00 Bi-pap 100.0 03/17/20 20:00 80 03/17/20 19:21 88 24 96 80 03/17/20 19:09 87 Intake and Output 03/17/20 03/18/20 19:00 07:00 Intake Total 844 ml 738 ml Output Total 300 ml 150 ml Balance 544 ml 588 ml Intake IV Total 844 ml 738 ml Output Urine Total 300 ml 150 ml # Bowel Movements 1 Laboratory Tests 03/18/20 03:10: White Blood Count 15.3H, Red Blood Count 3.02L, Hemoglobin 9.1L, Hematocrit 28.8L, Mean Corpuscular Volume 95, Mean Corpuscular Hemoglobin 30.3, Mean Corpuscular Hemoglobin Concent 31.8L, Red Cell Distribution Width 17.6H, Platelet Count 52L, Mean Platelet Volume 7.8, Neutrophils (%) (Auto) , Lymphocytes (%) (Auto) , Monocytes (%) (Auto) , Eosinophils (%) (Auto) , Basophils (%) (Auto) , Differential Total Cells Counted 100, Neutrophils % (Manual) 95H, Lymphocytes % (Manual) 4L, Monocytes % (Manual) 1, Eosinophils % (Manual) 0, Basophils % (Manual) 0, Band Neutrophils 0, Platelet Estimate De creasedL, Platelet Morphology Normal, Anisocytosis 1+, Sodium Level 147H, Potassium Level 4.6, Chloride Level 112H, Carbon Dioxide Level 26, Anion Gap 9, Blood Urea Nitrogen 78H, Creatinine 3.4H, Estimat Glomerular Filtration Rate 18.0, Glucose Level 179H, Calcium Level 7.9L, Total Bilirubin 0.8, Direct Bilirubin 0.4H, Aspartate Amino Transf (AST/SGOT) 45H, Alanine Aminotransferase (ALT/SGPT) 22, Alkaline Phosphatase 231H, Total Protein 6.0L, Albumin 2.1L, Globulin 3.9, Albumin/Globulin Ratio 0.5L, Amylase Level 93, Lipase 807H 03/18/20 13:50: Arterial Blood pH 7.427, Arterial Blood Partial Pressure CO2 32.4L, Arterial Blood Partial Pressure O2 62.3L, Arterial Blood HCO3 20.9L, Arterial Blood Oxygen Saturation 90.9L, Arterial Blood Base Excess -2.8L, Ken Test Positive Height (Feet): 5 Height (Inches): 4.00 Weight (Pounds): 154 Objective On BIPAP CV RR Lungs B wheezes!!!! Abd SNT. BS + E No CCE Greg Garcia MD Mar 18, 2020 16:20
[2020-03-18] MEDS: 1/2NS w/KCl 20mEq 1000ml 1,000 ML IV SCH (16:25)
--- NOTE | 2020-03-18 19:25 | NUR ---
NURSE HAND-OFF REPORT: Important Events on Shift: episode of afib with RVR. Transfer to ICU cancelled by Dr Ingram. Patient now sinus rhythm at 93. Dialysis ongoing. For permacath placement tomorrow, consent from 2 MD's in patient's progress notes: Dr Go, Dr Garcia Patient Status: confused Diet: npo Pending Orders: Pending Results/Labs: Pending MD notification: Latest Vital Signs: Temperature 98.4 , Pulse 98 , B/P 100 /52 , Respiratory Rate 32 , O2 SAT 94 , Bi-pap, O2 Flow Rate 90.0 . Vital Sign Comment: EKG Rhythm: Atrial Fibrillation with RVR Rhythm change?: Y MD Notified?: Y -DR. Go, Dr Juan Jose MINAYA Response: Order placed by Dr Ingram [facility] Fall Score: 70 Fall Risk: High Risk Safety Measures: Call light Within Reach, Bed Alarm Zone 2, Side Rails Side Rails x2, Bed position Low and Locked. Fall Precautions: Yellow Socks Yellow Gown Door Sign Patient Fall Education Report given to Bello VILLARREAL.
--- NOTE | 2020-03-18 19:30 | NUR ---
NURSE NOTES: Received report from CHERELLE ISAACS, pt. in bed awake, opens eyes- non-verbal, no signs or symptoms of acute cardiac or respiratory distress noted, pt. appears to be tolerating current BIPAP settings 16/6 Fio2 at 90%- no distress noted, pt. is NPO per endorsement, bed in lowest position and call light within easy reach, bed locked in position, pt. has Right femoral Arron running 1/2NS +20KCL running at 75cc/hr- Also used for HD- pt. currently having HD- appears to be tolerating well- HD nurse at bedside, safety measures continued, will continue with plan of care. Addendum: 03/18/20 at 2230 by HORTENSIA GOODSON RN RN bilateral wrist restraints removed- pulses palpable and skin intact- restraints re-applied. Addendum: 03/19/20 at 0107 by HORTENSIA GOODSON RN RN condom cath intact and draining to gravity.
[2020-03-18 20:00] VITALS: BP 110/61
[2020-03-18] MEDS: Dyna-Hex 2% Top Sol 2oz TOPIC SCH (20:21)
--- NOTE | 2020-03-18 21:04 | NUR ---
NURSE NOTES: per HD nurse- 2L out- pt. appears to have tolerated well- will continue to monitor pt.
[2020-03-19] VITALS: BP 134/64
--- NOTE | 2020-03-19 | NUR ---
NURSE NOTES: bed bath given, linens changed, oral care provided, repositioned and turned pt- pt. appears to be tolerating BIPAP settings- no distress noted, HOB elevated- Aspiration and skin precautions observed, isolation precautions observed, pt. is NPO- per MD orders, will continue to monitor pt. and with plan of care.
[2020-03-19] MEDS: 1/2NS w/KCl 20mEq 1000ml 1,000 ML IV SCH ×2 (01:24→17:05)
--- NOTE | 2020-03-19 02:33 | Cardiology Report ---
APPROVED REPORT EKG Measurement Heart [id number] VT [id number] <Conclusion> Sinus rhythm with 1st degree AV block with occasional premature ventricular complexes Cannot rule out Anterior infarct, age undetermined Abnormal ECG
--- NOTE | 2020-03-19 03:15 | Consultation ---
DATE OF CONSULTATION: 03/18/2020 CARDIOLOGY CONSULTATION CONSULTING PHYSICIAN: Cristopher Ingram MD REQUESTING PHYSICIAN: Ebenezer Go MD REASON: Rapid atrial fibrillation. HISTORY: This is a 69-year-old male, who remains on BiPAP support for management of healthcare associated pneumonia due to COVID-19. He developed rapid atrial fibrillation today. The patient did not have any detected change in his respiratory parameters, although remains labored on high flow oxygen. PAST MEDICAL HISTORY: Includes chronic kidney disease, history of alcoholism, anemia of chronic kidney disease, dementia, alcoholic liver disease. ALLERGIES: None. MEDICATIONS: Reviewed. SOCIAL HISTORY: Not known other than alcohol abuse. PHYSICAL EXAMINATION: VITAL SIGNS: Moderate respiratory compromise on BiPAP support, 90% oxygen, blood pressure 110/61, heart rate is 140, respiratory rate 22. LUNGS: Bilateral breath sounds. Rhonchi. CARDIAC: Irregularly irregular rhythm. Rapid rate. Normal S1, S2. No murmur. ABDOMEN: soft. EXTREMITIES: Trace edema. LABORATORY DATA: White count 15, hemoglobin 9. ABG 7.43, 32, 62. Sodium 147, potassium 4.6, bicarb 26, BUN 78, creatinine 3.4. Albumin 2.1. IMPRESSION: 1. Paroxysmal atrial fibrillation with rapid ventricular response. 2. Dehydration. 3. Hyponatremia. 4. Severe protein-calorie malnutrition. 5. COVID-19 pneumonia. 6. Severe hypoxia. 7. Respiratory failure. 8. Acute on chronic renal failure. PLAN: 1. Hypotonic IV fluids. 2. Antiviral, anticoagulant and steroid therapies. 3. Hold diuretics. 4. Amiodarone IV as previously outlined for rate control and cardioversion. 5. We will follow. Cristopher Ingram M.D. DR: EULA JOB#: [id number] CC:
[2020-03-19 04:00] VITALS: BP 141/67
[2020-03-19] MEDS: Solu-MEDROL 40mg Inj IVP SCH ×2 (05:03→17:05)
[2020-03-19 05:35] LABS: HEMATOCRIT 26.1 % (42.0-52.0); HEMOGLOBIN 8.2 G/DL (14.2-18.0); MEAN CORPUSCULAR VOLUME 95 FL (80-99); PLATELET COUNT 28 K/UL (150-450); RED BLOOD COUNT 2.74 M/UL (4.70-6.10); RED CELL DISTRIBUTION WIDTH 18.2 % (11.6-14.8); WHITE BLOOD COUNT 7.2 K/UL (4.8-10.8)
[2020-03-19 06:06] LABS: ALBUMIN 1.9 G/DL (3.4-5.0); ALBUMIN/GLOBULIN RATIO 0.5 (1.0-2.7); BILIRUBIN,TOTAL 1.1 MG/DL (0.2-1.0); CALCIUM 7.9 MG/DL (8.5-10.1); CREATININE 2.6 MG/DL (0.55-1.30); POTASSIUM 4.2 MMOL/L (3.5-5.1)
[2020-03-19 06:45] LABS: BILIRUBIN,DIRECT 0.6 MG/DL (0.0-0.3)
--- NOTE | 2020-03-19 07:05 | NUR ---
NURSE NOTES: Received report from CHERELLE Monsalve
--- NOTE | 2020-03-19 07:07 | NUR ---
NURSE HAND-OFF REPORT: Important Events on Shift:none Patient Status: stable Diet: NPO Pending Orders: Pending Results/Labs: Pending MD notification: Latest Vital Signs: Temperature 97.5 , Pulse 66 , B/P 141 /67 , Respiratory Rate 22 , O2 SAT 99 , Bi-pap, O2 Flow Rate 90.0 . Vital Sign Comment: EKG Rhythm: Sinus Rhythm Rhythm change?: N MD Notified?: MD Response: Latest Conner Fall Score: 70 Fall Risk: High Risk Safety Measures: Call light Within Reach, Bed Alarm Zone 2, Side Rails Side Rails x2, Bed position Low and Locked. Fall Precautions: Yellow Socks Yellow Gown Door Sign Patient Fall Education Report given to CHERELLE Greer- aware to f/u on any abnormal am labs.
--- NOTE | 2020-03-19 07:33 | NUR ---
NURSE NOTES: reported to Dr. Garcia in person that patient's plt resulted to 28 today.
[2020-03-19 08:00] VITALS: BP 139/75
--- NOTE | 2020-03-19 09:00 | NUR ---
NURSE NOTES: patient is on bed, wakes up when called. no signs of grimacing and distress noted. patient is on bipap 16/6, Fio2 90%, tolerating well. patient is on NPO. patient has a R fem nguyen cath, patent, intact, running 0.45% NS with KCl 20 mEq 1000 mL (running 75 mL/hr). HOB elevated, bed is on lowest position, side rails up, locked. Patient will continue to be monitored.
--- NOTE | 2020-03-19 09:10 | NUR ---
NURSE NOTES: Radiology called and said that the perma cath insertion is not possible today since the platelets are low (28).
--- NOTE | 2020-03-19 10:18 | General Progress Note ---
Subjective ROS Limited/Unobtainable: No Constitutional: Reports: malaise, weakness HEENT: Reports: no symptoms Cardiovascular: Reports: no symptoms Respiratory: Reports: cough, shortness of breath Gastrointestinal/Abdominal: Reports: difficulty swallowing Genitourinary: Reports: no symptoms Neurologic/Psychiatric: Reports: no symptoms Endocrine: Reports: no symptoms Hematologic/Lymphatic: Reports: no symptoms Allergies: Coded Allergies: No Known Allergies (Unverified , 02/04/20) All Systems: reviewed and negative except above Subjective no change. d/w night rn. unable to wean bipap. plts trending down. remains npo. Objective Last 24 Hour Vital Signs Date Time Temp Pulse Resp B/P (MAP) Pulse Ox O2 Delivery O2 Flow Rate FiO2 03/19/20 08:00 90 03/19/20 08:00 Bi-pap 90.0 03/19/20 08:00 97.6 74 19 139/75 (96) 95 03/19/20 07:34 66 03/19/20 04:00 97.5 66 22 141/67 (91) 99 03/19/20 04:00 Bi-pap 90.0 03/19/20 04:00 90 03/19/20 03:25 60 03/19/20 03:08 70 18 99 90 03/19/20 00:00 90 03/19/20 00:00 97.9 84 26 134/64 (87) 99 03/19/20 00:00 Bi-pap 90.0 03/18/20 23:13 75 03/18/20 23:11 79 21 98 90 03/18/20 20:13 95 03/18/20 20:00 Bi-pap 90.0 03/18/20 20:00 98.1 97 26 110/61 (77) 100 03/18/20 20:00 90 03/18/20 19:12 98 32 94 90 03/18/20 16:42 129 03/18/20 16:00 98.4 99 24 100/52 (68) 93 03/18/20 16:00 Bi-pap 90.0 03/18/20 16:00 90 03/18/20 15:38 118 19 99 90 03/18/20 13:47 95 120/66 03/18/20 12:03 146 03/18/20 12:00 90 03/18/20 12:00 98.4 115 22 120/66 (84) 95 03/18/20 12:00 Bi-pap 90.0 03/18/20 11:25 84 16 100 90 Intake and Output 03/18/20 03/19/20 19:00 07:00 Intake Total 870 ml 870 ml Output Total 350 ml 2300 ml Balance 520 ml -1430 ml Intake IV Total 870 ml 870 ml Output Urine Total 350 ml 300 ml Hemodialysis UF 2000 ml # Bowel Movements 1 Laboratory Tests 03/18/20 13:50: Arterial Blood pH 7.427, Arterial Blood Partial Pressure CO2 32.4L, Arterial Blood Partial Pressure O2 62.3L, Arterial Blood HCO3 20.9L, Arterial Blood Oxygen Saturation 90.9L, Arterial Blood Base Excess -2.8L, Ken Test Positive 03/19/20 04:36: White Blood Count 7.2#, Red Blood Count 2.74L, Hemoglobin 8.2L, Hematocrit 26.1L , Mean Corpuscular Volume 95, Mean Corpuscular Hemoglobin 30.0, Mean Corpuscular Hemoglobin Concent 31.4L, Red Cell Distribution Width 18.2H, Platelet Count 28L, Mean Platelet Volume 10.6H, Neutrophils (%) (Auto) , Lymphocytes (%) (Auto) , Monocytes (%) (Auto) , Eosinophils (%) (Auto) , Basophils (%) (Auto) , Neutrophils % (Manual) [Pending], Lymphocytes % (Manual) [Pending], Platelet Estimate [Pending], Platelet Morphology [Pending], Sodium Level 145, Potassium Level 4.2, Chloride Level 109H, Carbon Dioxide Level 31, Anion Gap 5, Blood Urea Nitrogen 52H, Creatinine 2.6H, Estimat Glomerular Filtration Rate 24.5, Glucose Level 124H, Calcium Level 7.9L, Magnesium Level 2.0, Total Bilirubin 1.1H, Direct Bilirubin 0.6H, Aspartate Amino Transf (AST/SGOT) 71H, Alanine Aminotransferase (ALT/SGPT) 33, Alkaline Phosphatase 202H, Pro-B-Type Natriuretic Peptide 800H, Total Protein 5.4L, Albumin 1.9L, Globulin 3.5, Albumin/Globulin Ratio 0.5L Height (Feet): 5 Height (Inches): 4.00 Weight (Pounds): 154 Objective General Appearance: WD/WN, confused Neck: supple Cardiovascular: regular rhythm Respiratory/Chest: lungs clear Abdomen: normal bowel sounds, non tender, soft, no organomegaly Edema: no edema noted Leg (L), no edema noted Leg (R) Neurologic: disoriented Assessment/Plan Problem List: (1) Altered level of consciousness ICD Codes: R40.4 - Transient alteration of awareness SNOMED: 9831984 (2) Pneumonia due to COVID-19 virus ICD Codes: U07.1 - COVID-19; J12.89 - Other viral pneumonia SNOMED: 556323502688303953 (3) Renal failure ICD Codes: N19 - Unspecified kidney failure SNOMED: 76186480 (4) Respiratory distress ICD Codes: R06.03 - Acute respiratory distress SNOMED: 491747529 Status: stable, not improved Assessment/Plan: cont bipap wean as able steroids resp care cautious hydration pos when able dvt prophylaxis- scds. lovenox dcd with decreasing plts check hitab HD per renal Doug Garcia MD Mar 19, 2020 10:18
[2020-03-19 12:00] VITALS: BP 148/77
[2020-03-19] MEDS ORDERED: dilTIAZem HCl 30mg tab GT SCH (12:00)
--- NOTE | 2020-03-19 12:08 | Pulmonology Progress Note ---
Subjective ROS Limited/Unobtainable: Yes Constitutional: Denies: fever Allergies: Coded Allergies: No Known Allergies (Unverified , 02/04/20) All Systems: reviewed and negative except above Subjective care noted remains on BIPAP stool OB + low HH needs permacath Objective Last 24 Hour Vital Signs Date Time Temp Pulse Resp B/P (MAP) Pulse Ox O2 Delivery O2 Flow Rate FiO2 03/19/20 08:00 90 03/19/20 08:00 Bi-pap 90.0 03/19/20 08:00 97.6 74 19 139/75 (96) 95 03/19/20 07:34 66 03/19/20 04:00 97.5 66 22 141/67 (91) 99 03/19/20 04:00 Bi-pap 90.0 03/19/20 04:00 90 03/19/20 03:25 60 03/19/20 03:08 70 18 99 90 03/19/20 00:00 90 03/19/20 00:00 97.9 84 26 134/64 (87) 99 03/19/20 00:00 Bi-pap 90.0 03/18/20 23:13 75 03/18/20 23:11 79 21 98 90 03/18/20 20:13 95 03/18/20 20:00 Bi-pap 90.0 03/18/20 20:00 98.1 97 26 110/61 (77) 100 03/18/20 20:00 90 03/18/20 19:12 98 32 94 90 03/18/20 16:42 129 03/18/20 16:00 98.4 99 24 100/52 (68) 93 03/18/20 16:00 Bi-pap 90.0 03/18/20 16:00 90 03/18/20 15:38 118 19 99 90 03/18/20 13:47 95 120/66 Intake and Output 03/18/20 03/19/20 19:00 07:00 Intake Total 870 ml 870 ml Output Total 350 ml 2300 ml Balance 520 ml -1430 ml Intake IV Total 870 ml 870 ml Output Urine Total 350 ml 300 ml Hemodialysis UF 2000 ml # Bowel Movements 1 Objective deferred due to COVID Laboratory Tests 03/18/20 13:50: Arterial Blood pH 7.427, Arterial Blood Partial Pressure CO2 32.4L, Arterial Blood Partial Pressure O2 62.3L, Arterial Blood HCO3 20.9L, Arterial Blood Oxygen Saturation 90.9L, Arterial Blood Base Excess -2.8L, Ken Test Positive 03/19/20 04:36: White Blood Count 7.2#, Red Blood Count 2.74L, Hemoglobin 8.2L, Hematocrit 26.1L , Mean Corpuscular Volume 95, Mean Corpuscular Hemoglobin 30.0, Mean Corpuscular Hemoglobin Concent 31.4L, Red Cell Distribution Width 18.2H, Platelet Count 28L, Mean Platelet Volume 10.6H, Neutrophils (%) (Auto) , Lymphocytes (%) (Auto) , Monocytes (%) (Auto) , Eosinophils (%) (Auto) , Basophils (%) (Auto) , Differential Total Cells Counted 100, Neutrophils % (Manual) 97H, Lymphocytes % (Manual) 2L, Monocytes % (Manual) 1, Eosinophils % (Manual) 0, Basophils % (Manual) 0, Band Neutrophils 0, Platelet Estimate DecreasedL, Platelet Mo rphology Normal, Hypochromasia 1+, Anisocytosis 1+, Sodium Level 145, Potassium Level 4.2, Chloride Level 109H, Carbon Dioxide Level 31, Anion Gap 5, Blood Urea Nitrogen 52H, Creatinine 2.6H, Estimat Glomerular Filtration Rate 24.5, Glucose Level 124H, Calcium Level 7.9L, Magnesium Level 2.0, Total Bilirubin 1.1H, Direct Bilirubin 0.6H, Aspartate Amino Transf (AST/SGOT) 71H, Alanine Aminotransferase (ALT/SGPT) 33, Alkaline Phosphatase 202H, Pro-B-Type Natriuretic Peptide 800H, Total Protein 5.4L, Albumin 1.9L, Globulin 3.5, Albumin/Globulin Ratio 0.5L Current Medications Medications (Trade) Dose Ordered Sig/James Route PRN Reason Start Time Stop Time Status Last Admin Dose Admin Acetaminophen (Tylenol) 650 mg Q4H PRN RECTAL Temp >100.5 03/07/20 08:15 04/06/20 08:14 Acetaminophen (Tylenol) 650 mg Q4H PRN RECTAL Mild Pain (Pain Scale 1-3) 03/07/20 09:00 04/06/20 08:59 Albuterol Sulfate (Proventil MDI) 2 puff Q4H PRN INH Shortness of Breath 03/07/20 08:15 06/05/20 08:14 Chlorhexidine Gluconate (Linnette-Hex 2%) 1 applic DAILY@2000 TOPIC 03/09/20 20:00 06/07/20 19:59 03/18/20 20:21 Dextrose (Dextrose 50%) 25 ml Q30M PRN IV Hypoglycemia 03/07/20 08:15 06/05/20 08:14 Dextrose (Dextrose 50%) 50 ml Q30M PRN IV Hypoglycemia 03/07/20 08:15 06/05/20 08:14 03/07/20 11:57 Diltiazem HCl (Cardizem Tab) 30 mg EVERY 6 HOURS GT 03/19/20 12:00 04/18/20 11:59 UNV Epoetin Juan (Epoetin Juan(ESRD on dialysis)) 2,000 unit SUBQ 03/14/20 21:00 06/12/20 20:59 03/17/20 21:03 Epoetin Juan (Epoetin Juan(ESRD on dialysis)) 8,000 unit SUBQ 03/14/20 21:00 06/12/20 20:59 03/17/20 21:04 Famotidine (Pepcid I.v.) 20 mg DAILY IVP 03/07/20 09:00 04/06/20 08:59 03/19/20 08:17 Methylprednisolone Sodium Succinate (Solu-MEDROL) 40 mg Q12H IVP 03/14/20 18:00 06/12/20 17:59 03/19/20 05:03 Ondansetron HCl (Zofran) 4 mg Q6H PRN IVP Nausea & Vomiting 03/07/20 08:15 04/06/20 08:14 Sodium 1,000 ml @ 75 mls/hr [id number] IV 03/18/20 15:00 04/17/20 14:59 03/19/20 01:24 Sodium Chloride 1,000 ml @ 500 mls/hr Q2H PRN IVLG sbp<90 during hd 03/15/20 13:30 04/14/20 13:29 Assessment/Plan Assessment/Plan Impression: Covid Pneumonia/possible sepsis Respiratory failure, acute LA - now on HD Hyperkalemia and now with hypokalemia Pancreatitis Urinary tract infection Hypertension toxic metabolic encephalopathy anemia elevated K Plan at risk for intubation permacath needed urgently; no family available Renal for HD O2 high flow BiPAP for now and monitor acid base at risk for intubation follow up ABG still full code continue SDU care impression, plan, and exam edited and reviewed in detail care discussed with Ebenezer Walters MD Mar 19, 2020 12:08
--- NOTE | 2020-03-19 12:41 | Surgery Progress Note ---
Surgery Progress Note Subjective Procedure Performed Right femoral temporary hemodialysis catheter insertion Additional Comments Patient seen and examined bedside. No acute events. Resting comfortably. Labs noted. Exam stable. No complaints at this time. Imaging reviewed micro reviewed afebrile hemodynamic stable Objective Last 24 Hour Vital Signs Date Time Temp Pulse Resp B/P (MAP) Pulse Ox O2 Delivery O2 Flow Rate FiO2 03/19/20 08:00 90 03/19/20 08:00 Bi-pap 90.0 03/19/20 08:00 97.6 74 19 139/75 (96) 95 03/19/20 07:34 66 03/19/20 04:00 97.5 66 22 141/67 (91) 99 03/19/20 04:00 Bi-pap 90.0 03/19/20 04:00 90 03/19/20 03:25 60 03/19/20 03:08 70 18 99 90 03/19/20 00:00 90 03/19/20 00:00 97.9 84 26 134/64 (87) 99 03/19/20 00:00 Bi-pap 90.0 03/18/20 23:13 75 03/18/20 23:11 79 21 98 90 03/18/20 20:13 95 03/18/20 20:00 Bi-pap 90.0 03/18/20 20:00 98.1 97 26 110/61 (77) 100 03/18/20 20:00 90 03/18/20 19:12 98 32 94 90 03/18/20 16:42 129 03/18/20 16:00 98.4 99 24 100/52 (68) 93 03/18/20 16:00 Bi-pap 90.0 03/18/20 16:00 90 03/18/20 15:38 118 19 99 90 03/18/20 13:47 95 120/66 I&O Intake and Output 03/18/20 03/19/20 19:00 07:00 Intake Total 870 ml 870 ml Output Total 350 ml 2300 ml Balance 520 ml -1430 ml Intake IV Total 870 ml 870 ml Output Urine Total 350 ml 300 ml Hemodialysis UF 2000 ml # Bowel Movements 1 Dressing: saturated Cardiovascular: RSR Respiratory: decreased breath sounds Abdomen: soft, non-tender, present bowel sounds, other, non-distended Extremities: no edema, no tenderness, no cyanosis Laboratory Tests Test 03/18/20 13:50 03/19/20 04:36 Arterial Blood pH 7.427 (7.350-7.450) Arterial Blood Partial Pressure CO2 32.4 mmHg (35.0-45.0) L Arterial Blood Partial Pressure O2 62.3 mmHg (75.0-100.0) L Arterial Blood HCO3 20.9 mmol/L (22.0-26.0) L Arterial Blood Oxygen Saturation 90.9 % (95-100) L Arterial Blood Base Excess -2.8 (-2-2) L Ken Test Positive White Blood Count 7.2 K/UL (4.8-10.8) # Red Blood Count 2.74 M/UL (4.70-6.10) L Hemoglobin 8.2 G/DL (14.2-18.0) L Hematocrit 26.1 % (42.0-52.0) L Mean Corpuscular Volume 95 FL (80-99) Mean Corpuscular Hemoglobin 30.0 PG (27.0-31.0) Mean Corpuscular Hemoglobin Concent 31.4 G/DL (32.0-36.0) L Red Cell Distribution Width 18.2 % (11.6-14.8) H Platelet Count 28 K/UL (150-450) L Mean Platelet Volume 10.6 FL (6.5-10.1) H Neutrophils (%) (Auto) % (45.0-75.0) Lymphocytes (%) (Auto) % (20.0-45.0) Monocytes (%) (Auto) % (1.0-10.0) Eosinophils (%) (Auto) % (0.0-3.0) Basophils (%) (Auto) % (0.0-2.0) Differential Total Cells Counted 100 Neutrophils % (Manual) 97 % (45-75) H Lymphocytes % (Manual) 2 % (20-45) L Monocytes % (Manual) 1 % (1-10) Eosinophils % (Manual) 0 % (0-3) Basophils % (Manual) 0 % (0-2) Band Neutrophils 0 % (0-8) Platelet Estimate Decreased L Platelet Morphology Normal Hypochromasia 1+ Anisocytosis 1+ Sodium Level 145 MMOL/L (136-145) Potassium Level 4.2 MMOL/L (3.5-5.1) Chloride Level 109 MMOL/L (98-107) H Carbon Dioxide Level 31 MMOL/L (21-32) Anion Gap 5 mmol/L (5-15) Blood Urea Nitrogen 52 mg/dL (7-18) H Creatinine 2.6 MG/DL (0.55-1.30) H Estimat Glomerular Filtration Rate 24.5 mL/min (>60) Glucose Level 124 MG/DL (74-106) H Calcium Level 7.9 MG/DL (8.5-10.1) L Magnesium Level 2.0 MG/DL (1.8-2.4) Total Bilirubin 1.1 MG/DL (0.2-1.0) H Direct Bilirubin 0.6 MG/DL (0.0-0.3) H Aspartate Amino Transf (AST/SGOT) 71 U/L (15-37) H Alanine Aminotransferase (ALT/SGPT) 33 U/L (12-78) Alkaline Phosphatase 202 U/L (46-116) H Pro-B-Type Natriuretic Peptide 800 pg/mL (0-125) H Total Protein 5.4 G/DL (6.4-8.2) L Albumin 1.9 G/DL (3.4-5.0) L Globulin 3.5 g/dL Albumin/Globulin Ratio 0.5 (1.0-2.7) L Heparin-PF4 Antibody Screen Pending Plan Problems: (1) Hyperkalemia (2) Respiratory distress (3) Pancreatitis Assessment & Plan: noted on admission to have acute pancreatitis etiology work up on way lft's noted mild elevated no n/v labs reviewed exam unreliable as very agitated iv fluids okay for diet trend labs will follow with exam and recs improving (4) Renal failure Assessment & Plan: renal insufficiency fem cath placed okay for hd see note will follow (5) UTI (urinary tract infection) (6) Pneumonia due to COVID-19 virus (7) Dehydration (8) Renal insufficiency (9) Altered level of consciousness (10) Urinary tract bacterial infections Darius Sifuentes Mar 19, 2020 12:41
--- NOTE | 2020-03-19 12:55 | NUR ---
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
--- NOTE | 2020-03-19 13:00 | NUR ---
NURSE NOTES: Dr. Garcia called back and updated him about the platelets (28), and he ordered 3 packs packed platelets.
--- NOTE | 2020-03-19 14:00 | NUR ---
NURSE NOTES: LAB called and said that the protocol for platelet transfusion is if platelet is less than 20. Charge nurse texted Dr. Garcia about this. Awaiting for response.
--- NOTE | 2020-03-19 14:08 | NUR ---
NURSE NOTES: Anam from Radiology called permacath will be done Tuesday,he will bring catheter to hold off platelets
--- NOTE | 2020-03-19 15:51 | Nephrology Progress Note ---
Assessment/Plan Plan ESRD. HD now q TTS. Pt. needs a permaCath. [place] no [place] or [place] [facility] [place]. Subjective Subjective Still SOB. On BIPAP. Objective Objective Last 24 Hour Vital Signs Date Time Temp Pulse Resp B/P (MAP) Pulse Ox O2 Delivery O2 Flow Rate FiO2 03/19/20 12:00 90 03/19/20 12:00 97.7 67 16 148/77 (100) 100 03/19/20 12:00 Bi-pap 90.0 03/19/20 11:48 60 03/19/20 08:00 90 03/19/20 08:00 Bi-pap 90.0 03/19/20 08:00 97.6 74 19 139/75 (96) 95 03/19/20 07:34 66 03/19/20 07:16 76 17 99 90 03/19/20 04:00 97.5 66 22 141/67 (91) 99 03/19/20 04:00 Bi-pap 90.0 03/19/20 04:00 90 03/19/20 03:25 60 03/19/20 03:08 70 18 99 90 03/19/20 00:00 90 03/19/20 00:00 97.9 84 26 134/64 (87) 99 03/19/20 00:00 Bi-pap 90.0 03/18/20 23:13 75 03/18/20 23:11 79 21 98 90 03/18/20 20:13 95 03/18/20 20:00 Bi-pap 90.0 03/18/20 20:00 98.1 97 26 110/61 (77) 100 03/18/20 20:00 90 03/18/20 19:12 98 32 94 90 03/18/20 16:42 129 03/18/20 16:00 98.4 99 24 100/52 (68) 93 03/18/20 16:00 Bi-pap 90.0 03/18/20 16:00 90 Intake and Output 03/18/20 03/19/20 19:00 07:00 Intake Total 870 ml 870 ml Output Total 350 ml 2300 ml Balance 520 ml -1430 ml Intake IV Total 870 ml 870 ml Output Urine Total 350 ml 300 ml Hemodialysis UF 2000 ml # Bowel Movements 1 Laboratory Tests 03/19/20 04:36: White Blood Count 7.2#, Red Blood Count 2.74L, Hemoglobin 8.2L, Hematocrit 26.1L , Mean Corpuscular Volume 95, Mean Corpuscular Hemoglobin 30.0, Mean Corpuscular Hemoglobin Concent 31.4L, Red Cell Distribution Width 18.2H, Platelet Count 28L, Mean Platelet Volume 10.6H, Neutrophils (%) (Auto) , Lymphocytes (%) (Auto) , Monocytes (%) (Auto) , Eosinophils (%) (Auto) , Basophils (%) (Auto) , Differential Total Cells Counted 100, Neutrophils % (Manual) 97H, Lymphocytes % (Manual) 2L, Monocytes % (Manual) 1, Eosinophils % (Manual) 0, Basophils % (Manual) 0, Band Neutrophils 0, Platelet Estimate DecreasedL, Platelet Morphology Normal, Hypochromasia 1+, Anisocytosis 1+, Sodium Level 145, Potassium Level 4.2, Chloride Level 109H, Carbon Dioxide Level 31, Anion Gap 5, Blood Urea Nitrogen 52H, Creatinine 2.6H, Estimat Glomerular Filtration Rate 24.5, Glucose Level 124H, Calcium Level 7.9L, Magnesium Level 2.0, Total Bilirubin 1.1H, Direct Bilirubin 0.6H, Aspartate Amino Transf (AST/SGOT) 71H, Alanine Aminotransferase (ALT/SGPT) 33, Alkaline Phosphatase 202H, Pro-B-Type Natriuretic Peptide 800H, Total Protein 5.4L, Albumin 1.9L, Globulin 3.5, Albumin/Globulin Ratio 0.5L, Heparin-PF4 Antibody Screen [Pending] Height (Feet): 5 Height (Inches): 4.00 Weight (Pounds): 154 Objective On BIPAP CV RR Lungs B wheezes!!!! Abd SNT. BS + E No CCE Greg Garcia MD Mar 19, 2020 15:51
[2020-03-19 16:00] VITALS: BP 144/65
--- NOTE | 2020-03-19 16:37 | Infectious Diseases Prog Note ---
Assessment/Plan Assessment/Plan antibiotics : none A 1. COVID-19 pneumonia. on 90 % FiO2, 94 % saturation s/p remdesivir 2. e.coli UTI s/p rx 3. Pancreatitis 4. respiratory failure, 5. Dementia, 6. Hypertension 7. renal failure P 1. continue solumedrol 2. continue isolation Subjective ROS Limited/Unobtainable: Yes Allergies: Coded Allergies: No Known Allergies (Unverified , 02/04/20) Objective Last 24 Hour Vital Signs Date Time Temp Pulse Resp B/P (MAP) Pulse Ox O2 Delivery O2 Flow Rate FiO2 03/19/20 12:00 90 03/19/20 12:00 97.7 67 16 148/77 (100) 100 03/19/20 12:00 Bi-pap 90.0 03/19/20 11:48 60 03/19/20 08:00 90 03/19/20 08:00 Bi-pap 90.0 03/19/20 08:00 97.6 74 19 139/75 (96) 95 03/19/20 07:34 66 03/19/20 07:16 76 17 99 90 03/19/20 04:00 97.5 66 22 141/67 (91) 99 03/19/20 04:00 Bi-pap 90.0 03/19/20 04:00 90 03/19/20 03:25 60 03/19/20 03:08 70 18 99 90 03/19/20 00:00 90 03/19/20 00:00 97.9 84 26 134/64 (87) 99 03/19/20 00:00 Bi-pap 90.0 03/18/20 23:13 75 03/18/20 23:11 79 21 98 90 03/18/20 20:13 95 03/18/20 20:00 Bi-pap 90.0 03/18/20 20:00 98.1 97 26 110/61 (77) 100 03/18/20 20:00 90 03/18/20 19:12 98 32 94 90 03/18/20 16:42 129 Height (Feet): 5 Height (Inches): 4.00 Weight (Pounds): 154 HEENT: other - on bipap Laboratory Tests Test 03/19/20 04:36 White Blood Count 7.2 K/UL (4.8-10.8) # Red Blood Count 2.74 M/UL (4.70-6.10) L Hemoglobin 8.2 G/DL (14.2-18.0) L Hematocrit 26.1 % (42.0-52.0) L Mean Corpuscular Volume 95 FL (80-99) Mean Corpuscular Hemoglobin 30.0 PG (27.0-31.0) Mean Corpuscular Hemoglobin Concent 31.4 G/DL (32.0-36.0) L Red Cell Distribution Width 18.2 % (11.6-14.8) H Platelet Count 28 K/UL (150-450) L Mean Platelet Volume 10.6 FL (6.5-10.1) H Neutrophils (%) (Auto) % (45.0-75.0) Lymphocytes (%) (Auto) % (20.0-45.0) Monocytes (%) (Auto) % (1.0-10.0) Eosinophils (%) (Auto) % (0.0-3.0) Basophils (%) (Auto) % (0.0-2.0) Differential Total Cells Counted 100 Neutrophils % (Manual) 97 % (45-75) H Lymphocytes % (Manual) 2 % (20-45) L Monocytes % (Manual) 1 % (1-10) Eosinophils % (Manual) 0 % (0-3) Basophils % (Manual) 0 % (0-2) Band Neutrophils 0 % (0-8) Platelet Estimate Decreased L Platelet Morphology Normal Hypochromasia 1+ Anisocytosis 1+ Sodium Level 145 MMOL/L (136-145) Potassium Level 4.2 MMOL/L (3.5-5.1) Chloride Level 109 MMOL/L (98-107) H Carbon Dioxide Level 31 MMOL/L (21-32) Anion Gap 5 mmol/L (5-15) Blood Urea Nitrogen 52 mg/dL (7-18) H Creatinine 2.6 MG/DL (0.55-1.30) H Estimat Glomerular Filtration Rate 24.5 mL/min (>60) Glucose Level 124 MG/DL (74-106) H Calcium Level 7.9 MG/DL (8.5-10.1) L Magnesium Level 2.0 MG/DL (1.8-2.4) Total Bilirubin 1.1 MG/DL (0.2-1.0) H Direct Bilirubin 0.6 MG/DL (0.0-0.3) H Aspartate Amino Transf (AST/SGOT) 71 U/L (15-37) H Alanine Aminotransferase (ALT/SGPT) 33 U/L (12-78) Alkaline Phosphatase 202 U/L (46-116) H Pro-B-Type Natriuretic Peptide 800 pg/mL (0-125) H Total Protein 5.4 G/DL (6.4-8.2) L Albumin 1.9 G/DL (3.4-5.0) L Globulin 3.5 g/dL Albumin/Globulin Ratio 0.5 (1.0-2.7) L Heparin-PF4 Antibody Screen Pending Current Medications Medications (Trade) Dose Ordered Sig/James Route PRN Reason Start Time Stop Time Status Last Admin Dose Admin Acetaminophen (Tylenol) 650 mg Q4H PRN RECTAL Temp >100.5 03/07/20 08:15 04/06/20 08:14 Acetaminophen (Tylenol) 650 mg Q4H PRN RECTAL Mild Pain (Pain Scale 1-3) 03/07/20 09:00 04/06/20 08:59 Albuterol Sulfate (Proventil MDI) 2 puff Q4H PRN INH Shortness of Breath 03/07/20 08:15 06/05/20 08:14 Chlorhexidine Gluconate (Linnette-Hex 2%) 1 applic DAILY@1999 TOPIC 03/09/20 20:00 06/07/20 19:59 03/18/20 20:21 Dextrose (Dextrose 50%) 25 ml Q30M PRN IV Hypoglycemia 03/07/20 08:15 06/05/20 08:14 Dextrose (Dextrose 50%) 50 ml Q30M PRN IV Hypoglycemia 03/07/20 08:15 06/05/20 08:14 03/07/20 11:57 Diltiazem HCl (Cardizem Tab) 30 mg EVERY 6 HOURS GT 03/19/20 12:00 04/18/20 11:59 UNV Epoetin Juan (Epoetin Juan(ESRD on dialysis)) 10,000 unit TUE-TUE-TUE SUBQ 03/19/20 21:00 06/17/20 20:59 Famotidine (Pepcid I.v.) 20 mg DAILY IVP 03/07/20 09:00 04/06/20 08:59 03/19/20 08:17 Methylprednisolone Sodium Succinate (Solu-MEDROL) 40 mg Q12H IVP 03/14/20 18:00 06/12/20 17:59 03/19/20 05:03 Ondansetron HCl (Zofran) 4 mg Q6H PRN IVP Nausea & Vomiting 03/07/20 08:15 04/06/20 08:14 Sodium 1,000 ml @ 75 mls/hr [id number] IV 03/18/20 15:00 04/17/20 14:59 03/19/20 01:24 Sodium Chloride 1,000 ml @ 500 mls/hr Q2H PRN IVLG sbp<90 during hd 03/15/20 13:30 04/14/20 13:29 Brittney Quigley MD Mar 19, 2020 16:37
--- NOTE | 2020-03-19 18:00 | NUR ---
NURSE NOTES: Venous duplex was done. Acute DVT on the right side. Notified Dr. Garcia via text. Awaiting for response.
--- NOTE | 2020-03-19 18:23 | Diagnostic Imaging Report ---
EXAM: US Duplex Bilateral Lower Extremities Veins CLINICAL HISTORY: DVT TECHNIQUE: Real-time duplex ultrasound scan of the bilateral lower extremity veins integrating B-mode two-dimensional vascular structure, Doppler spectral analysis, color flow Doppler imaging and compression. COMPARISON: None. FINDINGS: Right deep veins: Echogenicity with partial compressibility and partial flow within the right common femoral of vein consistent with partially occlusive thrombosis at this level. Remainder of the deep venous structures of the right lower extremity 19 normal compressibility, normal respiratory variation and augmentation. Right superficial veins: Unremarkable. No thrombus in the visualized right great saphenous vein. Left deep veins: Unremarkable. No DVT in the left common femoral, femoral, proximal deep femoral or popliteal veins. The veins demonstrate normal color flow, are normally compressible, with normal phasic flow and/or augmentation response. Left superficial veins: Unremarkable. No thrombus in the visualized left great saphenous vein. Soft tissues: No acute findings. No popliteal cyst. Other findings: Exam was technically difficult to do leg contracture. IMPRESSION: Partially occlusive thrombus within the right common femoral vein. No other sites suspicious for deep venous thrombosis as described.
--- NOTE | 2020-03-19 19:05 | Cardiology Report ---
APPROVED REPORT EXAM: Two-dimensional and M-mode echocardiogram with Doppler and color Doppler. INDICATION Arrhythmia M-Mode DIMENSIONS IVSd1.1 (0.7-1.1cm)Left Atrium (MM)3.3 (1.6-4.0cm) LVDd4.1 (3.5-5.6cm)Aortic Root2.9 (2.0-3.7cm) PWd1.1 (0.7-1.1cm)Aortic Cusp Exc.1.9 (1.5-2.0cm) IVSs1.7 cmEPSS0.4 (>1.0cm) LVDs2.5 (2.5-4.0cm) PWs1.7 cm <Conclusion> Technically difficult study due to pt's breathing with oxygen tube. Normal left ventricular chamber size, systolic function and wall motion. Left ventricular ejection fraction estimated to be 65 %. Small pericardial effusion. Anterior Echo-free space, may be due to pericardial fat or effusion. All other cardiac chamber sizes are within normal limits. Focal aortic valve sclerosis with adequate cusp excursion. Thickened mitral valve leaflets with normal excursion. Mitral annulus and aortic root calcification. Pulmonic valve not well visualized. Normal tricuspid valve structure. IVC at normal size with physiologic collapse. A color flow and spectral Doppler study was performed and revealed: Mild to moderate aortic regurgitation. Trace mitral regurgitation. Mitral diastolic velocities suggest reduced left ventricular relaxation c/w mild diastolic dysfunction (Grade I). Mild tricuspid regurgitation. Tricuspid systolic velocities suggests peak right ventricular systolic pressure of 29 mmHg. Trace pulmonic regurgitation present.
--- NOTE | 2020-03-19 19:34 | NUR ---
NURSE NOTES: Received report from CHERELLE He, Pt is A/O x1 but non verbal. No SOB or acute distress. No pain seen or noted. Pt is tolerating current BIPAP settings 16/6 Fio2 at 90%. Pt is NPO per endorsement. Bed in lowest position and call light within easy reach, bed locked in position with side rails x 2. Pt has Right femoral Arron running 1/2NS+20KCL running at 75cc/hr. Will continue with plan of care.
--- NOTE | 2020-03-19 19:40 | NUR ---
NURSE HAND-OFF REPORT: Important Events on Shift: stable Patient Status: Diet: Pending Orders: Pending Results/Labs: Pending MD notification: Latest Vital Signs: Temperature 97.3 , Pulse 65 , B/P 144 /65 , Respiratory Rate 17 , O2 SAT 100 , Bi-pap, O2 Flow Rate 90.0 . Vital Sign Comment: EKG Rhythm: Sinus Rhythm Rhythm change?: N MD Notified?: Beatriz Go. Response: Order Received& Read Back Latest Conner Fall Score: 70 Fall Risk: High Risk Safety Measures: Call light Within Reach, Bed Alarm Zone 2, Side Rails Side Rails x2, Bed position Low and Locked. Fall Precautions: Yellow Socks Yellow Gown Door Sign Patient Fall Education Report given to CHERELLE Moarn.
--- NOTE | 2020-03-19 19:45 | NUR ---
NURSE NOTES: Paged Dr Galvez regarding dialysis needed for the patient but no order for tomorrow. Awaiting response.
[2020-03-19 20:00] VITALS: BP 137/74
[2020-03-19] MEDS ORDERED: Enoxaparin 60mg Inj SUBQ SCH (20:00)
--- NOTE | 2020-03-19 20:05 | Cardiology Progress Note ---
Subjective DATE OF SERVICE: Mar 19, 2019 Converted back to sinus rhythm yesterday following IV cardizem dose. Remains on bipap support. Venous duplex: partially obstructing fight common femoral DVT Objective Last 24 Hour Vital Signs Date Time Temp Pulse Resp B/P (MAP) Pulse Ox O2 Delivery O2 Flow Rate FiO2 03/19/20 19:25 65 17 100 100 03/19/20 16:00 97.3 66 19 144/65 (91) 98 03/19/20 16:00 90 03/19/20 16:00 Bi-pap 90.0 03/19/20 15:21 67 03/19/20 15:20 72 28 96 100 03/19/20 12:00 90 03/19/20 12:00 97.7 67 16 148/77 (100) 100 03/19/20 12:00 Bi-pap 90.0 03/19/20 11:48 60 03/19/20 10:48 86 19 98 90 03/19/20 08:00 90 03/19/20 08:00 Bi-pap 90.0 03/19/20 08:00 97.6 74 19 139/75 (96) 95 03/19/20 07:34 66 03/19/20 07:16 76 17 99 90 03/19/20 04:00 97.5 66 22 141/67 (91) 99 03/19/20 04:00 Bi-pap 90.0 03/19/20 04:00 90 03/19/20 03:25 60 03/19/20 03:08 70 18 99 90 03/19/20 00:00 90 03/19/20 00:00 97.9 84 26 134/64 (87) 99 03/19/20 00:00 Bi-pap 90.0 03/18/20 23:13 75 03/18/20 23:11 79 21 98 90 03/18/20 20:13 95 03/18/20 20:00 Bi-pap 90.0 03/18/20 20:00 98.1 97 26 110/61 (77) 100 03/18/20 20:00 90 ROS: unchanged from 03/18/20 HEENT: other - bipap RHYTHM: NSR, PACs LUNGS: bilat. rhonchi and rales CARDIAC: normal rate, regular rhythm, normal S1 and S2 ABDOMEN: normal bowel sounds, non tender EXTREMITIES: trace edema Laboratory Tests Test 03/19/20 04:36 White Blood Count 7.2 K/UL (4.8-10.8) # Red Blood Count 2.74 M/UL (4.70-6.10) L Hemoglobin 8.2 G/DL (14.2-18.0) L Hematocrit 26.1 % (42.0-52.0) L Mean Corpuscular Volume 95 FL (80-99) Mean Corpuscular Hemoglobin 30.0 PG (27.0-31.0) Mean Corpuscular Hemoglobin Concent 31.4 G/DL (32.0-36.0) L Red Cell Distribution Width 18.2 % (11.6-14.8) H Platelet Count 28 K/UL (150-450) L Mean Platelet Volume 10.6 FL (6.5-10.1) H Neutrophils (%) (Auto) % (45.0-75.0) Lymphocytes (%) (Auto) % (20.0-45.0) Monocytes (%) (Auto) % (1.0-10.0) Eosinophils (%) (Auto) % (0.0-3.0) Basophils (%) (Auto) % (0.0-2.0) Differential Total Cells Counted 100 Neutrophils % (Manual) 97 % (45-75) H Lymphocytes % (Manual) 2 % (20-45) L Monocytes % (Manual) 1 % (1-10) Eosinophils % (Manual) 0 % (0-3) Basophils % (Manual) 0 % (0-2) Band Neutrophils 0 % (0-8) Platelet Estimate Decreased L Platelet Morphology Normal Hypochromasia 1+ Anisocytosis 1+ Sodium Level 145 MMOL/L (136-145) Potassium Level 4.2 MMOL/L (3.5-5.1) Chloride Level 109 MMOL/L (98-107) H Carbon Dioxide Level 31 MMOL/L (21-32) Anion Gap 5 mmol/L (5-15) Blood Urea Nitrogen 52 mg/dL (7-18) H Creatinine 2.6 MG/DL (0.55-1.30) H Estimat Glomerular Filtration Rate 24.5 mL/min (>60) Glucose Level 124 MG/DL (74-106) H Calcium Level 7.9 MG/DL (8.5-10.1) L Magnesium Level 2.0 MG/DL (1.8-2.4) Total Bilirubin 1.1 MG/DL (0.2-1.0) H Direct Bilirubin 0.6 MG/DL (0.0-0.3) H Aspartate Amino Transf (AST/SGOT) 71 U/L (15-37) H Alanine Aminotransferase (ALT/SGPT) 33 U/L (12-78) Alkaline Phosphatase 202 U/L (46-116) H Pro-B-Type Natriuretic Peptide 800 pg/mL (0-125) H Total Protein 5.4 G/DL (6.4-8.2) L Albumin 1.9 G/DL (3.4-5.0) L Globulin 3.5 g/dL Albumin/Globulin Ratio 0.5 (1.0-2.7) L Heparin-PF4 Antibody Screen Pending Assessment/Plan Assessment/Plan Non-occlusive DVT Paroxysmal Atrial Fibrillation Acute coronary insuff Covid 19 PNA Acute hypoxic respiratory failure Anemia Ac/chronic diastolic CHF Ac/chronic renal failure Thrombocytopenia Lovenox resumed with caution; watch plt ct Wean off bipap as able Periodic diuresis; trend BNP Steroids per pulmonary Unable to give oral diltiazem at present; will give IVP prn for rapid atrial arrhythmias. Cristopher Ingram MD Mar 19, 2020 20:05
[2020-03-19] MEDS: Dyna-Hex 2% Top Sol 2oz TOPIC SCH (20:21)
--- NOTE | 2020-03-19 20:24 | NUR ---
NURSE NOTES: Notified Dr. Ingram regarding pt having a Cardizem tablet and failing the swallow evaluation with no NG or Gtube and also the pt having platelets of 28 and the Lovenox order. Awaiting response.
--- NOTE | 2020-03-19 20:45 | NUR ---
NURSE NOTES: Dr. Ingram changed Lovenox order to 40mg from 60mg and informed to give.
[2020-03-19] MEDS: Epoetin Alfa-EPBX(ESRD on dialysis)10,000 unit/ml vial SUBQ SCH (21:01)
[2020-03-19] MEDS: Enoxaparin 40mg Inj SUBQ SCH (21:03)
[2020-03-20] VITALS: BP 130/70
[2020-03-20] MEDS ORDERED: dilTIAZem HCl 30mg tab NG SCH
--- NOTE | 2020-03-20 | NUR ---
NURSE NOTES: Pt turned every 2 hours and oral tried to preform but pt refused to open his mouth. Linens changed with 4 blankets applied with temp staying low but stable.
[2020-03-20 04:00] VITALS: BP 134/72
[2020-03-20] MEDS: Solu-MEDROL 40mg Inj IVP SCH ×2 (06:00→17:14)
[2020-03-20] MEDS: 1/2NS w/KCl 20mEq 1000ml 1,000 ML IV SCH ×2 (06:49→20:07)
[2020-03-20 06:58] LABS: HEMATOCRIT 29.9 % (42.0-52.0); HEMOGLOBIN 9.2 G/DL (14.2-18.0); MEAN CORPUSCULAR VOLUME 98 FL (80-99); PLATELET COUNT 38 K/UL (150-450); RED BLOOD COUNT 3.04 M/UL (4.70-6.10); RED CELL DISTRIBUTION WIDTH 18.5 % (11.6-14.8)
--- NOTE | 2020-03-20 07:32 | NUR ---
NURSE HAND-OFF REPORT: Important Events on Shift: Platelets low ar 28 but lovenox given as orderd. Permacath scheduled on 03/21. Dailysis needed to be ordered. Patient Status: Stable Diet: NPO Pending Orders: Pending Results/Labs: Pending MD notification: Latest Vital Signs: Temperature 96.4 , Pulse 72 , B/P 134 /72 , Respiratory Rate 18 , O2 SAT 97 , Bi-pap, O2 Flow Rate 90.0 . Vital Sign Comment: EKG Rhythm: Sinus Rhythm Rhythm change?: N MD Notified?: Beatriz Go. Response: Order Received& Read Back Latest Conner Fall Score: 70 Fall Risk: High Risk Safety Measures: Call light Within Reach, Bed Alarm Zone 2, Side Rails Side Rails x2, Bed position Low and Locked. Fall Precautions: Yellow Socks Yellow Gown Door Sign Patient Fall Education Report given to Mai.
--- NOTE | 2020-03-20 07:33 | NUR ---
NURSE NOTES: Received patient in bed asleep. Bilateral soft wrist restraints no, peripheral pulses palpable, no skin issues noted on site. Condom catheter in place draining dark yellow urine. Arron catheter intact, dressing clean. Bipap in place, no acute distress. Removed SCD's. HOB elevated. Bed locked in low position. Call light within reach. Will continue plan of care.
[2020-03-20 07:47] LABS: ALBUMIN 1.8 G/DL (3.4-5.0); ALBUMIN/GLOBULIN RATIO 0.5 (1.0-2.7); BILIRUBIN,TOTAL 0.9 MG/DL (0.2-1.0); CALCIUM 8.2 MG/DL (8.5-10.1); CREATININE 2.9 MG/DL (0.55-1.30); POTASSIUM 4.9 MMOL/L (3.5-5.1)
[2020-03-20 07:59] VITALS: BP 112/71
--- NOTE | 2020-03-20 08:29 | Pulmonology Progress Note ---
Subjective ROS Limited/Unobtainable: Yes Constitutional: Denies: fever Allergies: Coded Allergies: No Known Allergies (Unverified , 02/04/20) All Systems: reviewed and negative except above Subjective care noted remains on BIPAP- still on high oxygen stool OB + low HH needs permacath Objective Last 24 Hour Vital Signs Date Time Temp Pulse Resp B/P (MAP) Pulse Ox O2 Delivery O2 Flow Rate FiO2 03/20/20 07:59 97.0 65 17 112/71 (85) 100 03/20/20 04:00 Bi-pap 90.0 03/20/20 04:00 90 03/20/20 04:00 64 03/20/20 04:00 96.4 72 18 134/72 (92) 97 03/20/20 01:19 59 14 100 90 03/20/20 00:00 63 03/20/20 00:00 Bi-pap 90.0 03/20/20 00:00 96.1 65 13 130/70 (90) 100 03/19/20 20:00 Bi-pap 90.0 03/19/20 20:00 97.0 69 16 137/74 (95) 97 03/19/20 20:00 90 03/19/20 19:25 65 17 100 100 03/19/20 19:06 59 03/19/20 16:00 97.3 66 19 144/65 (91) 98 03/19/20 16:00 90 03/19/20 16:00 Bi-pap 90.0 03/19/20 15:21 67 03/19/20 15:20 72 28 96 100 03/19/20 12:00 90 03/19/20 12:00 97.7 67 16 148/77 (100) 100 03/19/20 12:00 Bi-pap 90.0 03/19/20 11:48 60 03/19/20 10:48 86 19 98 90 Intake and Output 03/19/20 03/20/20 19:00 07:00 Intake Total 600 ml Output Total 250 ml 125 ml Balance 350 ml -125 ml Intake IV Total 600 ml Output Urine Total 250 ml 125 ml # Bowel Movements 2 Objective deferred due to COVID Laboratory Tests 03/20/20 05:20: White Blood Count 9.0, Red Blood Count 3.04L, Hemoglobin 9.2L, Hematocrit 29.9L, Mean Corpuscular Volume 98, Mean Corpuscular Hemoglobin 30.1, Mean Corpuscular Hemoglobin Concent 30.7L, Red Cell Distribution Width 18.5H, Platelet Count 38L, Mean Platelet Volume 10.6H, Neutrophils (%) (Auto) , Lymphocytes (%) (Auto) , Monocytes (%) (Auto) , Eosinophils (%) (Auto) , Basophils (%) (Auto) , Neutrophils % (Manual) [Pending], Lymphocytes % (Manual) [Pending], Platelet Estimate [Pending], Platelet Morphology [Pending], Sodium Level 144, Potassium Level 4.9, Chloride Level 110H, Carbon Dioxide Level 25, Anion Gap 9, Blood Urea Nitrogen 79H, Creatinine 2.9H, Estimat Glomerular Filtration Rate 21.6, Glucose Level 120H, Calcium Level 8.2L, Total Bilirubin 0.9, Aspartate Amino Transf (AST/SGOT) 39H, Alanine Aminotransferase (ALT/SGPT) 32, Alkaline Phosphatase 192H, Total Protein 5.5L, Albumin 1.8L, Globulin 3.7, Albumin/Globulin Ratio 0.5L Current Medications Medications (Trade) Dose Ordered Sig/James Route PRN Reason Start Time Stop Time Status Last Admin Dose Admin Acetaminophen (Tylenol) 650 mg Q4H PRN RECTAL Temp >100.5 03/07/20 08:15 04/06/20 08:14 Acetaminophen (Tylenol) 650 mg Q4H PRN RECTAL Mild Pain (Pain Scale 1-3) 03/07/20 09:00 04/06/20 08:59 Albuterol Sulfate (Proventil MDI) 2 puff Q4H PRN INH Shortness of Breath 03/07/20 08:15 06/05/20 08:14 Chlorhexidine Gluconate (Linnette-Hex 2%) 1 applic DAILY@1999 TOPIC 03/09/20 20:00 06/07/20 19:59 03/19/20 20:21 Dextrose (Dextrose 50%) 25 ml Q30M PRN IV Hypoglycemia 03/07/20 08:15 06/05/20 08:14 Dextrose (Dextrose 50%) 50 ml Q30M PRN IV Hypoglycemia 03/07/20 08:15 06/05/20 08:14 03/07/20 11:57 Enoxaparin Sodium (Lovenox) 40 mg Q24H SUBQ 03/19/20 21:00 06/17/20 20:59 03/19/20 21:03 Epoetin Juan (Epoetin Juan(ESRD on dialysis)) 10,000 unit TUE-TUE-TUE SUBQ 03/19/20 21:00 06/17/20 20:59 03/19/20 21:01 Famotidine (Pepcid I.v.) 20 mg DAILY IVP 03/07/20 09:00 04/06/20 08:59 03/19/20 08:17 Methylprednisolone Sodium Succinate (Solu-MEDROL) 40 mg Q12H IVP 03/14/20 18:00 06/12/20 17:59 03/20/20 06:00 Ondansetron HCl (Zofran) 4 mg Q6H PRN IVP Nausea & Vomiting 03/07/20 08:15 04/06/20 08:14 Sodium 1,000 ml @ 75 mls/hr [id number] IV 03/18/20 15:00 04/17/20 14:59 03/20/20 06:49 Sodium Chloride 1,000 ml @ 500 mls/hr Q2H PRN IVLG sbp<90 during hd 03/15/20 13:30 04/14/20 13:29 Assessment/Plan Assessment/Plan Impression: Covid Pneumonia/possible sepsis Respiratory failure, acute LA - now on HD Hyperkalemia and now with hypokalemia Pancreatitis Urinary tract infection Hypertension toxic metabolic encephalopathy anemia elevated K DVT Plan at risk for intubation permacath needed urgently; no family available Renal for HD O2 high flow BiPAP for now and monitor acid base at risk for intubation follow up ABG still full code continue SDU care on lovenox 40 bid; may switch to eliquis needs GT feeds; will call gi impression, plan, and exam edited and reviewed in detail care discussed with Ebenezer Walters MD Mar 20, 2020 08:29
--- NOTE | 2020-03-20 09:07 | General Progress Note ---
Subjective ROS Limited/Unobtainable: No Constitutional: Reports: malaise, weakness HEENT: Reports: no symptoms Cardiovascular: Reports: no symptoms Respiratory: Reports: shortness of breath Gastrointestinal/Abdominal: Reports: difficulty swallowing Genitourinary: Reports: no symptoms Neurologic/Psychiatric: Reports: no symptoms Endocrine: Reports: no symptoms Hematologic/Lymphatic: Reports: anemia Allergies: Coded Allergies: No Known Allergies (Unverified , 02/04/20) All Systems: reviewed and negative except above Subjective no change. remains on bipap. +dvt. low plts and +stool ob. Hit ab pending. unable to tolerate po. Objective Last 24 Hour Vital Signs Date Time Temp Pulse Resp B/P (MAP) Pulse Ox O2 Delivery O2 Flow Rate FiO2 03/20/20 07:59 97.0 65 17 112/71 (85) 100 03/20/20 04:00 Bi-pap 90.0 03/20/20 04:00 90 03/20/20 04:00 64 03/20/20 04:00 96.4 72 18 134/72 (92) 97 03/20/20 01:19 59 14 100 90 03/20/20 00:00 63 03/20/20 00:00 Bi-pap 90.0 03/20/20 00:00 96.1 65 13 130/70 (90) 100 03/19/20 20:00 Bi-pap 90.0 03/19/20 20:00 97.0 69 16 137/74 (95) 97 03/19/20 20:00 90 03/19/20 19:25 65 17 100 100 03/19/20 19:06 59 03/19/20 16:00 97.3 66 19 144/65 (91) 98 03/19/20 16:00 90 03/19/20 16:00 Bi-pap 90.0 03/19/20 15:21 67 03/19/20 15:20 72 28 96 100 03/19/20 12:00 90 03/19/20 12:00 97.7 67 16 148/77 (100) 100 03/19/20 12:00 Bi-pap 90.0 03/19/20 11:48 60 03/19/20 10:48 86 19 98 90 Intake and Output 03/19/20 03/20/20 18:59 06:59 Intake Total 675 ml Output Total 250 ml 125 ml Balance 425 ml -125 ml Intake IV Total 675 ml Output Urine Total 250 ml 125 ml # Bowel Movements 2 Laboratory Tests 03/20/20 05:20: White Blood Count 9.0, Red Blood Count 3.04L, Hemoglobin 9.2L, Hematocrit 29.9L, Mean Corpuscular Volume 98, Mean Corpuscular Hemoglobin 30.1, Mean Corpuscular Hemoglobin Concent 30.7L, Red Cell Distribution Width 18.5H, Platelet Count 38L, Mean Platelet Volume 10.6H, Neutrophils (%) (Auto) , Lymphocytes (%) (Auto) , Monocytes (%) (Auto) , Eosinophils (%) (Auto) , Basophils (%) (Auto) , Neutrophils % (Manual) [Pending], Lymphocytes % (Manual) [Pending], Platelet Estimate [Pending], Platelet Morphology [Pending], Sodium Level 144, Potassium Level 4.9, Chloride Level 110H, Carbon Dioxide Level 25, Anion Gap 9, Blood Urea Nitrogen 79H, Creatinine 2.9H, Estimat Glomerular Filtration Rate 21.6, Glucose Level 120H, Calcium Level 8.2L, Total Bilirubin 0.9, Aspartate Amino Transf (AST/SGOT) 39H, Alanine Aminotransferase (ALT/SGPT) 32, Alkaline Phosphatase 192H, Total Protein 5.5L, Albumin 1.8L, Globulin 3.7, Albumin/Globulin Ratio 0.5L Height (Feet): 5 Height (Inches): 4.00 Weight (Pounds): 154 Objective General Appearance: WD/WN, confused Neck: supple Cardiovascular: regular rhythm Respiratory/Chest: lungs clear Abdomen: normal bowel sounds, non tender, soft, no organomegaly Edema: no edema noted Leg (L), no edema noted Leg (R) Neurologic: disoriented Assessment/Plan Problem List: (1) Altered level of consciousness ICD Codes: R40.4 - Transient alteration of awareness SNOMED: 3078897 (2) Pneumonia due to COVID-19 virus ICD Codes: U07.1 - COVID-19; J12.89 - Other viral pneumonia SNOMED: 058081258726861561 (3) Renal failure ICD Codes: N19 - Unspecified kidney failure SNOMED: 99037638 (4) Respiratory distress ICD Codes: R06.03 - Acute respiratory distress SNOMED: 449825402 Status: stable, not improved Assessment/Plan: cont bipap wean as able steroids resp care cautious hydration pos when able lovenox with caution- low plts and stool ob. May need ivc fillter consider heme eval re: low plts check ddimer and fibrinogen check hitab HD per renal Doug Garcia MD Mar 20, 2020 09:07
--- NOTE | 2020-03-20 09:37 | Infectious Diseases Prog Note ---
Assessment/Plan Assessment/Plan IMPRESSION: COVID-19 pneumonia. UTI with E.coli Pancreatitis Hypoxic respiratory failure, Altered mental status, encephalopathy, Dementia, Hypertension. Anemia ESRD started on HD Leukocytosis RECOMMENDATIONS: Continue Solumedrol Continue isolation Subjective ROS Limited/Unobtainable: Yes Constitutional: Denies: fever Neurologic: Reports: confusion, other - on restraint Allergies: Coded Allergies: No Known Allergies (Unverified , 02/04/20) Objective Last 24 Hour Vital Signs Date Time Temp Pulse Resp B/P (MAP) Pulse Ox O2 Delivery O2 Flow Rate FiO2 03/20/20 07:59 97.0 65 17 112/71 (85) 100 03/20/20 04:00 Bi-pap 90.0 03/20/20 04:00 90 03/20/20 04:00 64 03/20/20 04:00 96.4 72 18 134/72 (92) 97 03/20/20 01:19 59 14 100 90 03/20/20 00:00 63 03/20/20 00:00 Bi-pap 90.0 03/20/20 00:00 96.1 65 13 130/70 (90) 100 03/19/20 20:00 Bi-pap 90.0 03/19/20 20:00 97.0 69 16 137/74 (95) 97 03/19/20 20:00 90 03/19/20 19:25 65 17 100 100 03/19/20 19:06 59 03/19/20 16:00 97.3 66 19 144/65 (91) 98 03/19/20 16:00 90 03/19/20 16:00 Bi-pap 90.0 03/19/20 15:21 67 03/19/20 15:20 72 28 96 100 03/19/20 12:00 90 03/19/20 12:00 97.7 67 16 148/77 (100) 100 03/19/20 12:00 Bi-pap 90.0 03/19/20 11:48 60 03/19/20 10:48 86 19 98 90 Height (Feet): 5 Height (Inches): 4.00 Weight (Pounds): 154 HEENT: mucous membranes moist Respiratory/Chest: other - on BIPAP Cardiovascular: normal rate Abdomen: soft, non tender Neurologic/Psychiatric: disoriented, other - lethargic Laboratory Tests Test 03/20/20 05:20 White Blood Count 9.0 K/UL (4.8-10.8) Red Blood Count 3.04 M/UL (4.70-6.10) L Hemoglobin 9.2 G/DL (14.2-18.0) L Hematocrit 29.9 % (42.0-52.0) L Mean Corpuscular Volume 98 FL (80-99) Mean Corpuscular Hemoglobin 30.1 PG (27.0-31.0) Mean Corpuscular Hemoglobin Concent 30.7 G/DL (32.0-36.0) L Red Cell Distribution Width 18.5 % (11.6-14.8) H Platelet Count 38 K/UL (150-450) L Mean Platelet Volume 10.6 FL (6.5-10.1) H Neutrophils (%) (Auto) % (45.0-75.0) Lymphocytes (%) (Auto) % (20.0-45.0) Monocytes (%) (Auto) % (1.0-10.0) Eosinophils (%) (Auto) % (0.0-3.0) Basophils (%) (Auto) % (0.0-2.0) Neutrophils % (Manual) Pending Lymphocytes % (Manual) Pending Platelet Estimate Pending Platelet Morphology Pending Sodium Level 144 MMOL/L (136-145) Potassium Level 4.9 MMOL/L (3.5-5.1) Chloride Level 110 MMOL/L (98-107) H Carbon Dioxide Level 25 MMOL/L (21-32) Anion Gap 9 mmol/L (5-15) Blood Urea Nitrogen 79 mg/dL (7-18) H Creatinine 2.9 MG/DL (0.55-1.30) H Estimat Glomerular Filtration Rate 21.6 mL/min (>60) Glucose Level 120 MG/DL (74-106) H Calcium Level 8.2 MG/DL (8.5-10.1) L Total Bilirubin 0.9 MG/DL (0.2-1.0) Aspartate Amino Transf (AST/SGOT) 39 U/L (15-37) H Alanine Aminotransferase (ALT/SGPT) 32 U/L (12-78) Alkaline Phosphatase 192 U/L (46-116) H Total Protein 5.5 G/DL (6.4-8.2) L Albumin 1.8 G/DL (3.4-5.0) L Globulin 3.7 g/dL Albumin/Globulin Ratio 0.5 (1.0-2.7) L Current Medications Medications (Trade) Dose Ordered Sig/James Route PRN Reason Start Time Stop Time Status Last Admin Dose Admin Acetaminophen (Tylenol) 650 mg Q4H PRN RECTAL Temp >100.5 03/07/20 08:15 04/06/20 08:14 Acetaminophen (Tylenol) 650 mg Q4H PRN RECTAL Mild Pain (Pain Scale 1-3) 03/07/20 09:00 04/06/20 08:59 Albuterol Sulfate (Proventil MDI) 2 puff Q4H PRN INH Shortness of Breath 03/07/20 08:15 06/05/20 08:14 Chlorhexidine Gluconate (Linnette-Hex 2%) 1 applic DAILY@2000 TOPIC 03/09/20 20:00 06/07/20 19:59 03/19/20 20:21 Dextrose (Dextrose 50%) 25 ml Q30M PRN IV Hypoglycemia 03/07/20 08:15 06/05/20 08:14 Dextrose (Dextrose 50%) 50 ml Q30M PRN IV Hypoglycemia 03/07/20 08:15 06/05/20 08:14 03/07/20 11:57 Enoxaparin Sodium (Lovenox) 40 mg Q24H SUBQ 03/19/20 21:00 06/17/20 20:59 03/19/20 21:03 Epoetin Jaun (Epoetin Juan(ESRD on dialysis)) 10,000 unit TUE-TUE-TUE SUBQ 03/19/20 21:00 06/17/20 20:59 03/19/20 21:01 Famotidine (Pepcid I.v.) 20 mg DAILY IVP 03/07/20 09:00 04/06/20 08:59 03/19/20 08:17 Methylprednisolone Sodium Succinate (Solu-MEDROL) 40 mg Q12H IVP 03/14/20 18:00 06/12/20 17:59 03/20/20 06:00 Ondansetron HCl (Zofran) 4 mg Q6H PRN IVP Nausea & Vomiting 03/07/20 08:15 04/06/20 08:14 Sodium 1,000 ml @ 75 mls/hr [id number] IV 03/18/20 15:00 04/17/20 14:59 03/20/20 06:49 Sodium Chloride 1,000 ml @ 500 mls/hr Q2H PRN IVLG sbp<90 during hd 03/15/20 13:30 04/14/20 13:29 Joe Nguyen MD Mar 20, 2020 09:37
[2020-03-20 11:15] LABS: INR 1.1 (0.9-1.1)
--- NOTE | 2020-03-20 11:54 | Cardiology Progress Note ---
Subjective DATE OF SERVICE: Mar 20, 2020 Remains in sinus rhythm following IV cardizem dose. Remains on bipap support. Venous duplex: partially obstructing fight common femoral DVT Objective Last 24 Hour Vital Signs Date Time Temp Pulse Resp B/P (MAP) Pulse Ox O2 Delivery O2 Flow Rate FiO2 03/20/20 07:59 97.0 65 17 112/71 (85) 100 03/20/20 07:46 64 03/20/20 07:30 63 16 100 90 03/20/20 04:00 Bi-pap 90.0 03/20/20 04:00 90 03/20/20 04:00 64 03/20/20 04:00 96.4 72 18 134/72 (92) 97 03/20/20 01:19 59 14 100 90 03/20/20 00:00 63 03/20/20 00:00 Bi-pap 90.0 03/20/20 00:00 96.1 65 13 130/70 (90) 100 03/19/20 20:00 Bi-pap 90.0 03/19/20 20:00 97.0 69 16 137/74 (95) 97 03/19/20 20:00 90 03/19/20 19:25 65 17 100 100 03/19/20 19:06 59 03/19/20 16:00 97.3 66 19 144/65 (91) 98 03/19/20 16:00 90 03/19/20 16:00 Bi-pap 90.0 03/19/20 15:21 67 03/19/20 15:20 72 28 96 100 03/19/20 12:00 90 03/19/20 12:00 97.7 67 16 148/77 (100) 100 03/19/20 12:00 Bi-pap 90.0 ROS: unchanged from 03/18/20 HEENT: other - bipap RHYTHM: NSR, PACs LUNGS: bilat. rhonchi and rales CARDIAC: normal rate, regular rhythm, normal S1 and S2 ABDOMEN: normal bowel sounds, non tender EXTREMITIES: trace edema Laboratory Tests Test 03/20/20 05:20 03/20/20 10:40 White Blood Count 9.0 K/UL (4.8-10.8) Red Blood Count 3.04 M/UL (4.70-6.10) L Hemoglobin 9.2 G/DL (14.2-18.0) L Hematocrit 29.9 % (42.0-52.0) L Mean Corpuscular Volume 98 FL (80-99) Mean Corpuscular Hemoglobin 30.1 PG (27.0-31.0) Mean Corpuscular Hemoglobin Concent 30.7 G/DL (32.0-36.0) L Red Cell Distribution Width 18.5 % (11.6-14.8) H Platelet Count 38 K/UL (150-450) L Mean Platelet Volume 10.6 FL (6.5-10.1) H Neutrophils (%) (Auto) % (45.0-75.0) Lymphocytes (%) (Auto) % (20.0-45.0) Monocytes (%) (Auto) % (1.0-10.0) Eosinophils (%) (Auto) % (0.0-3.0) Basophils (%) (Auto) % (0.0-2.0) Neutrophils % (Manual) Pending Lymphocytes % (Manual) Pending Platelet Estimate Pending Platelet Morphology Pending Sodium Level 144 MMOL/L (136-145) Potassium Level 4.9 MMOL/L (3.5-5.1) Chloride Level 110 MMOL/L (98-107) H Carbon Dioxide Level 25 MMOL/L (21-32) Anion Gap 9 mmol/L (5-15) Blood Urea Nitrogen 79 mg/dL (7-18) H Creatinine 2.9 MG/DL (0.55-1.30) H Estimat Glomerular Filtration Rate 21.6 mL/min (>60) Glucose Level 120 MG/DL (74-106) H Calcium Level 8.2 MG/DL (8.5-10.1) L Total Bilirubin 0.9 MG/DL (0.2-1.0) Aspartate Amino Transf (AST/SGOT) 39 U/L (15-37) H Alanine Aminotransferase (ALT/SGPT) 32 U/L (12-78) Alkaline Phosphatase 192 U/L (46-116) H Total Protein 5.5 G/DL (6.4-8.2) L Albumin 1.8 G/DL (3.4-5.0) L Globulin 3.7 g/dL Albumin/Globulin Ratio 0.5 (1.0-2.7) L Prothrombin Time 11.7 SEC (9.30-11.50) H Prothromb Time International Ratio 1.1 (0.9-1.1) Activated Partial Thromboplast Time 28 SEC (23-33) Fibrinogen Pending D-Dimer Pending Assessment/Plan Assessment/Plan Non-occlusive DVT Paroxysmal Atrial Fibrillation Acute coronary insuff Covid 19 PNA Acute hypoxic respiratory failure Anemia Ac/chronic diastolic CHF Ac/chronic renal failure on hemodialysis Thrombocytopenia improved over past day Dysphagia Lovenox resumed with caution; watch plt ct Wean off bipap as able Periodic diuresis; trend BNP Steroids per pulmonary Unable to give oral diltiazem at present; will give IVP prn for rapid atrial arrhythmias. PermCath planned per renal Cristopher Ingram MD Mar 20, 2020 11:54
[2020-03-20 12:00] VITALS: BP 136/71
--- NOTE | 2020-03-20 12:07 | Surgery Progress Note ---
Surgery Progress Note Subjective Procedure Performed Right femoral temporary hemodialysis catheter insertion Additional Comments leukocytosis resolved h/h stable lft's improved no n/v comfortable Objective Last 24 Hour Vital Signs Date Time Temp Pulse Resp B/P (MAP) Pulse Ox O2 Delivery O2 Flow Rate FiO2 03/20/20 07:59 97.0 65 17 112/71 (85) 100 03/20/20 07:46 64 03/20/20 07:30 63 16 100 90 03/20/20 04:00 Bi-pap 90.0 03/20/20 04:00 90 03/20/20 04:00 64 03/20/20 04:00 96.4 72 18 134/72 (92) 97 03/20/20 01:19 59 14 100 90 03/20/20 00:00 63 03/20/20 00:00 Bi-pap 90.0 03/20/20 00:00 96.1 65 13 130/70 (90) 100 03/19/20 20:00 Bi-pap 90.0 03/19/20 20:00 97.0 69 16 137/74 (95) 97 03/19/20 20:00 90 03/19/20 19:25 65 17 100 100 03/19/20 19:06 59 03/19/20 16:00 97.3 66 19 144/65 (91) 98 03/19/20 16:00 90 03/19/20 16:00 Bi-pap 90.0 03/19/20 15:21 67 03/19/20 15:20 72 28 96 100 I&O Intake and Output 03/19/20 03/20/20 19:00 07:00 Intake Total 600 ml Output Total 250 ml 125 ml Balance 350 ml -125 ml Intake IV Total 600 ml Output Urine Total 250 ml 125 ml # Bowel Movements 2 Dressing: saturated Cardiovascular: RSR Respiratory: decreased breath sounds Abdomen: soft, non-tender, present bowel sounds, non-distended Extremities: no edema, no tenderness, no cyanosis Laboratory Tests Test 03/20/20 05:20 03/20/20 10:40 White Blood Count 9.0 K/UL (4.8-10.8) Red Blood Count 3.04 M/UL (4.70-6.10) L Hemoglobin 9.2 G/DL (14.2-18.0) L Hematocrit 29.9 % (42.0-52.0) L Mean Corpuscular Volume 98 FL (80-99) Mean Corpuscular Hemoglobin 30.1 PG (27.0-31.0) Mean Corpuscular Hemoglobin Concent 30.7 G/DL (32.0-36.0) L Red Cell Distribution Width 18.5 % (11.6-14.8) H Platelet Count 38 K/UL (150-450) L Mean Platelet Volume 10.6 FL (6.5-10.1) H Neutrophils (%) (Auto) % (45.0-75.0) Lymphocytes (%) (Auto) % (20.0-45.0) Monocytes (%) (Auto) % (1.0-10.0) Eosinophils (%) (Auto) % (0.0-3.0) Basophils (%) (Auto) % (0.0-2.0) Neutrophils % (Manual) Pending Lymphocytes % (Manual) Pending Platelet Estimate Pending Platelet Morphology Pending Sodium Level 144 MMOL/L (136-145) Potassium Level 4.9 MMOL/L (3.5-5.1) Chloride Level 110 MMOL/L (98-107) H Carbon Dioxide Level 25 MMOL/L (21-32) Anion Gap 9 mmol/L (5-15) Blood Urea Nitrogen 79 mg/dL (7-18) H Creatinine 2.9 MG/DL (0.55-1.30) H Estimat Glomerular Filtration Rate 21.6 mL/min (>60) Glucose Level 120 MG/DL (74-106) H Calcium Level 8.2 MG/DL (8.5-10.1) L Total Bilirubin 0.9 MG/DL (0.2-1.0) Aspartate Amino Transf (AST/SGOT) 39 U/L (15-37) H Alanine Aminotransferase (ALT/SGPT) 32 U/L (12-78) Alkaline Phosphatase 192 U/L (46-116) H Total Protein 5.5 G/DL (6.4-8.2) L Albumin 1.8 G/DL (3.4-5.0) L Globulin 3.7 g/dL Albumin/Globulin Ratio 0.5 (1.0-2.7) L Prothrombin Time 11.7 SEC (9.30-11.50) H Prothromb Time International Ratio 1.1 (0.9-1.1) Activated Partial Thromboplast Time 28 SEC (23-33) Fibrinogen Pending D-Dimer Pending Plan Problems: (1) Hyperkalemia (2) Respiratory distress (3) Pancreatitis Assessment & Plan: noted on admission to have acute pancreatitis etiology work up on way lft's noted mild elevated no n/v labs reviewed exam unreliable as very agitated iv fluids okay for diet trend labs will follow with exam and recs improving resolved lf't s improving no n/v okay diet (4) Renal failure Assessment & Plan: renal insufficiency fem cath placed okay for hd see note will follow (5) UTI (urinary tract infection) (6) Pneumonia due to COVID-19 virus (7) Dehydration (8) Renal insufficiency (9) Altered level of consciousness (10) Urinary tract bacterial infections Darius Sifuentes Mar 20, 2020 12:06
--- NOTE | 2020-03-20 12:58 | NUR ---
RD ASSESSMENT & RECOMMENDATIONS SEE CARE ACTIVITY FOR COMPLETE ASSESSMENT DAILY ESTIMATED NEEDS: Needs based on Pulmonary, HD/ 70kg 25-30 kcals/kg [id number] total kcals 1.2-1.8 g protein/kg 84-126 g total protein Fluids per MD NUTRITION DIAGNOSIS: Increased kcal/prot needs R/T renal dysfunction and respiratory status as evidenced by s/p a non tunneled nguyen catheter placement, now on HD, pt on continuous BIPAP, NPO at this time. CURRENT DIET:npo PO DIET RECOMMENDATIONS: RENAL/ texture per FRAME CHANGER ENTERAL NUTRITION RECOMMENDATIONS: CONSULT RD FOR TF REC IF NGT FEED IS MEDICALLY APPROPRIATE (PT ON BIPAP) AND PT IS NOT SAFE FOR ORAL DIET TPN Comment: Dx acute pancreatitis, NPO now day 10 from adm. Rec TPN of part of POC, pt is noted HD pt ADDITIONAL RECOMMENDATIONS: * Pt is NPO FROM ADM, ON CONTINUOUS BIPAP -> Monitor respiratory status, ability for oral diet -> Consider FRAME CHANGER eval * Monitor renal fxn and lytes- check f/up phos (last phos 6.2) * Monitor lipase trend (555 elevated) * Calibrated daily bedscale wt * Monitor BGs closely w/ Decadron
--- NOTE | 2020-03-20 13:12 | NUR ---
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 IS: Solu Medrol IVP QD Lovenox SQ q 24 h Cardizem IVP Pepcid IVP QD D5 NS IV @ 75cc/hr Hemodialysis T T S Step Down Status
[2020-03-20] MEDS ORDERED: Tubing IV Secondary IV ONE (13:59)
[2020-03-20] MEDS ORDERED: D5NS 1000ml IV ONE ×2 (13:59→14:13)
--- NOTE | 2020-03-20 14:34 | NUR ---
NURSE NOTES: Restraints discontinued. Bilateral mittens placed.
[2020-03-20 16:00] VITALS: BP 155/78
--- NOTE | 2020-03-20 16:44 | Nephrology Progress Note ---
Assessment/Plan Plan ESRD. HD now q TTS. Pt. needs a permaCath. Has no family or DPOA. [place] [facility] [place] To be done Tuesday. Subjective Subjective Still SOB. On BIPAP. Objective Objective Last 24 Hour Vital Signs Date Time Temp Pulse Resp B/P (MAP) Pulse Ox O2 Delivery O2 Flow Rate FiO2 03/20/20 15:36 68 03/20/20 15:36 62 13 100 85 03/20/20 14:00 90 03/20/20 12:00 96.6 70 16 136/71 (92) 95 03/20/20 12:00 71 03/20/20 12:00 90 03/20/20 12:00 Bi-pap 90.0 03/20/20 11:20 75 22 100 85 03/20/20 08:00 Bi-pap 90.0 03/20/20 08:00 90 03/20/20 07:59 97.0 65 17 112/71 (85) 100 03/20/20 07:46 64 03/20/20 07:30 63 16 100 90 03/20/20 04:00 Bi-pap 90.0 03/20/20 04:00 90 03/20/20 04:00 64 03/20/20 04:00 96.4 72 18 134/72 (92) 97 03/20/20 01:19 59 14 100 90 03/20/20 00:00 63 03/20/20 00:00 Bi-pap 90.0 03/20/20 00:00 96.1 65 13 130/70 (90) 100 03/19/20 20:00 Bi-pap 90.0 03/19/20 20:00 97.0 69 16 137/74 (95) 97 03/19/20 20:00 90 03/19/20 19:25 65 17 100 100 03/19/20 19:06 59 Intake and Output 03/19/20 03/20/20 19:00 07:00 Intake Total 600 ml Output Total 250 ml 125 ml Balance 350 ml -125 ml Intake IV Total 600 ml Output Urine Total 250 ml 125 ml # Bowel Movements 2 Laboratory Tests 03/20/20 05:20: White Blood Count 9.0, Red Blood Count 3.04L, Hemoglobin 9.2L, Hematocrit 29.9L, Mean Corpuscular Volume 98, Mean Corpuscular Hemoglobin 30.1, Mean Corpuscular Hemoglobin Concent 30.7L, Red Cell Distribution Width 18.5H, Platelet Count 38L, Mean Platelet Volume 10.6H, Neutrophils (%) (Auto) , Lymphocytes (%) (Auto) , Monocytes (%) (Auto) , Eosinophils (%) (Auto) , Basophils (%) (Auto) , Differential Total Cells Counted 100, Neutrophils % (Manual) 96H, Lymphocytes % (Manual) 3L, Monocytes % (Manual) 1, Eosinophils % (Manual) 0, Basophils % (Manual) 0, Band Neutrophils 0, Platelet Estimate DecreasedL, Platelet Morphology Normal, Hypochromasia 1+, Anisocytosis 1+, Sodium Level 144, Potassium Level 4.9, Chloride Level 110H, Carbon Dioxide Level 25, Anion Gap 9, Blood Urea Nitrogen 79H, Creatinine 2.9H, Estimat Glomerular Filtration Rate 21.6, Glucose Level 120H, Calcium Level 8.2L, Total Bilirubin 0.9, Aspartate Amino Transf (AST/SGOT) 39H, Alanine Aminotransferase (ALT/SGPT) 32, Alkaline Phosphatase 192H, Total Protein 5.5L, Albumin 1.8L, Globulin 3.7, Albumin/Globulin Ratio 0.5L 03/20/20 10:40: Prothrombin Time 11.7H, Prothromb Time International Ratio 1.1, Activated Partial Thromboplast Time 28, Fibrinogen 259, D-Dimer 11.37H Height (Feet): 5 Height (Inches): 4.00 Weight (Pounds): 154 Objective On BIPAP CV RR Lungs B wheezes!!!! Abd SNT. BS + E No CCE Greg Garcia MD Mar 20, 2020 16:44
--- NOTE | 2020-03-20 19:23 | NUR ---
NURSE HAND-OFF REPORT: Important Events on Shift: Restraints discontinued, placed mittens on. Ongoing dialysis. D-dimer relayed to Dr Garcia, left message, awaiting response. Patient Status: lethargic, confused Diet: npo Pending Orders: Pending Results/Labs: Pending MD notification: Latest Vital Signs: Temperature 96.3 , Pulse 70 , B/P 155 /78 , Respiratory Rate 18 , O2 SAT 98 , Bi-pap, O2 Flow Rate 90.0 . Vital Sign Comment: EKG Rhythm: Sinus Rhythm Rhythm change?: N MD Notified?: Beatriz Go. Response: Order Received& Read Back Latest Conner Fall Score: 70 Fall Risk: High Risk Safety Measures: Call light Within Reach, Bed Alarm Zone 2, Side Rails Side Rails x2, Bed position Low and Locked. Fall Precautions: Yellow Socks Yellow Gown Door Sign Patient Fall Education Report given to Bello VILLARREAL.
--- NOTE | 2020-03-20 19:24 | NUR ---
NURSE NOTES: Received report from SHITAL RN, pt. in bed awake, opens eyes- non-verbal, no signs or symptoms of acute cardiac or respiratory distress noted, pt. appears to be tolerating current BIPAP settings 16/6 Fio2 at 90%- no distress noted- sating at 97%, pt. is NPO per endorsement, bed in lowest position and call light within easy reach, bed locked in position, call light within easy reach, condom cath intact and draining to gravity, pt. has Right femoral Arron running 1/2NS +20KCL running at 75cc/hr- Also used for HD- pt. currently having HD-appears to be stable- tolerating well- HD nurse at bedside, safety measures continued, will continue with plan of care.
--- NOTE | 2020-03-20 19:35 | General Progress Note ---
Subjective Allergies: Coded Allergies: No Known Allergies (Unverified , 02/04/20) Objective Last 24 Hour Vital Signs Date Time Temp Pulse Resp B/P (MAP) Pulse Ox O2 Delivery O2 Flow Rate FiO2 03/20/20 16:00 Bi-pap 90.0 03/20/20 16:00 96.3 70 18 155/78 (103) 98 03/20/20 16:00 90 03/20/20 15:36 68 03/20/20 15:36 62 13 100 85 03/20/20 14:00 90 03/20/20 12:00 96.6 70 16 136/71 (92) 95 03/20/20 12:00 71 03/20/20 12:00 90 03/20/20 12:00 71 03/20/20 12:00 Bi-pap 90.0 03/20/20 11:20 75 22 100 85 03/20/20 08:00 Bi-pap 90.0 03/20/20 08:00 90 03/20/20 07:59 97.0 65 17 112/71 (85) 100 03/20/20 07:46 64 03/20/20 07:30 63 16 100 90 03/20/20 04:00 Bi-pap 90.0 03/20/20 04:00 90 03/20/20 04:00 64 03/20/20 04:00 96.4 72 18 134/72 (92) 97 03/20/20 01:19 59 14 100 90 03/20/20 00:00 63 03/20/20 00:00 Bi-pap 90.0 03/20/20 00:00 96.1 65 13 130/70 (90) 100 03/19/20 20:00 Bi-pap 90.0 03/19/20 20:00 97.0 69 16 137/74 (95) 97 03/19/20 20:00 90 03/19/20 19:25 65 17 100 100 Intake and Output 03/19/20 03/20/20 19:00 07:00 Intake Total 600 ml Output Total 250 ml 125 ml Balance 350 ml -125 ml Intake IV Total 600 ml Output Urine Total 250 ml 125 ml # Bowel Movements 2 Laboratory Tests 03/20/20 05:20: White Blood Count 9.0, Red Blood Count 3.04L, Hemoglobin 9.2L, Hematocrit 29.9L, Mean Corpuscular Volume 98, Mean Corpuscular Hemoglobin 30.1, Mean Corpuscular Hemoglobin Concent 30.7L, Red Cell Distribution Width 18.5H, Platelet Count 38L, Mean Platelet Volume 10.6H, Neutrophils (%) (Auto) , Lymphocytes (%) (Auto) , Monocytes (%) (Auto) , Eosinophils (%) (Auto) , Basophils (%) (Auto) , Differential Total Cells Counted 100, Neutrophils % (Manual) 96H, Lymphocytes % (Manual) 3L, Monocytes % (Manual) 1, Eosinophils % (Manual) 0, Basophils % (Manual) 0, Band Neutrophils 0, Platelet Estimate DecreasedL, Platelet Morphology Normal, Hypochromasia 1+, Anisocytosis 1+, Sodium Level 144, Potassium Level 4.9, Chloride Level 110H, Carbon Dioxide Level 25, Anion Gap 9, Blood Urea Nitrogen 79H, Creatinine 2.9H, Estimat Glomerular Filtration Rate 21.6, Glucose Level 120H, Calcium Level 8.2L, Total Bilirubin 0.9, Aspartate Amino Transf (AST/SGOT) 39H, Alanine Aminotransferase (ALT/SGPT) 32, Alkaline Phosphatase 192H, Total Protein 5.5L, Albumin 1.8L, Globulin 3.7, Albumin/Globulin Ratio 0.5L 03/20/20 10:40: Prothrombin Time 11.7H, Prothromb Time International Ratio 1.1, Activated Partial Thromboplast Time 28, Fibrinogen 259, D-Dimer 11.37H Height (Feet): 5 Height (Inches): 4.00 Weight (Pounds): 154 Assessment/Plan Status: stable, not improved Assessment/Plan: Assessment - COVID PNA - resp failure, on BIPAP - severe thrombocytopenia - not stable for EGD/PEG at this time - NGT/OGT placement difficult for same reasons - Renal failure - anemia, OB (+) - recent pancreatitis and hepatitis - presumed COVID related - Poor prognosis Recommendations - consider short term TPN with HD, until health status improves - ? heme eval re platelets - supportive care - follow CBC and resp status - will follow with you Thank you MD Jaron Chamberlain Payman MD Mar 20, 2020 19:35
[2020-03-20 20:00] VITALS: BP 111/47
[2020-03-20] MEDS: Dyna-Hex 2% Top Sol 2oz TOPIC SCH (20:07)
[2020-03-20] MEDS: Enoxaparin 40mg Inj SUBQ SCH (20:09)
--- NOTE | 2020-03-20 23:00 | Consultation ---
DATE OF CONSULTATION: 03/20/2020 GASTROENTEROLOGY CONSULTATION CHIEF COMPLAINT: I was asked to see the patient by Dr. Ebenezer Go for evaluation of possible gastrostomy tube placement. HISTORY OF PRESENT ILLNESS: The patient is an unfortunate 69-year-old man with COVID pneumonia and respiratory failure who is here in the hospital with multiple medical problems including renal failure, arrhythmias, respiratory failure, and multiple laboratory abnormalities. The patient himself is unable to provide any information and there is no family available. The only information is available from the bedside. The patient has a BiPAP mask around the clock and his platelet counts are in the 28,000 to 38,000 range. He is also receiving dialysis and also anticoagulation because of his COVID status. PAST MEDICAL HISTORY: History of chronic kidney disease, alcoholism, anemia of chronic disease, dementia, alcoholic liver disease, current respiratory failure due to COVID pneumonia, current renal failure, current coagulopathy. ALLERGIES: None. MEDICATIONS: See the chart list for details. FAMILY HISTORY: Unavailable. SOCIAL HISTORY: The patient has a history of alcohol use, but otherwise no other social history available to me. REVIEW OF SYSTEMS: Unobtainable. PHYSICAL EXAMINATION: GENERAL: Debilitated elderly man, seen in his room. HEENT: Normocephalic and atraumatic. There was a BiPAP mask around. NECK: Appears supple. CHEST: Revealed scattered rhonchi. CARDIOVASCULAR: Irregular rate. ABDOMEN: Soft and flat. EXTREMITIES: No edema. NEUROLOGIC: Notable for obtunded, withdrawal state with the eyes open. LABORATORY DATA: Noted. ASSESSMENT: This patient has complex COVID-related presentation with COVID pneumonia, respiratory failure, and now with severe thrombocytopenia, which may be multifactorial. The patient has a BiPAP mask around the clock and is at high risk for endoscopic intervention for multiple reasons. His respiratory failure would require a preemptive intubation and mechanical ventilation prior to the procedure. In addition, his bleeding risk is high given the severe thrombocytopenia either during or post procedure. I would, therefore, hold off on any endoscopic gastrostomy tube placement. Nasogastric tube would be another consideration which would not be typical considering his respiratory failure in view of thrombocytopenia. Reasonable option would be to consider short term TPN with dialysis until at least his platelet counts have recovered. Hematology consultation could be obtained in this regard. If the patient's status does not improve, then a careful orogastric tube placement can be considered although they compromise the patient's respiratory status. RECOMMENDATIONS: Per above discussion and per orders in the chart. Thank you for asking me to participate in the care of this patient. Lilly Salmeron M.D. DR: Geno JOB#: [id number] CC:
--- NOTE | 2020-03-20 23:48 | NUR ---
NURSE NOTES: bed bath given, linens changed, oral care provided, repositioned and turned pt- pt. appears to be tolerating current BIPAP settings- no distress noted- sating at 97%, HOB elevated- Aspiration and skin precautions observed, isolation precautions observed, pt. is NPO- per MD orders, will continue to monitor pt. and with plan of care.
[2020-03-21] VITALS (9 sets, daily range): BP systolic 107–161; BP diastolic 58–74
[2020-03-21] MEDS: Solu-MEDROL 40mg Inj IVP SCH ×2 (05:00→13:29)
--- NOTE | 2020-03-21 07:03 | NUR ---
NURSE HAND-OFF REPORT: Important Events on Shift:none Patient Status: fair Diet: NPO Pending Orders: Pending Results/Labs: Pending MD notification: Latest Vital Signs: Temperature 97.5 , Pulse 69 , B/P 131 /74 , Respiratory Rate 20 , O2 SAT 100 , Bi-pap, O2 Flow Rate 90.0 . Vital Sign Comment: EKG Rhythm: Sinus Rhythm Rhythm change?: N MD Notified?: MD Response: Latest Conner Fall Score: 70 Fall Risk: High Risk Safety Measures: Call light Within Reach, Bed Alarm Zone 2, Side Rails Side Rails x2, Bed position Low and Locked. Fall Precautions: Yellow Socks Yellow Gown Door Sign Patient Fall Education Report given to Casey He, aware to f/u on any abnormal am labs.
[2020-03-21 07:14] LABS: HEMATOCRIT 30.5 % (42.0-52.0); HEMOGLOBIN 9.3 G/DL (14.2-18.0); MEAN CORPUSCULAR VOLUME 99 FL (80-99); PLATELET COUNT 27 K/UL (150-450); RED BLOOD COUNT 3.09 M/UL (4.70-6.10); RED CELL DISTRIBUTION WIDTH 18.2 % (11.6-14.8); WHITE BLOOD COUNT 12.3 K/UL (4.8-10.8)
--- NOTE | 2020-03-21 07:15 | NUR ---
NURSE NOTES: Received report from CHERELLE Monsalve. Patient is on bed, sleeping, no signs of grimacing or distress noted. Patient is on BiPap 16/6 FiO2 90%, tolerating well. Patient is currently NPO. Patient has a condom catheter, patent, and intact. R FA nontunneled nguyen catheter running 1/2 NS with 20 KCl at 75 cc/hr, patent, and intact. HOB elevated, bed is lowest position, side rails up, locked, call light within reach. patient will continue to be monitored.
--- NOTE | 2020-03-21 08:39 | Pulmonology Progress Note ---
Subjective ROS Limited/Unobtainable: Yes Constitutional: Denies: fever Allergies: Coded Allergies: No Known Allergies (Unverified , 02/04/20) All Systems: reviewed and negative except above Subjective care noted remains on BIPAP- still on high oxygen stool OB + and gi called low HH needs HD Objective Last 24 Hour Vital Signs Date Time Temp Pulse Resp B/P (MAP) Pulse Ox O2 Delivery O2 Flow Rate FiO2 03/21/20 07:30 79 12 100 80 03/21/20 04:00 Bi-pap 90.0 03/21/20 04:00 97.5 69 20 131/74 (93) 100 03/21/20 04:00 90 03/21/20 03:34 76 03/21/20 02:43 79 12 100 85 03/21/20 00:00 Bi-pap 90.0 03/21/20 00:00 97.1 71 18 113/74 (87) 100 03/21/20 00:00 90 03/20/20 23:41 72 03/20/20 22:30 78 16 99 85 03/20/20 20:00 Bi-pap 90.0 03/20/20 20:00 96.9 78 17 111/47 (68) 100 03/20/20 20:00 90 03/20/20 19:21 72 03/20/20 18:54 79 20 98 85 03/20/20 16:00 Bi-pap 90.0 03/20/20 16:00 96.3 70 18 155/78 (103) 98 03/20/20 16:00 90 03/20/20 15:36 68 03/20/20 15:36 62 13 100 85 03/20/20 14:00 90 03/20/20 12:00 96.6 70 16 136/71 (92) 95 03/20/20 12:00 71 03/20/20 12:00 90 03/20/20 12:00 71 03/20/20 12:00 Bi-pap 90.0 03/20/20 11:20 75 22 100 85 Intake and Output 03/20/20 03/21/20 19:00 07:00 Intake Total 75 ml 893 ml Output Total 150 ml 2100 ml Balance -75 ml -1207 ml Intake IV Total 75 ml 893 ml Output Urine Total 150 ml 100 ml Hemodialysis UF 2000 ml # Bowel Movements 1 1 Objective deferred due to COVID Laboratory Tests 03/20/20 10:40: Prothrombin Time 11.7H, Prothromb Time International Ratio 1.1, Activated Partial Thromboplast Time 28, Fibrinogen 259, D-Dimer 11.37H 03/21/20 03:34: White Blood Count 12.3H, Red Blood Count 3.09L, Hemoglobin 9.3L, Hematocrit 30.5L, Mean Corpuscular Volume 99, Mean Corpuscular Hemoglobin 30.2, Mean Corpuscular Hemoglobin Concent 30.6L, Red Cell Distribution Width 18.2H, Platelet Count 27L, Mean Platelet Volume 10.4H, Neutrophils (%) (Auto) , Lymphocytes (%) (Auto) , Monocytes (%) (Auto) , Eosinophils (%) (Auto) , Basophils (%) (Auto) , Neutrophils % (Manual) [Pending], Lymphocytes % (Manual) [Pending], Platelet Estimate [Pending], Platelet Morphology [Pending] Current Medications Medications (Trade) Dose Ordered Sig/James Route PRN Reason Start Time Stop Time Status Last Admin Dose Admin Acetaminophen (Tylenol) 650 mg Q4H PRN RECTAL Temp >100.5 03/07/20 08:15 04/06/20 08:14 Acetaminophen (Tylenol) 650 mg Q4H PRN RECTAL Mild Pain (Pain Scale 1-3) 03/07/20 09:00 04/06/20 08:59 Albuterol Sulfate (Proventil MDI) 2 puff Q4H PRN INH Shortness of Breath 03/07/20 08:15 06/05/20 08:14 Chlorhexidine Gluconate (Linnette-Hex 2%) 1 applic DAILY@1999 TOPIC 03/09/20 20:00 06/07/20 19:59 03/20/20 20:07 Dextrose (Dextrose 50%) 25 ml Q30M PRN IV Hypoglycemia 03/07/20 08:15 06/05/20 08:14 Dextrose (Dextrose 50%) 50 ml Q30M PRN IV Hypoglycemia 03/07/20 08:15 06/05/20 08:14 03/07/20 11:57 Enoxaparin Sodium (Lovenox) 40 mg Q24H SUBQ 03/19/20 21:00 06/17/20 20:59 03/20/20 20:09 Epoetin Juan (Epoetin Juan(ESRD on dialysis)) 10,000 unit TUE-TUE-TUE SUBQ 03/19/20 21:00 06/17/20 20:59 03/19/20 21:01 Famotidine (Pepcid I.v.) 20 mg DAILY IVP 03/07/20 09:00 04/06/20 08:59 03/21/20 08:14 Methylprednisolone Sodium Succinate (Solu-MEDROL) 40 mg Q12H IVP 03/14/20 18:00 06/12/20 17:59 03/21/20 05:00 Ondansetron HCl (Zofran) 4 mg Q6H PRN IVP Nausea & Vomiting 03/07/20 08:15 04/06/20 08:14 Sodium 1,000 ml @ 75 mls/hr [id number] IV 03/18/20 15:00 04/17/20 14:59 03/20/20 20:07 Sodium Chloride 1,000 ml @ 500 mls/hr Q2H PRN IVLG sbp<90 during hd 03/15/20 13:30 04/14/20 13:29 Assessment/Plan Assessment/Plan Impression: Covid Pneumonia/possible sepsis Respiratory failure, acute LA - now on HD Hyperkalemia and now with hypokalemia Pancreatitis Urinary tract infection Hypertension toxic metabolic encephalopathy anemia elevated K DVT Plan at risk for intubation likely needs trach permacath and HD O2 high flow BiPAP for now and monitor acid base at risk for intubation follow up ABG still full code continue SDU care on lovenox 40 bid; may switch to eliquis needs GT feeds; will call gi discuss with surgery impression, plan, and exam edited and reviewed in detail care discussed with Ebenezer Walters MD Mar 21, 2020 08:39
--- NOTE | 2020-03-21 08:51 | NUR ---
NURSE NOTES: spoke to blood bank if packed platelets can be infused regardless plt count is 27. platelets need to be above 50 for permacath placement procedure.
--- NOTE | 2020-03-21 09:00 | NUR ---
NURSE NOTES: ordered 2 units plts from [facility] to be infused. Will recheck plts after infusion.
[2020-03-21] MEDS: 1/2NS w/KCl 20mEq 1000ml 1,000 ML IV SCH ×2 (09:55→23:00)
--- NOTE | 2020-03-21 11:09 | Surgery Progress Note ---
Surgery Progress Note Subjective Procedure Performed Right femoral temporary hemodialysis catheter insertion Additional Comments requiring high oxygen bipap discussed with pulm will likely need trach given oxygen demand Objective Last 24 Hour Vital Signs Date Time Temp Pulse Resp B/P (MAP) Pulse Ox O2 Delivery O2 Flow Rate FiO2 03/21/20 08:00 Bi-pap 90.0 03/21/20 08:00 97.9 78 19 112/58 (76) 91 78 78 03/21/20 08:00 90 03/21/20 07:49 69 03/21/20 07:30 79 12 100 80 03/21/20 04:00 Bi-pap 90.0 03/21/20 04:00 97.5 69 20 131/74 (93) 100 03/21/20 04:00 90 03/21/20 03:34 76 03/21/20 02:43 79 12 100 85 03/21/20 00:00 Bi-pap 90.0 03/21/20 00:00 97.1 71 18 113/74 (87) 100 03/21/20 00:00 90 03/20/20 23:41 72 03/20/20 22:30 78 16 99 85 03/20/20 20:00 Bi-pap 90.0 03/20/20 20:00 96.9 78 17 111/47 (68) 100 03/20/20 20:00 90 03/20/20 19:21 72 03/20/20 18:54 79 20 98 85 03/20/20 16:00 Bi-pap 90.0 03/20/20 16:00 96.3 70 18 155/78 (103) 98 03/20/20 16:00 90 03/20/20 15:36 68 03/20/20 15:36 62 13 100 85 03/20/20 14:00 90 03/20/20 12:00 96.6 70 16 136/71 (92) 95 03/20/20 12:00 71 03/20/20 12:00 90 03/20/20 12:00 71 03/20/20 12:00 Bi-pap 90.0 03/20/20 11:20 75 22 100 85 I&O Intake and Output0 03/20/20 03/21/20 19:00 07:00 Intake Total 75 ml 893 ml Output Total 150 ml 2100 ml Balance -75 ml -1207 ml Intake IV Total 75 ml 893 ml Output Urine Total 150 ml 100 ml Hemodialysis UF 2000 ml # Bowel Movements 1 1 Cardiovascular: RSR Respiratory: decreased breath sounds Abdomen: soft, non-tender, present bowel sounds, non-distended Extremities: no edema, no tenderness, no cyanosis Laboratory Tests Test 03/21/20 03:34 White Blood Count 12.3 K/UL (4.8-10.8) H Red Blood Count 3.09 M/UL (4.70-6.10) L Hemoglobin 9.3 G/DL (14.2-18.0) L Hematocrit 30.5 % (42.0-52.0) L Mean Corpuscular Volume 99 FL (80-99) Mean Corpuscular Hemoglobin 30.2 PG (27.0-31.0) Mean Corpuscular Hemoglobin Concent 30.6 G/DL (32.0-36.0) L Red Cell Distribution Width 18.2 % (11.6-14.8) H Platelet Count 27 K/UL (150-450) L Mean Platelet Volume 10.4 FL (6.5-10.1) H Neutrophils (%) (Auto) % (45.0-75.0) Lymphocytes (%) (Auto) % (20.0-45.0) Monocytes (%) (Auto) % (1.0-10.0) Eosinophils (%) (Auto) % (0.0-3.0) Basophils (%) (Auto) % (0.0-2.0) Differential Total Cells Counted 100 Neutrophils % (Manual) 92 % (45-75) H Lymphocytes % (Manual) 3 % (20-45) L Monocytes % (Manual) 5 % (1-10) Eosinophils % (Manual) 0 % (0-3) Basophils % (Manual) 0 % (0-2) Band Neutrophils 0 % (0-8) Platelet Estimate Decreased L Platelet Morphology Normal Hypochromasia 1+ Anisocytosis 1+ Plan Problems: (1) Hyperkalemia (2) Respiratory distress Assessment & Plan: still requiring bipap with high oxygen demand trach considered hold on transition to eliquis cont lovenox for now (3) Pancreatitis Assessment & Plan: noted on admission to have acute pancreatitis etiology work up on way lft's noted mild elevated no n/v labs reviewed exam unreliable as very agitated iv fluids okay for diet trend labs will follow with exam and recs improving resolved lf't s improving no n/v okay diet (4) Renal failure Assessment & Plan: renal insufficiency fem cath placed okay for hd see note will follow (5) UTI (urinary tract infection) (6) Pneumonia due to COVID-19 virus (7) Dehydration (8) Renal insufficiency (9) Altered level of consciousness (10) Urinary tract bacterial infections Darius Sifuentes Mar 21, 2020 11:09
--- NOTE | 2020-03-21 11:45 | Nephrology Progress Note ---
Assessment/Plan Plan ESRD. HD now q TTS. Pt. needs a permaCath. Has no family or DPOA. @ MDs to document the need. To be done soon. Patient unable to make their own healthcare decisions. PermaCath placement is necessary to allevite severe pain and or if not performed would lead to serious disability or . Subjective Subjective Still SOB. On BIPAP. Objective Objective Last 24 Hour Vital Signs Date Time Temp Pulse Resp B/P (MAP) Pulse Ox O2 Delivery O2 Flow Rate FiO2 03/21/20 08:00 Bi-pap 90.0 03/21/20 08:00 97.9 78 19 112/58 (76) 91 78 78 03/21/20 08:00 90 03/21/20 07:49 69 03/21/20 07:30 79 12 100 80 03/21/20 04:00 Bi-pap 90.0 03/21/20 04:00 97.5 69 20 131/74 (93) 100 03/21/20 04:00 90 03/21/20 03:34 76 03/21/20 02:43 79 12 100 85 03/21/20 00:00 Bi-pap 90.0 03/21/20 00:00 97.1 71 18 113/74 (87) 100 03/21/20 00:00 90 03/20/20 23:41 72 03/20/20 22:30 78 16 99 85 03/20/20 20:00 Bi-pap 90.0 03/20/20 20:00 96.9 78 17 111/47 (68) 100 03/20/20 20:00 90 03/20/20 19:21 72 03/20/20 18:54 79 20 98 85 03/20/20 16:00 Bi-pap 90.0 03/20/20 16:00 96.3 70 18 155/78 (103) 98 03/20/20 16:00 90 03/20/20 15:36 68 03/20/20 15:36 62 13 100 85 03/20/20 14:00 90 03/20/20 12:00 96.6 70 16 136/71 (92) 95 03/20/20 12:00 71 03/20/20 12:00 90 03/20/20 12:00 71 03/20/20 12:00 Bi-pap 90.0 Intake and Output 03/20/20 03/21/20 19:00 07:00 Intake Total 75 ml 893 ml Output Total 150 ml 2100 ml Balance -75 ml -1207 ml Intake IV Total 75 ml 893 ml Output Urine Total 150 ml 100 ml Hemodialysis UF 2000 ml # Bowel Movements 1 1 Laboratory Tests 03/21/20 03:34: White Blood Count 12.3H, Red Blood Count 3.09L, Hemoglobin 9.3L, Hematocrit 30.5L, Mean Corpuscular Volume 99, Mean Corpuscular Hemoglobin 30.2, Mean Corpuscular Hemoglobin Concent 30.6L, Red Cell Distribution Width 18.2H, Pl atelet Count 27L, Mean Platelet Volume 10.4H, Neutrophils (%) (Auto) , Lymphocytes (%) (Auto) , Monocytes (%) (Auto) , Eosinophils (%) (Auto) , Basophils (%) (Auto) , Differential Total Cells Counted 100, Neutrophils % (Manual) 92H, Lymphocytes % (Manual) 3L, Monocytes % (Manual) 5, Eosinophils % (Manual) 0, Basophils % (Manual) 0, Band Neutrophils 0, Platelet Estimate DecreasedL, Platelet Morphology Normal, Hypochromasia 1+, Anisocytosis 1+ Height (Feet): 5 Height (Inches): 4.00 Weight (Pounds): 154 Objective On BIPAP CV RR Lungs B wheezes!!!! Abd SNT. BS + E No CCE Greg Garcia MD Mar 21, 2020 11:45
--- NOTE | 2020-03-21 11:50 | Infectious Diseases Prog Note ---
Assessment/Plan Assessment/Plan antibiotics : none A 1. COVID-19 pneumonia. on 90 % FiO2, 95 % saturation s/p remdesivir 2. e.coli UTI s/p rx 3. Pancreatitis 4. respiratory failure, 5. Dementia, 6. Hypertension 7. renal failure P 1. continue solumedrol taper dose 2. continue isolation Subjective ROS Limited/Unobtainable: Yes Allergies: Coded Allergies: No Known Allergies (Unverified , 02/04/20) Objective Last 24 Hour Vital Signs Date Time Temp Pulse Resp B/P (MAP) Pulse Ox O2 Delivery O2 Flow Rate FiO2 03/21/20 08:00 Bi-pap 90.0 03/21/20 08:00 97.9 78 19 112/58 (76) 91 78 78 03/21/20 08:00 90 03/21/20 07:49 69 03/21/20 07:30 79 12 100 80 03/21/20 04:00 Bi-pap 90.0 03/21/20 04:00 97.5 69 20 131/74 (93) 100 03/21/20 04:00 90 03/21/20 03:34 76 03/21/20 02:43 79 12 100 85 03/21/20 00:00 Bi-pap 90.0 03/21/20 00:00 97.1 71 18 113/74 (87) 100 03/21/20 00:00 90 03/20/20 23:41 72 03/20/20 22:30 78 16 99 85 03/20/20 20:00 Bi-pap 90.0 03/20/20 20:00 96.9 78 17 111/47 (68) 100 03/20/20 20:00 90 03/20/20 19:21 72 03/20/20 18:54 79 20 98 85 03/20/20 16:00 Bi-pap 90.0 03/20/20 16:00 96.3 70 18 155/78 (103) 98 03/20/20 16:00 90 03/20/20 15:36 68 03/20/20 15:36 62 13 100 85 03/20/20 14:00 90 03/20/20 12:00 96.6 70 16 136/71 (92) 95 03/20/20 12:00 71 03/20/20 12:00 90 03/20/20 12:00 71 03/20/20 12:00 Bi-pap 90.0 Height (Feet): 5 Height (Inches): 4.00 Weight (Pounds): 154 HEENT: other - on bipap Laboratory Tests Test 03/21/20 03:34 White Blood Count 12.3 K/UL (4.8-10.8) H Red Blood Count 3.09 M/UL (4.70-6.10) L Hemoglobin 9.3 G/DL (14.2-18.0) L Hematocrit 30.5 % (42.0-52.0) L Mean Corpuscular Volume 99 FL (80-99) Mean Corpuscular Hemoglobin 30.2 PG (27.0-31.0) Mean Corpuscular Hemoglobin Concent 30.6 G/DL (32.0-36.0) L Red Cell Distribution Width 18.2 % (11.6-14.8) H Platelet Count 27 K/UL (150-450) L Mean Platelet Volume 10.4 FL (6.5-10.1) H Neutrophils (%) (Auto) % (45.0-75.0) Lymphocytes (%) (Auto) % (20.0-45.0) Monocytes (%) (Auto) % (1.0-10.0) Eosinophils (%) (Auto) % (0.0-3.0) Basophils (%) (Auto) % (0.0-2.0) Differential Total Cells Counted 100 Neutrophils % (Manual) 92 % (45-75) H Lymphocytes % (Manual) 3 % (20-45) L Monocytes % (Manual) 5 % (1-10) Eosinophils % (Manual) 0 % (0-3) Basophils % (Manual) 0 % (0-2) Band Neutrophils 0 % (0-8) Platelet Estimate Decreased L Platelet Morphology Normal Hypochromasia 1+ Anisocytosis 1+ Current Medications Medications (Trade) Dose Ordered Sig/James Route PRN Reason Start Time Stop Time Status Last Admin Dose Admin Acetaminophen (Tylenol) 650 mg Q4H PRN RECTAL Temp >100.5 03/07/20 08:15 04/06/20 08:14 Acetaminophen (Tylenol) 650 mg Q4H PRN RECTAL Mild Pain (Pain Scale 1-3) 03/07/20 09:00 04/06/20 08:59 Albuterol Sulfate (Proventil MDI) 2 puff Q4H PRN INH Shortness of Breath 03/07/20 08:15 06/05/20 08:14 Chlorhexidine Gluconate (Linnette-Hex 2%) 1 applic DAILY@2000 TOPIC 03/09/20 20:00 06/07/20 19:59 03/20/20 20:07 Dextrose (Dextrose 50%) 25 ml Q30M PRN IV Hypoglycemia 03/07/20 08:15 06/05/20 08:14 Dextrose (Dextrose 50%) 50 ml Q30M PRN IV Hypoglycemia 03/07/20 08:15 06/05/20 08:14 03/07/20 11:57 Enoxaparin Sodium (Lovenox) 40 mg Q24H SUBQ 03/19/20 21:00 06/17/20 20:59 03/20/20 20:09 Epoetin Juan (Epoetin Juan(ESRD on dialysis)) 10,000 unit SUBQ 03/19/20 21:00 06/17/20 20:59 03/19/20 21:01 Famotidine (Pepcid I.v.) 20 mg DAILY IVP 03/07/20 09:00 04/06/20 08:59 03/21/20 08:14 Methylprednisolone Sodium Succinate (Solu-MEDROL) 40 mg Q12H IVP 03/14/20 18:00 06/12/20 17:59 03/21/20 05:00 Ondansetron HCl (Zofran) 4 mg Q6H PRN IVP Nausea & Vomiting 03/07/20 08:15 04/06/20 08:14 Sodium 1,000 ml @ 75 mls/hr [id number] IV 03/18/20 15:00 04/17/20 14:59 03/21/20 09:55 Sodium Chloride 1,000 ml @ 500 mls/hr Q2H PRN IVLG sbp<90 during hd 03/15/20 13:30 04/14/20 13:29 Brittney Quigley MD Mar 21, 2020 11:50
--- NOTE | 2020-03-21 13:12 | NUR ---
Quality Assurance Project ManagerSubstance Abuse Nurse SI: Respiratory Failure, COVID PNA, UTI, ESRD, DVT T 97.9, HR 78, RR 19, BP 112/58 WBC 12.3 BUN 79 Creatinine 2.9 BIPAP 16/2 FiO2 80% O2 Sat 100% IS: Solu Medrol IVP QD 0.45% NS w/KCL 20meq @75ml/hr Lovenox SQ q 24 h Pepcid IVP QD Hemodialysis T T S Step Down Status
--- NOTE | 2020-03-21 13:23 | Diagnostic Imaging Report ---
Indication: Abnormal liver function tests, abnormal renal function tests, abnormal lipase Technique: Leigh-scale and duplex images of the upper abdomen were obtained Comparison: Findings: There is ascites fluid present. There is also a right pleural effusion. Gallbladder demonstrates tiny layering calculi. No wall thickening, nor pericholecystic fluid. Sonographic Cason's sign is negative. Common bile duct measures 8 mm in diameter. No intrahepatic biliary ductal dilatation. Liver demonstrates slightly coarsened echogenicity, no focal abnormality. Portal vein and hepatic veins are patent. Pancreas is unremarkable. Spleen is unremarkable. Left kidney measures 9 cm in length. Right kidney measures 9 cm length. Both kidneys demonstrate normal echogenicity. There is no hydronephrosis. No focal abnormality . Abdominal aorta is partially obscured by bowel gas, visualized portions are non-aneurysmal . Inferior vena cava is not well-demonstrated Impression: Slightly coarsened hepatic echogenicity, likely hepatocellular disease, nonspecific as regards etiology Ascites Right pleural effusion Cholelithiasis negative for dilated bile ducts Note suboptimal visualization of the abdominal aorta, inferior vena cava
--- NOTE | 2020-03-21 14:45 | NUR ---
NURSE NOTES: plt resulted back and it is 40. will order another unit of plt (total of 3 units of plts to be infused per original order of dr. Garcia on tuesday). per radiology, permacath procedure cant be done if plt is under 50.
[2020-03-21 15:01] LABS: HEMATOCRIT 29.5 % (42.0-52.0); MEAN CORPUSCULAR VOLUME 100 FL (80-99); PLATELET COUNT 40 K/UL (150-450); RED BLOOD COUNT 2.96 M/UL (4.70-6.10); WHITE BLOOD COUNT 13.3 K/UL (4.8-10.8)
--- NOTE | 2020-03-21 16:03 | NUR ---
RESPIRATORY NOTE: Patient O2 titrated to 65% and is tolerating well with no signs of respiratory distress or sob noted at this time. SpO2 100% HR 65. Will continue to monitor. Rn, Neri hamilton.
[2020-03-21] MEDS ORDERED: Heparin1,000 units/500ml Premix(Conc:2 units/ml) INJ PRN (17:30)
[2020-03-21] MEDS ORDERED: Lidocaine 2% 20mg/ml/Epi 0.005mg/ml 20ml vial INJ SCH (17:30)
[2020-03-21] MEDS ORDERED: ceFAZolin 2gm/50ml Premix 50 ML IV SCH (17:30)
--- NOTE | 2020-03-21 18:08 | General Progress Note ---
Subjective ROS Limited/Unobtainable: No Constitutional: Reports: no symptoms HEENT: Reports: no symptoms Cardiovascular: Reports: no symptoms Respiratory: Reports: cough, shortness of breath Gastrointestinal/Abdominal: Reports: difficulty swallowing Genitourinary: Reports: no symptoms Neurologic/Psychiatric: Reports: no symptoms Endocrine: Reports: no symptoms Hematologic/Lymphatic: Reports: anemia Allergies: Coded Allergies: No Known Allergies (Unverified , 02/04/20) All Systems: reviewed and negative except above Subjective no significant change. remains on bipap. decreased o2 requirements. seems more alert. responds to simple questions. wants to eat. plts stable. no reports of bleeding Objective Last 24 Hour Vital Signs Date Time Temp Pulse Resp B/P (MAP) Pulse Ox O2 Delivery O2 Flow Rate FiO2 03/21/20 16:00 65 03/21/20 16:00 Bi-pap 90.0 03/21/20 16:00 98.2 73 18 126/67 (86) 99 03/21/20 15:22 65 03/21/20 15:00 65 20 99 65 03/21/20 12:00 97.2 79 20 119/73 (88) 98 03/21/20 12:00 90 03/21/20 12:00 Bi-pap 90.0 03/21/20 11:41 62 03/21/20 11:00 68 14 100 80 03/21/20 08:00 Bi-pap 90.0 03/21/20 08:00 97.9 78 19 112/58 (76) 91 78 78 03/21/20 08:00 90 03/21/20 07:49 69 03/21/20 07:30 79 12 100 80 03/21/20 04:00 Bi-pap 90.0 03/21/20 04:00 97.5 69 20 131/74 (93) 100 03/21/20 04:00 90 03/21/20 03:34 76 03/21/20 02:43 79 12 100 85 03/21/20 00:00 Bi-pap 90.0 03/21/20 00:00 97.1 71 18 113/74 (87) 100 03/21/20 00:00 90 03/20/20 23:41 72 03/20/20 22:30 78 16 99 85 03/20/20 20:00 Bi-pap 90.0 03/20/20 20:00 96.9 78 17 111/47 (68) 100 03/20/20 20:00 90 03/20/20 19:21 72 03/20/20 18:54 79 20 98 85 Intake and Output 03/20/20 03/21/20 19:00 07:00 Intake Total 75 ml 893 ml Output Total 150 ml 2100 ml Balance -75 ml -1207 ml Intake IV Total 75 ml 893 ml Output Urine Total 150 ml 100 ml Hemodialysis UF 2000 ml # Bowel Movements 1 1 Laboratory Tests 03/21/20 03:34: White Blood Count 12.3H, Red Blood Count 3.09L, Hemoglobin 9.3L, Hematocrit 30.5L, Mean Corpuscular Volume 99, Mean Corpuscular Hemoglobin 30.2, Mean Corpuscular Hemoglobin Concent 30.6L, Red Cell Distribution Width 18.2H, Platelet Count 27L, Mean Platelet Volume 10.4H, Neutrophils (%) (Auto) , Lymphocytes (%) (Auto) , Monocytes (%) (Auto) , Eosinophils (%) (Auto) , Basophils (%) (Auto) , Differential Total Cells Counted 100, Neutrophils % (Manual) 92H, Lymphocytes % (Manual) 3L, Monocytes % (Manual) 5, Eosinophils % (Manual) 0, Basophils % (Manual) 0, Band Neutrophils 0, Platelet Estimate DecreasedL, Platelet Morphology Normal, Hypochromasia 1+, Anisocytosis 1+ 03/21/20 14:45: White Blood Count 13.3H, Red Blood Count 2.96L, Hemoglobin 9.0L, Hematocrit 29.5L, Mean Corpuscular Volume 100H, Mean Corpuscular Hemoglobin 30.3, Mean Corpuscular Hemoglobin Concent 30.4L, Red Cell Distribution Width 18.0H, Platelet Count 40L, Mean Platelet Volume 6.2L, Neutrophils (%) (Auto) , Lymphocytes (%) (Auto) , Monocytes (%) (Auto) , Eosinophils (%) (Auto) , Basophi ls (%) (Auto) , Differential Total Cells Counted 100, Neutrophils % (Manual) 95H , Lymphocytes % (Manual) 1L, Monocytes % (Manual) 2, Eosinophils % (Manual) 0, Basophils % (Manual) 0, Band Neutrophils 2, Platelet Estimate DecreasedL, Platelet Morphology Normal, Hypochromasia 1+, Anisocytosis 1+, Macrocytosis 1+ Height (Feet): 5 Height (Inches): 4.00 Weight (Pounds): 154 Objective General Appearance: WD/WN, confused Neck: supple Cardiovascular: regular rhythm Respiratory/Chest: lungs clear Abdomen: normal bowel sounds, non tender, soft, no organomegaly Edema: no edema noted Leg (L), no edema noted Leg (R) Neurologic: disoriented Assessment/Plan Problem List: (1) Altered level of consciousness ICD Codes: R40.4 - Transient alteration of awareness SNOMED: 5527488 (2) Pneumonia due to COVID-19 virus ICD Codes: U07.1 - COVID-19; J12.89 - Other viral pneumonia SNOMED: 674752437631553369 (3) Renal failure ICD Codes: N19 - Unspecified kidney failure SNOMED: 17861466 (4) Respiratory distress ICD Codes: R06.03 - Acute respiratory distress SNOMED: 254849499 Status: stable, not improved Assessment/Plan: cont bipap wean as able consider repeat swallow eval may be able to tolerate po if continued pulm improvement steroids resp care cautious hydration pos when able lovenox with caution- low plts and stool ob. May need ivc fillter consider heme eval re: low plts check hitab HD per renal Doug Garcia MD Mar 21, 2020 18:08
--- NOTE | 2020-03-21 18:08 | Pre-Procedure Note/Attestation ---
Pre-Procedure Note/Attestation Complete Prior to Procedure Planned Procedure: not applicable Procedure Narrative: permacath Indications for Procedure Pre-Operative Diagnosis: renal failure Attestation I attest that I discussed the nature of the procedure; its benefits; risks and complications; and alternatives (and the risks and benefits of such alternatives), prior to the procedure, with the patient (or the patient's legal education courses sales representative). I attest that, if there was a reasonable possibility of needing a blood t ransfusion, the patient (or the patient's legal education courses sales representative) was given the [facility] standardized written summary, pursuant to the Leroy Anant Blood Safety Act ([place] Health and Safety Code # 1645, as amended). I attest that I re-evaluated the patient just prior to the surgery and that there has been no change in the patient's H&P, except as documented below: emergency physician consent is on the chart Lee Pavon MD Mar 21, 2020 18:08
[2020-03-21] MEDS: ceFAZolin 1gm in D5W 55ml IVPB SCH (18:54)
--- NOTE | 2020-03-21 19:09 | Brief Operative Note ---
Immediate Post Operative Note Operative Note Pre-op Diagnosis: renal failure Procedure: permacath Post-op Diagnosis: same as pre-op Surgeon: Madhuri Osman Anesthesia: local Specimen: none Complications: none Fluids: none Implant(s) used?: No Lee Osman MD Mar 21, 2020 19:09
--- NOTE | 2020-03-21 19:45 | NUR ---
NURSE NOTES: Received report from CHERELLE Thomas. Pt in bed awake. In no apparent cardiac and respiratory distress noted. On bipap with prescribed setting of 16/6 Fio2 of 100%. Saturating well @100%. No sob noted. On NPO, with IV access on R femoral Arron Cath running 1/2 NS with KCL 20meq @ 75cc/hr, no infiltration noted. Pt just got back from procedure for permacath placement, located on R upper chest. Dressing is intact noted of small amount of blood around the area. Condom cath in place, draining color shyann yellow urine via gravity. Soft mittens in both hands, skin is intact, no signs of impede circulation noted. Safety measures in place, bed in lowest positioned and locked. Call light within reach. Will continue to monitor and plan of care.
--- NOTE | 2020-03-21 20:05 | NUR ---
NURSE NOTES: Lidocaine was given by radiology doctor Dr. Goodman in radiology department at 1730. Ancef was given at 1854 in radiology department. unable to scan.
[2020-03-21] MEDS: Epoetin Alfa-EPBX(ESRD on dialysis)10,000 unit/ml vial SUBQ SCH (20:45)
[2020-03-21] MEDS: Dyna-Hex 2% Top Sol 2oz TOPIC SCH (20:47)
[2020-03-21] MEDS: Enoxaparin 40mg Inj SUBQ SCH (20:49)
[2020-03-21] MEDS ORDERED: ceFAZolin 1gm in D5W 55ml IVPB SCH (21:00)
--- NOTE | 2020-03-21 21:13 | General Progress Note ---
Subjective Allergies: Coded Allergies: No Known Allergies (Unverified , 02/04/20) Subjective Above noted minimally interactive on BIPAP seen early am Objective Last 24 Hour Vital Signs Date Time Temp Pulse Resp B/P (MAP) Pulse Ox O2 Delivery O2 Flow Rate FiO2 03/21/20 19:40 88 24 94 65 03/21/20 19:24 88 20 03/21/20 18:44 90 20 139/66 (90) 96 03/21/20 18:39 88 20 161/71 (101) 100 03/21/20 16:00 65 03/21/20 16:00 Bi-pap 90.0 03/21/20 16:00 98.2 73 18 126/67 (86) 99 03/21/20 15:22 65 03/21/20 15:00 65 20 99 65 03/21/20 12:00 97.2 79 20 119/73 (88) 98 03/21/20 12:00 90 03/21/20 12:00 Bi-pap 90.0 03/21/20 11:41 62 03/21/20 11:00 68 14 100 80 03/21/20 08:00 Bi-pap 90.0 03/21/20 08:00 97.9 78 19 112/58 (76) 91 78 78 03/21/20 08:00 90 03/21/20 07:49 69 03/21/20 07:30 79 12 100 80 03/21/20 04:00 Bi-pap 90.0 03/21/20 04:00 97.5 69 20 131/74 (93) 100 03/21/20 04:00 90 03/21/20 03:34 76 03/21/20 02:43 79 12 100 85 03/21/20 00:00 Bi-pap 90.0 03/21/20 00:00 97.1 71 18 113/74 (87) 100 03/21/20 00:00 90 03/20/20 23:41 72 03/20/20 22:30 78 16 99 85 Intake and Output 03/20/20 03/21/20 19:00 07:00 Intake Total 75 ml 893 ml Output Total 150 ml 2100 ml Balance -75 ml -1207 ml Intake IV Total 75 ml 893 ml Output Urine Total 150 ml 100 ml Hemodialysis UF 2000 ml # Bowel Movements 1 1 Laboratory Tests 03/21/20 03:34: White Blood Count 12.3H, Red Blood Count 3.09L, Hemoglobin 9.3L, Hematocrit 30.5L, Mean Corpuscular Volume 99, Mean Corpuscular Hemoglobin 30.2, Mean Corpuscular Hemoglobin Concent 30.6L, Red Cell Distribution Width 18.2H, Platelet Count 27L, Mean Platelet Volume 10.4H, Neutrophils (%) (Auto) , Lymphocytes (%) (Auto) , Monocytes (%) (Auto) , Eosinophils (%) (Auto) , Basophils (%) (Auto) , Differential Total Cells Counted 100, Neutrophils % (Manual) 92H, Lymphocytes % (Manual) 3L, Monocytes % (Manual) 5, Eosinophils % (Manual) 0, Basophils % (Manual) 0, Band Neutrophils 0, Platelet Estimate DecreasedL, Platelet Morphology Normal, Hypochromasia 1+, Anisocytosis 1+ 03/21/20 14:45: White Blood Count 13.3H, Red Blood Count 2.96L, Hemoglobin 9.0L, Hematocrit 29.5L, Mean Corpuscular Volume 100H, Mean Corpuscular Hemoglobin 30.3, Mean Corpuscular Hemoglobin Concent 30.4L, Red Cell Distribution Width 18.0H, Platelet Count 40L, Mean Platelet Volume 6.2L, Neutrophils (%) (Auto) , Lymphocytes (%) (Auto) , Monocytes (%) (Auto) , Eosinophils (%) (Auto) , Basophils (%) (Auto) , Differential Total Cells Counted 100, Neutrophils % (Manual) 95H, Lymphocytes % (Manual) 1L, Monocytes % (Manual) 2, Eosinophils % ( Manual) 0, Basophils % (Manual) 0, Band Neutrophils 2, Platelet Estimate DecreasedL, Platelet Morphology Normal, Hypochromasia 1+, Anisocytosis 1+, Macrocytosis 1+ Height (Feet): 5 Height (Inches): 4.00 Weight (Pounds): 154 Objective Elderly man NCAT, (+) BIPAP supple Coarse BS RR abd soft no edema Assessment/Plan Status: stable, not improved Assessment/Plan: Assessment - COVID PNA - resp failure, on BIPAP - severe thrombocytopenia - not stable for EGD/PEG at this time - NGT/OGT problematic for same reasons - Renal failure - anemia, OB (+) - recent pancreatitis and hepatitis - presumed COVID related - Poor prognosis Recommendations - consider short term TPN with HD, until health status improves - supportive care - follow CBC and resp status - can retry swallow eval if resp status improves - will follow with you Lilly Salmeron MD Mar 21, 2020 21:13
--- NOTE | 2020-03-21 22:16 | NUR ---
NURSE NOTES: Rt on bedside, titrated FIO2 from 100 to 90%. Currently saturating @97%. Will continue to monitor pt.
--- NOTE | 2020-03-21 22:46 | Cardiology Progress Note ---
Subjective DATE OF SERVICE: Mar 21, 2020 Remains in sinus rhythm following IV cardizem dose. Remains on bipap support, with slight decrease in O2 requirements Venous duplex: partially obstructing fight common femoral DVT Objective Last 24 Hour Vital Signs Date Time Temp Pulse Resp B/P (MAP) Pulse Ox O2 Delivery O2 Flow Rate FiO2 03/21/20 20:00 100 03/21/20 20:00 Bi-pap 90.0 03/21/20 20:00 97.8 70 16 107/61 (76) 100 03/21/20 19:40 88 24 94 65 03/21/20 19:24 76 03/21/20 19:24 88 20 03/21/20 18:44 90 20 139/66 (90) 96 03/21/20 18:39 88 20 161/71 (101) 100 03/21/20 16:00 65 03/21/20 16:00 Bi-pap 90.0 03/21/20 16:00 98.2 73 18 126/67 (86) 99 03/21/20 15:22 65 03/21/20 15:00 65 20 99 65 03/21/20 12:00 97.2 79 20 119/73 (88) 98 03/21/20 12:00 90 03/21/20 12:00 Bi-pap 90.0 03/21/20 11:41 62 03/21/20 11:00 68 14 100 80 03/21/20 08:00 Bi-pap 90.0 03/21/20 08:00 97.9 78 19 112/58 (76) 91 78 78 03/21/20 08:00 90 03/21/20 07:49 69 03/21/20 07:30 79 12 100 80 03/21/20 04:00 Bi-pap 90.0 03/21/20 04:00 97.5 69 20 131/74 (93) 100 03/21/20 04:00 90 03/21/20 03:34 76 03/21/20 02:43 79 12 100 85 03/21/20 00:00 Bi-pap 90.0 03/21/20 00:00 97.1 71 18 113/74 (87) 100 03/21/20 00:00 90 03/20/20 23:41 72 ROS: unchanged from 03/18/20 HEENT: other - bipap RHYTHM: NSR, PACs LUNGS: bilat. rhonchi and rales CARDIAC: normal rate, regular rhythm, normal S1 and S2 ABDOMEN: normal bowel sounds, non tender EXTREMITIES: trace edema Laboratory Tests Test 03/21/20 03:34 03/21/20 14:45 White Blood Count 12.3 K/UL (4.8-10.8) H 13.3 K/UL (4.8-10.8) H Red Blood Count 3.09 M/UL (4.70-6.10) L 2.96 M/UL (4.70-6.10) L Hemoglobin 9.3 G/DL (14.2-18.0) L 9.0 G/DL (14.2-18.0) L Hematocrit 30.5 % (42.0-52.0) L 29.5 % (42.0-52.0) L Mean Corpuscular Volume 99 FL (80-99) 100 FL (80-99) H Mean Corpuscular Hemoglobin 30.2 PG (27.0-31.0) 30.3 PG (27.0-31.0) Mean Corpuscular Hemoglobin Concent 30.6 G/DL (32.0-36.0) L 30.4 G/DL (32.0-36.0) L Red Cell Distribution Width 18.2 % (11.6-14.8) H 18.0 % (11.6-14.8) H Platelet Count 27 K/UL (150-450) L 40 K/UL (150-450) L Mean Platelet Volume 10.4 FL (6.5-10.1) H 6.2 FL (6.5-10.1) L Neutrophils (%) (Auto) % (45.0-75.0) % (45.0-75.0) Lymphocytes (%) (Auto) % (20.0-45.0) % (20.0-45.0) Monocytes (%) (Auto) % (1.0-10.0) % (1.0-10.0) Eosinophils (%) (Auto) % (0.0-3.0) % (0.0-3.0) Basophils (%) (Auto) % (0.0-2.0) % (0.0-2.0) Differential Total Cells Counted 100 100 Neutrophils % (Manual) 92 % (45-75) H 95 % (45-75) H Lymphocytes % (Manual) 3 % (20-45) L 1 % (20-45) L Monocytes % (Manual) 5 % (1-10) 2 % (1-10) Eosinophils % (Manual) 0 % (0-3) 0 % (0-3) Basophils % (Manual) 0 % (0-2) 0 % (0-2) Band Neutrophils 0 % (0-8) 2 % (0-8) Platelet Estimate Decreased L Decreased L Platelet Morphology Normal Normal Hypochromasia 1+ 1+ Anisocytosis 1+ 1+ Macrocytosis 1+ Assessment/Plan Assessment/Plan Non-occlusive DVT Paroxysmal Atrial Fibrillation Acute coronary insuff Covid 19 PNA Acute hypoxic respiratory failure Anemia Ac/chronic diastolic CHF Ac/chronic renal failure on hemodialysis Thrombocytopenia improved over past day Dysphagia Lovenox resumed with caution; watch plt ct Wean off bipap as able Periodic diuresis; trend BNP Steroids per pulmonary Unable to give oral diltiazem at present; will give IVP prn for rapid atrial arrhythmias. PermCath planned per renal Cristopher Ingram MD Mar 21, 2020 22:46
[2020-03-22] VITALS: BP 123/73
--- NOTE | 2020-03-22 02:10 | NUR ---
NURSE NOTES: Pt in bed, awake. In no apparent cardiac and respiratory distress noted. Tolerating bipap setting of 16/6 and Fio2 of 90% saturating @100%. Permacath in place noted , dressing is intact small blood on site. Sponge bath given. Gown and linens changed. Had 1 small BM, noted of blood tarry stool. Condom cath intact, draining shyann color urine via gravity. Will continue plan of care.
--- NOTE | 2020-03-22 03:34 | NUR ---
NURSE NOTES: Rt at bedside, titrated FIO2 @80% pt currently saturating @96%. Will continue to monitor.
[2020-03-22 04:00] VITALS: BP 140/62
[2020-03-22 06:15] LABS: HEMATOCRIT 26.9 % (42.0-52.0); HEMOGLOBIN 8.6 G/DL (14.2-18.0); MEAN CORPUSCULAR VOLUME 95 FL (80-99); PLATELET COUNT 43 K/UL (150-450); RED BLOOD COUNT 2.82 M/UL (4.70-6.10); RED CELL DISTRIBUTION WIDTH 18.2 % (11.6-14.8); WHITE BLOOD COUNT 13.9 K/UL (4.8-10.8)
--- NOTE | 2020-03-22 06:15 | NUR ---
NURSE NOTES: Pt in bed, asleep. In no apparent acute cardiac and respiratory distress noted. Tolerating on current bipap settings 16/6 and FIO2 of 80% saturating @100 %. PermAcath in R upper chest,still noted of small amount of blood on the site. Will continue to monitor bleeding.
[2020-03-22 06:52] LABS: CALCIUM 7.3 MG/DL (8.5-10.1); CREATININE 2.9 MG/DL (0.55-1.30); POTASSIUM 5.7 MMOL/L (3.5-5.1)
--- NOTE | 2020-03-22 07:00 | NUR ---
RESPIRATORY NOTE: Pt received stable on Bipap with current settings. 27/08 RR:12, 80%. Alarms are on and audible. Foam tape in place. No facial wounds found. No SOB noted at this time. Will continue to monitor.
[2020-03-22 07:02] LABS: ALBUMIN/GLOBULIN RATIO 0.5 (1.0-2.7); BILIRUBIN,TOTAL 1.1 MG/DL (0.2-1.0)
[2020-03-22 07:03] LABS: BILIRUBIN,DIRECT 0.5 MG/DL (0.0-0.3)
--- NOTE | 2020-03-22 07:08 | NUR ---
RESPIRATORY NOTE: PT RECEIVED STABLE ON CMV WITH CURRENT SETTINGS: 24, 550, 80%, +12. ALARMS ARE ON AND AUDIBLE. VENT CIRCUIT IS SECURE AND OUT OF THE WAY. AIRWAY IS MIDLINE, SECURE AND PATENT. NO S/S OF RESPIRATORY DISTRESS NOTED AT THIS TIME. WILL CONTINUE TO CLOSELY MONITOR. Addendum: 03/22/20 at 1149 by ALEXANDER TENORIO RT incorrect PT. incorrect information.
--- NOTE | 2020-03-22 07:15 | NUR ---
NURSE NOTES: Dr Dos Santos made aware regarding the NPO status of the pt. No new order for now.
--- NOTE | 2020-03-22 07:20 | NUR ---
NURSE NOTES: Received report from CHERELLE Crowe. Patient AO x0 in bed, awake. Patient on Bipap 16/6 FiO2 80%, no signs of respiratory distress at this time. No pain or discomfort noted. On NPO, with IV access on R femoral Arron Cath running 1/2 NS with KCL 20meq @ 75cc/hr, no infiltration noted. Pt just got back from procedure for permacath placement, located on R upper chest. Dressing is intact noted of small amount of blood around the area. Bed in lowest position, locked with side rails x2 up. Call light within reach.
--- NOTE | 2020-03-22 07:27 | NUR ---
NURSE HAND-OFF REPORT: Important Events on Shift: [facility] Patient Status: Fair Diet: NPO Pending Orders: Pending Results/Labs: Pending MD notification: Latest Vital Signs: Temperature 97.2 , Pulse 74 , B/P 140 /62 , Respiratory Rate 17 , O2 SAT 100 , Bi-pap, O2 Flow Rate 90.0 . Vital Sign Comment: STable EKG Rhythm: Sinus Rhythm Rhythm change?: N MD Notified?: MD Response: Latest Conner Fall Score: 70 Fall Risk: High Risk Safety Measures: Call light Within Reach, Bed Alarm Zone 2, Side Rails Side Rails x2, Bed position Low and Locked. Fall Precautions: Yellow Socks Yellow Gown Door Sign Patient Fall Education Report given to Abbi Mcgrath RN .
--- NOTE | 2020-03-22 07:41 | General Progress Note ---
Subjective ROS Limited/Unobtainable: No Allergies: Coded Allergies: No Known Allergies (Unverified , 02/04/20) Objective Last 24 Hour Vital Signs Date Time Temp Pulse Resp B/P (MAP) Pulse Ox O2 Delivery O2 Flow Rate FiO2 03/22/20 04:00 90 03/22/20 04:00 97.2 74 17 140/62 (88) 100 03/22/20 04:00 Bi-pap 90.0 03/22/20 03:34 74 03/22/20 03:30 69 22 100 80 03/22/20 00:00 90 03/22/20 00:00 Bi-pap 90.0 03/22/20 00:00 97.6 65 15 123/73 (90) 100 03/21/20 23:41 71 03/21/20 23:11 74 21 100 90 03/21/20 20:00 100 03/21/20 20:00 Bi-pap 90.0 03/21/20 20:00 97.8 70 16 107/61 (76) 100 03/21/20 19:40 88 24 94 100 03/21/20 19:24 76 03/21/20 19:24 88 20 03/21/20 18:44 90 20 139/66 (90) 96 03/21/20 18:39 88 20 161/71 (101) 100 03/21/20 16:00 65 03/21/20 16:00 Bi-pap 90.0 03/21/20 16:00 98.2 73 18 126/67 (86) 99 03/21/20 15:22 65 03/21/20 15:00 65 20 99 65 03/21/20 12:00 97.2 79 20 119/73 (88) 98 03/21/20 12:00 90 03/21/20 12:00 Bi-pap 90.0 03/21/20 11:41 62 03/21/20 11:00 68 14 100 80 03/21/20 08:00 Bi-pap 90.0 03/21/20 08:00 97.9 78 19 112/58 (76) 91 78 78 03/21/20 08:00 90 03/21/20 07:49 69 Intake and Output 03/21/20 03/22/20 19:00 07:00 Intake Total 75 ml 750 ml Output Total 400 ml Balance 75 ml 350 ml Intake IV Total 75 ml 750 ml Output Urine Total 400 ml # Bowel Movements 1 1 Laboratory Tests 03/21/20 14:45: White Blood Count 13.3H, Red Blood Count 2.96L, Hemoglobin 9.0L, Hematocrit 29.5L, Mean Corpuscular Volume 100H, Mean Corpuscular Hemoglobin 30.3, Mean Corpuscular Hemoglobin Concent 30.4L, Red Cell Distribution Width 18.0H, Platelet Count 40L, Mean Platelet Volume 6.2L, Neutrophils (%) (Auto) , Lymphocytes (%) (Auto) , Monocytes (%) (Auto) , Eosinophils (%) (Auto) , Basophils (%) (Auto) , Differential Total Cells Counted 100, Neutrophils % (Manual) 95H, Lymphocytes % (Manual) 1L, Monocytes % (Manual) 2, Eosinophils % (Manual) 0, Basophils % (Manual) 0, Band Neutrophils 2, Platelet Estimate DecreasedL, Platelet Morphology Normal, Hypochromasia 1+, Anisocytosis 1+, Macrocytosis 1+ 03/22/20 04:40: White Blood Count 13.9H, Red Blood Count 2.82L, Hemoglobin 8.6L, Hematocrit 26.9L, Mean Corpuscular Volume 95, Mean Corpuscular Hemoglobin 30.4, Mean Corpuscular Hemoglobin Concent 31.9L, Red Cell Distribution Width 18.2H, Platelet Count 43L, Mean Platelet Volume 9.1, Neutrophils (%) (Auto) , Ly mphocytes (%) (Auto) , Monocytes (%) (Auto) , Eosinophils (%) (Auto) , Basophils (%) (Auto) , Neutrophils % (Manual) [Pending], Lymphocytes % (Manual) [Pending], Platelet Estimate [Pending], Platelet Morphology [Pending], Sodium Level 140, Potassium Level 5.7H, Chloride Level 105, Carbon Dioxide Level 25, Anion Gap 10, Blood Urea Nitrogen 72H, Creatinine 2.9H, Estimat Glomerular Filtration Rate 21.6, Glucose Level 113H, Calcium Level 7.3L, Total Bilirubin 1.1H, Direct Bilirubin 0.5H, Aspartate Amino Transf (AST/SGOT) 41H, Alanine Aminotransferase (ALT/SGPT) 28, Alkaline Phosphatase 186H, Pro-B-Type Natriuretic Peptide 409H, Total Protein 5.8L, Albumin 2.0L, Globulin 3.8, Albumin/Globulin Ratio 0.5L Height (Feet): 5 Height (Inches): 4.00 Weight (Pounds): 154 General Appearance: lethargic EENT: normal ENT inspection Neck: supple Cardiovascular: normal rate Respiratory/Chest: decreased breath sounds Abdomen: soft, hypoactive bowel sounds Extremities: non-tender Assessment/Plan Status: stable, not improved Assessment/Plan: Assessment - COVID PNA - resp failure, on BIPAP - severe thrombocytopenia - not stable for EGD/PEG at this time - NGT/OGT problematic for same reasons - Renal failure - anemia, OB (+) - recent pancreatitis and hepatitis - presumed COVID related - Poor prognosis Recommendations - plan short term TPN with HD, until health status improves - supportive care - follow CBC and resp status - can retry swallow eval if resp status improves - will follow with you Kevin Nath MD Mar 22, 2020 07:41
[2020-03-22] MEDS ORDERED: Dextrose 10% 1,000 ML IV PRN (07:45)
[2020-03-22 08:00] VITALS: BP 124/80
--- NOTE | 2020-03-22 09:10 | Diagnostic Imaging Report ---
Indications: Needs long-term dialysis access Technique: Patient already on antibiotics. Case discussed with the infectious disease physician, who indicated that leukocytosis is due to therapy. Total sterile technique, including sterile probe cover and sterile gel, sterile gloves, hand hygiene, hat, mask,, sterile gown, large sterile drape, and preparation with 2% chlorhexidine utilized. Local anesthesia with 1% lidocaine. Ultrasound demonstrated patent compressible right internal jugular vein. Under real-time ultrasound guidance and with real-time visualization of the needle entering the vein lumen, puncture right internal jugular vein using 21-gauge micropuncture needle, passage 0.018 guidewire, exchange for 4 Macedonian micropuncture introducer. The guidewire was used to measure the appropriate catheter length, and was removed. The sheath was left in place. The subcutaneous tract was then anesthetized with 1% lidocaine. A chest dermatotomy was made . The tunneling device was used to pull a 14.5 Macedonian 23 cm BioFlo catheter through the subcutaneous tunnel to the neck dermatotomy. A guidewire was passed through the neck introducer into the inferior vena cava, and serial dilators were passed over it, followed by the introduction of a 14.5 Macedonian AirGuard peel-away sheath. The catheter was then introduced into the sheath, the peel-away sheath was removed. Digital radiograph documents satisfactory catheter tip position in the high right atrium, no kinking at the insertion site. Both catheter ports aspirated and flushed. Catheter was fixed to the skin. Patient tolerated procedure well without immediate complication. Total fluoroscopy time 46.2 seconds. Total dose area product [id number] mGym2 Total number of images-6 2 Comparison: None. Findings: Completion radiograph documents satisfactory position and course of the catheter, catheter tip at the cavoatrial junction. Impression: Successful placement of right transjugular tunneled dialysis catheter, as described above
[2020-03-22] MEDS: Solu-MEDROL 40mg Inj IVP SCH (09:19)
--- NOTE | 2020-03-22 10:45 | NUR ---
NURSE NOTES: per Dr. Nath, its ok to use R femoral Arron for TPN.
--- NOTE | 2020-03-22 10:54 | Infectious Diseases Prog Note ---
Assessment/Plan Assessment/Plan IMPRESSION: COVID-19 pneumonia. UTI with E.coli Pancreatitis Hypoxic respiratory failure, Altered mental status, encephalopathy, Dementia, Hypertension. Anemia ESRD started on HD Leukocytosis RECOMMENDATIONS: Continue Solumedrol tapering Continue isolation Subjective ROS Limited/Unobtainable: Yes Constitutional: Denies: fever Cardiovascular: Reports: other - had Permacath placement Allergies: Coded Allergies: No Known Allergies (Unverified , 02/04/20) Objective Last 24 Hour Vital Signs Date Time Temp Pulse Resp B/P (MAP) Pulse Ox O2 Delivery O2 Flow Rate FiO2 03/22/20 08:00 96.8 85 21 124/80 (95) 100 03/22/20 08:00 Bi-pap 80.0 03/22/20 08:00 80 03/22/20 08:00 67 03/22/20 07:00 68 16 100 80 03/22/20 04:00 90 03/22/20 04:00 97.2 74 17 140/62 (88) 100 03/22/20 04:00 Bi-pap 90.0 03/22/20 03:34 74 03/22/20 03:30 69 22 100 80 03/22/20 00:00 90 03/22/20 00:00 Bi-pap 90.0 03/22/20 00:00 97.6 65 15 123/73 (90) 100 03/21/20 23:41 71 03/21/20 23:11 74 21 100 90 03/21/20 20:00 100 03/21/20 20:00 Bi-pap 90.0 03/21/20 20:00 97.8 70 16 107/61 (76) 100 03/21/20 19:40 88 24 94 100 03/21/20 19:24 76 03/21/20 19:24 88 20 03/21/20 18:44 90 20 139/66 (90) 96 03/21/20 18:39 88 20 161/71 (101) 100 03/21/20 16:00 65 03/21/20 16:00 Bi-pap 90.0 03/21/20 16:00 98.2 73 18 126/67 (86) 99 03/21/20 15:22 65 03/21/20 15:00 65 20 99 65 03/21/20 12:00 97.2 79 20 119/73 (88) 98 1/8/21 12:00 90 03/21/20 12:00 Bi-pap 90.0 03/21/20 11:41 62 03/21/20 11:00 68 14 100 80 Height (Feet): 5 Height (Inches): 4.00 Weight (Pounds): 154 HEENT: mucous membranes moist Respiratory/Chest: other - on BIPAP, FIO2=80% Cardiovascular: normal rate Abdomen: soft, non tender Extremities: no edema Neurologic/Psychiatric: other - sleeping Laboratory Tests Test 03/21/20 14:45 03/22/20 04:40 White Blood Count 13.3 K/UL (4.8-10.8) H 13.9 K/UL (4.8-10.8) H Red Blood Count 2.96 M/UL (4.70-6.10) L 2.82 M/UL (4.70-6.10) L Hemoglobin 9.0 G/DL (14.2-18.0) L 8.6 G/DL (14.2-18.0) L Hematocrit 29.5 % (42.0-52.0) L 26.9 % (42.0-52.0) L Mean Corpuscular Volume 100 FL (80-99) H 95 FL (80-99) Mean Corpuscular Hemoglobin 30.3 PG (27.0-31.0) 30.4 PG (27.0-31.0) Mean Corpuscular Hemoglobin Concent 30.4 G/DL (32.0-36.0) L 31.9 G/DL (32.0-36.0) L Red Cell Distribution Width 18.0 % (11.6-14.8) H 18.2 % (11.6-14.8) H Platelet Count 40 K/UL (150-450) L 43 K/UL (150-450) L Mean Platelet Volume 6.2 FL (6.5-10.1) L 9.1 FL (6.5-10.1) Neutrophils (%) (Auto) % (45.0-75.0) % (45.0-75.0) Lymphocytes (%) (Auto) % (20.0-45.0) % (20.0-45.0) Monocytes (%) (Auto) % (1.0-10.0) % (1.0-10.0) Eosinophils (%) (Auto) % (0.0-3.0) % (0.0-3.0) Basophils (%) (Auto) % (0.0-2.0) % (0.0-2.0) Differential Total Cells Counted 100 100 Neutrophils % (Manual) 95 % (45-75) H 98 % (45-75) H Lymphocytes % (Manual) 1 % (20-45) L 1 % (20-45) L Monocytes % (Manual) 2 % (1-10) 1 % (1-10) Eosinophils % (Manual) 0 % (0-3) 0 % (0-3) Basophils % (Manual) 0 % (0-2) 0 % (0-2) Band Neutrophils 2 % (0-8) 0 % (0-8) Platelet Estimate Decreased L Decreased L Platelet Morphology Normal Normal Hypochromasia 1+ Anisocytosis 1+ 1+ Macrocytosis 1+ Sodium Level 140 MMOL/L (136-145) Potassium Level 5.7 MMOL/L (3.5-5.1) H Chloride Level 105 MMOL/L (98-107) Carbon Dioxide Level 25 MMOL/L (21-32) Anion Gap 10 mmol/L (5-15) Blood Urea Nitrogen 72 mg/dL (7-18) H Creatinine 2.9 MG/DL (0.55-1.30) H Estimat Glomerular Filtration Rate 21.6 mL/min (>60) Glucose Level 113 MG/DL (74-106) H Calcium Level 7.3 MG/DL (8.5-10.1) L Total Bilirubin 1.1 MG/DL (0.2-1.0) H Direct Bilirubin 0.5 MG/DL (0.0-0.3) H Aspartate Amino Transf (AST/SGOT) 41 U/L (15-37) H Alanine Aminotransferase (ALT/SGPT) 28 U/L (12-78) Alkaline Phosphatase 186 U/L (46-116) H Pro-B-Type Natriuretic Peptide 409 pg/mL (0-125) H Total Protein 5.8 G/DL (6.4-8.2) L Albumin 2.0 G/DL (3.4-5.0) L Globulin 3.8 g/dL Albumin/Globulin Ratio 0.5 (1.0-2.7) L Current Medications Medications (Trade) Dose Ordered Sig/James Route PRN Reason Start Time Stop Time Status Last Admin Dose Admin Acetaminophen (Tylenol) 650 mg Q4H PRN RECTAL Temp >100.5 03/07/20 08:15 04/06/20 08:14 Acetaminophen (Tylenol) 650 mg Q4H PRN RECTAL Mild Pain (Pain Scale 1-3) 03/07/20 09:00 04/06/20 08:59 Albuterol Sulfate (Proventil MDI) 2 puff Q4H PRN INH Shortness of Breath 03/07/20 08:15 06/05/20 08:14 Amino Acids/ Electrolytes/ Dextrose 2,000 ml @ 83 mls/hr Q24H IV 03/22/20 21:00 06/20/20 20:59 UNV Cefazolin Sodium 1 gm/Dextrose 55 ml @ 110 mls/hr QHS IVPB 03/21/20 18:11 03/28/20 18:10 03/21/20 18:54 Chlorhexidine Gluconate (Linnette-Hex 2%) 1 applic DAILY@2000 TOPIC 03/09/20 20:00 06/07/20 19:59 03/21/20 20:47 Dextrose 1,000 ml @ 0 mls/hr Q24H PRN IV PN interrupted or unavailable 03/22/20 07:45 04/21/20 07:44 Dextrose (Dextrose 50%) 25 ml Q30M PRN IV Hypoglycemia 03/22/20 07:45 06/20/20 07:44 Dextrose (Dextrose 50%) 50 ml Q30M PRN IV Hypoglycemia 03/22/20 07:45 06/20/20 07:44 Enoxaparin Sodium (Lovenox) 40 mg Q24H SUBQ 03/19/20 21:00 06/17/20 20:59 03/21/20 20:49 Epoetin Juan (Epoetin Juan(ESRD on dialysis)) 10,000 unit TUE-WED-TUE SUBQ 03/19/20 21:00 06/17/20 20:59 03/21/20 20:45 Famotidine (Pepcid I.v.) 20 mg DAILY IVP 03/07/20 09:00 04/06/20 08:59 03/22/20 09:19 Fat Emulsion Intravenous 250 ml @ 10.4 mls/hr Q24H IV 03/22/20 21:00 04/21/20 20:59 UNV Methylprednisolone Sodium Succinate (Solu-MEDROL) 40 mg DAILY IVP 03/21/20 12:00 06/19/20 11:59 03/22/20 09:19 Ondansetron HCl (Zofran) 4 mg Q6H PRN IVP Nausea & Vomiting 03/07/20 08:15 04/06/20 08:14 Sodium Chloride 1,000 ml @ 500 mls/hr Q2H PRN IVLG sbp<90 during hd 03/15/20 13:30 04/14/20 13:29 Joe Nguyen MD Mar 22, 2020 10:54
--- NOTE | 2020-03-22 11:49 | General Progress Note ---
Subjective ROS Limited/Unobtainable: No Constitutional: Reports: malaise, weakness HEENT: Reports: no symptoms Cardiovascular: Reports: no symptoms Respiratory: Reports: cough, shortness of breath Gastrointestinal/Abdominal: Reports: difficulty swallowing Genitourinary: Reports: no symptoms Neurologic/Psychiatric: Reports: no symptoms Endocrine: Reports: no symptoms Hematologic/Lymphatic: Reports: no symptoms Allergies: Coded Allergies: No Known Allergies (Unverified , 02/04/20) All Systems: reviewed and negative except above Subjective no significant change. remains on bipap. on 70%fio2. unable to take po. elevate k noted. currently on ivf with kcl. GI noted. remains on iv abx. Objective Last 24 Hour Vital Signs Date Time Temp Pulse Resp B/P (MAP) Pulse Ox O2 Delivery O2 Flow Rate FiO2 03/22/20 11:05 84 19 97 70 03/22/20 08:00 96.8 85 21 124/80 (95) 100 03/22/20 08:00 Bi-pap 80.0 03/22/20 08:00 80 03/22/20 08:00 67 03/22/20 07:00 68 16 100 80 03/22/20 04:00 90 03/22/20 04:00 97.2 74 17 140/62 (88) 100 03/22/20 04:00 Bi-pap 90.0 03/22/20 03:34 74 03/22/20 03:30 69 22 100 80 03/22/20 00:00 90 03/22/20 00:00 Bi-pap 90.0 03/22/20 00:00 97.6 65 15 123/73 (90) 100 03/21/20 23:41 71 03/21/20 23:11 74 21 100 90 03/21/20 20:00 100 03/21/20 20:00 Bi-pap 90.0 03/21/20 20:00 97.8 70 16 107/61 (76) 100 03/21/20 19:40 88 24 94 100 03/21/20 19:24 76 03/21/20 19:24 88 20 03/21/20 18:44 90 20 139/66 (90) 96 03/21/20 18:39 88 20 161/71 (101) 100 03/21/20 16:00 65 03/21/20 16:00 Bi-pap 90.0 03/21/20 16:00 98.2 73 18 126/67 (86) 99 03/21/20 15:22 65 03/21/20 15:00 65 20 99 65 03/21/20 12:00 97.2 79 20 119/73 (88) 98 03/21/20 12:00 90 03/21/20 12:00 Bi-pap 90.0 Intake and Output 03/21/20 03/22/20 19:00 07:00 Intake Total 75 ml 750 ml Output Total 400 ml Balance 75 ml 350 ml Intake IV Total 75 ml 750 ml Output Urine Total 400 ml # Bowel Movements 1 1 Laboratory Tests 03/21/20 14:45: White Blood Count 13.3H, Red Blood Count 2.96L, Hemoglobin 9.0L, Hematocrit 29.5L, Mean Corpuscular Volume 100H, Mean Corpuscular Hemoglobin 30.3, Mean Corpuscular Hemoglobin Concent 30.4L, Red Cell Distribution Width 18.0H, Platelet Count 40L, Mean Platelet Volume 6.2L, Neutrophils (%) (Auto) , Lymphocytes (%) (Auto) , Monocytes (%) (Auto) , Eosinophils (%) (Auto) , Basophils (%) (Auto) , Differential Total Cells Counted 100, Neutrophils % (Manual) 95H, Lymphocytes % (Manual) 1L, Monocytes % (Manual) 2, Eosinophils % (Manual) 0, Basophils % (Manual) 0, Band Neutrophils 2, Platelet Estimate DecreasedL, Platelet Morphology Normal, Hypochromasia 1+, Anisocytosis 1+, Macrocytosis 1+ 03/22/20 04:40: White Blood Count 13.9H, Red Blood Count 2.82L, Hemoglobin 8.6L, Hematocrit 26.9L, Mean Corpuscular Volume 95, Mean Corpuscular Hemoglobin 30.4, Mean Corpuscular Hemoglobin Concent 31.9L, Red Cell Distribution Width 18.2H, Platelet Count 43L, Mean Platelet Volume 9.1, Neutrophils (%) (Auto) , Lymphocytes (%) (Auto) , Monocytes (%) (Auto) , Eosinophils (%) (Auto) , Basophils (%) (Auto) , Differential Total Cells Counted 100, Neutrophils % (Manual) 98H, Lymphocytes % (Manual) 1L, Monocytes % (Manual) 1, Eosinophils % (Manual) 0, Basophils % (Manual) 0, Band Neutrophils 0, Platelet Estimate DecreasedL, Platelet Morphology Normal, Anisocytosis 1+, Sodium Level 140, Potassium Level 5.7H, Chloride Level 105, Carbon Dioxide Level 25, Anion Gap 10, Blood Urea Nitrogen 72H, Creatinine 2.9H, Estimat Glomerular Filtration Rate 21.6, Glucose Level 113H, Calcium Level 7.3L, Total Bilirubin 1.1H, Direct Bilirubin 0.5H, Aspartate Amino Transf (AST/SGOT) 41H, Alanine Aminotransferase (ALT/SGPT) 28, Alkaline Phosphatase 186H, Pro-B-Type Natriuretic Peptide 409H, Total Protein 5.8L, Albumin 2.0L, Globulin 3.8, Albumin/Globulin Ratio 0.5L Height (Feet): 5 Height (Inches): 4.00 Weight (Pounds): 154 Objective General Appearance: WD/WN, confused Neck: supple Cardiovascular: regular rhythm Respiratory/Chest: lungs clear Abdomen: normal bowel sounds, non tender, soft, no organomegaly Edema: no edema noted Leg (L), no edema noted Leg (R) Neurologic: disoriented Assessment/Plan Problem List: (1) Altered level of consciousness ICD Codes: R40.4 - Transient alteration of awareness SNOMED: 0386682 (2) Pneumonia due to COVID-19 virus ICD Codes: U07.1 - COVID-19; J12.89 - Other viral pneumonia SNOMED: 315724634949052636 (3) Renal failure ICD Codes: N19 - Unspecified kidney failure SNOMED: 50187867 (4) Respiratory distress ICD Codes: R06.03 - Acute respiratory distress SNOMED: 872769429 Status: stable, not improved Assessment/Plan: cont bipap wean as able TPN per GI steroids resp care dc ivf with kcl lovenox with caution- low plts and stool ob. May need ivc fillter consider heme eval re: low plts check hitab HD per renal Doug Garcia MD Mar 22, 2020 11:49
[2020-03-22 12:00] VITALS: BP 129/71
--- NOTE | 2020-03-22 12:00 | NUR ---
NURSE NOTES: Per endorsement. Right upper chest Permacath is ok to use for HD.
--- NOTE | 2020-03-22 12:05 | Surgery Progress Note ---
Surgery Progress Note Subjective Procedure Performed Right femoral temporary hemodialysis catheter insertion Additional Comments requiring support will discussed trach Objective Last 24 Hour Vital Signs Date Time Temp Pulse Resp B/P (MAP) Pulse Ox O2 Delivery O2 Flow Rate FiO2 03/22/20 11:05 84 19 97 70 03/22/20 08:00 96.8 85 21 124/80 (95) 100 03/22/20 08:00 Bi-pap 80.0 03/22/20 08:00 80 03/22/20 08:00 67 03/22/20 07:00 68 16 100 80 03/22/20 04:00 90 03/22/20 04:00 97.2 74 17 140/62 (88) 100 03/22/20 04:00 Bi-pap 90.0 03/22/20 03:34 74 03/22/20 03:30 69 22 100 80 03/22/20 00:00 90 03/22/20 00:00 Bi-pap 90.0 03/22/20 00:00 97.6 65 15 123/73 (90) 100 03/21/20 23:41 71 03/21/20 23:11 74 21 100 90 03/21/20 20:00 100 03/21/20 20:00 Bi-pap 90.0 03/21/20 20:00 97.8 70 16 107/61 (76) 100 03/21/20 19:40 88 24 94 100 03/21/20 19:24 76 03/21/20 19:24 88 20 03/21/20 18:44 90 20 139/66 (90) 96 03/21/20 18:39 88 20 161/71 (101) 100 03/21/20 16:00 65 03/21/20 16:00 Bi-pap 90.0 03/21/20 16:00 98.2 73 18 126/67 (86) 99 03/21/20 15:22 65 03/21/20 15:00 65 20 99 65 I&O Intake and Output 03/21/20 03/22/20 19:00 07:00 Intake Total 75 ml 750 ml Output Total 400 ml Balance 75 ml 350 ml Intake IV Total 75 ml 750 ml Output Urine Total 400 ml # Bowel Movements 1 1 Dressing: saturated Cardiovascular: RSR Respiratory: decreased breath sounds Abdomen: non-tender, present bowel sounds, non-distended Extremities: no tenderness, no cyanosis Laboratory Tests Test 03/21/20 14:45 03/22/20 04:40 White Blood Count 13.3 K/UL (4.8-10.8) H 13.9 K/UL (4.8-10.8) H Red Blood Count 2.96 M/UL (4.70-6.10) L 2.82 M/UL (4.70-6.10) L Hemoglobin 9.0 G/DL (14.2-18.0) L 8.6 G/DL (14.2-18.0) L Hematocrit 29.5 % (42.0-52.0) L 26.9 % (42.0-52.0) L Mean Corpuscular Volume 100 FL (80-99) H 95 FL (80-99) Mean Corpuscular Hemoglobin 30.3 PG (27.0-31.0) 30.4 PG (27.0-31.0) Mean Corpuscular Hemoglobin Concent 30.4 G/DL (32.0-36.0) L 31.9 G/DL (32.0-36.0) L Red Cell Distribution Width 18.0 % (11.6-14.8) H 18.2 % (11.6-14.8) H Platelet Count 40 K/UL (150-450) L 43 K/UL (150-450) L Mean Platelet Volume 6.2 FL (6.5-10.1) L 9.1 FL (6.5-10.1) Neutrophils (%) (Auto) % (45.0-75.0) % (45.0-75.0) Lymphocytes (%) (Auto) % (20.0-45.0) % (20.0-45.0) Monocytes (%) (Auto) % (1.0-10.0) % (1.0-10.0) Eosinophils (%) (Auto) % (0.0-3.0) % (0.0-3.0) Basophils (%) (Auto) % (0.0-2.0) % (0.0-2.0) Differential Total Cells Counted 100 100 Neutrophils % (Manual) 95 % (45-75) H 98 % (45-75) H Lymphocytes % (Manual) 1 % (20-45) L 1 % (20-45) L Monocytes % (Manual) 2 % (1-10) 1 % (1-10) Eosinophils % (Manual) 0 % (0-3) 0 % (0-3) Basophils % (Manual) 0 % (0-2) 0 % (0-2) Band Neutrophils 2 % (0-8) 0 % (0-8) Platelet Estimate Decreased L Decreased L Platelet Morphology Normal Normal Hypochromasia 1+ Anisocytosis 1+ 1+ Macrocytosis 1+ Sodium Level 140 MMOL/L (136-145) Potassium Level 5.7 MMOL/L (3.5-5.1) H Chloride Level 105 MMOL/L (98-107) Carbon Dioxide Level 25 MMOL/L (21-32) Anion Gap 10 mmol/L (5-15) Blood Urea Nitrogen 72 mg/dL (7-18) H Creatinine 2.9 MG/DL (0.55-1.30) H Estimat Glomerular Filtration Rate 21.6 mL/min (>60) Glucose Level 113 MG/DL (74-106) H Calcium Level 7.3 MG/DL (8.5-10.1) L Total Bilirubin 1.1 MG/DL (0.2-1.0) H Direct Bilirubin 0.5 MG/DL (0.0-0.3) H Aspartate Amino Transf (AST/SGOT) 41 U/L (15-37) H Alanine Aminotransferase (ALT/SGPT) 28 U/L (12-78) Alkaline Phosphatase 186 U/L (46-116) H Pro-B-Type Natriuretic Peptide 409 pg/mL (0-125) H Total Protein 5.8 G/DL (6.4-8.2) L Albumin 2.0 G/DL (3.4-5.0) L Globulin 3.8 g/dL Albumin/Globulin Ratio 0.5 (1.0-2.7) L Plan Problems: (1) Hyperkalemia (2) Respiratory distress Assessment & Plan: still requiring bipap with high oxygen demand trach considered hold on transition to eliquis cont lovenox for now (3) Pancreatitis Assessment & Plan: noted on admission to have acute pancreatitis etiology work up on way lft's noted mild elevated no n/v labs reviewed exam unreliable as very agitated iv fluids okay for diet trend labs will follow with exam and recs improving resolved lf't s improving no n/v okay diet (4) Renal failure Assessment & Plan: renal insufficiency fem cath placed okay for hd see note will follow (5) UTI (urinary tract infection) (6) Pneumonia due to COVID-19 virus (7) Dehydration (8) Renal insufficiency (9) Altered level of consciousness (10) Urinary tract bacterial infections Darius Sifuentes Mar 22, 2020 12:05
--- NOTE | 2020-03-22 12:53 | Pulmonology Progress Note ---
Subjective ROS Limited/Unobtainable: No Constitutional: Denies: fever Allergies: Coded Allergies: No Known Allergies (Unverified , 02/04/20) All Systems: reviewed and negative except above Objective Last 24 Hour Vital Signs Date Time Temp Pulse Resp B/P (MAP) Pulse Ox O2 Delivery O2 Flow Rate FiO2 03/22/20 11:05 84 19 97 70 03/22/20 08:00 96.8 85 21 124/80 (95) 100 03/22/20 08:00 Bi-pap 80.0 03/22/20 08:00 80 03/22/20 08:00 67 03/22/20 07:00 68 16 100 80 03/22/20 04:00 90 03/22/20 04:00 97.2 74 17 140/62 (88) 100 03/22/20 04:00 Bi-pap 90.0 03/22/20 03:34 74 03/22/20 03:30 69 22 100 80 03/22/20 00:00 90 03/22/20 00:00 Bi-pap 90.0 03/22/20 00:00 97.6 65 15 123/73 (90) 100 03/21/20 23:41 71 03/21/20 23:11 74 21 100 90 03/21/20 20:00 100 03/21/20 20:00 Bi-pap 90.0 03/21/20 20:00 97.8 70 16 107/61 (76) 100 03/21/20 19:40 88 24 94 100 03/21/20 19:24 76 03/21/20 19:24 88 20 03/21/20 18:44 90 20 139/66 (90) 96 03/21/20 18:39 88 20 161/71 (101) 100 03/21/20 16:00 65 03/21/20 16:00 Bi-pap 90.0 03/21/20 16:00 98.2 73 18 126/67 (86) 99 03/21/20 15:22 65 03/21/20 15:00 65 20 99 65 Intake and Output 03/21/20 03/22/20 19:00 07:00 Intake Total 75 ml 750 ml Output Total 400 ml Balance 75 ml 350 ml Intake IV Total 75 ml 750 ml Output Urine Total 400 ml # Bowel Movements 1 1 Laboratory Tests 03/21/20 14:45: White Blood Count 13.3H, Red Blood Count 2.96L, Hemoglobin 9.0L, Hematocrit 29.5L, Mean Corpuscular Volume 100H, Mean Corpuscular Hemoglobin 30.3, Mean Corpuscular Hemoglobin Concent 30.4L, Red Cell Distribution Width 18.0H, Platelet Count 40L, Mean Platelet Volume 6.2L, Neutrophils (%) (Auto) , Lymphocytes (%) (Auto) , Monocytes (%) (Auto) , Eosinophils (%) (Auto) , Basophils (%) (Auto) , Differential Total Cells Counted 100, Neutrophils % (Manual) 95H, Lymphocytes % (Manual) 1L, Monocytes % (Manual) 2, Eosinophils % ( Manual) 0, Basophils % (Manual) 0, Band Neutrophils 2, Platelet Estimate DecreasedL, Platelet Morphology Normal, Hypochromasia 1+, Anisocytosis 1+, Macrocytosis 1+ 03/22/20 04:40: White Blood Count 13.9H, Red Blood Count 2.82L, Hemoglobin 8.6L, Hematocrit 26.9L, Mean Corpuscular Volume 95, Mean Corpuscular Hemoglobin 30.4, Mean Corpuscular Hemoglobin Concent 31.9L, Red Cell Distribution Width 18.2H, Platelet Count 43L, Mean Platelet Volume 9.1, Neutrophils (%) (Auto) , Lymphocytes (%) (Auto) , Monocytes (%) (Auto) , Eosinophils (%) (Auto) , Basophils (%) (Auto) , Differential Total Cells Counted 100, Neutrophils % (Manual) 98H, Lymphocytes % (Manual) 1L, Monocytes % (Manual) 1, Eosinophils % (Manual) 0, Basophils % (Manual) 0, Band Neutrophils 0, Platelet Estimate DecreasedL, Platelet Morphology Normal, Anisocytosis 1+, Sodium Level 140, Potassium Level 5.7H, Chloride Level 105, Carbon Dioxide Level 25, Anion Gap 10, Blood Urea Nitrogen 72H, Creatinine 2.9H, Estimat Glomerular Filtration Rate 21.6, Glucose Level 113H, Calcium Level 7.3L, Total Bilirubin 1.1H, Direct Bilirubin 0.5H, Aspartate Amino Transf (AST/SGOT) 41H, Alanine Aminotransferase (ALT/SGPT) 28, Alkaline Phosphatase 186H, Pro-B-Type Natriuretic Peptide 409H, Total Protein 5.8L, Albumin 2.0L, Globulin 3.8, Albumin/Globulin Ratio 0.5L Current Medications Medications (Trade) Dose Ordered Sig/James Route PRN Reason Start Time Stop Time Status Last Admin Dose Admin Acetaminophen (Tylenol) 650 mg Q4H PRN RECTAL Temp >100.5 03/07/20 08:15 04/06/20 08:14 Acetaminophen (Tylenol) 650 mg Q4H PRN RECTAL Mild Pain (Pain Scale 1-3) 03/07/20 09:00 04/06/20 08:59 Albuterol Sulfate (Proventil MDI) 2 puff Q4H PRN INH Shortness of Breath 03/07/20 08:15 06/05/20 08:14 Cefazolin Sodium 1 gm/Dextrose 55 ml @ 110 mls/hr QHS IVPB 03/21/20 18:11 03/28/20 18:10 03/21/20 18:54 Chlorhexidine Gluconate (Linnette-Hex 2%) 1 applic DAILY@2000 TOPIC 03/09/20 20:00 06/07/20 19:59 03/21/20 20:47 Dextrose 1,000 ml @ 0 mls/hr Q24H PRN IV PN interrupted or unavailable 03/22/20 07:45 04/21/20 07:44 Dextrose (Dextrose 50%) 25 ml Q30M PRN IV Hypoglycemia 03/22/20 07:45 06/20/20 07:44 Dextrose (Dextrose 50%) 50 ml Q30M PRN IV Hypoglycemia 03/22/20 07:45 06/20/20 07:44 Enoxaparin Sodium (Lovenox) 40 mg Q24H SUBQ 03/19/20 21:00 06/17/20 20:59 03/21/20 20:49 Epoetin Juan (Epoetin Juan(ESRD on dialysis)) 10,000 unit TUE-TUE-TUE SUBQ 03/19/20 21:00 06/17/20 20:59 03/21/20 20:45 Famotidine (Pepcid I.v.) 20 mg DAILY IVP 03/07/20 09:00 04/06/20 08:59 03/22/20 09:19 Fat Emulsion Intravenous 240 ml @ 10 mls/hr Q24H IV 03/22/20 21:00 04/21/20 20:59 Fat Emulsion Intravenous 240 ml/Amino Acids/ Electrolytes/ Dextrose 2,240 ml @ 92.96 mls/ hr Q24H IV 03/22/20 21:00 06/20/20 20:59 Methylprednisolone Sodium Succinate (Solu-MEDROL) 40 mg DAILY IVP 03/21/20 12:00 06/19/20 11:59 03/22/20 09:19 Ondansetron HCl (Zofran) 4 mg Q6H PRN IVP Nausea & Vomiting 03/07/20 08:15 04/06/20 08:14 Sodium Chloride 1,000 ml @ 500 mls/hr Q2H PRN IVLG sbp<90 during hd 03/15/20 13:30 04/14/20 13:29 Assessment/Plan Assessment/Plan Pulmonary Progress Note HPI Patient is a 69-year-old man admitted with Covid Pneumonia, LA, Hyperkalemia, Pancreatitis.Noted to have for shortness of breath, hypoxia. Allergies: No Known Allergies Past Medical History: HTN LA, On HD PRN - remains on BiPAP Physical Exam Vital Signs noted Deferred Covid19 Impression: Covid Pneumonia/possible sepsis Respiratory failure, acute LA - now on HD Hyperkalemia and now with hypokalemia Pancreatitis Urinary tract infection Hypertension toxic metabolic encephalopathy anemia elevated K DVT Plan at risk for intubation likely needs trach permacath and HD O2 high flow BiPAP for now and monitor acid base at risk for intubation follow up ABG still full code continue SDU care on lovenox 40 bid; may switch to eliquis needs GT feeds; will call gi discuss with surgery impression, plan, and exam edited and reviewed in detail care discussed with RN Laboratory Tests noted EKG Rate: normal Rhythm: NSR ST Segments: no acute changes Other Impression Sinus rhythm, normal axis, normal intervals, no ST segment changes, no peaked T waves Chest X-Ray: no effusion, no pneumothorax, other - Bilateral infiltrates. Bilateral multifocal pneumonia Cristopher Larson MD Mar 22, 2020 12:53
[2020-03-22 16:00] VITALS: BP 99/54
--- NOTE | 2020-03-22 17:32 | Cardiology Progress Note ---
Subjective DATE OF SERVICE: Mar 22, 2020 Remains in sinus rhythm following IV cardizem dose. Remains on bipap support, with slight decrease in O2 requirements to 70% Venous duplex: partially obstructing fight common femoral DVT Objective Last 24 Hour Vital Signs Date Time Temp Pulse Resp B/P (MAP) Pulse Ox O2 Delivery O2 Flow Rate FiO2 03/22/20 16:00 70 03/22/20 16:00 Bi-pap 80.0 03/22/20 16:00 77 03/22/20 16:00 96.9 80 20 99/54 (69) 97 03/22/20 15:15 79 17 95 70 03/22/20 12:00 70 03/22/20 12:00 72 03/22/20 12:00 Bi-pap 80.0 03/22/20 12:00 96.4 70 20 129/71 (90) 100 03/22/20 11:05 84 19 97 70 03/22/20 08:00 96.8 85 21 124/80 (95) 100 03/22/20 08:00 Bi-pap 80.0 03/22/20 08:00 80 03/22/20 08:00 67 03/22/20 07:00 68 16 100 80 03/22/20 04:00 90 03/22/20 04:00 97.2 74 17 140/62 (88) 100 03/22/20 04:00 Bi-pap 90.0 03/22/20 03:34 74 03/22/20 03:30 69 22 100 80 03/22/20 00:00 90 03/22/20 00:00 Bi-pap 90.0 03/22/20 00:00 97.6 65 15 123/73 (90) 100 03/21/20 23:41 71 03/21/20 23:11 74 21 100 90 03/21/20 20:00 100 03/21/20 20:00 Bi-pap 90.0 03/21/20 20:00 97.8 70 16 107/61 (76) 100 03/21/20 19:40 88 24 94 100 03/21/20 19:24 76 03/21/20 19:24 88 20 03/21/20 18:44 90 20 139/66 (90) 96 03/21/20 18:39 88 20 161/71 (101) 100 ROS: unchanged from 03/18/20 HEENT: other - bipap RHYTHM: NSR, PACs LUNGS: bilat. rhonchi and rales CARDIAC: normal rate, regular rhythm, normal S1 and S2 ABDOMEN: normal bowel sounds, non tender EXTREMITIES: trace edema Laboratory Tests Test 03/22/20 04:40 White Blood Count 13.9 K/UL (4.8-10.8) H Red Blood Count 2.82 M/UL (4.70-6.10) L Hemoglobin 8.6 G/DL (14.2-18.0) L Hematocrit 26.9 % (42.0-52.0) L Mean Corpuscular Volume 95 FL (80-99) Mean Corpuscular Hemoglobin 30.4 PG (27.0-31.0) Mean Corpuscular Hemoglobin Concent 31.9 G/DL (32.0-36.0) L Red Cell Distribution Width 18.2 % (11.6-14.8) H Platelet Count 43 K/UL (150-450) L Mean Platelet Volume 9.1 FL (6.5-10.1) Neutrophils (%) (Auto) % (45.0-75.0) Lymphocytes (%) (Auto) % (20.0-45.0) Monocytes (%) (Auto) % (1.0-10.0) Eosinophils (%) (Auto) % (0.0-3.0) Basophils (%) (Auto) % (0.0-2.0) Differential Total Cells Counted 100 Neutrophils % (Manual) 98 % (45-75) H Lymphocytes % (Manual) 1 % (20-45) L Monocytes % (Manual) 1 % (1-10) Eosinophils % (Manual) 0 % (0-3) Basophils % (Manual) 0 % (0-2) Band Neutrophils 0 % (0-8) Platelet Estimate Decreased L Platelet Morphology Normal Anisocytosis 1+ Sodium Level 140 MMOL/L (136-145) Potassium Level 5.7 MMOL/L (3.5-5.1) H Chloride Level 105 MMOL/L (98-107) Carbon Dioxide Level 25 MMOL/L (21-32) Anion Gap 10 mmol/L (5-15) Blood Urea Nitrogen 72 mg/dL (7-18) H Creatinine 2.9 MG/DL (0.55-1.30) H Estimat Glomerular Filtration Rate 21.6 mL/min (>60) Glucose Level 113 MG/DL (74-106) H Calcium Level 7.3 MG/DL (8.5-10.1) L Total Bilirubin 1.1 MG/DL (0.2-1.0) H Direct Bilirubin 0.5 MG/DL (0.0-0.3) H Aspartate Amino Transf (AST/SGOT) 41 U/L (15-37) H Alanine Aminotransferase (ALT/SGPT) 28 U/L (12-78) Alkaline Phosphatase 186 U/L (46-116) H Pro-B-Type Natriuretic Peptide 409 pg/mL (0-125) H Total Protein 5.8 G/DL (6.4-8.2) L Albumin 2.0 G/DL (3.4-5.0) L Globulin 3.8 g/dL Albumin/Globulin Ratio 0.5 (1.0-2.7) L Assessment/Plan Assessment/Plan Non-occlusive DVT Paroxysmal Atrial Fibrillation Acute coronary insuff Covid 19 PNA Acute hypoxic respiratory failure Anemia Ac/chronic diastolic CHF Ac/chronic renal failure on hemodialysis Thrombocytopenia improved over past day Dysphagia Exogenous hyperkalemia Lovenox continued with caution; watch plt ct Wean off bipap as able Periodic diuresis; trend BNP Steroids per pulmonary Unable to give oral diltiazem at present while NPO; will give IVP prn for rapid atrial arrhythmias. PermCath planned per renal IVF adjusted by Cristopher Zaidi MD Mar 22, 2020 17:32
--- NOTE | 2020-03-22 19:10 | NUR ---
NURSE NOTES: Received report from CHERELLE Lauren. Pt is asleep, not in acute distress. On Bipap /, FiO2 80%, saturating 98%. Vital signs are stable. Bello catheter is intact and patent. Peripheral IV in left AC 20G is intact and patent running D5W @ 50cc/hr. No skin issues noted. Bed is locked and in lowest position, bed alarm on, call light is with the pt. Head of bed is elevated. Will continue to monitor pt. Will continue with the plan of care. Addendum: 03/22/20 at 1950 by Amy Cortés RN RN Wrong PT. Addendum: 03/22/20 at 1956 by Amy Cortés RN RN Wrong Patient
--- NOTE | 2020-03-22 19:10 | NUR ---
NURSE HAND-OFF REPORT: Important Events on Shift:Had dialysis today 2L out. Patient Status: Stable Diet: TPN Pending Orders: NA Pending Results/Labs:NA Pending MD notification:NA Latest Vital Signs: Temperature 96.9 , Pulse 77 , B/P 99 /54 , Respiratory Rate 20 , O2 SAT 97 , Bi-pap, O2 Flow Rate 80.0 . Vital Sign Comment: Stable EKG Rhythm: Sinus Rhythm Rhythm change?: N MD Notified?: Beatriz Go. Response: Order Received& Read Back Latest Conner Fall Score: 70 Fall Risk: High Risk Safety Measures: Call light Within Reach, Bed Alarm Zone 2, Side Rails Side Rails x2, Bed position Low and Locked. Fall Precautions: Yellow Socks Yellow Gown Door Sign Patient Fall Education Report given to CHERELLE Reyes.
--- NOTE | 2020-03-22 19:40 | NUR ---
NURSE NOTES: Entered wrong note earlier. Received report from CHERELLE Mar. Pt is asleep, not in acute distress. No facial grimacing noted. On Bipap tolerating the following settin/6, FiO2 70%, saturating 100%. Perma catheter in right upper chest is intact and patent. Right femoral Arron catheter is intact and patent. Condom catheter is intact and patent draining dark shyann urine. Recent labs noted. Hemodialysis done today, 2 L out. Bed is locked and in lowest position, bed alarm on, call light is within reached. Will continue to monitor pt. Will continue with the plan of care.
--- NOTE | 2020-03-22 19:59 | Nephrology Progress Note ---
Assessment/Plan Problem List: (1) End-stage renal disease (2) Pneumonia due to COVID-19 virus (3) Hyperkalemia (4) Respiratory distress (5) Pneumonia due to COVID-19 virus (6) Altered level of consciousness (7) Urinary tract bacterial infections Plan HD 03/22 via cath, on bipap, weak and high risk Subjective ROS Limited/Unobtainable: Yes Objective Objective Last 24 Hour Vital Signs Date Time Temp Pulse Resp B/P (MAP) Pulse Ox O2 Delivery O2 Flow Rate FiO2 03/22/20 16:00 70 03/22/20 16:00 Bi-pap 80.0 03/22/20 16:00 77 03/22/20 16:00 96.9 80 20 99/54 (69) 97 03/22/20 15:15 79 17 95 70 03/22/20 12:00 70 03/22/20 12:00 72 03/22/20 12:00 Bi-pap 80.0 03/22/20 12:00 96.4 70 20 129/71 (90) 100 03/22/20 11:05 84 19 97 70 03/22/20 08:00 96.8 85 21 124/80 (95) 100 03/22/20 08:00 Bi-pap 80.0 03/22/20 08:00 80 03/22/20 08:00 67 03/22/20 07:00 68 16 100 80 03/22/20 04:00 90 03/22/20 04:00 97.2 74 17 140/62 (88) 100 03/22/20 04:00 Bi-pap 90.0 03/22/20 03:34 74 03/22/20 03:30 69 22 100 80 03/22/20 00:00 90 03/22/20 00:00 Bi-pap 90.0 03/22/20 00:00 97.6 65 15 123/73 (90) 100 03/21/20 23:41 71 03/21/20 23:11 74 21 100 90 03/21/20 20:00 100 03/21/20 20:00 Bi-pap 90.0 03/21/20 20:00 97.8 70 16 107/61 (76) 100 Intake and Output 03/21/20 03/22/20 19:00 07:00 Intake Total 75 ml 750 ml Output Total 400 ml Balance 75 ml 350 ml Intake IV Total 75 ml 750 ml Output Urine Total 400 ml # Bowel Movements 1 1 Laboratory Tests 03/22/20 04:40: White Blood Count 13.9H, Red Blood Count 2.82L, Hemoglobin 8.6L, Hematocrit 26.9L, Mean Corpuscular Volume 95, Mean Corpuscular Hemoglobin 30.4, Mean Corpuscular Hemoglobin Concent 31.9L, Red Cell Distribution Width 18.2H, Platelet Count 43L, Mean Platelet Volume 9.1, Neutrophils (%) (Auto) , Lymphocytes (%) (Auto) , Monocytes (%) (Auto) , Eosinophils (%) (Auto) , Basophils (%) (Auto) , Differential Total Cells Counted 100, Neutrophils % (Manual) 98H, Lymphocytes % (Manual) 1L, Monocytes % (Manual) 1, Eosinophils % (Manual) 0, Basophils % (Manual) 0, Band Neutrophils 0, Platelet Estimate DecreasedL, Platelet Morphology Normal, Anisocytosis 1+, Sodium Level 140, Potassium Level 5.7H, Chloride Level 105, Carbon Dioxide Level 25, Anion Gap 10, Blood Urea Nitrogen 72H, Creatinine 2.9H, Estimat Glomerular Filtration Rate 21.6, Glucose Level 113H, Calcium Level 7.3L, Total Bilirubin 1.1H, Direct Bilirubin 0.5H, Aspartate Amino Transf (AST/SGOT) 41H, Alanine Aminotransferase (ALT/SGPT) 28, Alkaline Phosphatase 186H, Pro-B-Type Natriuretic Peptide 409H, Total Protein 5.8L, Albumin 2.0L, Globulin 3.8, Albumin/Globulin Ratio 0.5L Height (Feet): 5 Height (Inches): 4.00 Weight (Pounds): 154 General Appearance: lethargic, mild distress Neck: normal alignment Cardiovascular: regular rhythm Respiratory/Chest: accessory muscle use Abdomen: non tender, soft Extremities: trace edema Neurologic: unresponsive Silvestre Maria MD Mar 22, 2020 19:59
[2020-03-22 20:00] VITALS: BP 117/61
[2020-03-22] MEDS ORDERED: TPN IV SCH (21:00)
[2020-03-22] MEDS ORDERED: FAT EMULSION 20% IV SCH ×2 (21:00)
[2020-03-22] MEDS: Dyna-Hex 2% Top Sol 2oz TOPIC SCH (21:13)
[2020-03-22] MEDS: ceFAZolin 1gm in D5W 55ml IVPB SCH (21:17)
[2020-03-22] MEDS: Enoxaparin 40mg Inj SUBQ SCH (21:19)
--- NOTE | 2020-03-22 23:00 | NUR ---
NURSE NOTES: Initial assessment done. Evening medications given. No facial grimacing noted. Tolerating Bipap setting with O2 saturation 97-100%. Vital signs are stable. Tolerating TPN. Will continue to closely monitor pt. Will continue with the plan of care.
[2020-03-23] VITALS: BP 130/66
[2020-03-23 04:00] VITALS: BP 127/64
--- NOTE | 2020-03-23 04:00 | NUR ---
NURSE NOTES: Sponge bath with chlorhexidine is given, gown and linens changed. Triad is applied to perineal area. Optifoam applied to sacral area. Pt is turned and repositioned. No facial grimacing noted. Tolerating Bipap setting with O2 saturation 98-100%. Tolerating TPN. Will continue to closely monitor pt.
--- NOTE | 2020-03-23 06:42 | General Progress Note ---
Subjective ROS Limited/Unobtainable: No Allergies: Coded Allergies: No Known Allergies (Unverified , 02/04/20) Objective Last 24 Hour Vital Signs Date Time Temp Pulse Resp B/P (MAP) Pulse Ox O2 Delivery O2 Flow Rate FiO2 03/23/20 04:00 70 03/23/20 04:00 85 03/23/20 04:00 97.8 78 16 127/64 (85) 100 03/23/20 04:00 Bi-pap 70.0 03/23/20 03:30 90 30 92 70 03/23/20 00:00 97.5 86 20 130/66 (87) 100 03/23/20 00:00 Bi-pap 70.0 03/23/20 00:00 97 03/22/20 23:19 76 18 100 70 03/22/20 20:00 Bi-pap 80.0 03/22/20 20:00 80 03/22/20 20:00 70 03/22/20 20:00 98.7 79 21 117/61 (79) 97 03/22/20 19:30 84 24 94 70 03/22/20 16:00 70 03/22/20 16:00 Bi-pap 80.0 03/22/20 16:00 77 03/22/20 16:00 96.9 80 20 99/54 (69) 97 03/22/20 15:15 79 17 95 70 03/22/20 12:00 70 03/22/20 12:00 72 03/22/20 12:00 Bi-pap 80.0 03/22/20 12:00 96.4 70 20 129/71 (90) 100 03/22/20 11:05 84 19 97 70 03/22/20 08:00 96.8 85 21 124/80 (95) 100 03/22/20 08:00 Bi-pap 80.0 03/22/20 08:00 80 03/22/20 08:00 67 03/22/20 07:00 68 16 100 80 Intake and Output 03/22/20 03/23/20 19:00 07:00 Intake Total 891.64 ml Output Total 2000 ml 300 ml Balance -2000 ml 591.64 ml Intake IV Total 891.64 ml Output Urine Total 300 ml Hemodialysis UF 2000 ml # Bowel Movements 2 Height (Feet): 5 Height (Inches): 4.00 Weight (Pounds): 154 General Appearance: no apparent distress EENT: normal ENT inspection Neck: supple Cardiovascular: normal rate Respiratory/Chest: decreased breath sounds Abdomen: normal bowel sounds, non tender, soft Extremities: non-tender Assessment/Plan Status: stable, not improved Assessment/Plan: Assessment - COVID PNA - resp failure, on BIPAP - severe thrombocytopenia - not stable for EGD/PEG at this time - NGT/OGT problematic for same reasons - Renal failure - anemia, OB (+) - recent pancreatitis and hepatitis - presumed COVID related - Poor prognosis Recommendations - plan short term TPN with HD, until health status improves - supportive care - follow CBC and resp status - can retry swallow eval if resp status improves - will follow with you Kevin Nath MD Mar 23, 2020 06:42
--- NOTE | 2020-03-23 07:15 | NUR ---
NURSE NOTES:Handoff received from CHERELLE Reyes. Patient received resting in bed, opens eyes to voice. Patient is on BIPAP 16/10 with FI02 of 70% saturating at 98% no signs of distress noted. Patient has condom cath patent and draining to gravity. Patient is placed on contact, droplet and airborne isolation for COVID+, MRSA Nares, VRE rectum and ESBL urine. patient also on fall and aspiration precautions with bed in the low and locked position and call light at bedside, bed alarm on. Patient is NPO but is receiving TPN in the R femoral Arron cath MD rosa order states ok to use, TPN running at 92.96ML/HR. Patient also has R upper chest Subclavian permacath dialysis port. cube cutter is on, will follow plan of care.
--- NOTE | 2020-03-23 07:29 | NUR ---
NURSE HAND-OFF REPORT: Important Events on Shift:None Patient Status: Full code Diet: NPO Pending Orders: N Pending Results/Labs:N Pending MD notification:N Latest Vital Signs: Temperature 97.8 , Pulse 78 , B/P 127 /64 , Respiratory Rate 16 , O2 SAT 100 , Bi-pap, O2 Flow Rate 70.0 . Vital Sign Comment: stable EKG Rhythm: Sinus Rhythm Rhythm change?: N MD Notified?: Beatriz -DR. Go. Response: Order Received& Read Back Latest Conner Fall Score: 70 Fall Risk: High Risk Safety Measures: Call light Within Reach, Bed Alarm Zone 2, Side Rails Side Rails x2, Bed position Low and Locked. Fall Precautions: Yellow Socks Yellow Gown Door Sign Patient Fall Education Report given to CHERELLE Mixon.
[2020-03-23 08:00] VITALS: BP 114/79
[2020-03-23 08:30] LABS: HEMATOCRIT 26.1 % (42.0-52.0); HEMOGLOBIN 8.1 G/DL (14.2-18.0); MEAN CORPUSCULAR VOLUME 98 FL (80-99); PLATELET COUNT 37 K/UL (150-450); RED BLOOD COUNT 2.65 M/UL (4.70-6.10); RED CELL DISTRIBUTION WIDTH 17.9 % (11.6-14.8); WHITE BLOOD COUNT 9.6 K/UL (4.8-10.8)
[2020-03-23 08:53] LABS: ALBUMIN 1.7 G/DL (3.4-5.0); ALBUMIN/GLOBULIN RATIO 0.5 (1.0-2.7); CREATININE 2.7 MG/DL (0.55-1.30); POTASSIUM 4.2 MMOL/L (3.5-5.1)
[2020-03-23] MEDS: Solu-MEDROL 40mg Inj IVP SCH (08:56)
--- NOTE | 2020-03-23 10:49 | NUR ---
RD ASSESSMENT & RECOMMENDATIONS SEE CARE ACTIVITY FOR COMPLETE ASSESSMENT DAILY ESTIMATED NEEDS: Needs based on Pulmonary, HD/ 70kg 25-30 kcals/kg 3283-4319 total kcals 1.2-1.8 g protein/kg 84-126 g total protein Fluids per MD NUTRITION DIAGNOSIS: Increased kcal/prot needs R/T renal dysfunction and respiratory status as evidenced by s/p a nontunneled nguyen catheter placement, now on HD, pt on continuous BIPAP, NPO at this time. CURRENT DIET: npo (on TPN) PARENTERAL NUTRITION RECOMMENDATIONS: D/AA Rate: 65 IL Rate: 9 Total Rate: 74 Volume: 1776 % Dextrose: 19 % AA: 5.5 Energy (kcals/kg): 1783 Protein (g/kg protein): 86 Nonprotein KCALS: 1440 GIR (mg CHO/kg/min): 2.9 % Fat KCALS: 24 NPC: N Ratio: 105:1 TPN Comment: - TPN initiated, recs to modify based on ESRD on HD status with elevated BG - D19% + AA 5.5 @65ml/hr w/ IL 20% @9ml/hr-> all 3:1 - Start rate per MD - IL <30% - GIR <5 - Monitor BG, LFT's, and lytes wnl TPN ADDITIONAL RECOMMENDATIONS: * Pt is NPO FROM ADM, ON CONTINUOUS BIPAP -> Monitor respiratory status, ability for oral diet -> TPN now initiated (03/23) * Monitor renal fxn and lytes- check f/up phos (last phos 6.2) * Monitor lipase trend (555 elevated) * Calibrated daily bedscale wt * Monitor BGs closely w/ Decadron
[2020-03-23 12:00] VITALS: BP 131/66
--- NOTE | 2020-03-23 12:49 | General Progress Note ---
Subjective ROS Limited/Unobtainable: No Constitutional: Reports: malaise, weakness HEENT: Reports: no symptoms Cardiovascular: Reports: no symptoms Respiratory: Reports: cough, shortness of breath Gastrointestinal/Abdominal: Reports: no symptoms Genitourinary: Reports: no symptoms Neurologic/Psychiatric: Reports: no symptoms Endocrine: Reports: no symptoms Hematologic/Lymphatic: Reports: no symptoms Allergies: Coded Allergies: No Known Allergies (Unverified , 02/04/20) All Systems: reviewed and negative except above Subjective no significant change. remains on bipap. on 70%fio2. unable to take po. on tpn. awake. responds to simple questions Objective Last 24 Hour Vital Signs Date Time Temp Pulse Resp B/P (MAP) Pulse Ox O2 Delivery O2 Flow Rate FiO2 03/23/20 12:00 70 03/23/20 12:00 97.7 77 16 131/66 (87) 100 03/23/20 08:00 97.0 76 24 114/79 (91) 98 03/23/20 08:00 70 03/23/20 08:00 72 03/23/20 08:00 Bi-pap 70.0 03/23/20 07:26 80 20 95 70 03/23/20 04:00 70 03/23/20 04:00 85 03/23/20 04:00 97.8 78 16 127/64 (85) 100 03/23/20 04:00 Bi-pap 70.0 03/23/20 03:30 90 30 92 70 03/23/20 00:00 97.5 86 20 130/66 (87) 100 03/23/20 00:00 Bi-pap 70.0 03/23/20 00:00 97 03/22/20 23:19 76 18 100 70 03/22/20 20:00 Bi-pap 80.0 03/22/20 20:00 80 03/22/20 20:00 70 03/22/20 20:00 98.7 79 21 117/61 (79) 97 03/22/20 19:30 84 24 94 70 03/22/20 16:00 70 03/22/20 16:00 Bi-pap 80.0 03/22/20 16:00 77 03/22/20 16:00 96.9 80 20 99/54 (69) 97 03/22/20 15:15 79 17 95 70 Intake and Output 03/22/20 03/23/20 19:00 07:00 Intake Total 891.64 ml Output Total 2000 ml 300 ml Balance -2000 ml 591.64 ml Intake IV Total 891.64 ml Output Urine Total 300 ml Hemodialysis UF 2000 ml # Bowel Movements 2 Laboratory Tests 03/23/20 07:20: White Blood Count 9.6, Red Blood Count 2.65L, Hemoglobin 8.1L, Hematocrit 26.1L, Mean Corpuscular Volume 98, Mean Corpuscular Hemoglobin 30.6, Mean Corpuscular Hemoglobin Concent 31.1L, Red Cell Distribution Width 17.9H, Platelet Count 37L, Mean Platelet Volume 12.7H, Neutrophils (%) (Auto) , Lymphocytes (%) (Auto) , Monocytes (%) (Auto) , Eosinophils (%) (Auto) , Basophils (%) (Auto) , Differential Total Cells Counted 100, Neutrophils % (Manual) 97H, Lymphocytes % (Manual) 2L, Monocytes % (Manual) 1, Eosinophils % (Manual) 0, Basophils % (Manual) 0, Band Neutrophils 0, Platelet Estimate DecreasedL, Platelet Morphology Normal, Hypochromasia 1+, Anisocytosis 1+, Sodium Level 142, Potassium Level 4.2, Chloride Level 104, Carbon Dioxide Level 27, Anion Gap 11, Blood Urea Nitrogen 55H, Creatinine 2.7H, Estimat Glomerular Filtration Rate 23.5, Glucose Level 413#H, Calcium Level 7.0L, Total Bilirubin 1.0, Aspartate Amino Transf (AST/SGOT) 40H, Alanine Aminotransferase (ALT/SGPT) 18, Alkaline Phosphatase 161H, Total Protein 5.3L, Albumin 1.7L, Globulin 3.6, Albumin/Globulin Ratio 0.5L Height (Feet): 5 Height (Inches): 4.00 Weight (Pounds): 154 Objective General Appearance: WD/WN, confused Neck: supple Cardiovascular: regular rhythm Respiratory/Chest: lungs clear Abdomen: normal bowel sounds, non tender, soft, no organomegaly Edema: no edema noted Leg (L), no edema noted Leg (R) Neurologic: disoriented Assessment/Plan Problem List: (1) Altered level of consciousness ICD Codes: R40.4 - Transient alteration of awareness SNOMED: 1459590 (2) Pneumonia due to COVID-19 virus ICD Codes: U07.1 - COVID-19; J12.89 - Other viral pneumonia SNOMED: 971549638986017704 (3) Renal failure ICD Codes: N19 - Unspecified kidney failure SNOMED: 91404730 (4) Respiratory distress ICD Codes: R06.03 - Acute respiratory distress SNOMED: 308391494 Status: stable, not improved Assessment/Plan: cont bipap as needed wean as able TPN per GI steroids resp care lovenox with caution- low plts and stool ob. May need ivc fillter consider heme eval re: low plts hit ab "borderline" HD per renal Doug Garcia MD Mar 23, 2020 12:49
--- NOTE | 2020-03-23 13:50 | Surgery Progress Note ---
Surgery Progress Note Subjective Procedure Performed Right femoral temporary hemodialysis catheter insertion Additional Comments ill appearing on support labs noted exam stable needs trach working on consent Objective Last 24 Hour Vital Signs Date Time Temp Pulse Resp B/P (MAP) Pulse Ox O2 Delivery O2 Flow Rate FiO2 03/23/20 12:00 70 03/23/20 12:00 97.7 77 16 131/66 (87) 100 03/23/20 12:00 77 03/23/20 12:00 Bi-pap 70.0 03/23/20 11:31 78 16 98 70 03/23/20 08:00 97.0 76 24 114/79 (91) 98 03/23/20 08:00 70 03/23/20 08:00 72 03/23/20 08:00 Bi-pap 70.0 03/23/20 07:26 80 20 95 70 03/23/20 04:00 70 03/23/20 04:00 85 03/23/20 04:00 97.8 78 16 127/64 (85) 100 03/23/20 04:00 Bi-pap 70.0 03/23/20 03:30 90 30 92 70 03/23/20 00:00 97.5 86 20 130/66 (87) 100 03/23/20 00:00 Bi-pap 70.0 03/23/20 00:00 97 03/22/20 23:19 76 18 100 70 03/22/20 20:00 Bi-pap 80.0 03/22/20 20:00 80 03/22/20 20:00 70 03/22/20 20:00 98.7 79 21 117/61 (79) 97 03/22/20 19:30 84 24 94 70 03/22/20 16:00 70 03/22/20 16:00 Bi-pap 80.0 03/22/20 16:00 77 03/22/20 16:00 96.9 80 20 99/54 (69) 97 03/22/20 15:15 79 17 95 70 I&O l Intake and Output 03/22/20 03/23/20 19:00 07:00 Intake Total 891.64 ml Output Total 2000 ml 300 ml Balance -2000 ml 591.64 ml Intake IV Total 891.64 ml Output Urine Total 300 ml Hemodialysis UF 2000 ml # Bowel Movements 2 Cardiovascular: RSR Respiratory: decreased breath sounds Abdomen: soft, non-tender, present bowel sounds Extremities: no tenderness, no cyanosis Laboratory Tests Test 03/23/20 07:20 White Blood Count 9.6 K/UL (4.8-10.8) Red Blood Count 2.65 M/UL (4.70-6.10) L Hemoglobin 8.1 G/DL (14.2-18.0) L Hematocrit 26.1 % (42.0-52.0) L Mean Corpuscular Volume 98 FL (80-99) Mean Corpuscular Hemoglobin 30.6 PG (27.0-31.0) Mean Corpuscular Hemoglobin Concent 31.1 G/DL (32.0-36.0) L Red Cell Distribution Width 17.9 % (11.6-14.8) H Platelet Count 37 K/UL (150-450) L Mean Platelet Volume 12.7 FL (6.5-10.1) H Neutrophils (%) (Auto) % (45.0-75.0) Lymphocytes (%) (Auto) % (20.0-45.0) Monocytes (%) (Auto) % (1.0-10.0) Eosinophils (%) (Auto) % (0.0-3.0) Basophils (%) (Auto) % (0.0-2.0) Differential Total Cells Counted 100 Neutrophils % (Manual) 97 % (45-75) H Lymphocytes % (Manual) 2 % (20-45) L Monocytes % (Manual) 1 % (1-10) Eosinophils % (Manual) 0 % (0-3) Basophils % (Manual) 0 % (0-2) Band Neutrophils 0 % (0-8) Platelet Estimate Decreased L Platelet Morphology Normal Hypochromasia 1+ Anisocytosis 1+ Sodium Level 142 MMOL/L (136-145) Potassium Level 4.2 MMOL/L (3.5-5.1) Chloride Level 104 MMOL/L (98-107) Carbon Dioxide Level 27 MMOL/L (21-32) Anion Gap 11 mmol/L (5-15) Blood Urea Nitrogen 55 mg/dL (7-18) H Creatinine 2.7 MG/DL (0.55-1.30) H Estimat Glomerular Filtration Rate 23.5 mL/min (>60) Glucose Level 413 MG/DL (74-106) #H Calcium Level 7.0 MG/DL (8.5-10.1) L Total Bilirubin 1.0 MG/DL (0.2-1.0) Aspartate Amino Transf (AST/SGOT) 40 U/L (15-37) H Alanine Aminotransferase (ALT/SGPT) 18 U/L (12-78) Alkaline Phosphatase 161 U/L (46-116) H Total Protein 5.3 G/DL (6.4-8.2) L Albumin 1.7 G/DL (3.4-5.0) L Globulin 3.6 g/dL Albumin/Globulin Ratio 0.5 (1.0-2.7) L Plan Problems: (1) Hyperkalemia (2) Respiratory distress Assessment & Plan: still requiring bipap with high oxygen demand trach considered hold on transition to eliquis cont lovenox for now (3) Pancreatitis Assessment & Plan: noted on admission to have acute pancreatitis etiology work up on way lft's noted mild elevated no n/v labs reviewed exam unreliable as very agitated iv fluids okay for diet trend labs will follow with exam and recs improving resolved lf't s improving no n/v okay diet (4) Renal failure Assessment & Plan: renal insufficiency fem cath placed okay for hd see note will follow (5) UTI (urinary tract infection) (6) Pneumonia due to COVID-19 virus (7) Dehydration (8) Renal insufficiency (9) Altered level of consciousness (10) Urinary tract bacterial infections Darius Sifuentes Mar 23, 2020 13:50
--- NOTE | 2020-03-23 15:55 | NUR ---
NURSE NOTES:RT titrated FI02 down from 70% to 60%, patient tolerating well with 02 saturation at 96%
[2020-03-23 15:56] VITALS: BP 126/64
--- NOTE | 2020-03-23 16:24 | Pulmonology Progress Note ---
Subjective ROS Limited/Unobtainable: No Constitutional: Denies: fever Allergies: Coded Allergies: No Known Allergies (Unverified , 02/04/20) All Systems: reviewed and negative except above Objective Last 24 Hour Vital Signs Date Time Temp Pulse Resp B/P (MAP) Pulse Ox O2 Delivery O2 Flow Rate FiO2 03/23/20 15:56 98.1 79 16 126/64 (84) 96 03/23/20 15:56 Bi-pap 70.0 03/23/20 15:55 60 03/23/20 15:41 72 19 98 60 03/23/20 12:00 70 03/23/20 12:00 97.7 77 16 131/66 (87) 100 03/23/20 12:00 77 03/23/20 12:00 Bi-pap 70.0 03/23/20 11:31 78 16 98 70 03/23/20 08:00 97.0 76 24 114/79 (91) 98 03/23/20 08:00 70 03/23/20 08:00 72 03/23/20 08:00 Bi-pap 70.0 03/23/20 07:26 80 20 95 70 03/23/20 04:00 70 03/23/20 04:00 85 03/23/20 04:00 97.8 78 16 127/64 (85) 100 03/23/20 04:00 Bi-pap 70.0 03/23/20 03:30 90 30 92 70 03/23/20 00:00 97.5 86 20 130/66 (87) 100 03/23/20 00:00 Bi-pap 70.0 03/23/20 00:00 97 03/22/20 23:19 76 18 100 70 03/22/20 20:00 Bi-pap 80.0 03/22/20 20:00 80 03/22/20 20:00 70 03/22/20 20:00 98.7 79 21 117/61 (79) 97 03/22/20 19:30 84 24 94 70 Intake and Output 03/22/20 03/23/20 19:00 07:00 Intake Total 984.60 ml Output Total 2000 ml 300 ml Balance -2000 ml 684.60 ml Intake IV Total 984.60 ml Output Urine Total 300 ml Hemodialysis UF 2000 ml # Bowel Movements 2 Laboratory Tests 03/23/20 07:20: White Blood Count 9.6, Red Blood Count 2.65L, Hemoglobin 8.1L, Hematocrit 26.1L, Mean Corpuscular Volume 98, Mean Corpuscular Hemoglobin 30.6, Mean Corpuscular Hemoglobin Concent 31.1L, Red Cell Distribution Width 17.9H, Platelet Count 37L, Mean Platelet Volume 12.7H, Neutrophils (%) (Auto) , Lymphocytes (%) (Auto) , Monocytes (%) (Auto) , Eosinophils (%) (Auto) , Basophils (%) (Auto) , Differential Total Cells Counted 100, Neutrophils % (Manual) 97H, Lymphocytes % (Manual) 2L, Monocytes % (Manual) 1, Eosinophils % (Manual) 0, Basophils % (Manual) 0, Band Neutrophils 0, Platelet Estimate DecreasedL, Platelet Morphology Normal, Hypochromasia 1+, Anisocytosis 1+, Sodium Level 142, Potassium Level 4.2, Chloride Level 104, Carbon Dioxide Level 27, Anion Gap 11, Blood Urea Nitrogen 55H, Creatinine 2.7H, Estimat Glomerular Filtration Rate 23.5, Glucose Level 413#H, Calcium Level 7.0L, Total Bilirubin 1.0, Aspartate Amino Transf (AST/SGOT) 40H, Alanine Aminotransferase (ALT/SGPT) 18, Alkaline Phosphatase 161H, Total Protein 5.3L, Albumin 1.7L, Globulin 3.6, Albumin/Globulin Ratio 0.5L Current Medications Medications (Trade) Dose Ordered Sig/James Route PRN Reason Start Time Stop Time Status Last Admin Dose Admin Acetaminophen (Tylenol) 650 mg Q4H PRN RECTAL Temp >100.5 03/07/20 08:15 04/06/20 08:14 Acetaminophen (Tylenol) 650 mg Q4H PRN RECTAL Mild Pain (Pain Scale 1-3) 03/07/20 09:00 04/06/20 08:59 Albuterol Sulfate (Proventil MDI) 2 puff Q4H PRN INH Shortness of Breath 03/07/20 08:15 06/05/20 08:14 Cefazolin Sodium 1 gm/Dextrose 55 ml @ 110 mls/hr QHS IVPB 03/21/20 18:11 03/28/20 18:10 03/22/20 21:17 Chlorhexidine Gluconate (Linnette-Hex 2%) 1 applic DAILY@2000 TOPIC 03/09/20 20:00 06/07/20 19:59 03/22/20 21:13 Dextrose 1,000 ml @ 0 mls/hr Q24H PRN IV PN interrupted or unavailable 03/22/20 07:45 04/21/20 07:44 Dextrose (Dextrose 50%) 25 ml Q30M PRN IV Hypoglycemia 03/22/20 07:45 06/20/20 07:44 Dextrose (Dextrose 50%) 50 ml Q30M PRN IV Hypoglycemia 03/22/20 07:45 06/20/20 07:44 Enoxaparin Sodium (Lovenox) 40 mg Q24H SUBQ 03/19/20 21:00 06/17/20 20:59 03/22/20 21:19 Epoetin Juan (Epoetin Juan(ESRD on dialysis)) 10,000 unit TUE- SUBQ 03/19/20 21:00 06/17/20 20:59 03/21/20 20:45 Famotidine (Pepcid I.v.) 20 mg DAILY IVP 03/07/20 09:00 04/06/20 08:59 03/23/20 08:56 Fat Emulsion Intravenous 216 ml/Amino Acids/ Electrolytes/ Dextrose 1,776 ml @ 74 mls/hr Q24H IV 03/23/20 20:00 04/22/20 19:59 Fat Emulsion Intravenous 240 ml/Amino Acids/ Electrolytes/ Dextrose 2,240 ml @ 92.96 mls/ hr Q24H IV 03/22/20 21:00 03/23/20 19:59 03/22/20 21:15 Methylprednisolone Sodium Succinate (Solu-MEDROL) 40 mg DAILY IVP 03/21/20 12:00 06/19/20 11:59 03/23/20 08:56 Ondansetron HCl (Zofran) 4 mg Q6H PRN IVP Nausea & Vomiting 03/07/20 08:15 04/06/20 08:14 Sodium Chloride 1,000 ml @ 500 mls/hr Q2H PRN IVLG sbp<90 during hd 03/15/20 13:30 04/14/20 13:29 Assessment/Plan Assessment/Plan Pulmonary Progress Note HPI Patient is a 69-year-old man admitted with Covid Pneumonia, LA, Hyperkalemia, Pancreatitis.Noted to have for shortness of breath, hypoxia. Allergies: No Known Allergies Past Medical History: HTN LA, On HD PRN - remains on BiPAP Partially occlusive right femoral vein thrombus - on AC Physical Exam Vital Signs noted Deferred Covid19 Impression: Covid Pneumonia/possible sepsis Respiratory failure, acute LA - now on HD Hyperkalemia and now with hypokalemia Pancreatitis Urinary tract infection Hypertension toxic metabolic encephalopathy anemia elevated K DVT Plan at risk for intubation Renalfollowing - on HD O2 high flow BiPAP for now and monitor acid base at risk for intubation follow up ABG still full code continue SDU care on lovenox 40 bid; may switch to eliquis - if cannot tolerate willneed IVC filter GI consulted Surgery following impression, plan, and exam edited and reviewed in detail care discussed with RN Laboratory Tests noted EKG Rate: normal Rhythm: NSR ST Segments: no acute changes Other Impression Sinus rhythm, normal axis, normal intervals, no ST segment changes, no peaked T waves Chest X-Ray: no effusion, no pneumothorax, other - Bilateral infiltrates. Bilateral multifocal pneumonia Cristopher Larson MD Mar 23, 2020 16:24
--- NOTE | 2020-03-23 19:40 | NUR ---
NURSE NOTES: Important Events on Shift: Received report from Oral Petty RN. Pt in stable condition, non verbal, FLACC 0, no signs or symptoms of distress or pain noted at this time. Will conitnue plan of care and close monitoring. Patient Status: full code Diet: TKO @ 93ml/hr Pending Orders: none Pending Results/Labs: none Pending MD notification: none Latest Vital Signs: Temperature 97.5 , Pulse 99 , B/P 133 /77 , Respiratory Rate 21 , O2 SAT 99 , Bi-pap, O2 Flow Rate 90.0 . Vital Sign Comment: EKG Rhythm: Sinus Rhythm Rhythm change?: N MD Notified?: Beatriz Go. Response: Order Received& Read Back Latest Conner Fall Score: 70 Fall Risk: High Risk Safety Measures: Call light Within Reach, Bed Alarm Zone 2, Side Rails Side Rails x2, Bed position Low and Locked. Fall Precautions: YES Yellow Socks Yellow Gown Door Sign Patient Fall Education
--- NOTE | 2020-03-23 19:40 | NUR ---
NURSE HAND-OFF REPORT: Important Events on Shift: Patient Status: Diet:NPO patient is receiving TPN. Pending Orders: Pending Results/Labs: Pending MD notification: Latest Vital Signs: Temperature 98.1 , Pulse 76 , B/P 126 /64 , Respiratory Rate 16 , O2 SAT 100 , Bi-pap, O2 Flow Rate 70.0 . Vital Sign Comment: EKG Rhythm: Sinus Rhythm Rhythm change?: N MD Notified?: Beatriz Go. Response: Order Received& Read Back Latest Conner Fall Score: 70 Fall Risk: High Risk Safety Measures: Call light Within Reach, Bed Alarm Zone 2, Side Rails Side Rails x2, Bed position Low and Locked. Fall Precautions: Yellow Socks Yellow Gown Door Sign Patient Fall Education Report given to CHERELLE Brandt.
[2020-03-23 20:00] VITALS: BP 126/64
[2020-03-23] MEDS ORDERED: Fat Emulsion Iv 20% 216 ML in Tpn 1,560 ML IV SCH (20:00)
--- NOTE | 2020-03-23 20:36 | Nephrology Progress Note ---
Assessment/Plan Problem List: (1) End-stage renal disease (2) Pneumonia due to COVID-19 virus (3) Hyperkalemia (4) Respiratory distress (5) Pneumonia due to COVID-19 virus (6) Altered level of consciousness (7) Urinary tract bacterial infections Plan HD 03/22 via cath, on bipap, tpn weak and high risk Subjective ROS Limited/Unobtainable: Yes Objective Objective Last 24 Hour Vital Signs Date Time Temp Pulse Resp B/P (MAP) Pulse Ox O2 Delivery O2 Flow Rate FiO2 03/23/20 19:21 76 16 100 60 03/23/20 16:00 77 03/23/20 15:56 98.1 79 16 126/64 (84) 96 03/23/20 15:56 Bi-pap 70.0 03/23/20 15:55 60 03/23/20 15:41 72 19 98 60 03/23/20 12:00 70 03/23/20 12:00 97.7 77 16 131/66 (87) 100 03/23/20 12:00 77 03/23/20 12:00 Bi-pap 70.0 03/23/20 11:31 78 16 98 70 03/23/20 08:00 97.0 76 24 114/79 (91) 98 03/23/20 08:00 70 03/23/20 08:00 72 03/23/20 08:00 Bi-pap 70.0 03/23/20 07:26 80 20 95 70 03/23/20 04:00 70 03/23/20 04:00 85 03/23/20 04:00 97.8 78 16 127/64 (85) 100 03/23/20 04:00 Bi-pap 70.0 03/23/20 03:30 90 30 92 70 03/23/20 00:00 97.5 86 20 130/66 (87) 100 03/23/20 00:00 Bi-pap 70.0 03/23/20 00:00 97 03/22/20 23:19 76 18 100 70 Intake and Output 03/22/20 03/23/20 19:00 07:00 Intake Total 984.60 ml Output Total 2000 ml 300 ml Balance -2000 ml 684.60 ml Intake IV Total 984.60 ml Output Urine Total 300 ml Hemodialysis UF 2000 ml # Bowel Movements 2 Laboratory Tests 03/23/20 07:20: White Blood Count 9.6, Red Blood Count 2.65L, Hemoglobin 8.1L, Hematocrit 26.1L, Mean Corpuscular Volume 98, Mean Corpuscular Hemoglobin 30.6, Mean Corpuscular Hemoglobin Concent 31.1L, Red Cell Distribution Width 17.9H, Platelet Count 37L, Mean Platelet Volume 12.7H, Neutrophils (%) (Auto) , Lymphocytes (%) (Auto) , Monocytes (%) (Auto) , Eosinophils (%) (Auto) , Basophils (%) (Auto) , Differential Total Cells Counted 100, Neutrophils % (Manual) 97H, Lymphocytes % (Manual) 2L, Monocytes % (Manual) 1, Eosinophils % (Manual) 0, Basophils % (Manual) 0, Band Neutrophils 0, Platelet Estimate DecreasedL, Platelet Morphology Normal, Hypochromasia 1+, Anisocytosis 1+, Sodium Level 142, Potassium Level 4.2, Chloride Level 104, Carbon Dioxide Level 27, Anion Gap 11, Blood Urea Nitrogen 55H, Creatinine 2.7H, Estimat Glomerular Filtration Rate 23.5, Glucose Level 413#H, Calcium Level 7.0L, Total Bilirubin 1.0, Aspartate Amino Transf (AST/SGOT) 40H, Alanine Aminotransferase (ALT/SGPT) 18, Alkaline Phosphatase 161H, Total Protein 5.3L, Albumin 1.7L, Globulin 3.6, Albumin/Globulin Ratio 0.5L Height (Feet): 5 Height (Inches): 4.00 Weight (Pounds): 154 General Appearance: moderate distress Neck: normal alignment Cardiovascular: regular rhythm Respiratory/Chest: rhonchi - bilaterally Abdomen: soft Neurologic: unresponsive Silvestre Maria MD Mar 23, 2020 20:36
[2020-03-23] MEDS: Dyna-Hex 2% Top Sol 2oz TOPIC SCH (21:27)
[2020-03-23] MEDS: Enoxaparin 40mg Inj SUBQ SCH (21:28)
[2020-03-23] MEDS: ceFAZolin 1gm in D5W 55ml IVPB SCH (22:44)
--- NOTE | 2020-03-23 23:55 | NUR ---
NURSE NOTES: Notified Abbi that pt BG is 509; pt has no sliding scale insulin coverage currently. Awaiting call back with orders. Will continue to monitor pt closely.
[2020-03-24] VITALS (36 sets, daily range): BP systolic 43–148; BP diastolic 19–100
--- NOTE | 2020-03-24 00:05 | Cardiology Progress Note ---
Subjective DATE OF SERVICE: Mar 23, 2020 Remains in sinus rhythm Remains on bipap support, with slight decrease in O2 requirements to 70% Venous duplex: partially obstructing right common femoral DVT Objective Last 24 Hour Vital Signs Date Time Temp Pulse Resp B/P (MAP) Pulse Ox O2 Delivery O2 Flow Rate FiO2 03/23/20 23:18 82 22 99 90 03/23/20 19:21 76 16 100 60 03/23/20 16:00 77 03/23/20 15:56 98.1 79 16 126/64 (84) 96 03/23/20 15:56 Bi-pap 70.0 03/23/20 15:55 60 03/23/20 15:41 72 19 98 60 03/23/20 12:00 70 03/23/20 12:00 97.7 77 16 131/66 (87) 100 03/23/20 12:00 77 03/23/20 12:00 Bi-pap 70.0 03/23/20 11:31 78 16 98 70 03/23/20 08:00 97.0 76 24 114/79 (91) 98 03/23/20 08:00 70 03/23/20 08:00 72 03/23/20 08:00 Bi-pap 70.0 03/23/20 07:26 80 20 95 70 03/23/20 04:00 70 03/23/20 04:00 85 03/23/20 04:00 97.8 78 16 127/64 (85) 100 03/23/20 04:00 Bi-pap 70.0 03/23/20 03:30 90 30 92 70 ROS: unchanged from 03/18/20 HEENT: other - bipap RHYTHM: NSR, PACs LUNGS: bilat. rhonchi and rales CARDIAC: normal rate, regular rhythm, normal S1 and S2 ABDOMEN: normal bowel sounds, non tender EXTREMITIES: trace edema Laboratory Tests Test 03/23/20 07:20 03/23/20 23:25 White Blood Count 9.6 K/UL (4.8-10.8) Red Blood Count 2.65 M/UL (4.70-6.10) L Hemoglobin 8.1 G/DL (14.2-18.0) L Hematocrit 26.1 % (42.0-52.0) L Mean Corpuscular Volume 98 FL (80-99) Mean Corpuscular Hemoglobin 30.6 PG (27.0-31.0) Mean Corpuscular Hemoglobin Concent 31.1 G/DL (32.0-36.0) L Red Cell Distribution Width 17.9 % (11.6-14.8) H Platelet Count 37 K/UL (150-450) L Mean Platelet Volume 12.7 FL (6.5-10.1) H Neutrophils (%) (Auto) % (45.0-75.0) Lymphocytes (%) (Auto) % (20.0-45.0) Monocytes (%) (Auto) % (1.0-10.0) Eosinophils (%) (Auto) % (0.0-3.0) Basophils (%) (Auto) % (0.0-2.0) Differential Total Cells Counted 100 Neutrophils % (Manual) 97 % (45-75) H Lymphocytes % (Manual) 2 % (20-45) L Monocytes % (Manual) 1 % (1-10) Eosinophils % (Manual) 0 % (0-3) Basophils % (Manual) 0 % (0-2) Band Neutrophils 0 % (0-8) Platelet Estimate Decreased L Platelet Morphology Normal Hypochromasia 1+ Anisocytosis 1+ Sodium Level 142 MMOL/L (136-145) Potassium Level 4.2 MMOL/L (3.5-5.1) Chloride Level 104 MMOL/L (98-107) Carbon Dioxide Level 27 MMOL/L (21-32) Anion Gap 11 mmol/L (5-15) Blood Urea Nitrogen 55 mg/dL (7-18) H Creatinine 2.7 MG/DL (0.55-1.30) H Estimat Glomerular Filtration Rate 23.5 mL/min (>60) Glucose Level 413 MG/DL (74-106) #H Calcium Level 7.0 MG/DL (8.5-10.1) L Total Bilirubin 1.0 MG/DL (0.2-1.0) Aspartate Amino Transf (AST/SGOT) 40 U/L (15-37) H Alanine Aminotransferase (ALT/SGPT) 18 U/L (12-78) Alkaline Phosphatase 161 U/L (46-116) H Total Protein 5.3 G/DL (6.4-8.2) L Albumin 1.7 G/DL (3.4-5.0) L Globulin 3.6 g/dL Albumin/Globulin Ratio 0.5 (1.0-2.7) L POC Whole Blood Glucose 509 MG/DL (74-106) *H Assessment/Plan Assessment/Plan Non-occlusive DVT Paroxysmal Atrial Fibrillation Acute coronary insuff Covid 19 PNA Acute hypoxic respiratory failure Anemia Ac/chronic diastolic CHF Ac/chronic renal failure on hemodialysis Thrombocytopenia improved over past day Dysphagia Exogenous hyperkalemia Lovenox continued with caution; watch plt ct. Consideratiom for DVT. Wean off bipap as able Periodic diuresis; trend BNP Steroids per pulmonary Unable to give oral diltiazem at present while NPO; will give IVP prn for rapid atrial arrhythmias. PermCath planned per renal IVF adjustments based on clinical findings and lab results. Cristopher Ingram MD Mar 24, 2020 00:05
[2020-03-24] MEDS ORDERED: NovoLOG Insulin Flexpen SUBQ SCH ×2 (01:15)
--- NOTE | 2020-03-24 01:20 | NUR ---
NURSE NOTES: Received order from Rafael to start Insulin Resistant Scale rt pt using TPN and current hyperglycemia (509). Orders entered and carried out. Will continue to monitor pt closely.
[2020-03-24] MEDS: NovoLOG Insulin Flexpen SUBQ SCH ×4 (02:21→20:30)
[2020-03-24 06:32] LABS: HEMATOCRIT 24.9 % (42.0-52.0); HEMOGLOBIN 7.9 G/DL (14.2-18.0); MEAN CORPUSCULAR VOLUME 97 FL (80-99); PLATELET COUNT 31 K/UL (150-450); RED BLOOD COUNT 2.57 M/UL (4.70-6.10); RED CELL DISTRIBUTION WIDTH 18.2 % (11.6-14.8); WHITE BLOOD COUNT 9.9 K/UL (4.8-10.8)
--- NOTE | 2020-03-24 06:54 | NUR ---
NURSE HAND-OFF REPORT: Important Events on Shift: Pt hyperglycemic with BG 509. Pt received new sliding scale insulin order from [facility]. Patient Status: full code Diet: TPN @ 93 ml/hr Pending Orders: none Pending Results/Labs: none Pending MD notification: none Latest Vital Signs: Temperature 97.5 , Pulse 99 , B/P 133 /77 , Respiratory Rate 21 , O2 SAT 99 , Bi-pap, O2 Flow Rate 90.0 . Vital Sign Comment: stable throughout shift. EKG Rhythm: Sinus Rhythm Rhythm change?: N Notified?: Beatriz Go. Response: Order Received& Read Back Latest Conner Fall Score: 70 Fall Risk: High Risk Safety Measures: Call light Within Reach, Bed Alarm Zone 2, Side Rails Side Rails x2, Bed position Low and Locked. Fall Precautions: YES Yellow Socks Yellow Gown Door Sign Patient Fall Education
[2020-03-24 06:56] LABS: INR 1.1 (0.9-1.1)
--- NOTE | 2020-03-24 07:00 | NUR ---
HAND-OFF: Report to be given to Andrew Zavala
--- NOTE | 2020-03-24 07:20 | NUR ---
RESPIRATORY NOTE: Pt received on Bipap with current settings. 27/08 RR:12, 90%. Alarms are on and audible. Foam tape in place. No facial wounds found. No SOB noted at this time. Will continue to monitor.
--- NOTE | 2020-03-24 07:30 | NUR ---
NURSE NOTES: Received pt from CHERELLE Brandt, pt is sleeping, pt has bipap 16/6 fio2 90%, pt has intact PICC R femoral TPN 92.96 ML/HR is running well. Pt is on continues heart monitoring, pt has condom cath in place is working well. Dr Go visited pt and is aware K 2.9 ordered kcl 60meq iv for 6 hours, noted and carried out. all needs attended, bed is locked and is in the lowest position, call light within easy reach. will continue to monitor.
[2020-03-24 07:46] LABS: ALBUMIN 1.6 G/DL (3.4-5.0); ALBUMIN/GLOBULIN RATIO 0.4 (1.0-2.7); CALCIUM 7.6 MG/DL (8.5-10.1); CREATININE 2.9 MG/DL (0.55-1.30); POTASSIUM 2.9 MMOL/L (3.5-5.1)
[2020-03-24 07:59] LABS: PHOSPHORUS 4.7 MG/DL (2.5-4.9)
--- NOTE | 2020-03-24 08:39 | Pulmonology Progress Note ---
Subjective ROS Limited/Unobtainable: Yes Constitutional: Denies: fever Allergies: Coded Allergies: No Known Allergies (Unverified , 02/04/20) All Systems: reviewed and negative except above Subjective care noted remains on BIPAP- still on high oxygen on TPN low K low HH renal following Objective Last 24 Hour Vital Signs Date Time Temp Pulse Resp B/P (MAP) Pulse Ox O2 Delivery O2 Flow Rate FiO2 03/24/20 04:00 82 03/24/20 04:00 60 03/24/20 04:00 Bi-pap 90.0 03/24/20 04:00 97.5 99 21 133/77 (95) 99 03/24/20 03:52 97 24 98 90 03/24/20 00:00 82 03/24/20 00:00 60 03/24/20 00:00 97.3 83 17 142/65 (90) 99 03/24/20 00:00 Bi-pap 70.0 03/23/20 23:18 82 22 99 90 03/23/20 20:00 Bi-pap 70.0 03/23/20 20:00 80 03/23/20 20:00 97.5 79 16 126/64 (84) 96 03/23/20 20:00 60 03/23/20 19:21 76 16 100 60 03/23/20 16:00 77 03/23/20 15:56 98.1 79 16 126/64 (84) 96 03/23/20 15:56 Bi-pap 70.0 03/23/20 15:55 60 03/23/20 15:41 72 19 98 60 03/23/20 12:00 70 03/23/20 12:00 97.7 77 16 131/66 (87) 100 03/23/20 12:00 77 03/23/20 12:00 Bi-pap 70.0 03/23/20 11:31 78 16 98 70 Intake and Output 03/23/20 03/24/20 19:00 07:00 Intake Total 1022.56 ml Output Total 10 ml 300 ml Balance 1012.56 ml -300 ml Intake IV Total 1022.56 ml Output Urine Total 10 ml 300 ml # Bowel Movements 2 3 Objective deferred due to COVID Laboratory Tests 03/23/20 23:25: POC Whole Blood Glucose 509*H 03/24/20 01:42: POC Whole Blood Glucose 490H 03/24/20 04:13: White Blood Count 9.9, Red Blood Count 2.57L, Hemoglobin 7.9L, Hematocrit 24.9L, Mean Corpuscular Volume 97, Mean Corpuscular Hemoglobin 30.7, Mean Corpuscular Hemoglobin Concent 31.7L, Red Cell Distribution Width 18.2H, Platelet Count 31L, Mean Platelet Volume 7.7, Neutrophils (%) (Auto) , Lymphocytes (%) (Auto) , Monocytes (%) (Auto) , Eosinophils (%) (Auto) , Basophils (%) (Auto) , Differential Total Cells Counted 100, Neutrophils % (Manual) 95H, Lymphocytes % (Manual) 3L, Monocytes % (Manual) 2, Eosinophils % (Manual) 0, Basophils % (Manual) 0, Band Neutrophils 0, Platelet Estimate DecreasedL, Platelet Morphology Normal, Hypochromasia 2+, Anisocytosis 2+, Prothrombin Time 11.9H, Prothromb Time International Ratio 1.1, Activated Partial Thromboplast Time 38H, Sodium Level 142, Potassium Level 2.9L, Chloride Level 104, Carbon Dioxide Level 25, Anion Gap 13, Blood Urea Nitrogen 77H, Creatinine 2.9H, Estimat Glomerular Filtration Rate 21.6, Glucose Level 418H, Hemoglobin A1c [Pending], Calcium Level 7.6L, Phosphorus Level 4.7, Magnesium Level 2.2, Total Bilirubin 1.0, Aspartate Amino Transf (AST/SGOT) 18, Alanine Aminotransferase (ALT/SGPT) 17, Alkaline Phosphatase 163H, Total Protein 5.5L, Albumin 1.6L, Globulin 3.9, Albumin/Globulin Ratio 0.4L 03/24/20 05:11: POC Whole Blood Glucose 369H Current Medications Medications (Trade) Dose Ordered Sig/James Route PRN Reason Start Time Stop Time Status Last Admin Dose Admin Acetaminophen (Tylenol) 650 mg Q4H PRN RECTAL Temp >100.5 03/07/20 08:15 04/06/20 08:14 Acetaminophen (Tylenol) 650 mg Q4H PRN RECTAL Mild Pain (Pain Scale 1-3) 03/07/20 09:00 04/06/20 08:59 Albuterol Sulfate (Proventil MDI) 2 puff Q4H PRN INH Shortness of Breath 03/07/20 08:15 06/05/20 08:14 Cefazolin Sodium 1 gm/Dextrose 55 ml @ 110 mls/hr QHS IVPB 03/21/20 18:11 03/28/20 18:10 03/23/20 22:44 Chlorhexidine Gluconate (Linnette-Hex 2%) 1 applic DAILY@2000 TOPIC 03/09/20 20:00 06/07/20 19:59 03/23/20 21:27 Dextrose 1,000 ml @ 0 mls/hr Q24H PRN IV PN interrupted or unavailable 03/22/20 07:45 04/21/20 07:44 Dextrose (Dextrose 50%) 25 ml Q30M PRN IV Hypoglycemia 03/24/20 01:15 06/22/20 01:14 Dextrose (Dextrose 50%) 25 ml Q30M PRN IV Hypoglycemia 03/22/20 07:45 06/20/20 07:44 Dextrose (Dextrose 50%) 50 ml Q30M PRN IV Hypoglycemia 03/24/20 01:15 06/22/20 01:14 Dextrose (Dextrose 50%) 50 ml Q30M PRN IV Hypoglycemia 03/22/20 07:45 06/20/20 07:44 Enoxaparin Sodium (Lovenox) 40 mg Q24H SUBQ 03/19/20 21:00 06/17/20 20:59 03/23/20 21:28 Epoetin Juan (Epoetin Juan(ESRD on dialysis)) 10,000 unit TUE-TUE-TUE SUBQ 03/19/20 21:00 06/17/20 20:59 03/21/20 20:45 Famotidine (Pepcid I.v.) 20 mg DAILY IVP 03/07/20 09:00 04/06/20 08:59 03/23/20 08:56 Fat Emulsion Intravenous 216 ml/Amino Acids/ Electrolytes/ Dextrose 1,776 ml @ 74 mls/hr Q24H IV 03/23/20 20:00 04/22/20 19:59 03/23/20 21:27 Insulin Aspart (NovoLOG) Q6HR SUBQ 03/24/20 02:30 06/22/20 02:29 03/24/20 05:40 Methylprednisolone Sodium Succinate (Solu-MEDROL) 40 mg DAILY IVP 03/21/20 12:00 06/19/20 11:59 03/23/20 08:56 Ondansetron HCl (Zofran) 4 mg Q6H PRN IVP Nausea & Vomiting 03/07/20 08:15 04/06/20 08:14 Potassium Chloride 60 meq/ Sodium Chloride 1,030 ml @ 171.667 mls/hr ONCE ONCE IVPB 03/24/20 09:30 03/24/20 15:29 Sodium Chloride 1,000 ml @ 500 mls/hr Q2H PRN IVLG sbp<90 during hd 03/15/20 13:30 04/14/20 13:29 Assessment/Plan Assessment/Plan Impression: Covid Pneumonia/possible sepsis Respiratory failure, acute LA - now on HD Hyperkalemia and now with hypokalemia Pancreatitis Urinary tract infection Hypertension toxic metabolic encephalopathy anemia elevated K DVT Plan on TPN replace K at risk for intubation likely needs trach permacath and HD O2 high flow BiPAP follow up ABG still full code continue SDU care on lovenox 40 bid; may switch to eliquis needs GT feeds; will call gi discuss with surgery for trach impression, plan, and exam edited and reviewed in detail care discussed with Ebenezer Walters MD Mar 24, 2020 08:39
[2020-03-24] MEDS: Solu-MEDROL 40mg Inj IVP SCH (09:12)
[2020-03-24] MEDS ORDERED: SODIUM CHLORIDE IVPB ONE (09:30)
[2020-03-24] MEDS ORDERED: POTASSIUM CHLORIDE IVPB ONE (09:30)
--- NOTE | 2020-03-24 09:33 | NUR ---
RADIOLOGY: PCXR COMPLETED 0900HRS. NF
--- NOTE | 2020-03-24 09:52 | NUR ---
NURSE NOTES: RN confirmed with Dr Garcia regarding K 2.9 and the order from Dr Go, Dr Garcia ordered kcl 30 meq iv and it can run with TPN. noted and carried out. will continue to monitor. Addendum: 03/24/20 at 1002 by Andrew Sheehan RN iv kcl wasted in med room.
[2020-03-24] MEDS: Levemir Flexpen SUBQ SCH (10:07)
[2020-03-24] MEDS ORDERED: POTASSIUM CHLORIDE IVPB SCH (11:00)
[2020-03-24] MEDS ORDERED: NS IVPB SCH (11:00)
--- NOTE | 2020-03-24 11:44 | Infectious Diseases Prog Note ---
Assessment/Plan Assessment/Plan antibiotics : none A 1. COVID-19 pneumonia. on 70 % FiO2, 100 % saturation s/p remdesivir 2. e.coli UTI s/p rx 3. Pancreatitis 4. respiratory failure, 5. Dementia, 6. Hypertension 7. renal failure P 1. continue solumedrol taper dose 2. continue isolation Subjective ROS Limited/Unobtainable: Yes Allergies: Coded Allergies: No Known Allergies (Unverified , 02/04/20) Objective Last 24 Hour Vital Signs Date Time Temp Pulse Resp B/P (MAP) Pulse Ox O2 Delivery O2 Flow Rate FiO2 03/24/20 08:00 Bi-pap 90.0 03/24/20 08:00 90 03/24/20 08:00 97.8 97 22 126/74 (91) 99 03/24/20 07:46 97 03/24/20 04:00 82 03/24/20 04:00 60 03/24/20 04:00 Bi-pap 90.0 03/24/20 04:00 97.5 99 21 133/77 (95) 99 03/24/20 03:52 97 24 98 90 03/24/20 00:00 82 03/24/20 00:00 60 03/24/20 00:00 97.3 83 17 142/65 (90) 99 03/24/20 00:00 Bi-pap 70.0 03/23/20 23:18 82 22 99 90 03/23/20 20:00 Bi-pap 70.0 03/23/20 20:00 80 03/23/20 20:00 97.5 79 16 126/64 (84) 96 03/23/20 20:00 60 03/23/20 19:21 76 16 100 60 03/23/20 16:00 77 03/23/20 15:56 98.1 79 16 126/64 (84) 96 03/23/20 15:56 Bi-pap 70.0 03/23/20 15:55 60 03/23/20 15:41 72 19 98 60 03/23/20 12:00 70 03/23/20 12:00 97.7 77 16 131/66 (87) 100 03/23/20 12:00 77 03/23/20 12:00 Bi-pap 70.0 Height (Feet): 5 Height (Inches): 4.00 Weight (Pounds): 154 HEENT: other - on bipap Laboratory Tests Test 03/23/20 23:25 03/24/20 01:42 03/24/20 04:13 03/24/20 05:11 POC Whole Blood Glucose 509 MG/DL (74-106) *H 490 MG/DL (74-106) H 369 MG/DL (74-106) H White Blood Count 9.9 K/UL (4.8-10.8) Red Blood Count 2.57 M/UL (4.70-6.10) L Hemoglobin 7.9 G/DL (14.2-18.0) L Hematocrit 24.9 % (42.0-52.0) L Mean Corpuscular Volume 97 FL (80-99) Mean Corpuscular Hemoglobin 30.7 PG (27.0-31.0) Mean Corpuscular Hemoglobin Concent 31.7 G/DL (32.0-36.0) L Red Cell Distribution Width 18.2 % (11.6-14.8) H Platelet Count 31 K/UL (150-450) L Mean Platelet Volume 7.7 FL (6.5-10.1) Neutrophils (%) (Auto) % (45.0-75.0) Lymphocytes (%) (Auto) % (20.0-45.0) Monocytes (%) (Auto) % (1.0-10.0) Eosinophils (%) (Auto) % (0.0-3.0) Basophils (%) (Auto) % (0.0-2.0) Differential Total Cells Counted 100 Neutrophils % (Manual) 95 % (45-75) H Lymphocytes % (Manual) 3 % (20-45) L Monocytes % (Manual) 2 % (1-10) Eosinophils % (Manual) 0 % (0-3) Basophils % (Manual) 0 % (0-2) Band Neutrophils 0 % (0-8) Platelet Estimate Decreased L Platelet Morphology Normal Hypochromasia 2+ Anisocytosis 2+ Prothrombin Time 11.9 SEC (9.30-11.50) H Prothromb Time International Ratio 1.1 (0.9-1.1) Activated Partial Thromboplast Time 38 SEC (23-33) H Sodium Level 142 MMOL/L (136-145) Potassium Level 2.9 MMOL/L (3.5-5.1) L Chloride Level 104 MMOL/L (98-107) Carbon Dioxide Level 25 MMOL/L (21-32) Anion Gap 13 mmol/L (5-15) Blood Urea Nitrogen 77 mg/dL (7-18) H Creatinine 2.9 MG/DL (0.55-1.30) H Estimat Glomerular Filtration Rate 21.6 mL/min (>60) Glucose Level 418 MG/DL (74-106) H Hemoglobin A1c 5.7 % (4.3-6.0) Calcium Level 7.6 MG/DL (8.5-10.1) L Phosphorus Level 4.7 MG/DL (2.5-4.9) Magnesium Level 2.2 MG/DL (1.8-2.4) Total Bilirubin 1.0 MG/DL (0.2-1.0) Aspartate Amino Transf (AST/SGOT) 18 U/L (15-37) Alanine Aminotransferase (ALT/SGPT) 17 U/L (12-78) Alkaline Phosphatase 163 U/L (46-116) H Total Protein 5.5 G/DL (6.4-8.2) L Albumin 1.6 G/DL (3.4-5.0) L Globulin 3.9 g/dL Albumin/Globulin Ratio 0.4 (1.0-2.7) L Test 03/24/20 10:30 03/24/20 11:28 Arterial Blood pH 7.379 (7.350-7.450) Arterial Blood Partial Pressure CO2 44.4 mmHg (35.0-45.0) Arterial Blood Partial Pressure O2 88.3 mmHg (75.0-100.0) Arterial Blood HCO3 25.6 mmol/L (22.0-26.0) Arterial Blood Oxygen Saturation 95.5 % (95-100) Arterial Blood Base Excess 0.4 (-2-2) Ken Test Positive POC Whole Blood Glucose Pending Current Medications Medications (Trade) Dose Ordered Sig/James Route PRN Reason Start Time Stop Time Status Last Admin Dose Admin Acetaminophen (Tylenol) 650 mg Q4H PRN RECTAL Temp >100.5 03/07/20 08:15 04/06/20 08:14 Acetaminophen (Tylenol) 650 mg Q4H PRN RECTAL Mild Pain (Pain Scale 1-3) 03/07/20 09:00 04/06/20 08:59 Albuterol Sulfate (Proventil MDI) 2 puff Q4H PRN INH Shortness of Breath 03/07/20 08:15 06/05/20 08:14 Cefazolin Sodium 1 gm/Dextrose 55 ml @ 110 mls/hr QHS IVPB 03/21/20 18:11 03/28/20 18:10 03/23/20 22:44 Chlorhexidine Gluconate (Linnette-Hex 2%) 1 applic DAILY@2000 TOPIC 03/09/20 20:00 06/07/20 19:59 03/23/20 21:27 Dextrose 1,000 ml @ 0 mls/hr Q24H PRN IV PN interrupted or unavailable 03/22/20 07:45 04/21/20 07:44 Dextrose (Dextrose 50%) 25 ml Q30M PRN IV Hypoglycemia 03/24/20 01:15 06/22/20 01:14 Dextrose (Dextrose 50%) 50 ml Q30M PRN IV Hypoglycemia 03/24/20 01:15 06/22/20 01:14 Enoxaparin Sodium (Lovenox) 40 mg Q24H SUBQ 03/19/20 21:00 06/17/20 20:59 03/23/20 21:28 Epoetin Juan (Epoetin Juna(ESRD on dialysis)) 10,000 unit TUE-TUE-TUE SUBQ 03/19/20 21:00 06/17/20 20:59 03/21/20 20:45 Famotidine (Pepcid I.v.) 20 mg DAILY IVP 03/07/20 09:00 04/06/20 08:59 03/24/20 09:12 Fat Emulsion Intravenous 216 ml/Amino Acids/ Electrolytes/ Dextrose 1,776 ml @ 74 mls/hr Q24H IV 03/23/20 20:00 04/22/20 19:59 03/23/20 21:27 Insulin Aspart (NovoLOG) Q6HR SUBQ 03/24/20 02:30 06/22/20 02:29 03/24/20 05:40 Insulin Detemir (Levemir) 14 units DAILY SUBQ 03/24/20 10:00 06/22/20 09:59 03/24/20 10:07 Methylprednisolone Sodium Succinate (Solu-MEDROL) 40 mg DAILY IVP 03/21/20 12:00 06/19/20 11:59 03/24/20 09:12 Ondansetron HCl (Zofran) 4 mg Q6H PRN IVP Nausea & Vomiting 03/07/20 08:15 04/06/20 08:14 Potassium Chloride 30 meq/ Sodium Chloride 290 ml @ 96.667 mls/ hr ONCE IVPB 03/24/20 11:00 03/24/20 14:00 03/24/20 11:20 Sodium Chloride 1,000 ml @ 500 mls/hr Q2H PRN IVLG sbp<90 during hd 03/15/20 13:30 04/14/20 13:29 Brittney Quigley MD Mar 24, 2020 11:44
--- NOTE | 2020-03-24 13:12 | NUR ---
NURSE NOTES: pt is anxious and SPO2 dropped to 70, RT IS ON BED SIDE AND ASKING Ativan, Dr Go is notified x2, waiting to call back. will continue to monitor.
[2020-03-24] MEDS ORDERED: LORazepam Inj 2mg/ml 1ml IV PRN (13:15)
--- NOTE | 2020-03-24 13:19 | NUR ---
RESPIRATORY NOTE: Called by RN due to PT desaturating. PT found with an SpO2 of 78%. Fio2 increased to 100%. Spo2 probe replaced with no improvement in saturation. ABG was drawn and results were given to RN. Waiting on new orders. Will continue to monitor.
--- NOTE | 2020-03-24 13:55 | Diagnostic Imaging Report ---
Indication: Shortness of breath Technique: One view of the chest Comparison: 03/16/2020 Findings: There is suggestion of decreased pleural fluid on the right. Bilateral infiltrates are unchanged. Interim placement right jugular tunneled dialysis catheter. The heart size is upper limits normal Impression: Decreased right pleural fluid. Interim tunneled dialysis catheter placement Unchanged bilateral infiltrates
--- NOTE | 2020-03-24 13:59 | NUR ---
NURSE NOTES: Dr Go notified about ABG results, waiting to call back. will continue to close monitoring.
--- NOTE | 2020-03-24 14:33 | NUR ---
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
--- NOTE | 2020-03-24 14:51 | Nephrology Progress Note ---
Assessment/Plan Plan ESRD. HD now q TTS. Severe Respiratory Failure - to intubate---->ICU---> HD HD tomorrow Subjective Subjective On severe respiratory distress!! Objective Objective Last 24 Hour Vital Signs Date Time Temp Pulse Resp B/P (MAP) Pulse Ox O2 Delivery O2 Flow Rate FiO2 03/24/20 13:52 86 25 97/58 89 03/24/20 13:22 146 28 115/72 79 03/24/20 12:00 98.9 96 21 115/72 (86) 98 03/24/20 12:00 80 03/24/20 12:00 Bi-pap 90.0 03/24/20 11:49 95 03/24/20 08:00 Bi-pap 90.0 03/24/20 08:00 90 03/24/20 08:00 97.8 97 22 126/74 (91) 99 03/24/20 07:46 97 03/24/20 04:00 82 03/24/20 04:00 60 03/24/20 04:00 Bi-pap 90.0 03/24/20 04:00 97.5 99 21 133/77 (95) 99 03/24/20 03:52 97 24 98 90 03/24/20 00:00 82 03/24/20 00:00 60 03/24/20 00:00 97.3 83 17 142/65 (90) 99 03/24/20 00:00 Bi-pap 70.0 03/23/20 23:18 82 22 99 90 03/23/20 20:00 Bi-pap 70.0 03/23/20 20:00 80 03/23/20 20:00 97.5 79 16 126/64 (84) 96 03/23/20 20:00 60 03/23/20 19:21 76 16 100 60 03/23/20 16:00 77 03/23/20 15:56 98.1 79 16 126/64 (84) 96 03/23/20 15:56 Bi-pap 70.0 03/23/20 15:55 60 03/23/20 15:41 72 19 98 60 Intake and Output 03/23/20 03/24/20 19:00 07:00 Intake Total 1022.56 ml Output Total 10 ml 300 ml Balance 1012.56 ml -300 ml Intake IV Total 1022.56 ml Output Urine Total 10 ml 300 ml # Bowel Movements 2 3 Laboratory Tests 03/23/20 23:25: POC Whole Blood Glucose 509*H 03/24/20 01:42: POC Whole Blood Glucose 490H 03/24/20 04:13: White Blood Count 9.9, Red Blood Count 2.57L, Hemoglobin 7.9L, Hematocrit 24.9L, Mean Corpuscular Volume 97, Mean Corpuscular Hemoglobin 30.7, Mean Corpuscular Hemoglobin Concent 31.7L, Red Cell Distribution Width 18.2H, Platelet Count 31L, Mean Platelet Volume 7.7, Neutrophils (%) (Auto) , Lymphocytes (%) (Auto) , Monocytes (%) (Auto) , Eosinophils (%) (Auto) , Basophils (%) (Auto) , Differential Total Cells Counted 100, Neutrophils % (Manual) 95H, Lymphocytes % (Manual) 3L, Monocytes % (Manual) 2, Eosinophils % (Manual) 0, Basophils % (Manual) 0, Band Neutrophils 0, Platelet Estimate DecreasedL, Platelet Morphology Normal, Hypochromasia 2+, Anisocytosis 2+, Prothrombin Time 11.9H, Prothromb Time International Ratio 1.1, Activated Partial Thromboplast Time 38H, Sodium Level 142, Potassium Level 2.9L, Chloride Level 104, Carbon Dioxide Level 25, Anion Gap 13, Blood Urea Nitrogen 77H, Creatinine 2.9H, Estimat Glomerular Filtration Rate 21.6, Glucose Level 418H, Hemoglobin A1c 5.7, Calcium Level 7.6L , Phosphorus Level 4.7, Magnesium Level 2.2, Total Bilirubin 1.0, Aspartate Amino Transf (AST/SGOT) 18, Alanine Aminotransferase (ALT/SGPT) 17, Alkaline Phosphatase 163H, Total Protein 5.5L, Albumin 1.6L, Globulin 3.9, Alb umin/Globulin Ratio 0.4L 03/24/20 05:11: POC Whole Blood Glucose 369H 03/24/20 10:30: Arterial Blood pH 7.379, Arterial Blood Partial Pressure CO2 44.4, Arterial Blood Partial Pressure O2 88.3, Arterial Blood HCO3 25.6, Arterial Blood Oxygen Saturation 95.5, Arterial Blood Base Excess 0.4, Ken Test Positive 03/24/20 11:28: POC Whole Blood Glucose [Pending] 03/24/20 13:40: Arterial Blood pH 7.101*L, Arterial Blood Partial Pressure CO2 53.1H, Arterial Blood Partial Pressure O2 55.6L, Arterial Blood HCO3 16.2*L, Arterial Blood Oxygen Saturation 73.5*L, Arterial Blood Base Excess -13.1*L, Ken Test Positive Height (Feet): 5 Height (Inches): 4.00 Weight (Pounds): 154 Objective On BIPAP CV RR Lungs B wheezes!!!! Abd SNT. BS + E No CCE Greg Garcia MD Mar 24, 2020 14:51
--- NOTE | 2020-03-24 14:53 | NUR ---
NURSE NOTES: Dr Go called back and ordered ton intubate pt, Dr Sifuentes visited pt and is aware about intubation RR 25 SPO2 97% HR 80, Dr Sifuentes also ordered to intubate pt, ED MD is aware. will continue to monitor pt.
--- NOTE | 2020-03-24 15:22 | NUR ---
Received patient from SDU ( [id number]) via bed for intunation. Dr. Borrego ( ER ) here and intubated patient at 1530-with ETT # 7.5 taped at 23 cm. BP- dropped at 63/42- Levophed started at 30 mcg as ordered by Dr. Borrego. Epi 1 amp and Sodium Bicarb 1 amp given as ordered by Dr. Borrego 1542 - TLC inserted @ left femoral by Dr. Borrego without difficulty-BP remains low 42/18- Dopamine started at 20 mcg/kg/min. Followed with vasopressin at 0.04 units/min as ordered. 1600- CT # 32 inserted @ left lateral chest by Dr. Borrego- connected to 20 cm H2O suction- draining bloody drainage @ 20 cc. 1615-Patient non responsive after the intubation - pupils fixed and dilated - bus driver/monitor shows ST with occasional PVC both arms swollen and ecchymotic when received . Patient with Condom catheter in place- no drainage at this time. Received patient with Perma cath. @ right chest and Arron with pigtail @ right femoral
--- NOTE | 2020-03-24 15:26 | NUR ---
NURSE NOTES: pt transferred to ICU room C with RR shallow 25 HR 80 SPO2 97%, ED MD is in room to intubate pt. all belongings are with pt.
--- NOTE | 2020-03-24 15:30 | NUR ---
RESPIRATORY NOTE: Post ABG result PT was intubated at this time. AC/VC 18,500,100%,+5. Alarms are on and audible. ETT tube securely fastened with anchor fast. ETT 7.5 @ 23cm lipline. Vent circuit secure and out of the way. Subcutaneous emphysema was noted on left side of PT's neck. placed a chest tube on left side. Saturation improved from 79% to 93% post chest tube placement. ABG to follow. Will continue to closely monitor.
[2020-03-24] MEDS ORDERED: Levophed 4mg/4mL Inj IV ONE (15:32)
[2020-03-24] MEDS ORDERED: NS IV PRN (15:54)
[2020-03-24] MEDS ORDERED: VASOPRESSIN IV PRN (15:54)
--- NOTE | 2020-03-24 16:54 | NUR ---
NURSE NOTES: Repoet given to CHERELLE Richmond, endorsed plan of care, endorsed pt has HD tomorrow.
--- NOTE | 2020-03-24 17:16 | Emergency Room Report ---
History of Present Illness General Chief Complaint: Dyspnea/Respdistress Source: Medical Record, PMD Present Illness HPI I was consulted by Dr Sifuentes for intubation. Briefly patient had an ABG that demonstrates severe ARDS 2/2 SARS-coV-2 CXR showed multifocal pna. ABG this morning demonstrated acute hypoxemic respiratory failure. Patient was intubated via video laryngoscopy +RSI (etomidate 10mgIV, rocuronium 50mgIV) due to severe hypoxemia. Patient was saturating 30% on Bipap on my arrival with severe subcutaneous gas on the L neck, anterior chest, and upper thoracic back. Peripheral levophed gtt was started via R fem trialysis catheter, however, pat ient became hypotensive and bradycardic 15 min after intubation. CODE BLUE was called. Initial rhythm PEA. Patient obtained ROSC s/p 1 round epi, and 1 bicarb. ROSC rhythm was sinus tachycardia. Left femoral central line was placed. Patient was maxed out on levo gtt, dopamine gtt, and started on vasopressin. Due to persistent hypotension and hypoxia (20%) with subQ gas, I performed bedside U/S that showed absent lung sliding on L lung. Due to high clinical suspicion for tension PTX, I performed L sided chest tube thoracostomy with 32F tube. Initial output of 50cc blood. PleurX was attached to low intermittent wall suction. Will transfuse 1 unit platelet due to thromboocytopnia and hemothorax s/p chest tube. Dr Sifuentes updated. Allergies: Coded Allergies: No Known Allergies (Unverified , 02/04/20) COVID-19 Screening Contact w/high risk pt: Yes Experienced COVID-19 symptoms?: Yes COVID-19 Testing performed CARDIAC NURSE SPECIALIST: No - unk COVID-19 Screening: Positive COVID-19 Nursing Documentation-[facility] Past Medical History Deferred: Pt Cognitively Impaired Past Medical History: No History, Except For Hx Hypertension: Yes Hx Cancer: No Hx Neurological Problems: No Physical Exam Vital Signs Date Time Temp Pulse Resp B/P (MAP) Pulse Ox O2 Delivery O2 Flow Rate FiO2 03/20/20 07:30 63 16 100 90 03/20/20 07:59 97.0 112/71 (85) 03/20/20 08:00 Bi-pap 90.0 Sp02 EP Interpretation: reviewed, abnormal Procedures Critical Care Time Critical Care Time Critical Care Statement Organ systems at risk include: cardiac / circulatory/pulm Critical care performed for 75 minutes. Time is exclusive of separately billable procedures. Time includes: direct patient care, continuous monitoring and multiple patient reassessment, coordination of patient care, review of patient's medical records, medical consultation, family consultation regarding treatment decisions and documentation of patient care. Ultrasound Ultrasound : Consent: Emergent Patient Tolerated: Well Complications: None Progress Ultrasound EFAST Indication: Cardiac arrest Technique: used curvilinear probe to exaine RUQ LUQ pelvis and lungs No FF RUQ LUQ Pelvis ++Left pneumothorax. No lung sliding. No tamponade EF 5% Left lower lobe effusion Chest Tube Progress LEFT SIDED Chest Tube Placement by me: Patient consented, sterilely draped, full prep, gown, glove, mask, time out performed. Chest Tube Placement by me: Patient consented, sterilely draped, full prep, gown, glove, mask, time out performed. Anesthesia: 1% lidocaine locally Location: Mid-Anterior Axillary Line, approximate 5th intercostal Device: Heimlich valve, single-lumen kit; 32F Technique: Horizontal 4mm incision, with placement of tube over needle using Seldinger technique, tactile confirmation Results: Chest tube fogging Compl: No e/o diaphragm or mediastinum injury Chest X-ray 1V Interpreted by me: Pneumothorax diminished. Chest tube in to 10 cm, chest tube in pleural space facing cephalad. Normal soft tissue. Central Line Progress Central Line Placement by me: Patient consented, sterilely draped, full prep, gown, glove, mask, time out performed. Maximal sterile barrier technique used. Anesthesia: 1% lidocaine locally Location: Left femoral Device: Multiple lumen Technique: Seldinger technique. Secured with suture. Results: Venous return from all ports with easy saline flush. No complications. Compl : None Guide wire was retrieved and disposed of. ED Procedural Ultrasound by me: Central line placed by me using concurrent ultrasound guidance. Real time image archived in the medical record confirms vascular anatomy. CPR/Code Blue CPR/Code Blue Narrative Procedure note Cardiopulmonary Resuscitation by me: See code documentation for specific details. ACLS and BLS were performed with high quality chest compressions and minimal interruptions. Any reversible causes were assessed and treated. Indication: Pulseless/CODE BLUE Informed consent: Patient unable to consent and no DNR status on record Procedure: Cardiac compressions were performed by staff in order to sustain blood flow under my direct supervision. The patient was ventilated and oxygenated. The patient received appropriate ACLS measures and they were repeated as necessary. Findings: Patient had return of spontaneous circulation Intubation Progress Procedure Note: Endotracheal Intubation by me: Pre assessment performed. See preceding note for details. Pre-oxygenation performed with 100% oxygen RSI: Performed w/o complication or hypoxic events. Medications as ordered. Emergency Endotracheal Intubation: Consent unable to be obtained due to emergent nature of procedure and airway assessment this patient was prepared for endotracheal intubation with preoxygenation and airway positioning. The patient underwent rapid sequence induction and endotracheal intubation utilizing direct visualization laryngoscopy. The endotracheal tube was placed between the vocal cords and placement was confirmed with fogging of the tube, end title CO2, and equal bilateral chest rise as well as absence of borborygmi over the epigastrium. Chest x-ray was obtained for final confirmation. There were no complications. Blade: VL 4 ET Tube: 7.5 cm Depth: 23 cm at the lip Complications: ++severe hypoxia and bradycardia pre-existing due to ARDS. Intubation confirmed by colorimetric CO2, equal breath sounds, quiet over the stomach. Intubated with full C spine precautions, with the assistance of rat farmer. Additional Procedure Procedure Narrative Procedure note Indication: Respiratory failure Procedure: Vent machine management for ARDS ARDS net protocol, titrated due to left-sided pneumothorax status post chest tube Medical Decision Making Diagnostic Impression: Primary Impression: Acute respiratory distress syndrome (ARDS) due to 2019-nCoV Additional Impressions: COVID-19 Acute hypoxemic respiratory failure Renal failure Hypokalemia Thrombocytopenia Pneumothorax, left Septic shock Cardiogenic shock Tension pneumothorax Cardiac arrest Rhythm Strip Diag. Results Rhythm Strip Time: 17:03 EP Interpretation: yes Rate: 60 Rhythm: no PVC's, no ectopy Chest X-Ray Diagnostic Results Chest X-Ray Diagnostic Results : PA Scribe Text XR Chest, 1 View CLINICAL HISTORY: PNEUMOTX FINDINGS: Lungs: Diffuse airspace opacities within left lung. Right lung is collapsed. Pleural space: Large right-sided pneumothorax comprising greater than 75% of the lung volume. Heart: Unremarkable. Mediastinum: Shift of the mediastinum to the left. Bones/joints: Unremarkable. Soft tissues: Subcutaneous emphysema seen within the thorax and lower neck. Tubes, lines and devices: Left-sided chest tube with probable trace left apical pneumothorax. Right IJ vas catheter with tip at the cavoatrial junction. Endotracheal tube with tip at the clavicular heads. IMPRESSION: 1. Large right-sided pneumothorax comprising greater than 75% of the lung volume. 2. Left-sided chest tube with probable trace left apical pneumothorax. 3. Shift of the mediastinum to the left. Diagnostic POCUS Bedside Ultrasound Diagnostics: Bedside US Exam performed: FAST Exam Indication: Other - rosc FAST Exam Findings: No fluid morison's pouch, No fluid splenorenal rec., No Fluid Pelv. Cul-de-sac, No pericardial effusion, No acute findings Electronically Signed by: Aracelis Borrego DO Comment ++Left PTX Reevaluation Time: 17:04 Last Vital Signs Date Time Temp Pulse Resp B/P (MAP) Pulse Ox O2 Delivery O2 Flow Rate FiO2 03/24/20 14:58 83 23 95 100 03/24/20 13:52 97/58 03/24/20 12:00 98.9 03/24/20 12:00 Bi-pap 90.0 Status: improved Disposition: ADMITTED INPATIENT Admit Decision Time: 17:04 Condition: Critical Referrals: Ebenezer Go MD (PCP) Aracelis Borrego D.O. Mar 24, 2020 17:16
--- NOTE | 2020-03-24 17:42 | Diagnostic Imaging Report ---
EXAM: XR Chest, 1 View CLINICAL HISTORY: PNEUMOTX TECHNIQUE: Frontal view of the chest. COMPARISON: 03/24/2020 FINDINGS: Lungs: Diffuse airspace opacities within left lung. Right lung is collapsed. Pleural space: Large right-sided pneumothorax comprising greater than 75% of the lung volume. Heart: Unremarkable. Mediastinum: Shift of the mediastinum to the left. Bones/joints: Unremarkable. Soft tissues: Subcutaneous emphysema seen within the thorax and lower neck. Tubes, lines and devices: Left-sided chest tube with probable trace left apical pneumothorax. Right IJ vas catheter with tip at the cavoatrial junction. Endotracheal tube with tip at the clavicular heads. IMPRESSION: 1. Large right-sided pneumothorax comprising greater than 75% of the lung volume. 2. Left-sided chest tube with probable trace left apical pneumothorax. 3. Shift of the mediastinum to the left. <MYCVCSECTION> Communications: 03/24/20 18:04 Verify Receipt with Nurse Verified receipt with trace clerkgiovanna Dhaliwal, given to RN on 03/24 18:05 (-08:00)
--- NOTE | 2020-03-24 18:03 | General Progress Note ---
Subjective Time patient seen: 07:00 Constitutional: Reports: malaise, weakness HEENT: Reports: no symptoms Cardiovascular: Reports: no symptoms Respiratory: Reports: shortness of breath Gastrointestinal/Abdominal: Reports: difficulty swallowing Genitourinary: Reports: no symptoms Neurologic/Psychiatric: Reports: no symptoms Endocrine: Reports: no symptoms Hematologic/Lymphatic: Reports: no symptoms Allergies: Coded Allergies: No Known Allergies (Unverified , 02/04/20) All Systems: reviewed and negative except above Subjective no events. remains on bipap. on tpn. unable to take pos. desaturates off bipap quickly. Objective Last 24 Hour Vital Signs Date Time Temp Pulse Resp B/P (MAP) Pulse Ox O2 Delivery O2 Flow Rate FiO2 03/24/20 17:30 103 48/24 (32) 03/24/20 17:15 103 18 56/36 (43) 03/24/20 17:06 106 18 100 03/24/20 17:00 105 18 43/26 (32) 03/24/20 16:30 110 18 54/39 (44) 03/24/20 16:15 107 18 56/36 (43) 03/24/20 16:00 100 18 43/19 (27) 03/24/20 16:00 105 03/24/20 16:00 Mechanical Ventilator 100.0 03/24/20 15:45 100 20 90/36 (54) 03/24/20 15:30 106 18 93 Mechanical Ventilator 100 03/24/20 15:30 139 26 148/100 (116) 03/24/20 14:58 83 23 95 100 03/24/20 13:52 86 25 97/58 89 03/24/20 13:22 146 28 115/72 79 03/24/20 13:19 139 24 78 100 03/24/20 12:00 98.9 96 21 115/72 (86) 98 03/24/20 12:00 80 03/24/20 12:00 Bi-pap 90.0 03/24/20 11:49 95 03/24/20 11:05 91 15 97 80 03/24/20 08:00 Bi-pap 90.0 03/24/20 08:00 90 03/24/20 08:00 97.8 97 22 126/74 (91) 99 03/24/20 07:46 97 03/24/20 07:20 95 12 100 90 03/24/20 04:00 82 03/24/20 04:00 60 03/24/20 04:00 Bi-pap 90.0 03/24/20 04:00 97.5 99 21 133/77 (95) 99 03/24/20 03:52 97 24 98 90 03/24/20 00:00 82 03/24/20 00:00 60 03/24/20 00:00 97.3 83 17 142/65 (90) 99 03/24/20 00:00 Bi-pap 70.0 03/23/20 23:18 82 22 99 90 03/23/20 20:00 Bi-pap 70.0 03/23/20 20:00 80 03/23/20 20:00 97.5 79 16 126/64 (84) 96 03/23/20 20:00 60 03/23/20 19:21 76 16 100 60 Intake and Output 03/23/20 03/24/20 19:00 07:00 Intake Total 1022.56 ml Output Total 10 ml 300 ml Balance 1012.56 ml -300 ml Intake IV Total 1022.56 ml Output Urine Total 10 ml 300 ml # Bowel Movements 2 3 Laboratory Tests 03/23/20 23:25: POC Whole Blood Glucose 509*H 03/24/20 01:42: POC Whole Blood Glucose 490H 03/24/20 04:13: White Blood Count 9.9, Red Blood Count 2.57L, Hemoglobin 7.9L, Hematocrit 24.9L, Mean Corpuscular Volume 97, Mean Corpuscular Hemoglobin 30.7, Mean Corpuscular Hemoglobin Concent 31.7L, Red Cell Distribution Width 18.2H, Platelet Count 31L, Mean Platelet Volume 7.7, Neutrophils (%) (Auto) , Lymphocytes (%) (Auto) , Monocytes (%) (Auto) , Eosinophils (%) (Auto) , Basophils (%) (Auto) , Differential Total Cells Counted 100, Neutrophils % (Manual) 95H, Lymphocytes % (Manual) 3L, Monocytes % (Manual) 2, Eosinophils % (Manual) 0, Basophils % (Manual) 0, Band Neutrophils 0, Platelet Estimate DecreasedL, Platelet Morphology Normal, Hypochromasia 2+, Anisocytosis 2+, Prothrombin Time 11.9H, Prothromb Time International Ratio 1.1, Activated Partial Thromboplast Time 38H, Sodium Level 142, Potassium Level 2.9L, Chloride Level 104, Carbon Dioxide Level 25, Anion Gap 13, Blood Urea Nitrogen 77H, Creatinine 2.9H, Estimat Glomerular Filtration Rate 21.6, Glucose Level 418H, Hemoglobin A1c 5.7, Calcium Level 7.6L , Phosphorus Level 4.7, Magnesium Level 2.2, Total Bilirubin 1.0, Aspartate Amino Transf (AST/SGOT) 18, Alanine Aminotransferase (ALT/SGPT) 17, Alkaline Phosphatase 163H, Total Protein 5.5L, Albumin 1.6L, Globulin 3.9, Albumin/Globulin Ratio 0.4L 03/24/20 05:11: POC Whole Blood Glucose 369H 03/24/20 10:30: Arterial Blood pH 7.379, Arterial Blood Partial Pressure CO2 44.4, Arterial Blood Partial Pressure O2 88.3, Arterial Blood HCO3 25.6, Arterial Blood Oxygen Saturation 95.5, Arterial Blood Base Excess 0.4, Ken Test Positive 03/24/20 11:28: POC Whole Blood Glucose [Pending] 03/24/20 13:40: Arterial Blood pH 7.101*L, Arterial Blood Partial Pressure CO2 53.1H, Arterial Blood Partial Pressure O2 55.6L, Arterial Blood HCO3 16.2*L, Arterial Blood O xygen Saturation 73.5*L, Arterial Blood Base Excess -13.1*L, Ken Test Positive Height (Feet): 5 Height (Inches): 4.00 Weight (Pounds): 154 Objective General Appearance: WD/WN, confused Neck: supple Cardiovascular: regular rhythm Respiratory/Chest: lungs clear Abdomen: normal bowel sounds, non tender, soft, no organomegaly Edema: no edema noted Leg (L), no edema noted Leg (R) Neurologic: disoriented Assessment/Plan Problem List: (1) Altered level of consciousness ICD Codes: R40.4 - Transient alteration of awareness SNOMED: 4535592 (2) Pneumonia due to COVID-19 virus ICD Codes: U07.1 - COVID-19; J12.89 - Other viral pneumonia SNOMED: 237784666981037838 (3) Renal failure ICD Codes: N19 - Unspecified kidney failure SNOMED: 37775530 (4) Respiratory distress ICD Codes: R06.03 - Acute respiratory distress SNOMED: 661024550 Status: stable, not improved Assessment/Plan: cont bipap as needed wean as able TPN per GI steroids resp care lovenox with caution- low plts and stool ob. May need ivc fillter monitor plts hit ab "borderline" HD per renal Doug Garcia MD Mar 24, 2020 18:03
--- NOTE | 2020-03-24 18:15 | NUR ---
NURSE NOTES: Dr. Borrego here -another CT # [address] Borrego @ right lateral chest- connected to 20 cm H2O suction- draining bloody drainage. Dr. Borrego made aware of crepitus- @right and left neck and chest area
--- NOTE | 2020-03-24 18:25 | Emergency Room Report ---
History of Present Illness General Chief Complaint: Dyspnea/Respdistress Source: Medical Record, PMD Present Illness HPI I was consulted for R PTX for chest tube placement RIGHT Chest Tube Placement by me: Patient consented, sterilely draped, full prep, gown, glove, mask, time out performed. Right Chest Tube Placement by me: Patient unable to consent. Emergent consent obtained. Pt sterilely draped, full prep, gown, glove, mask, time out performed. Anesthesia: 1% lidocaine locally Location: Mid-Anterior Axillary Line, approximate 5th intercostal Device: Heimlich valve, single-lumen kit Technique: Horizontal 2mm incision, with placement of tube over needle using Seldinger technique, tactile confirmation Results: Chest tube fogging. 28F sutured at 14cm Compl: No e/o diaphragm or mediastinum injury Chest X-ray 1V Interpreted by me: Pneumothorax diminished, chest tube in pleural space facing cephalad. Normal soft tissue. Allergies: Coded Allergies: No Known Allergies (Unverified , 02/04/20) COVID-19 Screening Contact w/high risk pt: Yes Experienced COVID-19 symptoms?: Yes COVID-19 Testing performed COMMITTEE MEMBER: No - unk COVID-19 Screening: Positive COVID-19 Nursing Documentation-PMH Past Medical History Deferred: Pt Cognitively Impaired Past Medical History: No History, Except For Hx Hypertension: Yes Hx Cancer: No Hx Neurological Problems: No Physical Exam Vital Signs Date Time Temp Pulse Resp B/P (MAP) Pulse Ox O2 Delivery O2 Flow Rate FiO2 03/20/20 07:30 63 16 100 90 03/20/20 07:59 97.0 112/71 (85) 03/20/20 08:00 Bi-pap 90.0 Sp02 EP Interpretation: reviewed, abnormal Procedures Critical Care Time Critical Care Time Critical Care Statement Organ systems at risk include: cardiac / circulatory / pulm Critical care performed for 45 minutes. Time is exclusive of separately linda lable procedures. Time includes: direct patient care, continuous monitoring and multiple patient reassessment, coordination of patient care, review of patient's medical records, medical consultation, family consultation regarding treatment decisions and d ocumentation of patient care. Chest Tube Progress XR Chest, 1 View Read by Me FINDINGS: Lungs: Diffuse airspace opacities. Pleural space: See below. Heart: Unremarkable. Mediastinum: Unremarkable. Bones/joints: Unremarkable. Soft tissues: Extensive subcutaneous emphysema. Tubes, lines and devices: Status post placement of a right-sided chest tube with residual pneumothorax comprising approximately 20% of the lung volume. Stable left-sided chest tube with minimal left apical pneumothorax. Endotracheal tube within the thoracic inlet. Right IJ vas catheter with tip at the right atrium. IMPRESSION: 1. Status post placement of a right-sided chest tube with residual pneumothorax comprising approximately 20% of the lung volume. 2. Stable left-sided chest tube with minimal left apical pneumothorax. 3. Diffuse airspace opacities Medical Decision Making Diagnostic Impression: Primary Impression: Acute respiratory distress syndrome (ARDS) due to 2019-nCoV Additional Impressions: COVID-19 Cardiogenic shock Septic shock Acute hypoxemic respiratory failure Renal failure Thrombocytopenia Pneumothorax, left Hypokalemia Tension pneumothorax Pneumothorax, right Rhythm Strip Diag. Results Rhythm Strip Time: 18:24 EP Interpretation: yes Rate: 111 Rhythm: no PVC's, no ectopy Reevaluation Time: 18:25 Last Vital Signs Date Time Temp Pulse Resp B/P (MAP) Pulse Ox O2 Delivery O2 Flow Rate FiO2 03/24/20 17:30 103 48/24 (32) 03/24/20 17:15 18 03/24/20 17:06 100 03/24/20 16:00 Mechanical Ventilator 100.0 03/24/20 15:30 93 03/24/20 12:00 98.9 Status: improved Disposition: ADMITTED INPATIENT Admit Decision Time: 18:25 Condition: Critical Referrals: Ebenezer Go MD (PCP) Aracelis Borrego D.O. Mar 24, 2020 18:25
--- NOTE | 2020-03-24 18:30 | NUR ---
NURSE NOTES: BP 73/39- Levophed at 30 mcg/min , Dopamine at 20 mcg/kg/min and Vasopressin at 0 .04 units/min
--- NOTE | 2020-03-24 19:23 | Surgery Progress Note ---
Surgery Progress Note Subjective Procedure Performed Right femoral temporary hemodialysis catheter insertion Additional Comments worsening respiratory abg noted planned for intubation late entry as of since eval for intubation has declined. intubated, coded, now in icu critical b/l chest tubes after acls Objective Last 24 Hour Vital Signs Date Time Temp Pulse Resp B/P (MAP) Pulse Ox O2 Delivery O2 Flow Rate FiO2 03/24/20 17:30 103 48/24 (32) 03/24/20 17:15 103 18 56/36 (43) 03/24/20 17:06 106 18 100 03/24/20 17:00 105 18 43/26 (32) 03/24/20 16:30 110 18 54/39 (44) 03/24/20 16:15 107 18 56/36 (43) 03/24/20 16:00 100 18 43/19 (27) 03/24/20 16:00 105 03/24/20 16:00 Mechanical Ventilator 100.0 03/24/20 15:45 100 20 90/36 (54) 03/24/20 15:30 106 18 93 Mechanical Ventilator 100 03/24/20 15:30 139 26 148/100 (116) 03/24/20 14:58 83 23 95 100 03/24/20 13:52 86 25 97/58 89 03/24/20 13:22 146 28 115/72 79 03/24/20 13:19 139 24 78 100 03/24/20 12:00 98.9 96 21 115/72 (86) 98 03/24/20 12:00 80 03/24/20 12:00 Bi-pap 90.0 03/24/20 11:49 95 03/24/20 11:05 91 15 97 80 03/24/20 08:00 Bi-pap 90.0 03/24/20 08:00 90 03/24/20 08:00 97.8 97 22 126/74 (91) 99 03/24/20 07:46 97 03/24/20 07:20 95 12 100 90 03/24/20 04:00 82 03/24/20 04:00 60 03/24/20 04:00 Bi-pap 90.0 03/24/20 04:00 97.5 99 21 133/77 (95) 99 03/24/20 03:52 97 24 98 90 03/24/20 00:00 82 03/24/20 00:00 60 03/24/20 00:00 97.3 83 17 142/65 (90) 99 03/24/20 00:00 Bi-pap 70.0 03/23/20 23:18 82 22 99 90 03/23/20 20:00 Bi-pap 70.0 03/23/20 20:00 80 03/23/20 20:00 97.5 79 16 126/64 (84) 96 03/23/20 20:00 60 I&O Intake and Output 03/23/20 03/24/20 19:00 07:00 Intake Total 1022.56 ml 74 ml Output Total 10 ml 300 ml Balance 1012.56 ml -226 ml Intake IV Total 1022.56 ml 74 ml Output Urine Total 10 ml 300 ml # Bowel Movements 2 3 Dressing: saturated Cardiovascular: RSR Respiratory: decreased breath sounds Abdomen: soft, non-tender, present bowel sounds Extremities: no tenderness, no cyanosis Laboratory Tests Test 03/23/20 23:25 03/24/20 01:42 03/24/20 04:13 03/24/20 05:11 POC Whole Blood Glucose 509 MG/DL (74-106) *H 490 MG/DL (74-106) H 369 MG/DL (74-106) H White Blood Count 9.9 K/UL (4.8-10.8) Red Blood Count 2.57 M/UL (4.70-6.10) L Hemoglobin 7.9 G/DL (14.2-18.0) L Hematocrit 24.9 % (42.0-52.0) L Mean Corpuscular Volume 97 FL (80-99) Mean Corpuscular Hemoglobin 30.7 PG (27.0-31.0) Mean Corpuscular Hemoglobin Concent 31.7 G/DL (32.0-36.0) L Red Cell Distribution Width 18.2 % (11.6-14.8) H Platelet Count 31 K/UL (150-450) L Mean Platelet Volume 7.7 FL (6.5-10.1) Neutrophils (%) (Auto) % (45.0-75.0) Lymphocytes (%) (Auto) % (20.0-45.0) Monocytes (%) (Auto) % (1.0-10.0) Eosinophils (%) (Auto) % (0.0-3.0) Basophils (%) (Auto) % (0.0-2.0) Differential Total Cells Counted 100 Neutrophils % (Manual) 95 % (45-75) H Lymphocytes % (Manual) 3 % (20-45) L Monocytes % (Manual) 2 % (1-10) Eosinophils % (Manual) 0 % (0-3) Basophils % (Manual) 0 % (0-2) Band Neutrophils 0 % (0-8) Platelet Estimate Decreased L Platelet Morphology Normal Hypochromasia 2+ Anisocytosis 2+ Prothrombin Time 11.9 SEC (9.30-11.50) H Prothromb Time International Ratio 1.1 (0.9-1.1) Activated Partial Thromboplast Time 38 SEC (23-33) H Sodium Level 142 MMOL/L (136-145) Potassium Level 2.9 MMOL/L (3.5-5.1) L Chloride Level 104 MMOL/L (98-107) Carbon Dioxide Level 25 MMOL/L (21-32) Anion Gap 13 mmol/L (5-15) Blood Urea Nitrogen 77 mg/dL (7-18) H Creatinine 2.9 MG/DL (0.55-1.30) H Estimat Glomerular Filtration Rate 21.6 mL/min (>60) Glucose Level 418 MG/DL (74-106) H Hemoglobin A1c 5.7 % (4.3-6.0) Calcium Level 7.6 MG/DL (8.5-10.1) L Phosphorus Level 4.7 MG/DL (2.5-4.9) Magnesium Level 2.2 MG/DL (1.8-2.4) Total Bilirubin 1.0 MG/DL (0.2-1.0) Aspartate Amino Transf (AST/SGOT) 18 U/L (15-37) Alanine Aminotransferase (ALT/SGPT) 17 U/L (12-78) Alkaline Phosphatase 163 U/L (46-116) H Total Protein 5.5 G/DL (6.4-8.2) L Albumin 1.6 G/DL (3.4-5.0) L Globulin 3.9 g/dL Albumin/Globulin Ratio 0.4 (1.0-2.7) L Test 03/24/20 10:30 03/24/20 11:28 03/24/20 13:40 Arterial Blood pH 7.379 (7.350-7.450) 7.101 (7.350-7.450) Arterial Blood Partial Pressure CO2 44.4 mmHg (35.0-45.0) 53.1 mmHg (35.0-45.0) H Arterial Blood Partial Pressure O2 88.3 mmHg (75.0-100.0) 55.6 mmHg (75.0-100.0) L Arterial Blood HCO3 25.6 mmol/L (22.0-26.0) 16.2 mmol/L (22.0-26.0) *L Arterial Blood Oxygen Saturation 95.5 % (95-100) 73.5 % (95-100) *L Arterial Blood Base Excess 0.4 (-2-2) -13.1 (-2-2) *L Ken Test Positive Positive POC Whole Blood Glucose Pending Plan Problems: (1) Hyperkalemia (2) Respiratory distress Assessment & Plan: still requiring bipap with high oxygen demand trach considered hold on transition to eliquis cont lovenox for now worsening intubated coded s/p acls b/l ptx s/p b/l chest tubes (3) Pancreatitis Assessment & Plan: noted on admission to have acute pancreatitis etiology work up on way lft's noted mild elevated no n/v labs reviewed exam unreliable as very agitated iv fluids okay for diet trend labs will follow with exam and recs improving resolved lf't s improving no n/v okay diet (4) Renal failure Assessment & Plan: renal insufficiency fem cath placed okay for hd see note will follow (5) UTI (urinary tract infection) (6) Pneumonia due to COVID-19 virus (7) Dehydration (8) Renal insufficiency (9) Altered level of consciousness (10) Urinary tract bacterial infections Darius Sifuentes Mar 24, 2020 19:23
--- NOTE | 2020-03-24 19:27 | Diagnostic Imaging Report ---
EXAM: XR Chest, 1 View CLINICAL HISTORY: TUBE PLCMT TECHNIQUE: Frontal view of the chest. COMPARISON: X-ray dated 03/24/2020 FINDINGS: Lungs: Diffuse airspace opacities. Pleural space: See below. Heart: Unremarkable. Mediastinum: Unremarkable. Bones/joints: Unremarkable. Soft tissues: Extensive subcutaneous emphysema. Tubes, lines and devices: Status post placement of a right-sided chest tube with residual pneumothorax comprising approximately 20% of the lung volume. Stable left-sided chest tube with minimal left apical pneumothorax. Endotracheal tube within the thoracic inlet. Right IJ vas catheter with tip at the right atrium. IMPRESSION: 1. Status post placement of a right-sided chest tube with residual pneumothorax comprising approximately 20% of the lung volume. 2. Stable left-sided chest tube with minimal left apical pneumothorax. 3. Diffuse airspace opacities.
--- NOTE | 2020-03-24 19:30 | NUR ---
NURSE NOTES: Patient unresponsive ,not triggering the ventilator- Orally intubated AC18 ,Vt500,FiO2 100% PEEP+5cm- SaO2 100% > BP remains low despite of 3 vasopressors 78/42- Levophed at 30 mcg/min, Dopamine at 20 mcg/kg/min and vasopressin at 0.04 units /min all infusing via left femoral TLC. bus driver/monitor shows ST Rate 110-120/min. Report given to Giovanni VILLARREAL Endorsed
[2020-03-24] MEDS ORDERED: Vasopressin 100 UNITS in NS 95 ML IV SCH (19:45)
[2020-03-24] MEDS: DOPamine 400mg/250ml 250 ML IV SCH (19:50)
[2020-03-24] MEDS ORDERED: Fat Emulsion Iv 20% 216 ML in Tpn 1,560 ML IV SCH (20:00)
[2020-03-24] MEDS: Dyna-Hex 2% Top Sol 2oz TOPIC SCH (20:22)
[2020-03-24] MEDS: ceFAZolin 1gm in D5W 55ml IVPB SCH (20:23)
[2020-03-24] MEDS: Epoetin Alfa-EPBX(ESRD on dialysis)10,000 unit/ml vial SUBQ SCH (20:30)
[2020-03-24] MEDS: Enoxaparin 40mg Inj SUBQ SCH (21:00)
--- NOTE | 2020-03-24 21:57 | General Progress Note ---
Subjective Allergies: Coded Allergies: No Known Allergies (Unverified , 02/04/20) Subjective Above noted minimally interactive on BIPAP seen early am subsequently deteriorated transferred to ICU now on pressors Objective Last 24 Hour Vital Signs Date Time Temp Pulse Resp B/P (MAP) Pulse Ox O2 Delivery O2 Flow Rate FiO2 03/24/20 19:50 82/45 03/24/20 19:41 111 37 100 03/24/20 19:00 119 18 86/51 (63) 03/24/20 18:45 119 18 80/50 (60) 03/24/20 18:30 111 18 73/39 (50) 03/24/20 18:15 109 18 57/29 (38) 03/24/20 17:45 96 18 66/51 (56) 03/24/20 17:30 103 48/24 (32) 03/24/20 17:15 103 18 56/36 (43) 03/24/20 17:06 106 18 100 03/24/20 17:00 105 18 43/26 (32) 03/24/20 16:30 110 18 54/39 (44) 03/24/20 16:15 107 18 56/36 (43) 03/24/20 16:00 100 18 43/19 (27) 03/24/20 16:00 105 03/24/20 16:00 Mechanical Ventilator 100.0 03/24/20 15:45 100 20 90/36 (54) 03/24/20 15:30 106 18 93 Mechanical Ventilator 100 03/24/20 15:30 139 26 148/100 (116) 03/24/20 14:58 83 23 95 100 03/24/20 13:52 86 25 97/58 89 03/24/20 13:22 146 28 115/72 79 03/24/20 13:19 139 24 78 100 03/24/20 12:00 98.9 96 21 115/72 (86) 98 03/24/20 12:00 80 03/24/20 12:00 Bi-pap 90.0 03/24/20 11:49 95 03/24/20 11:05 91 15 97 80 03/24/20 08:00 Bi-pap 90.0 03/24/20 08:00 90 03/24/20 08:00 97.8 97 22 126/74 (91) 99 03/24/20 07:46 97 03/24/20 07:20 95 12 100 90 03/24/20 04:00 82 03/24/20 04:00 60 03/24/20 04:00 Bi-pap 90.0 03/24/20 04:00 97.5 99 21 133/77 (95) 99 03/24/20 03:52 97 24 98 90 03/24/20 00:00 82 03/24/20 00:00 60 03/24/20 00:00 97.3 83 17 142/65 (90) 99 03/24/20 00:00 Bi-pap 70.0 03/23/20 23:18 82 22 99 90 Intake and Output 03/23/20 03/24/20 19:00 07:00 Intake Total 1022.56 ml 74 ml Output Total 10 ml 300 ml Balance 1012.56 ml -226 ml Intake IV Total 1022.56 ml 74 ml Output Urine Total 10 ml 300 ml # Bowel Movements 2 3 Laboratory Tests 03/23/20 23:25: POC Whole Blood Glucose 509*H 03/24/20 01:42: POC Whole Blood Glucose 490H 03/24/20 04:13: White Blood Count 9.9, Red Blood Count 2.57L, Hemoglobin 7.9L, Hematocrit 24.9L, Mean Corpuscular Volume 97, Mean Corpuscular Hemoglobin 30.7, Mean Corpuscular Hemoglobin Concent 31.7L, Red Cell Distribution Width 18.2H, Platelet Count 31L, Mean Platelet Volume 7.7, Neutrophils (%) (Auto) , Lymphocytes (%) (Auto) , Monocytes (%) (Auto) , Eosinophils (%) (Auto) , Basophils (%) (Auto) , Differential Total Cells Counted 100, Neutrophils % (Manual) 95H, Lymphocytes % (Manual) 3L, Monocytes % (Manual) 2, Eosinophils % (Manual) 0, Basophils % (Manual) 0, Band Neutrophils 0, Platelet Estimate DecreasedL, Platelet Morphology Normal, Hypochromasia 2+, Anisocytosis 2+, Prothrombin Time 11.9H, Prothromb Time International Ratio 1.1, Activated Partial Thromboplast Time 38H, Sodium Level 142, Potassium Level 2.9L, Chloride Level 104, Carbon Dioxide Level 25, Anion Gap 13, Blood Urea Nitrogen 77H, Creatinine 2.9H, Estimat Glomerular Filtration Rate 21.6, Glucose Level 418H, Hemoglobin A1c 5.7, Calcium Level 7.6L , Phosphorus Level 4.7, Magnesium Level 2.2, Total Bilirubin 1.0, Aspartate Amino Transf (AST/SGOT) 18, Alanine Aminotransferase (ALT/SGPT) 17, Alkaline Phosphatase 163H, Total Protein 5.5L, Albumin 1.6L, Globulin 3.9, Albumin/Globulin Ratio 0.4L 03/24/20 05:11: POC Whole Blood Glucose 369H 03/24/20 10:30: Arterial Blood pH 7.379, Arterial Blood Partial Pressure CO2 44.4, Arterial Blood Partial Pressure O2 88.3, Arterial Blood HCO3 25.6, Arterial Blood Oxygen Saturation 95.5, Arterial Blood Base Excess 0.4, Ken Test Positive 03/24/20 11:28: POC Whole Blood Glucose [Pending] 03/24/20 13:40: Arterial Blood pH 7.101*L, Arterial Blood Partial Pressure CO2 53.1H, Arterial Blood Partial Pressure O2 55.6L, Arterial Blood HCO3 16.2*L, Arterial Blood Oxygen Saturation 73.5*L, Arterial Blood Base Excess -13.1*L, Ken Test Positive 03/24/20 19:43: POC Whole Blood Glucose 211H 03/24/20 21:09: Arterial Blood pH 6.953*L, Arterial Blood Partial Pressure CO2 41.2, Arterial Blood Partial Pressure O2 57.9L, Arterial Blood HCO3 8.9*L, Arterial Blood Oxygen Saturation 75.1*L, Arterial Blood Base Excess -21.9*L, Ken Test Positive Height (Feet): 5 Height (Inches): 4.00 Weight (Pounds): 154 Objective Elderly man NCAT, (+) BIPAP (03/24 am exam) supple Coarse BS RR abd soft no edema Assessment/Plan Status: stable, not improved Assessment/Plan: Assessment - COVID PNA - resp failure - shock - severe thrombocytopenia - not stable for EGD/PEG at this time - NGT/OGT problematic for same reasons - Renal failure - anemia, OB (+) - recent pancreatitis and hepatitis - presumed COVID related - Poor prognosis Recommendations - TPN with HD - ICU care - follow CBC and resp status - abx - pressors Lilly Salmeron MD Mar 24, 2020 21:57
[2020-03-25] VITALS (34 sets, daily range): BP systolic 40–168; BP diastolic 19–55
--- NOTE | 2020-03-25 00:18 | Cardiology Progress Note ---
Subjective DATE OF SERVICE: Mar 24, 2020 s/p code blue arrest. Now intubated and mechanically ventilated with bilateral chest tubes. HD catheter was placed Venous duplex: partially obstructing right common femoral DVT Objective Last 24 Hour Vital Signs Date Time Temp Pulse Resp B/P (MAP) Pulse Ox O2 Delivery O2 Flow Rate FiO2 03/24/20 23:25 107 18 100 03/24/20 21:45 116 32 90/54 (66) 03/24/20 21:30 118 31 83/55 (64) 03/24/20 21:15 116 31 82/50 (61) 03/24/20 21:00 118 31 69/49 (56) 03/24/20 20:45 120 32 79/40 (53) 03/24/20 20:30 125 32 77/58 (64) 03/24/20 20:15 120 32 74/46 (55) 03/24/20 20:00 98.6 122 33 78/42 (54) 03/24/20 20:00 111 03/24/20 20:00 100.0 03/24/20 19:50 82/45 03/24/20 19:45 120 34 84/50 (61) 03/24/20 19:41 111 37 100 03/24/20 19:30 120 34 86/51 (63) 03/24/20 19:15 119 35 79/44 (56) 03/24/20 19:00 119 18 86/51 (63) 03/24/20 18:45 119 18 80/50 (60) 03/24/20 18:30 111 18 73/39 (50) 03/24/20 18:15 109 18 57/29 (38) 03/24/20 17:45 96 18 66/51 (56) 03/24/20 17:30 103 48/24 (32) 03/24/20 17:15 103 18 56/36 (43) 03/24/20 17:06 106 18 100 03/24/20 17:00 105 18 43/26 (32) 03/24/20 16:30 110 18 54/39 (44) 03/24/20 16:15 107 18 56/36 (43) 03/24/20 16:00 100 18 43/19 (27) 03/24/20 16:00 105 03/24/20 16:00 Mechanical Ventilator 100.0 1/11/21 15:45 100 20 90/36 (54) 03/24/20 15:30 106 18 93 Mechanical Ventilator 100 03/24/20 15:30 139 26 148/100 (116) 03/24/20 14:58 83 23 95 100 03/24/20 13:52 86 25 97/58 89 03/24/20 13:22 146 28 115/72 79 03/24/20 13:19 139 24 78 100 03/24/20 12:00 98.9 96 21 115/72 (86) 98 03/24/20 12:00 80 03/24/20 12:00 Bi-pap 90.0 03/24/20 11:49 95 03/24/20 11:05 91 15 97 80 03/24/20 08:00 Bi-pap 90.0 03/24/20 08:00 90 03/24/20 08:00 97.8 97 22 126/74 (91) 99 03/24/20 07:46 97 03/24/20 07:20 95 12 100 90 03/24/20 04:00 82 03/24/20 04:00 60 03/24/20 04:00 Bi-pap 90.0 03/24/20 04:00 97.5 99 21 133/77 (95) 99 03/24/20 03:52 97 24 98 90 ROS: unchanged from 03/18/20 HEENT: other - bipap RHYTHM: NSR, PACs LUNGS: bilat. rhonchi and rales CARDIAC: normal rate, regular rhythm, normal S1 and S2 ABDOMEN: normal bowel sounds, non tender EXTREMITIES: trace edema Laboratory Tests Test 03/24/20 01:42 03/24/20 04:13 03/24/20 05:11 03/24/20 10:30 POC Whole Blood Glucose 490 MG/DL (74-106) H 369 MG/DL (74-106) H White Blood Count 9.9 K/UL (4.8-10.8) Red Blood Count 2.57 M/UL (4.70-6.10) L Hemoglobin 7.9 G/DL (14.2-18.0) L Hematocrit 24.9 % (42.0-52.0) L Mean Corpuscular Volume 97 FL (80-99) Mean Corpuscular Hemoglobin 30.7 PG (27.0-31.0) Mean Corpuscular Hemoglobin Concent 31.7 G/DL (32.0-36.0) L Red Cell Distribution Width 18.2 % (11.6-14.8) H Platelet Count 31 K/UL (150-450) L Mean Platelet Volume 7.7 FL (6.5-10.1) Neutrophils (%) (Auto) % (45.0-75.0) Lymphocytes (%) (Auto) % (20.0-45.0) Monocytes (%) (Auto) % (1.0-10.0) Eosinophils (%) (Auto) % (0.0-3.0) Basophils (%) (Auto) % (0.0-2.0) Differential Total Cells Counted 100 Neutrophils % (Manual) 95 % (45-75) H Lymphocytes % (Manual) 3 % (20-45) L Monocytes % (Manual) 2 % (1-10) Eosinophils % (Manual) 0 % (0-3) Basophils % (Manual) 0 % (0-2) Band Neutrophils 0 % (0-8) Platelet Estimate Decreased L Platelet Morphology Normal Hypochromasia 2+ Anisocytosis 2+ Prothrombin Time 11.9 SEC (9.30-11.50) H Prothromb Time International Ratio 1.1 (0.9-1.1) Activated Partial Thromboplast Time 38 SEC (23-33) H Sodium Level 142 MMOL/L (136-145) Potassium Level 2.9 MMOL/L (3.5-5.1) L Chloride Level 104 MMOL/L (98-107) Carbon Dioxide Level 25 MMOL/L (21-32) Anion Gap 13 mmol/L (5-15) Blood Urea Nitrogen 77 mg/dL (7-18) H Creatinine 2.9 MG/DL (0.55-1.30) H Estimat Glomerular Filtration Rate 21.6 mL/min (>60) Glucose Level 418 MG/DL (74-106) H Hemoglobin A1c 5.7 % (4.3-6.0) Calcium Level 7.6 MG/DL (8.5-10.1) L Phosphorus Level 4.7 MG/DL (2.5-4.9) Magnesium Level 2.2 MG/DL (1.8-2.4) Total Bilirubin 1.0 MG/DL (0.2-1.0) Aspartate Amino Transf (AST/SGOT) 18 U/L (15-37) Alanine Aminotransferase (ALT/SGPT) 17 U/L (12-78) Alkaline Phosphatase 163 U/L (46-116) H Total Protein 5.5 G/DL (6.4-8.2) L Albumin 1.6 G/DL (3.4-5.0) L Globulin 3.9 g/dL Albumin/Globulin Ratio 0.4 (1.0-2.7) L Arterial Blood pH 7.379 (7.350-7.450) Arterial Blood Partial Pressure CO2 44.4 mmHg (35.0-45.0) Arterial Blood Partial Pressure O2 88.3 mmHg (75.0-100.0) Arterial Blood HCO3 25.6 mmol/L (22.0-26.0) Arterial Blood Oxygen Saturation 95.5 % (95-100) Arterial Blood Base Excess 0.4 (-2-2) Ken Test Positive Test 03/24/20 11:28 03/24/20 13:40 03/24/20 19:43 03/24/20 21:09 POC Whole Blood Glucose Pending 211 MG/DL (74-106) H Arterial Blood pH 7.101 (7.350-7.450) 6.953 (7.350-7.450) Arterial Blood Partial Pressure CO2 53.1 mmHg (35.0-45.0) H 41.2 mmHg (35.0-45.0) Arterial Blood Partial Pressure O2 55.6 mmHg (75.0-100.0) L 57.9 mmHg (75.0-100.0) L Arterial Blood HCO3 16.2 mmol/L (22.0-26.0) *L 8.9 mmol/L (22.0-26.0) *L Arterial Blood Oxygen Saturation 73.5 % (95-100) *L 75.1 % (95-100) *L Arterial Blood Base Excess -13.1 (-2-2) *L -21.9 (-2-2) *L Ken Test Positive Positive Test 03/25/20 00:11 POC Whole Blood Glucose 270 MG/DL (74-106) H Assessment/Plan Assessment/Plan S/p code blue arrest Respiratory failure Bilateral chest tubes Shock Non-occlusive DVT Paroxysmal Atrial Fibrillation Acute coronary insuff Covid 19 PNA Acute hypoxic respiratory failure Anemia Ac/chronic diastolic CHF Ac/chronic renal failure on hemodialysis Thrombocytopenia improved over past day Dysphagia Exogenous hyperkalemia Lovenox continued with caution; watch plt ct. Vent support Pressor therapy Steroids per pulmonary Unable to give oral diltiazem at present while NPO; will give IVP prn for rapid atrial arrhythmias. IVF adjustments based on clinical findings and lab results. Cristopher Ingram MD Mar 25, 2020 00:18
[2020-03-25] MEDS: NovoLOG Insulin Flexpen SUBQ SCH ×2 (00:30→06:08)
[2020-03-25] MEDS: DOPamine 400mg/250ml 250 ML IV SCH ×2 (02:39→08:20)
--- NOTE | 2020-03-25 04:00 | NUR ---
NURSE NOTES: COMPLETE BED BATH
[2020-03-25] MEDS ORDERED: Heparin 1000 units/ml 1ml Vial INJ PRN (06:00)
[2020-03-25] MEDS ORDERED: Heparin Sod 1000 units/ml 10ml IV PRN (06:00)
--- NOTE | 2020-03-25 06:00 | NUR ---
NURSE NOTES: BS 378 INSULIN COVERAGE GIVEN
[2020-03-25 06:07] LABS: HEMATOCRIT 27.4 % (42.0-52.0); HEMOGLOBIN 8.3 G/DL (14.2-18.0); MEAN CORPUSCULAR VOLUME 107 FL (80-99); PLATELET COUNT 45 K/UL (150-450); RED BLOOD COUNT 2.57 M/UL (4.70-6.10); RED CELL DISTRIBUTION WIDTH 19.2 % (11.6-14.8)
[2020-03-25 06:14] LABS: WHITE BLOOD COUNT 25.9 K/UL (4.8-10.8)
[2020-03-25 06:20] LABS: INR 2.2 (0.9-1.1)
--- NOTE | 2020-03-25 07:17 | NUR ---
NURSE NOTES: Report received from CHERELLE Beckham. Patient unresponsive and hemodynamically unstable. Pupils fixed and dilated, no gag reflex. Orally intubated ETT 7.5, 23cm @ the lip line. Settings: AC 18 ,TV 500,FiO2 100% PEEP +5- O2sat reading 68% on cafeteria monitor. BP remains low despite of 3 pressors (SBP 80's)- Levophed at 30 mcg/min, Dopamine at 20 mcg/kg/min and Vasopressin at 0.04 units/min infusing via left femoral TLC. Pt is a HD pt; Lt fem Arron catheter with pigtail. Pt has a Rt chest permacath- not being used. Rt and Lt pleura vac chest tubes to suction -20, noted to be draining bloody fluid into collection chamber. Condom cath in place and patent. Bed locked and in lowest position. Will resume plan of care.
--- NOTE | 2020-03-25 07:30 | NUR ---
NURSE HAND-OFF REPORT: Latest Vital Signs: Temperature 92.0 , Pulse 84 , B/P 88 /40 , Respiratory Rate 20 , O2 SAT 86 , Bi-pap, O2 Flow Rate 100.0 . Vital Sign Comment: EKG Rhythm: Sinus Rhythm Rhythm change?: N MD Notified?: Beatriz Go. Response: Order Received& Read Back Latest Conner Fall Score: 70 Fall Risk: High Risk Safety Measures: Call light Within Reach, Bed Alarm Zone 2, Side Rails Side Rails x2, Bed position Low and Locked. Fall Precautions: Yellow Socks Yellow Gown Door Sign Patient Fall Education Report given to sheree fox using sbar .
[2020-03-25 07:31] LABS: ALBUMIN 1.2 G/DL (3.4-5.0); ALBUMIN/GLOBULIN RATIO 0.4 (1.0-2.7); CALCIUM 8.5 MG/DL (8.5-10.1); POTASSIUM 4.9 MMOL/L (3.5-5.1)
[2020-03-25 07:33] LABS: BILIRUBIN,DIRECT 0.7 MG/DL (0.0-0.3)
--- NOTE | 2020-03-25 08:00 | NUR ---
NURSE NOTES: Dr Go at bedside assessing pt. Made aware of instability of pt. O2sat in the 20's
[2020-03-25] MEDS: Levemir Flexpen SUBQ SCH (08:20)
--- NOTE | 2020-03-25 08:25 | NUR ---
NURSE NOTES: B/P currently 53/25 despite being maxed on 3 pressors. HR 47- pulse present at this time, O2sat 17%. Dr Go aware
[2020-03-25] MEDS ORDERED: Solu-MEDROL 40mg Inj IVP SCH (09:00)
--- NOTE | 2020-03-25 09:15 | General Progress Note ---
Subjective ROS Limited/Unobtainable: Yes Constitutional: Reports: no symptoms HEENT: Reports: no symptoms Cardiovascular: Reports: no symptoms Respiratory: Reports: shortness of breath Gastrointestinal/Abdominal: Reports: difficulty swallowing Genitourinary: Reports: no symptoms Neurologic/Psychiatric: Reports: no symptoms Endocrine: Reports: no symptoms Hematologic/Lymphatic: Reports: no symptoms Allergies: Coded Allergies: No Known Allergies (Unverified , 02/04/20) All Systems: reviewed and negative except above Subjective s/p code blue. orally intubated. hypotensive on 3 pressors. poorly responsive. Objective Last 24 Hour Vital Signs Date Time Temp Pulse Resp B/P (MAP) Pulse Ox O2 Delivery O2 Flow Rate FiO2 03/25/20 08:54 40/19 03/25/20 08:20 57/31 03/25/20 08:15 53 18 57/31 (40) 11 03/25/20 08:00 95.9 62 18 69/35 (46) 25 03/25/20 08:00 63/27 03/25/20 08:00 63/27 03/25/20 08:00 100 03/25/20 08:00 Mechanical Ventilator 03/25/20 07:45 74 18 78/41 (53) 41 03/25/20 07:30 73 20 80/41 (54) 58 03/25/20 07:24 81 20 100 03/25/20 07:00 89/46 03/25/20 07:00 88/40 03/25/20 06:30 92.0 84 20 93/46 (62) 86 03/25/20 06:15 87 22 92/53 (66) 91 03/25/20 06:00 88 20 82/46 (58) 90 03/25/20 06:00 93/46 03/25/20 06:00 92/53 03/25/20 06:00 88/46 03/25/20 06:00 93/46 03/25/20 05:57 90 20 79/44 (56) 91 03/25/20 05:45 86 21 71/41 (51) 88 03/25/20 05:30 82 17 77/42 (54) 86 03/25/20 05:15 98 18 80/46 (57) 82 03/25/20 05:00 93 18 82/48 (59) 100 03/25/20 05:00 88/49 03/25/20 05:00 88/40 03/25/20 05:00 76/50 03/25/20 04:45 91 18 78/43 (55) 100 03/25/20 04:30 95 18 77/47 (57) 100 03/25/20 04:15 99 18 79/46 (57) 99 03/25/20 04:00 99 18 80/49 (59) 98 03/25/20 04:00 99 03/25/20 04:00 79/41 03/25/20 04:00 100 03/25/20 03:45 106 18 86/48 (61) 98 03/25/20 03:30 106 18 86/51 (63) 97 03/25/20 03:26 108 18 100 03/25/20 03:15 106 18 85/51 (62) 96 03/25/20 03:00 108 18 85/48 (60) 99 03/25/20 03:00 81/40 03/25/20 03:00 85/51 03/25/20 02:39 81/46 03/25/20 02:30 109 19 86/48 (61) 98 03/25/20 02:15 110 18 81/51 (61) 98 03/25/20 02:00 81/88 03/25/20 02:00 109 18 89/50 (63) 99 03/25/20 01:46 79/57 03/25/20 01:45 113 18 91/50 (64) 98 03/25/20 01:30 110 18 89/50 (63) 99 03/25/20 01:15 112 17 84/51 (62) 99 03/25/20 01:00 89/50 03/25/20 01:00 81/50 03/25/20 01:00 112 18 91/51 (64) 98 03/25/20 00:45 113 18 87/55 (66) 03/25/20 00:30 112 19 89/55 (66) 97 03/25/20 00:15 111 18 89/55 (66) 100 03/25/20 00:00 100.0 03/25/20 00:00 113 03/25/20 00:00 Mechanical Ventilator 100.0 03/25/20 00:00 97.2 112 18 90/53 (65) 03/25/20 00:00 90/58 03/25/20 00:00 91/59 03/24/20 23:45 112 19 93/49 (64) 99 03/24/20 23:30 113 18 91/55 (67) 100 03/24/20 23:25 107 18 100 03/24/20 23:15 107 18 82/49 (60) 03/24/20 23:00 78/67 03/24/20 23:00 82/56 03/24/20 23:00 107 18 78/49 (59) 03/24/20 22:45 110 19 79/50 (60) 03/24/20 22:30 114 18 92/61 (71) 03/24/20 22:15 127 19 78/57 (64) 03/24/20 22:00 122 30 89/52 (64) 03/24/20 22:00 74/46 03/24/20 22:00 78/57 03/24/20 21:45 116 32 90/54 (66) 03/24/20 21:30 118 31 83/55 (64) 03/24/20 21:15 116 31 82/50 (61) 03/24/20 21:00 118 31 69/49 (56) 03/24/20 21:00 80/38 03/24/20 21:00 90/58 03/24/20 20:45 120 32 79/40 (53) 03/24/20 20:30 125 32 77/58 (64) 03/24/20 20:15 120 32 74/46 (55) 03/24/20 20:00 Mechanical Ventilator 100.0 03/24/20 20:00 72/46 03/24/20 20:00 74/46 03/24/20 20:00 98.6 122 33 78/42 (54) 03/24/20 20:00 111 03/24/20 20:00 100.0 03/24/20 19:50 82/45 03/24/20 19:45 120 34 84/50 (61) 03/24/20 19:41 111 37 100 03/24/20 19:30 120 34 86/51 (63) 03/24/20 19:15 119 35 79/44 (56) 03/24/20 19:00 119 18 86/51 (63) 03/24/20 18:45 119 18 80/50 (60) 03/24/20 18:30 111 18 73/39 (50) 03/24/20 18:15 109 18 57/29 (38) 03/24/20 17:45 96 18 66/51 (56) 03/24/20 17:30 103 48/24 (32) 03/24/20 17:15 103 18 56/36 (43) 03/24/20 17:06 106 18 100 03/24/20 17:00 105 18 43/26 (32) 03/24/20 16:30 110 18 54/39 (44) 03/24/20 16:15 107 18 56/36 (43) 03/24/20 16:00 100 18 43/19 (27) 03/24/20 16:00 105 03/24/20 16:00 Mechanical Ventilator 100.0 03/24/20 15:45 100 20 90/36 (54) 03/24/20 15:30 106 18 93 Mechanical Ventilator 100 03/24/20 15:30 139 26 148/100 (116) 03/24/20 14:58 83 23 95 100 03/24/20 13:52 86 25 97/58 89 03/24/20 13:22 146 28 115/72 79 03/24/20 13:19 139 24 78 100 03/24/20 12:00 98.9 96 21 115/72 (86) 98 03/24/20 12:00 80 03/24/20 12:00 Bi-pap 90.0 03/24/20 11:49 95 03/24/20 11:05 91 15 97 80 Intake and Output 03/24/20 03/25/20 19:00 07:00 Intake Total 882.000 ml 2316.43 ml Output Total 0 ml 570 ml Balance 882.000 ml 1746.43 ml Intake IV Total 882.000 ml 2316.43 ml Output Urine Total 0 ml Chest Tube Drainage Total 570 ml # Voids 13 # Bowel Movements 2 Laboratory Tests 03/24/20 10:30: Arterial Blood pH 7.379, Arterial Blood Partial Pressure CO2 44.4, Arterial Blood Partial Pressure O2 88.3, Arterial Blood HCO3 25.6, Arterial Blood Oxygen Saturation 95.5, Arterial Blood Base Excess 0.4, Ken Test Positive 03/24/20 11:28: POC Whole Blood Glucose [Pending] 03/24/20 13:40: Arterial Blood pH 7.101*L, Arterial Blood Partial Pressure CO2 53.1H, Arterial Blood Partial Pressure O2 55.6L, Arterial Blood HCO3 16.2*L, Arterial Blood Oxygen Saturation 73.5*L, Arterial Blood Base Excess -13.1*L, Ken Test Positive 03/24/20 19:43: POC Whole Blood Glucose 211H 03/24/20 21:09: Arterial Blood pH 6.953*L, Arterial Blood Partial Pressure CO2 41.2, Arterial Blood Partial Pressure O2 57.9L, Arterial Blood HCO3 8.9*L, Arterial Blood Oxygen Saturation 75.1*L, Arterial Blood Base Excess -21.9*L, Ken Test Positive 03/25/20 00:11: POC Whole Blood Glucose 270H 03/25/20 03:10: White Blood Count 25.9#*H, Red Blood Count 2.57L, Hemoglobin 8.3L, Hematocrit 27.4L, Mean Corpuscular Volume 107#H, Mean Corpuscular Hemoglobin 32.2H, Mean Corpuscular Hemoglobin Concent 30.1L, Red Cell Distribution Width 19.2H, Platelet Count 45L, Mean Platelet Volume 11.8H, Neutrophils (%) (Auto) , Lymphocytes (%) (Auto) , Monocytes (%) (Auto) , Eosinophils (%) (Auto) , Basophils (%) (Auto) , Neutrophils % (Manual) [Pending], Lymphocytes % (Manual) [Pending], Platelet Estimate [Pending], Platelet Morphology [Pending], Erythrocyte Sedimentation Rate 16, Prothrombin Time 22.8H, Prothromb Time International Ratio 2.2H, Activated Partial Thromboplast Time 97H, Sodium Level 142, Potassium Level 4.9#, Chloride Level 102, Carbon Dioxide Level 11L, Anion Gap 29H, Blood Urea Nitrogen 88H, Creatinine 4.0H, Estimat Glomerular Filtration Rate 14.9, Glucose Level 413H, Lactic Acid Level 18.40H, Calcium Level 8.5, Total Bilirubin 2.0H, Direct Bilirubin 0.7H, Aspartate Amino Transf (AST/SGOT) 2199H, Alanine Aminotransferase (ALT/SGPT) 617H, Alkaline Phosphatase 339H, C- Reactive Protein, Quantitative 8.2H, Total Protein 4.4L, Albumin 1.2L, Globulin 3.2, Albumin/Globulin Ratio 0.4L, Amylase Level 464H, Lipase 1045H 03/25/20 05:37: POC Whole Blood Glucose [Pending] 03/25/20 07:20: Arterial Blood pH 6.739*L, Arterial Blood Partial Pressure CO2 73.2*H, Arterial Blood Partial Pressure O2 48.8*L, Arterial Blood HCO3 9.7*L, Arterial Blood Oxygen Saturation 59.5*L, Arterial Blood Base Excess -24.2*L, Ken Test Positive 03/25/20 07:36: POC Whole Blood Glucose 458H 03/25/20 09:06: POC Whole Blood Glucose 449H Height (Feet): 5 Height (Inches): 4.00 Weight (Pounds): 154 Objective General Appearance: WD/WN, intubated. on cooling blanket Neck: supple Cardiovascular: regular rhythm Respiratory/Chest: lungs clear Abdomen: normal bowel sounds, non tender, soft, no organomegaly Edema: no edema noted Leg (L), no edema noted Leg (R) Neurologic: unresponsive Assessment/Plan Problem List: (1) Altered level of consciousness ICD Codes: R40.4 - Transient alteration of awareness SNOMED: 0260731 (2) Pneumonia due to COVID-19 virus ICD Codes: U07.1 - COVID-19; J12.89 - Other viral pneumonia SNOMED: 236900978668908228 (3) Renal failure ICD Codes: N19 - Unspecified kidney failure SNOMED: 68845298 (4) Respiratory distress ICD Codes: R06.03 - Acute respiratory distress SNOMED: 183793910 Status: stable, not improved Assessment/Plan: vent support resp rx and suctioning tpn pressors iv abx follow up cultures dvt/stress ulcer prophylaxis turn q2 critical grim prognosis Doug Garcia MD Mar 25, 2020 09:15
[2020-03-25] MEDS ORDERED: Tubing IV Blood Pump IV ONE (09:20)
[2020-03-25] MEDS ORDERED: Sterile Water Irrig 1000ml IRRIG ONE (09:20)
[2020-03-25] MEDS ORDERED: NS 275ml ONE ×2 (09:20)
[2020-03-25] MEDS ORDERED: Sodium Bicarbonate 8.4% 50ml Inj ONE (09:20)
[2020-03-25] MEDS ORDERED: Calcium Chloride 10% 10ml carpuject IVP ONE (09:20)
--- NOTE | 2020-03-25 09:25 | NUR ---
NURSE NOTES: Pt went bradycardic to the 20's, initially still maintaining a pulse but quickly lost it. PEA seen on lead pourer. CPR started immediately and code blue called @ 0903. Despite multiple rounds of CPR and ACLS drugs given, as lead by ER MD, Pt remained Asystolic. Pt pronounced @ 0921 by ER .
--- NOTE | 2020-03-25 09:29 | Emergency Room Report ---
Physical Exam Vital Signs Date Time Temp Pulse Resp B/P (MAP) Pulse Ox O2 Delivery O2 Flow Rate FiO2 03/21/20 07:30 79 12 100 80 03/21/20 08:00 97.9 112/58 (76) 03/21/20 08:00 Bi-pap 90.0 Medical Decision Making Diagnostic Impression: Primary Impression: Acute respiratory distress syndrome (ARDS) due to 2019-nCoV Additional Impressions: COVID-19 Tension pneumothorax Cardiogenic shock Septic shock Acute hypoxemic respiratory failure Renal failure Thrombocytopenia Pneumothorax, left Pneumothorax, right Hypokalemia ER Course Called to patient bedside for CODE BLUE. Patient intubated for ARDS secondary to COVID-19 with bilateral chest tubes for bilateral pneumothorax. Coded multiple times previously. Initial rhythms noted to be asystole. Patient given epinephrine and bicarb per ACLS precautions with high-quality CPR on my arrival. Patient also given calcium given history of dialysis. Last potassium was within normal limits. Yesterday's chest x-ray showed stable position of chest tubes. Concern for persistent pneumothorax bilateral needle decompression was performed at second intercostal spaces with positive air return on the left side, no air return on the right. Unable to obtain ROSC after further rounds of CPR. Patient present pronounced at 0921. Admitting team notified. Last Vital Signs Date Time Temp Pulse Resp B/P (MAP) Pulse Ox O2 Delivery O2 Flow Rate FiO2 03/25/20 08:54 40/19 03/25/20 08:15 53 18 11 03/25/20 08:00 95.9 03/25/20 08:00 100 03/25/20 08:00 Mechanical Ventilator 03/25/20 00:00 100.0 Disposition: Condition: Referrals: Ebenezer Go MD (PCP) Procedures Additional Procedure Procedure Narrative Needle decompression. Identified second intercostal space bilaterally. Chlorhexidine used for sterilization. 1-gauge Angiocaths inserted superior to the second rib bilaterally. Positive air return on the left side. No air return on the right side. Bruno Ospina MD Mar 25, 2020 09:29
--- NOTE | 2020-03-25 09:32 | Diagnostic Imaging Report ---
Indication: Short of breath Technique: One view of the chest Comparison: 03/24/2020 Findings: Bilateral chest tubes remain. No definite pneumothorax is visible on the left. There is increasing pneumothorax medially on the right, estimated 50% despite apparent adequate chest tube position. Previously demonstrated pneumomediastinum has resolved, previously demonstrated subcutaneous emphysema has markedly improved. There is satisfactory position of endotracheal tube. Tunnel dialysis catheter has a kink.. There is apparent worsening of infiltrate on the left. Infiltrate on the right has probably worsened as well, although this is difficult to assess due to the decrease in the lung volume Impression: Persistent and increased right pneumothorax, despite apparent adequate chest tube position. No left pneumothorax Stable tube and line positions as described Worsening bilateral infiltrates Improving and largely resolved pneumomediastinum. Improving subcutaneous emphysema
--- NOTE | 2020-03-25 09:50 | Cardiology Progress Note ---
Subjective DATE OF SERVICE: Jan 23, 2021 s/p code blue arrest. Now intubated and mechanically ventilated with bilateral chest tubes. HD catheter was placed Tenous hemodynamics - on pressors. Venous duplex: partially obstructing right common femoral DVT Objective Last 24 Hour Vital Signs Date Time Temp Pulse Resp B/P (MAP) Pulse Ox O2 Delivery O2 Flow Rate FiO2 03/25/20 08:54 40/19 03/25/20 08:20 57/31 03/25/20 08:15 53 18 57/31 (40) 11 03/25/20 08:00 95.9 62 18 69/35 (46) 25 03/25/20 08:00 63/27 03/25/20 08:00 63/27 03/25/20 08:00 100 03/25/20 08:00 Mechanical Ventilator 03/25/20 07:45 74 18 78/41 (53) 41 03/25/20 07:30 73 20 80/41 (54) 58 03/25/20 07:24 81 20 100 03/25/20 07:00 89/46 03/25/20 07:00 88/40 03/25/20 06:30 92.0 84 20 93/46 (62) 86 03/25/20 06:15 87 22 92/53 (66) 91 03/25/20 06:00 88 20 82/46 (58) 90 03/25/20 06:00 93/46 03/25/20 06:00 92/53 03/25/20 06:00 88/46 03/25/20 06:00 93/46 03/25/20 05:57 90 20 79/44 (56) 91 03/25/20 05:45 86 21 71/41 (51) 88 03/25/20 05:30 82 17 77/42 (54) 86 03/25/20 05:15 98 18 80/46 (57) 82 03/25/20 05:00 93 18 82/48 (59) 100 03/25/20 05:00 88/49 03/25/20 05:00 88/40 03/25/20 05:00 76/50 03/25/20 04:45 91 18 78/43 (55) 100 03/25/20 04:30 95 18 77/47 (57) 100 03/25/20 04:15 99 18 79/46 (57) 99 03/25/20 04:00 99 18 80/49 (59) 98 03/25/20 04:00 99 03/25/20 04:00 79/41 03/25/20 04:00 100 03/25/20 03:45 106 18 86/48 (61) 98 03/25/20 03:30 106 18 86/51 (63) 97 03/25/20 03:26 108 18 100 03/25/20 03:15 106 18 85/51 (62) 96 03/25/20 03:00 108 18 85/48 (60) 99 03/25/20 03:00 81/40 03/25/20 03:00 85/51 03/25/20 02:39 81/46 03/25/20 02:30 109 19 86/48 (61) 98 03/25/20 02:15 110 18 81/51 (61) 98 03/25/20 02:00 81/88 03/25/20 02:00 109 18 89/50 (63) 99 03/25/20 01:46 79/57 03/25/20 01:45 113 18 91/50 (64) 98 03/25/20 01:30 110 18 89/50 (63) 99 03/25/20 01:15 112 17 84/51 (62) 99 03/25/20 01:00 89/50 03/25/20 01:00 81/50 03/25/20 01:00 112 18 91/51 (64) 98 03/25/20 00:45 113 18 87/55 (66) 03/25/20 00:30 112 19 89/55 (66) 97 03/25/20 00:15 111 18 89/55 (66) 100 03/25/20 00:00 100.0 03/25/20 00:00 113 03/25/20 00:00 Mechanical Ventilator 100.0 03/25/20 00:00 97.2 112 18 90/53 (65) 03/25/20 00:00 90/58 03/25/20 00:00 91/59 03/24/20 23:45 112 19 93/49 (64) 99 03/24/20 23:30 113 18 91/55 (67) 100 03/24/20 23:25 107 18 100 03/24/20 23:15 107 18 82/49 (60) 03/24/20 23:00 78/67 03/24/20 23:00 82/56 03/24/20 23:00 107 18 78/49 (59) 03/24/20 22:45 110 19 79/50 (60) 03/24/20 22:30 114 18 92/61 (71) 03/24/20 22:15 127 19 78/57 (64) 03/24/20 22:00 122 30 89/52 (64) 03/24/20 22:00 74/46 03/24/20 22:00 78/57 03/24/20 21:45 116 32 90/54 (66) 03/24/20 21:30 118 31 83/55 (64) 03/24/20 21:15 116 31 82/50 (61) 03/24/20 21:00 118 31 69/49 (56) 03/24/20 21:00 80/38 03/24/20 21:00 90/58 03/24/20 20:45 120 32 79/40 (53) 03/24/20 20:30 125 32 77/58 (64) 03/24/20 20:15 120 32 74/46 (55) 03/24/20 20:00 Mechanical Ventilator 100.0 03/24/20 20:00 72/46 03/24/20 20:00 74/46 03/24/20 20:00 98.6 122 33 78/42 (54) 03/24/20 20:00 111 03/24/20 20:00 100.0 03/24/20 19:50 82/45 03/24/20 19:45 120 34 84/50 (61) 03/24/20 19:41 111 37 100 03/24/20 19:30 120 34 86/51 (63) 03/24/20 19:15 119 35 79/44 (56) 03/24/20 19:00 119 18 86/51 (63) 03/24/20 18:45 119 18 80/50 (60) 03/24/20 18:30 111 18 73/39 (50) 03/24/20 18:15 109 18 57/29 (38) 03/24/20 17:45 96 18 66/51 (56) 03/24/20 17:30 103 48/24 (32) 03/24/20 17:15 103 18 56/36 (43) 03/24/20 17:06 106 18 100 03/24/20 17:00 105 18 43/26 (32) 03/24/20 16:30 110 18 54/39 (44) 03/24/20 16:15 107 18 56/36 (43) 03/24/20 16:00 100 18 43/19 (27) 03/24/20 16:00 105 03/24/20 16:00 Mechanical Ventilator 100.0 03/24/20 15:45 100 20 90/36 (54) 03/24/20 15:30 106 18 93 Mechanical Ventilator 100 03/24/20 15:30 139 26 148/100 (116) 03/24/20 14:58 83 23 95 100 03/24/20 13:52 86 25 97/58 89 03/24/20 13:22 146 28 115/72 79 03/24/20 13:19 139 24 78 100 03/24/20 12:00 98.9 96 21 115/72 (86) 98 03/24/20 12:00 80 03/24/20 12:00 Bi-pap 90.0 03/24/20 11:49 95 03/24/20 11:05 91 15 97 80 ROS: unchanged from 03/18/20 HEENT: other - bipap RHYTHM: NSR, PACs LUNGS: bilat. rhonchi and rales CARDIAC: normal rate, regular rhythm, normal S1 and S2 ABDOMEN: normal bowel sounds, non tender EXTREMITIES: trace edema Laboratory Tests Test 03/24/20 10:30 03/24/20 11:28 03/24/20 13:40 03/24/20 19:43 Arterial Blood pH 7.379 (7.350-7.450) 7.101 (7.350-7.450) Arterial Blood Partial Pressure CO2 44.4 mmHg (35.0-45.0) 53.1 mmHg (35.0-45.0) H Arterial Blood Partial Pressure O2 88.3 mmHg (75.0-100.0) 55.6 mmHg (75.0-100.0) L Arterial Blood HCO3 25.6 mmol/L (22.0-26.0) 16.2 mmol/L (22.0-26.0) *L Arterial Blood Oxygen Saturation 95.5 % (95-100) 73.5 % (95-100) *L Arterial Blood Base Excess 0.4 (-2-2) -13.1 (-2-2) *L Ken Test Positive Positive POC Whole Blood Glucose Pending 211 MG/DL (74-106) H Test 03/24/20 21:09 03/25/20 00:11 03/25/20 03:10 03/25/20 05:37 Arterial Blood pH 6.953 (7.350-7.450) Arterial Blood Partial Pressure CO2 41.2 mmHg (35.0-45.0) Arterial Blood Partial Pressure O2 57.9 mmHg (75.0-100.0) L Arterial Blood HCO3 8.9 mmol/L (22.0-26.0) *L Arterial Blood Oxygen Saturation 75.1 % (95-100) *L Arterial Blood Base Excess -21.9 (-2-2) *L Ken Test Positive POC Whole Blood Glucose 270 MG/DL (74-106) H Pending White Blood Count 25.9 K/UL (4.8-10.8) #*H Red Blood Count 2.57 M/UL (4.70-6.10) L Hemoglobin 8.3 G/DL (14.2-18.0) L Hematocrit 27.4 % (42.0-52.0) L Mean Corpuscular Volume 107 FL (80-99) #H Mean Corpuscular Hemoglobin 32.2 PG (27.0-31.0) H Mean Corpuscular Hemoglobin Concent 30.1 G/DL (32.0-36.0) L Red Cell Distribution Width 19.2 % (11.6-14.8) H Platelet Count 45 K/UL (150-450) L Mean Platelet Volume 11.8 FL (6.5-10.1) H Neutrophils (%) (Auto) % (45.0-75.0) Lymphocytes (%) (Auto) % (20.0-45.0) Monocytes (%) (Auto) % (1.0-10.0) Eosinophils (%) (Auto) % (0.0-3.0) Basophils (%) (Auto) % (0.0-2.0) Neutrophils % (Manual) Pending Lymphocytes % (Manual) Pending Platelet Estimate Pending Platelet Morphology Pending Erythrocyte Sedimentation Rate 16 MM/HR (0-20) Prothrombin Time 22.8 SEC (9.30-11.50) H Prothromb Time International Ratio 2.2 (0.9-1.1) H Activated Partial Thromboplast Time 97 SEC (23-33) H Sodium Level 142 MMOL/L (136-145) Potassium Level 4.9 MMOL/L (3.5-5.1) # Chloride Level 102 MMOL/L (98-107) Carbon Dioxide Level 11 MMOL/L (21-32) L Anion Gap 29 mmol/L (5-15) H Blood Urea Nitrogen 88 mg/dL (7-18) H Creatinine 4.0 MG/DL (0.55-1.30) H Estimat Glomerular Filtration Rate 14.9 mL/min (>60) Glucose Level 413 MG/DL (74-106) H Lactic Acid Level 18.40 mmol/L (0.4-2.0) H Calcium Level 8.5 MG/DL (8.5-10.1) Total Bilirubin 2.0 MG/DL (0.2-1.0) H Direct Bilirubin 0.7 MG/DL (0.0-0.3) H Aspartate Amino Transf (AST/SGOT) 2199 U/L (15-37) H Alanine Aminotransferase (ALT/SGPT) 617 U/L (12-78) H Alkaline Phosphatase 339 U/L (46-116) H C-Reactive Protein, Quantitative 8.2 mg/dL (0.00-0.90) H Total Protein 4.4 G/DL (6.4-8.2) L Albumin 1.2 G/DL (3.4-5.0) L Globulin 3.2 g/dL Albumin/Globulin Ratio 0.4 (1.0-2.7) L Amylase Level 464 U/L (25-115) H Lipase 1045 U/L (73-393) H Test 03/25/20 07:20 03/25/20 07:36 03/25/20 09:06 Arterial Blood pH 6.739 (7.350-7.450) Arterial Blood Partial Pressure CO2 73.2 mmHg (35.0-45.0) *H Arterial Blood Partial Pressure O2 48.8 mmHg (75.0-100.0) Arterial Blood HCO3 9.7 mmol/L (22.0-26.0) *L Arterial Blood Oxygen Saturation 59.5 % (95-100) *L Arterial Blood Base Excess -24.2 (-2-2) *L Ken Test Positive POC Whole Blood Glucose 458 MG/DL (74-106) H 449 MG/DL (74-106) H Assessment/Plan Assessment/Plan S/p code blue arrest Respiratory failure Bilateral chest tubes Shock Non-occlusive DVT Paroxysmal Atrial Fibrillation Acute coronary insuff Covid 19 PNA Acute hypoxic respiratory failure Anemia Ac/chronic diastolic CHF Ac/chronic renal failure on hemodialysis Thrombocytopenia improved over past day Dysphagia Exogenous hyperkalemia Critical and Grave Lovenox continued with caution; watch plt ct. Vent support Pressor therapy Steroids per pulmonary IVF adjustments based on clinical findings and lab results. Cristopher Ingram MD Mar 25, 2020 09:50
--- NOTE | 2020-03-25 10:00 | NUR ---
NURSE NOTES: Dr Go made aware that pt . Pt had no family to notify. Kad[facility] Conv. made aware.
--- NOTE | 2020-03-25 10:24 | NUR ---
NURSE NOTES: [facility] notified, Spoke to Indira, @ [phone], Ref # [id number]- pt not a candidate. [facility] notified @ [phone]- pt is not a coroners case.
--- NOTE | 2020-03-25 11:39 | NUR ---
NURSE NOTES: Post Mortem care done. Will call security to bring body down to the morgue.
--- NOTE | 2020-03-25 14:00 | NUR ---
NURSE NOTES: Body taken down to the morgue. Pt had no belongings.
--- NOTE | 2020-03-25 17:14 | Pulmonology Progress Note ---
Subjective ROS Limited/Unobtainable: Yes Constitutional: Denies: fever Allergies: Coded Allergies: No Known Allergies (Unverified , 02/04/20) All Systems: reviewed and negative except above Subjective care noted hypotensive and bradycardic when seen placed on vent moved to ICU SEEN EARLIER Objective Last 24 Hour Vital Signs Date Time Temp Pulse Resp B/P (MAP) Pulse Ox O2 Delivery O2 Flow Rate FiO2 03/25/20 09:20 0 03/25/20 09:15 100 24 168/30 (76) 25 03/25/20 09:00 40/19 03/25/20 09:00 40/19 03/25/20 08:54 40/19 03/25/20 08:45 35 18 40/19 (26) 03/25/20 08:30 48 18 53/25 (34) 16 03/25/20 08:20 57/31 03/25/20 08:15 53 18 57/31 (40) 11 03/25/20 08:00 62 03/25/20 08:00 95.9 62 18 69/35 (46) 25 03/25/20 08:00 63/27 03/25/20 08:00 63/27 03/25/20 08:00 100 03/25/20 08:00 Mechanical Ventilator 03/25/20 07:45 74 18 78/41 (53) 41 03/25/20 07:30 73 20 80/41 (54) 58 03/25/20 07:24 81 20 100 03/25/20 07:00 89/46 03/25/20 07:00 88/40 03/25/20 06:30 92.0 84 20 93/46 (62) 86 03/25/20 06:15 87 22 92/53 (66) 91 03/25/20 06:00 88 20 82/46 (58) 90 03/25/20 06:00 93/46 03/25/20 06:00 92/53 03/25/20 06:00 88/46 03/25/20 06:00 93/46 03/25/20 05:57 90 20 79/44 (56) 91 03/25/20 05:45 86 21 71/41 (51) 88 03/25/20 05:30 82 17 77/42 (54) 86 03/25/20 05:15 98 18 80/46 (57) 82 03/25/20 05:00 93 18 82/48 (59) 100 03/25/20 05:00 88/49 03/25/20 05:00 88/40 03/25/20 05:00 76/50 03/25/20 04:45 91 18 78/43 (55) 100 03/25/20 04:30 95 18 77/47 (57) 100 03/25/20 04:15 99 18 79/46 (57) 99 03/25/20 04:00 99 18 80/49 (59) 98 03/25/20 04:00 99 03/25/20 04:00 79/41 03/25/20 04:00 100 03/25/20 03:45 106 18 86/48 (61) 98 03/25/20 03:30 106 18 86/51 (63) 97 03/25/20 03:26 108 18 100 03/25/20 03:15 106 18 85/51 (62) 96 03/25/20 03:00 108 18 85/48 (60) 99 03/25/20 03:00 81/40 03/25/20 03:00 85/51 03/25/20 02:39 81/46 03/25/20 02:30 109 19 86/48 (61) 98 03/25/20 02:15 110 18 81/51 (61) 98 03/25/20 02:00 81/88 03/25/20 02:00 109 18 89/50 (63) 99 03/25/20 01:46 79/57 03/25/20 01:45 113 18 91/50 (64) 98 03/25/20 01:30 110 18 89/50 (63) 99 03/25/20 01:15 112 17 84/51 (62) 99 03/25/20 01:00 89/50 03/25/20 01:00 81/50 03/25/20 01:00 112 18 91/51 (64) 98 03/25/20 00:45 113 18 87/55 (66) 03/25/20 00:30 112 19 89/55 (66) 97 03/25/20 00:15 111 18 89/55 (66) 100 03/25/20 00:00 100.0 03/25/20 00:00 113 03/25/20 00:00 Mechanical Ventilator 100.0 03/25/20 00:00 97.2 112 18 90/53 (65) 03/25/20 00:00 90/58 03/25/20 00:00 91/59 03/24/20 23:45 112 19 93/49 (64) 99 03/24/20 23:30 113 18 91/55 (67) 100 03/24/20 23:25 107 18 100 03/24/20 23:15 107 18 82/49 (60) 03/24/20 23:00 78/67 03/24/20 23:00 82/56 03/24/20 23:00 107 18 78/49 (59) 03/24/20 22:45 110 19 79/50 (60) 03/24/20 22:30 114 18 92/61 (71) 03/24/20 22:15 127 19 78/57 (64) 03/24/20 22:00 122 30 89/52 (64) 03/24/20 22:00 74/46 03/24/20 22:00 78/57 03/24/20 21:45 116 32 90/54 (66) 03/24/20 21:30 118 31 83/55 (64) 03/24/20 21:15 116 31 82/50 (61) 03/24/20 21:00 118 31 69/49 (56) 03/24/20 21:00 80/38 03/24/20 21:00 90/58 03/24/20 20:45 120 32 79/40 (53) 03/24/20 20:30 125 32 77/58 (64) 03/24/20 20:15 120 32 74/46 (55) 03/24/20 20:00 Mechanical Ventilator 100.0 03/24/20 20:00 72/46 03/24/20 20:00 74/46 03/24/20 20:00 98.6 122 33 78/42 (54) 03/24/20 20:00 111 03/24/20 20:00 100.0 03/24/20 19:50 82/45 03/24/20 19:45 120 34 84/50 (61) 03/24/20 19:41 111 37 100 03/24/20 19:30 120 34 86/51 (63) 03/24/20 19:15 119 35 79/44 (56) 03/24/20 19:00 119 18 86/51 (63) 03/24/20 18:45 119 18 80/50 (60) 03/24/20 18:30 111 18 73/39 (50) 03/24/20 18:15 109 18 57/29 (38) 03/24/20 17:45 96 18 66/51 (56) 03/24/20 17:30 103 48/24 (32) 03/24/20 17:15 103 18 56/36 (43) Intake and Output 03/24/20 03/25/20 19:00 07:00 Intake Total 882.000 ml 2316.43 ml Output Total 0 ml 570 ml Balance 882.000 ml 1746.43 ml Intake IV Total 882.000 ml 2316.43 ml Output Urine Total 0 ml Chest Tube Drainage Total 570 ml # Voids 13 # Bowel Movements 2 Objective deferred due to COVID Laboratory Tests 03/24/20 19:43: POC Whole Blood Glucose 211H 03/24/20 21:09: Arterial Blood pH 6.953*L, Arterial Blood Partial Pressure CO2 41.2, Arterial Blood Partial Pressure O2 57.9L, Arterial Blood HCO3 8.9*L, Arterial Blood Oxygen Saturation 75.1*L, Arterial Blood Base Excess -21.9*L, Ken Test Positive 03/25/20 00:11: POC Whole Blood Glucose 270H 03/25/20 03:10: White Blood Count 25.9#*H, Red Blood Count 2.57L, Hemoglobin 8.3L, Hematocrit 27.4L, Mean Corpuscular Volume 107#H, Mean Corpuscular Hemoglobin 32.2H, Mean Corpuscular Hemoglobin Concent 30.1L, Red Cell Distribution Width 19.2H, Platel et Count 45L, Mean Platelet Volume 11.8H, Neutrophils (%) (Auto) , Lymphocytes (%) (Auto) , Monocytes (%) (Auto) , Eosinophils (%) (Auto) , Basophils (%) (Auto) , Differential Total Cells Counted 100, Neutrophils % (Manual) 85H, Lymphocytes % (Manual) 2L, Monocytes % (Manual) 2, Eosinophils % (Manual) 0, Basophils % (Manual) 0, Band Neutrophils 11H, Nucleated Red Blood Cells 1, Platelet Estimate DecreasedL, Platelet Morphology , Giant Platelets Occasional, Hypochromasia 1+, Anisocytosis 2+, Macrocytosis 1+, Erythrocyte Sedimentation Rate 16, Prothrombin Time 22.8H, Prothromb Time International Ratio 2.2H, Activated Partial Thromboplast Time 97H, Sodium Level 142, Potassium Level 4.9#, Chloride Level 102, Carbon Dioxide Level 11L, Anion Gap 29H, Blood Urea Nitrogen 88H, Creatinine 4.0H, Estimat Glomerular Filtration Rate 14.9, Glucose Level 413H, Lactic Acid Level 18.40H, Calcium Level 8.5, Total Bilirubin 2.0H, Direct Bilirubin 0.7H, Aspartate Amino Transf (AST/SGOT) 2199H, Alanine Aminotransferase (ALT/SGPT) 617H, Alkaline Phosphatase 339H, C-Reactive Protein, Quantitative 8.2H, Total Protein 4.4L, Albumin 1.2L, Globulin 3.2, Albumin/Globulin Ratio 0.4L, Amylase Level 464H, Lipase 1045H 03/25/20 05:37: POC Whole Blood Glucose [Pending] 03/25/20 07:20: Arterial Blood pH 6.739*L, Arterial Blood Partial Pressure CO2 73.2*H, Arterial Blood Partial Pressure O2 48.8*L, Arterial Blood HCO3 9.7*L, Arterial Blood Oxygen Saturation 59.5*L, Arterial Blood Base Excess -24.2*L, Ken Test Positive 03/25/20 07:36: POC Whole Blood Glucose 458H 03/25/20 09:06: POC Whole Blood Glucose 449H Assessment/Plan Assessment/Plan Impression: Covid Pneumonia/possible sepsis Respiratory failure, acute LA - now on HD Hyperkalemia and now with hypokalemia Pancreatitis Urinary tract infection Hypertension toxic metabolic encephalopathy anemia elevated K DVT septic shock hypotension bradycardia Plan vent support likely needs trach permacath and HD O2 high flow atropine follow up ABG still full code on lovenox 40 bid; prognosis terminal overall no family available medications/laboratory data/nursing notes/ICU care reviewed in detail note reviewed and edited care discussed with RN and RT ICU time spent >40 minutes Ebenezer Go MD Mar 25, 2020 17:14
[2020-03-27] MEDS ORDERED: Solu-MEDROL 40mg Inj IVP SCH (09:00)
--- NOTE | 2020-03-27 11:37 | Discharge Summary ---
Discharge Summary Discharge Summary _ Date of admission: 03/07/2020 Date of expiration: 03/25/2020 History of Present Illness and Brief Hospital Course Mr. Mercedes was a 69-year-old male with past medical history of liver cirrhosis, hypertension, history of alcohol abuse, and renal insufficiency who was sent to ED from SNF for evaluation of shortness of breath. Patient arrived hypoxic, and was subsequently placed on nonrebreather. Patient denied fevers, chills, or chest pain. The rapid COVID-19 test was positive in the ED. Initial chest x-ray revealed bilateral multifocal pneumonia. The initial EKG revealed normal sinus rhythm without ST elevation or peak T waves. Of note, patient was recently admitted to [facility] due to altered level of consciousness. His discharge diagnoses include acute on chronic renal failure, toxic metabolic encephalopathy, urinary tract infection with Citrobacter, anemia, liver cirrhosis, transaminitis, and hypertension. Patient received insulin, dextrose, calcium, remdesivir, ceftriaxone, azithromycin, and dexamethasone in the ED and was admitted to the hospital for further management. For his COVID-19 pneumonia, patient was put in respiratory isolation. He continued to receive supplemental oxygen due to hypoxia. Eventually patient was put on BiPAP due to worsening hypoxia. However, patient was eventually intubated and placed on a ventilator for pulmonary support and was transferred to ICU. Patient also showed evidence of acute renal failure and required hemodialysis. Initial laboratory studies revealed elevated inflammatory markers and s ubsequently patient received 1 dose of heparin. On 03/19/2020, venous duplex ultrasound of lower extremities revealed partially occlusive thrombus within the right common femoral vein. Patient was started on SCDs for DVT prophylaxis measure. Lovenox was discontinued due to reduction in platelet counts. During his admission, his H&H dropped. It was found that his stool occult blood was positive. He received transfusions and his H&H was low but stable in the 8 and 9's. Patient remained on n.p.o. well he was on BiPAP. Towards the later stage of his admission, patient was on TPN for his nutrition. Consultants: [] Final diagnoses [] I have been assigned to dictate discharge summary for this account. I was not involved in the patient's management Adolph Simpson Mar 27, 2020 11:37
--- NOTE | 2020-03-27 12:41 | Discharge Summary ---
Discharge Summary Discharge Summary _ Date of admission: 03/07/2020 Date of expiration: 03/25/2020 History of Present Illness and Brief Hospital Course Mr. Mercedes was a 69-year-old male with past medical history of liver cirrhosis, hypertension, history of alcohol abuse, and renal insufficiency who was sent to ED from SNF for evaluation of shortness of breath. Patient arrived hypoxic, and was subsequently placed on nonrebreather. Patient denied fevers, chills, or chest pain. The rapid COVID-19 test was positive in the ED. Initial chest x-ray revealed bilateral multifocal pneumonia. The initial EKG revealed normal sinus rhythm without ST elevation or peak T waves. Of note, patient was recently admitted to [facility] due to altered level of consciousness. His discharge diagnoses include acute on chronic renal failure, toxic metabolic encephalopathy, urinary tract infection with Citrobacter, anemia, liver cirrhosis, transaminitis, and hypertension. Patient received insulin, dextrose, calcium, remdesivir, ceftriaxone, azithromycin, and dexamethasone in the ED and was admitted to the hospital for further management. For his COVID-19 pneumonia, patient was put in respiratory isolation and was continued on dexamethasone, ceftriaxone, and Zithromax. 1 dose of ivermectin was also given. He continued to receive supplemental oxygen due to hypoxia. Eventually patient was put on BiPAP due to worsening hypoxia. However, patient was eventually intubated and placed on a ventilator for pulmonary support and was transferred to ICU. On 03/24/2020, a large right-sided pneumothorax co mprising greater than 75% of the lung volume was noted on chest x-ray. A chest tube was immediately inserted to the right side. Residual pneumothorax comprised approximately 20% of the lung volume. A repeat chest x-ray on 03/25/2020 revealed persistent and increased right pneumothorax, despite apparent adequate chest tube position. Patient was noted to have acute pancreatitis on admission. LFTs were mildly elevated. He was started on IV fluids and his LFTs were monitored. Patient also showed evidence of acute renal failure and required urgent hemodialysis. Initial laboratory studies revealed elevated inflammatory markers and subsequently patient received 1 dose of heparin. On 03/19/2020, venous duplex ultrasound of lower extremities revealed partially occlusive thrombus within the right common femoral vein. Patient was started on SCDs for DVT prophylaxis measure. Lovenox was discontinued due to reduction in platelet counts. During his admission, his H&H dropped. It was found that his stool occult blood was positive. He received transfusions and his H&H remains low but stable in the 8 and 9's. Patient remained on n.p.o. as he was on BiPAP. Initially, nasogastric tube insertion was considered. However, due to his high risk of bleeding either during or post procedure given the severe thrombocytopenia, any endoscopic gastrotomy tube placement was held off. Towards the later stage of his admission, patient was on TPN for his nutrition. Throughout his hospital course, his prognosis remained critical and grave. On 03/25/2020 patient was unresponsive and hemodynamically unstable. His pupils were fixed and dilated without gag reflex. He was orally intubated with ET tube and was on ventilator support at the time. He was found to be saturating only at 68%. His blood pressure remained low despite use of 3 pressors. Patient went bradycardic to the 20s without palpable pulse. CPR was started immediately and CODE BLUE was called at 0903. Despite multiple rounds of CPR and ACLS drugs given, patient remained asystolic. Patient was unfortunately pronounced at 0921 on 03/25/2020. Cause of : Cardiopulmonary arrest Consultants: Cardiology Dr. Ingram Infectious disease Dr. Aguirre Nephrology Dr. Garcia Surgery Dr. Sifuentes Gastroenterology Dr. Davis Final diagnoses Nonocclusive DVT Paroxysmal atrial fibrillation Acute coronary insufficiency COVID-19 pneumonia Acute hypoxic respiratory failure Acute on chronic diastolic CHF Acute on chronic renal failure on hemodialysis Thrombocytopenia Dysphagia Exogenous hyperkalemia E. coli UTI Pancreatitis Dementia Hypertension Toxic metabolic encephalopathy Anemia Hyperkalemia Septic shock Hypotension Bradycardia Dehydration I have been assigned to dictate discharge summary for this account. I was not involved in the patient's management Adolph Simpson Mar 27, 2020 12:41
[2020-03-29] MEDS ORDERED: Solu-MEDROL 40mg Inj IVP SCH (09:00)
== END 2020-03-25 09:21 | disposition expired | DRG 208 ==
LOC: EDBD 05:16 → EMR 05:40 → 2W 05:59 → EDBEDREQSVC 06:42 → EDBEDREQ 18:26 → ICU 03-24 15:20
PROC: 5A1D70Z Performance of Urinary Filtration, Intermittent, Less than 6 Hours Per Day (ICD-10-PCS; principal; 2020-03-08)
PROC: 06HM33Z Insertion of Infusion Device into Right Femoral Vein, Percutaneous Approach (ICD-10-PCS; principal; 2020-03-08)
PROC: XW033E5 Introduction of Remdesivir Anti-infective into Peripheral Vein, Percutaneous Approach, New Technology Group 5 (ICD-10-PCS; 2020-03-14)
PROC: 0JH63XZ Insertion of Tunneled Vascular Access Device into Chest Subcutaneous Tissue and Fascia, Percutaneous Approach (ICD-10-PCS; 2020-03-21)
PROC: 05HM33Z Insertion of Infusion Device into Right Internal Jugular Vein, Percutaneous Approach (ICD-10-PCS; 2020-03-21)
PROC: B543ZZA Ultrasonography of Right Jugular Veins, Guidance (ICD-10-PCS; 2020-03-21)
PROC: 0W9B30Z Drainage of Left Pleural Cavity with Drainage Device, Percutaneous Approach (ICD-10-PCS; 2020-03-24)
PROC: 06HN33Z Insertion of Infusion Device into Left Femoral Vein, Percutaneous Approach (ICD-10-PCS; 2020-03-24)
PROC: 0BH17EZ Insertion of Endotracheal Airway into Trachea, Via Natural or Artificial Opening (ICD-10-PCS; 2020-03-24)
PROC: 0W9930Z Drainage of Right Pleural Cavity with Drainage Device, Percutaneous Approach (ICD-10-PCS; 2020-03-24)
PROC: 5A1935Z Respiratory Ventilation, Less than 24 Consecutive Hours (ICD-10-PCS; 2020-03-24)
DX: U07.1 COVID-19 (principal); K85.90 Acute pancreatitis without necrosis or infection, unspecified; G92 Toxic encephalopathy; J12.82 Pneumonia due to coronavirus disease 2019; N18.6 End stage renal disease; I50.33 Acute on chronic diastolic (congestive) heart failure; E43 Unspecified severe protein-calorie malnutrition; A41.9 Sepsis, unspecified organism; R65.21 Severe sepsis with septic shock; J93.0 Spontaneous tension pneumothorax; J80 Acute respiratory distress syndrome; N17.9 Acute kidney failure, unspecified; N39.0 Urinary tract infection, site not specified; I13.2 Hypertensive heart and chronic kidney disease with heart failure and with stage 5 chronic kidney disease, or end stage renal disease; I82.411 Acute embolism and thrombosis of right femoral vein; E87.1 Hypo-osmolality and hyponatremia; E87.5 Hyperkalemia; F03.90 Unspecified dementia, unspecified severity, without behavioral disturbance, psychotic disturbance, mood disturbance, and anxiety; D63.1 Anemia in chronic kidney disease; B96.20 Unspecified Escherichia coli [E. coli] as the cause of diseases classified elsewhere; Z99.2 Dependence on renal dialysis; Z78.1 Physical restraint status; I48.0 Paroxysmal atrial fibrillation; D69.6 Thrombocytopenia, unspecified; F09 Unspecified mental disorder due to known physiological condition; K70.30 Alcoholic cirrhosis of liver without ascites; F10.11 Alcohol abuse, in remission; E86.0 Dehydration; Z68.26 Body mass index [BMI] 26.0-26.9, adult; R00.1 Bradycardia, unspecified
CPT/HCPCS: 36415; 36558; 71045; 76000; 76700; 76770; 80048; 80053; 80069; 80076; 81003; 82150; 82248; 82270; 82728; 82803; 82962; 83036; 83540; 83550; 83605; 83615; 83690; 83735; 83880; 84100; 84484; 85007; 85025; 85379; 85384; 85610; 85651; 85730; 86140; 86850; 86900; 86901; 86920; 87040; 87081; 87086; 87181; 87340; 93005; 93306; 93970; 94002; 94003; 96361; 96365; 96367; 96375; 99291; J0171; J1815; J3490; J7030; S5561; U0002